=== PATIENT | female | born 1990 | race Caucasian/White ===

== ENCOUNTER 2020-03-16 10:07 | Outpatient (REF) | payer MEDICAID, SELFPAY ==
--- NOTE | 2020-03-16 | US_ITS ---
EXAMINATION: US ABDOMEN COMPLETE CLINICAL INFORMATION: Nausea with vomiting. COMPARISON: None TECHNIQUE: Real-time imaging of the abdominal viscera. FINDINGS: PANCREAS: Normal. ABDOMINAL AORTA: The proximal, mid, and distal segments are normal in caliber. INFERIOR VENA CAVA: Visualized portions are normal. LIVER: The liver is mildly heterogeneous but normal size and contour. There is scattered echogenic microcalcifications. No focal hepatic lesion. There is no intrahepatic biliary duct dilatation seen. GALLBLADDER: Normal. The gallbladder is physiologically distended without evidence of stones, sludge, polyps, wall thickening or pericholecystic fluid. COMMON BILE DUCT: Normal in caliber measuring 0.2 cm in diameter. RIGHT KIDNEY: Normal. No hydronephrosis. No renal calculi or focal parenchymal lesions. The kidney measures 10.5 cm in maximum dimension. LEFT KIDNEY: Normal. No hydronephrosis. No renal calculi or focal parenchymal lesions. The kidney measures 10.8 cm in maximum dimension. SPLEEN: Normal. The spleen measures 9.1 cm in maximum dimension. FREE FLUID: None. US/US abdomen complete IMPRESSION: Mild heterogeneous liver with scattered microlithiasis. Rest of the liver appears unremarkable.
== END 2020-03-16 10:08 | disposition home or self-care (01) ==
LOC: HO.US 10:07
PROVIDERS: PCP Registered Nurse; Visit Provider Registered Nurse
DX: R10.13 Epigastric pain (principal); R11.2 Nausea with vomiting, unspecified; K21.9 Gastro-esophageal reflux disease without esophagitis; Z87.19 Personal history of other diseases of the digestive system
CPT/HCPCS: 76700

== ENCOUNTER → 2020-03-29 14:18 | Outpatient (BNVA) | payer MEDICAID, SELFPAY | PROVIDERS: PCP Family Medicine; Visit Provider Physician Assistant ==

== ENCOUNTER 2020-03-30 13:28 | Outpatient (REF) | payer MEDICAID, SELFPAY ==
[2020-03-30 13:55] LABS: MANUAL DIFF FLAG NO
[2020-03-30 14:11] LABS: Basophils Percent Auto 0.4 % (0-2); Eosinophils Absolute Auto 0.1 X10*3/uL (0.0-0.4); Eosinophils Percent Auto 1.1 % (0-4); Hematocrit 40.5 % (37-47); Hemoglobin 12.9 g/dl (12.0-16.0); Imm Gran Abs Auto 0.02 X10*3/uL (0.00-0.03); Imm Gran Pct Auto 0.3 % (0.0-0.4); Lymphocytes Absolute Auto 1.5 X10*3/uL (1.2-4.9); Lymphocytes Percent Auto 20.2 % (20-40); Mean Corpuscular HGB Conc 31.9 g/dl (31.0-35.0); Mean Corpuscular Hemoglobin 27.4 pg (27.0-33.0); Mean Platelet Volume 13.8 fL (9.4-12.3); Monocytes Absolute Auto 0.5 X10*3/uL (0.1-1.2); Monocytes Percent Auto 6.1 % (2-11); Neutrophils Absolute Auto 5.3 X10*3/uL (2.0-8.3); Neutrophils Percent Auto 71.9 % (45-73); Platelet Count 163 X10*3/uL (160-400); Red Blood Count 4.71 X10*6/uL (4.20-5.50); White Blood Count 7.4 X10*3/uL (4.8-10.8)
[2020-03-30 15:09] LABS: Alanine Aminotransferase 22 U/L (0-31); Albumin Level 4.3 g/dL (3.5-5.0); Alkaline Phosphatase 82 U/L (39-117); Anion Gap 11 (12-20); Aspartate Amino Transferase 22 U/L (5-31); Bilirubin Total 0.3 mg/dL (0.0-1.0); Blood Urea Nitrogen 15 mg/dL (9-16); Calcium 9.1 mg/dL (8.4-10.2); Carbon Dioxide 28 mmol/L (22-29); Chloride 107 mmol/L (96-108); Estimated Glomerular Filt Rate > 60; Glucose Random 93 mg/dL (60-115); Potassium 4.3 mmol/l (3.3-5.1); Sodium 142 mmol/L (135-145)
[2020-04-03 21:32] LABS: TS Negative Control Passed; TS Panel A 0; TS Panel B 0; TS Positive Control Passed; TSpotTB Negative (SeeBelow)
[2020-04-09 06:18] LABS: Angiotensin Converting Enzyme 25 U/L (9-67)
== END 2020-03-30 13:29 | disposition home or self-care (01) ==
LOC: HO.LAB 13:28
PROVIDERS: PCP Registered Nurse; Visit Provider Physician Assistant
DX: G89.29 Other chronic pain (principal); R10.11 Right upper quadrant pain; R74.01 Elevation of levels of liver transaminase levels
CPT/HCPCS: 36415; 80053; 82164; 85025; 86481; 86682

== ENCOUNTER 2020-04-06 16:59 | Outpatient (REF) | payer MEDICAID, SELFPAY | END 2020-04-06 17:00 | disposition home or self-care (01) | LOC: HO.LAB 16:59 | PROVIDERS: Visit Provider Internal Medicine | DX: Z20.822 Contact with and (suspected) exposure to COVID-19 (principal) | CPT/HCPCS: 36415; C9803; U0003 ==

== ENCOUNTER 2020-04-20 09:29 | Outpatient (REF) | payer MEDICAID, SELFPAY ==
--- NOTE | ~2020-04-20 | MR_ITS ---
EXAMINATION: MR ABDOMEN WITHOUT AND WITH CONTRAST CLINICAL INFORMATION: R93.89 - Abnormal findings on diagnostic imaging of other specified body structures. COMPARISON: Previous abdominal ultrasound 03/16/2020 TECHNIQUE: MR abdomen was performed without and with use of 5 mL intravenous Gadavist contrast. Postcontrast images are performed in multiphase dynamic sequences. Imaging was performed in 3 planes. FINDINGS: LUNG BASES: The visualized lung bases are unremarkable. LIVER, GALLBLADDER, AND BILIARY TREE: The liver is normal in size, smooth in contour, and normal in signal. There are linear branching areas of low signal on T1-weighted sequences and high signal on T2-weighted sequences and do not demonstrate enhancement, for example image 32 and the lateral segment of the left lobe and image 47 in the posterior segment of the right lobe series 101 postcontrast. This is suggestive of mild intrahepatic biliary duct dilatation. No obstructing mass is seen. The extrahepatic bile ducts are normal in caliber. The gallbladder is unremarkable with no evidence of gallbladder wall thickening, or obvious pericholecystic inflammatory changes. PANCREAS: Unremarkable. SPLEEN: Normal. ADRENAL GLANDS: Normal. KIDNEYS AND URETERS: The kidneys are normal in size, shape, and enhance symmetrically. No hydronephrosis. No perinephric stranding. There is a small probable cyst in the upper pole of the right kidney. GASTROINTESTINAL TRACT: No bowel obstruction. No ascites or fluid collection. ABDOMINAL WALL: No significant hernia is appreciated. LYMPH NODES: No lymphadenopathy. VASCULAR: Unremarkable. OSSEOUS STRUCTURES: Marrow signal normal. MR/MR abdomen wo/w con IMPRESSION: Two areas of mild intrahepatic biliary duct dilatation in the lateral segment of the left lobe and posterior segment of the right lobe of the liver. The extrahepatic bile ducts do not appear dilated. No liver lesion is seen. The echogenic foci with reverberation artifact in the liver seen on ultrasound questionable for air versus calcification is difficult to evaluate by MRI. This could be better evaluated by CT scan if clinically indicated. Normal-appearing gallbladder. No gallstone seen. Probable small right renal cyst.
== END 2020-04-20 09:30 | disposition home or self-care (01) ==
LOC: HO.MRI 09:29
PROVIDERS: Visit Provider Physician Assistant
DX: R93.89 Abnormal findings on diagnostic imaging of other specified body structures (principal)
CPT/HCPCS: 74183; A9585

== ENCOUNTER 2020-05-31 09:40 | Outpatient (REF) | payer MEDICAID, SELFPAY ==
--- NOTE | ~2020-05-31 | CT_ITS ---
EXAMINATION: CT ABDOMEN WITHOUT AND WITH CONTRAST CLINICAL INFORMATION: Nausea and vomiting. Question abnormal liver and gallbladder COMPARISON: Previous abdominal ultrasound March 2020 and abdominal MRI April 2020 TECHNIQUE: Contiguous axial thin section helical images of the abdomen were performed before and after the administration of oral contrast and 85 mL of Omnipaque 350 intravenous contrast. The data set was reformatted in the coronal and sagittal planes and reviewed on an independent workstation. This CT examination was performed using dose optimization techniques as appropriate, variously including the following: *Automated exposure control *Adjustment of mA and/or kV according to patient size (this includes techniques or standardized protocols for targeted exams where dose is matched to indication/reason for exam; i.e. extremities or head) *Use of iterative reconstruction technique DLP: 341 mGy-cm FINDINGS: LUNG BASES: Clear LIVER, GALLBLADDER, AND BILIARY TREE: The liver is normal in size, shape and attenuation. There are scattered areas of mild intrahepatic biliary duct dilatation seen in the posterior segment of the right lobe of the liver, for example axial image 11 and 12, lateral segment of the left lobe of the liver, for example image 21-23 and in the more inferior posterior segment of the right lobe of the liver for example images 29-32 series 5. No focal liver lesion is seen. The common bile duct does not appear dilated. The gallbladder is normal-appearing. I PANCREAS: The body and tail the pancreas appear prominent. The body measures 2.3 cm in AP dimension in the tail measures 2.2 cm in dimension. The pancreas enhances normally. No focal pancreatic lesion is seen. The main pancreatic duct does not appear dilated. The peripancreatic fat is normal. SPLEEN: Normal ADRENAL GLANDS AND KIDNEYS: Normal normal BOWEL LOOPS: LYMPH NODES: Normal. VASCULAR: Unremarkable. BONES: Normal CT/CT abdomen wo/w con IMPRESSION: Scattered areas of mild intrahepatic biliary duct dilatation. No extrahepatic biliary duct dilatation. Normal-appearing gallbladder. Prominent body and tail of the pancreas. Possible pancreatitis should be considered.
== END 2020-05-31 09:41 | disposition home or self-care (01) ==
LOC: HO.CT 09:40
PROVIDERS: Visit Provider Physician Assistant
DX: R93.89 Abnormal findings on diagnostic imaging of other specified body structures (principal)
CPT/HCPCS: 74170

== ENCOUNTER → 2020-06-06 08:23 | Outpatient (BNVA) | payer MEDICAID, SELFPAY | PROVIDERS: PCP Family Medicine; Visit Provider Physician Assistant ==

== ENCOUNTER → 2020-06-07 10:38 | Outpatient (BNVA) | payer MEDICAID, SELFPAY | PROVIDERS: PCP Family Medicine; Visit Provider Urology | DX: N39.0 Urinary tract infection, site not specified (principal) | CPT/HCPCS: 81002; 99212 ==

== ENCOUNTER 2020-06-10 14:01 | Outpatient (REF) | payer MEDICAID, SELFPAY ==
--- NOTE | ~2020-06-10 | MR_ITS ---
EXAMINATION: MR ABDOMEN WITHOUT AND WITH CONTRAST CLINICAL INFORMATION: Follow-up abnormal pancreas. COMPARISON: Previous abdominal ultrasound March 2020, MR of the abdomen April [address] of the abdomen May 2020 TECHNIQUE: MR abdomen was performed without and with use of 4.5 mL intravenous Gadavist gadolinium contrast. Postcontrast images are performed in multiphase dynamic sequences. Imaging was performed in 3 planes. MRCP sequences were also performed. FINDINGS: LUNG BASES: The visualized lung bases are unremarkable. LIVER, GALLBLADDER, AND BILIARY TREE: The liver is normal in size, smooth in contour, and normal in signal. There is mild intrahepatic biliary duct dilatation seen in the lateral segment of the left lobe and posterior segment of the right lobe. This is similar to previous exams. No focal liver lesion is seen. The gallbladder is unremarkable with no evidence of gallbladder wall thickening, or obvious pericholecystic inflammatory changes. The extrahepatic bile ducts are normal in caliber. No filling defect is seen. PANCREAS: The body and tail the pancreas appears slightly prominent measuring 2.2 and 2.0 cm in AP dimension. This is similar to recent exams. The pancreas is normal in signal. The pancreas demonstrates normal enhancement post contrast. The peripancreatic fat is normal. The main pancreatic duct does not appear dilated. SPLEEN: Normal. ADRENAL GLANDS: Normal. KIDNEYS AND URETERS: The kidneys are normal in size, shape, and enhance symmetrically. No hydronephrosis. No perinephric stranding. GASTROINTESTINAL TRACT: No bowel obstruction. No ascites or fluid collection. ABDOMINAL WALL: No significant hernia is appreciated. LYMPH NODES: No lymphadenopathy. VASCULAR: Unremarkable. OSSEOUS STRUCTURES: Marrow signal normal. MR/MR abdomen wo/w con IMPRESSION: Stable areas of mild intrahepatic biliary duct dilatation in the liver. Fullness of the body and tail of the pancreas. This is similar to previous exams and demonstrates normal signal and enhancement.
== END 2020-06-10 14:02 | disposition home or self-care (01) ==
LOC: HO.MRI 14:01
PROVIDERS: Visit Provider Physician Assistant
DX: R93.89 Abnormal findings on diagnostic imaging of other specified body structures (principal)
CPT/HCPCS: 74183; A9585

== ENCOUNTER 2020-07-05 09:30 | Outpatient (REF) | payer MEDICAID, SELFPAY ==
[2020-07-07 16:42] LABS: HPV mRNA E6/E7 rflx Not Detected (Not Detected)
== END 2020-07-05 09:31 | disposition home or self-care (01) ==
LOC: HO.LAB 09:30
PROVIDERS: PCP Registered Nurse; Visit Provider Obstetrics & Gynecology
DX: Z01.419 Encounter for gynecological examination (general) (routine) without abnormal findings (principal); Z97.5 Presence of (intrauterine) contraceptive device
CPT/HCPCS: 87624; 88142

== ENCOUNTER 2020-07-13 07:29 | Day surgery (SDC) | payer MEDICAID, SELFPAY ==
--- NOTE | 2020-07-12 10:49 | HO.ANESPROP2 ---
Documented by User: Casandra Green 07/12/20 10:49 HPI - Anesthesia Eval Consult details Narrative: 30yo F for Upper Endoscopy PMF Active Problems Active Problems: All Active Problems (Updated 07/05/20 @ 10:06 by Graham Munguia MD) IUD check up (Acute) Well woman exam (Acute) Abnormal MRI of abdomen (Acute) Recurrent UTI (urinary tract infection) (Acute) Abnormal CT scan (Acute) Abnormal ultrasound (Acute) Chronic abdominal pain (Acute) Past Medical History Medical History Chronic abdominal pain Family History Family History Father Diabetes HTN (hypertension) Heart problem Mother Cancer Diabetes HTN (hypertension) Maternal Grandmother Cancer Surgical History Surgical History History of esophagogastroduodenoscopy (EGD) Social History Social History Household Members: Spouse and Children Alcohol intake: current Alcohol intake frequency: holidays/special occasions only Smoking Status: Never smoker Use of substances other than those prescribed or required for medical reasons: No Are you DNR?: No Advance Directives: No Advance Directives Information Provided: Yes Current occupational status: employed 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 Meds Allergies Allergy/AdvReac Type Severity Reaction Status Date / Time Sulfa (Sulfonamide Allergy Mild EYE Verified 07/13/20 08:01 Antibiotics) SWELLING [SULFA (SULFONAMIDE ANTIBIOTICS)] Home Medications Medication Instructions Recorded Confirmed Last Taken Type copper 380 square mm intrauterine INTRAUTERINE 07/05/20 Unknown History device Exam Exam Date and Time: July 12, 2020 104 Assessment and Plan Assessment Anesthesia Assessment: Chart Reviewed Documented by User: Kelsea Wahl 07/13/20 08:10 PMFSH Past Medical History Medical History Chronic abdominal pain Family History Family History Father Diabetes HTN (hypertension) Heart problem Mother Cancer Diabetes HTN (hypertension) Maternal Grandmother Cancer Surgical History Surgical History History of esophagogastroduodenoscopy (EGD) Social History Social History Household Members: Spouse and Children Alcohol intake: current Alcohol intake frequency: holidays/special occasions only Smoking Status: Never smoker Use of substances other than those prescribed or required for medical reasons: No Are you DNR?: No Advance Directives: No Advance Directives Information Provided: Yes Current occupational status: employed 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 Meds Allergies Allergy/AdvReac Type Severity Reaction Status Date / Time Sulfa (Sulfonamide Allergy Mild EYE Verified 07/13/20 08:01 Antibiotics) SWELLING [SULFA (SULFONAMIDE ANTIBIOTICS)] Home Medications Medication Instructions Recorded Confirmed Last Taken Type copper 380 square mm intrauterine INTRAUTERINE 07/05/20 Unknown History device Exam Airway Mallampati Class: I TM Dist: >3cm Neck ROM: Full Assessment and Plan Assessment Anesthesia Assessment: Anesthesia Plan Discussed and Chart Reviewed Final Anesthetic Review NPO: Yes ASA Class: II Final Preanesthetic Review: No Changes in Pt Med Stat, Meds/Allgs Chart Reviewed, Consent Obtained/Reviewed and Anes Risks/Benef Reviewed Patient Risk: Low Procedure Risk: Low Assessment/Block/Sedation in SS: Assess/Block/Sedation-SS Anesthetic Plan Anesthetic Plan: MAC: Disposition: Standard PACU
[2020-07-13 08:01] VITALS: BP 120/70; PULSE 70; RESP 18; TEMP 36.2; O2SAT 98; BMI 21.7
[2020-07-13 08:02] LABS: UPreg QC Valid YES; Urine Pregnancy NEGATIVE (NEGATIVE)
[2020-07-13] MEDS: Lactated Ringers 1,000 ML 100 ML IVCONT (08:13)
--- NOTE | 2020-07-13 08:44 | MHC.SHP ---
Pre-Procedural Eval Section B Chief Complaint: Chronic Abdominal Pain Relevant Family History (Specify if Yes): No Relevant Social History: None Present Medications: None Medical History: Significant History (abdominal pain ) History of Previous Operations: Relevant previous surgery/procedure and date(s) (History of esophagogastroduodenoscopy (EGD)) Allergies: Allergies Allergy/AdvReac Type Severity Reaction Status Date / Time Sulfa (Sulfonamide Allergy Mild EYE Verified 07/13/20 08:01 Antibiotics) SWELLING [SULFA (SULFONAMIDE ANTIBIOTICS)] Review of Systems Sugical H&P ROS: Negative: Constitution, Cardiovascular, Respiratory, Neurological, Psychiatric, Hem-Onc, Allergic/Immunologic, Gastrointestinal, Genitourinary, Musculoskeletal, Integumentary, Endocrine and Eyes/Ears/Nose/Throat Exam Surgical H&P Exam: Normal: HEENT, Normal: Heart, Normal: Lungs, Normal: Extremities, Normal: Abdomen, Normal: Skin and Normal: Neurological Plan Diagnosis/Plan: Unchanged I have reviewed the history and physical and performed a pertinent physical examination on my patient. No changes have occurred unless specified.
--- NOTE | 2020-07-13 08:52 | P.BOP_ITS ---
Brief Operative Note Date of Service: 07/13/20 Pre-op diagnosis: abdo pain Post-op diagnosis: same Procedure: see op note Surgeon: Genoveva Chamorro MD Anesthesia: MAC Was an Operations Supervisor [employer] Cleaning used for this Procedure?: No Estimated blood loss (mL): 0 Condition: stable Disposition: PACU
--- NOTE | 2020-07-13 08:52 | W.PM.OPN ---
Operative Note Operative Note Date of Service: 07/13/20 Narrative: Procedure Description: EGD FLEXIBLE TRANSORAL UPPER GASTROINTESTINAL ENDOSCOPY UPPER ENDOSCOPY Consent: Indications for the procedure and potential complications of bleeding, perforation, reaction to medications and missed diagnosis were discussed with the patient and informed consent was obtained. Instrument: Olympus GIF H 190 J mid size upper endoscope Monitoring: Vital signs and clinical assessment, continuous EKG monitoring, Pulse oximetry, Carbon Dioxide monitoring and blood pressure monitoring were done throughout the procedure. Procedure: The patient was placed in the left lateral decubitis position and pre-procedure medications were administered and a bite block was placed. The endoscope was inserted into the mouth and advanced under direct vision to the third part of duodenum. A careful inspection was made as the upper endoscope was withdrawn including a retroflexed examination of the proximal stomach; Findings and interventions are described below. Findings: Larynx:normal Esophagus: GE junction at 38 cm, diaphragm hiatus at 38 cm, mild esophagitis at GEJ. bx taken Stomach: Patchy gastric erythema in antrum. Biopsies were obtained. Grade 2 flap valve on retroflexed examination of the cardia. Duodenum: Normal bulb and descending duodenum, bx taken Intervention: Biopsies as noted above Impression/Findings: mild gastritis mild esophagitis PLAN: await bx, f/u in office to review results
[2020-07-13 08:56] VITALS: BP 103/47; PULSE 82; RESP 16; TEMP 36.8; O2SAT 97
[2020-07-13 09:11] VITALS: BP 107/63; PULSE 81; RESP 18; O2SAT 99
[2020-07-13 09:26] VITALS: BP 119/79; PULSE 81; RESP 18; O2SAT 100
== END 2020-07-13 09:56 | disposition home or self-care (01) ==
PROVIDERS: Nurse Practitioner; PCP Registered Nurse; Visit Provider Internal Medicine Gastroenterology
PROC: 0DJ08ZZ Inspection of Upper Intestinal Tract, Via Natural or Artificial Opening Endoscopic (ICD-10-PCS; CPT 43235; principal; 2020-07-13 08:30)
DX: K29.60 Other gastritis without bleeding (principal); G89.29 Other chronic pain; K21.9 Gastro-esophageal reflux disease without esophagitis; K20.80 Other esophagitis without bleeding; K44.9 Diaphragmatic hernia without obstruction or gangrene; Z79.899 Other long term (current) drug therapy; Z88.2 Allergy status to sulfonamides
CPT/HCPCS: 43239; 81025; 88305; 88342

== ENCOUNTER → 2020-10-14 09:17 | Outpatient (BNVA) | payer MEDICAID, SELFPAY | PROVIDERS: PCP Registered Nurse; Referring Provider Registered Nurse; Visit Provider Internal Medicine Gastroenterology | DX: K29.70 Gastritis, unspecified, without bleeding (principal) | CPT/HCPCS: 99212 ==

== ENCOUNTER → 2021-04-10 09:32 | Outpatient (BNVA) | payer MEDICAID, SELFPAY | PROVIDERS: PCP Nurse Practitioner Primary Care; Visit Provider Internal Medicine Gastroenterology | DX: K29.70 Gastritis, unspecified, without bleeding (principal); F41.9 Anxiety disorder, unspecified | CPT/HCPCS: 99212 ==

== ENCOUNTER → 2021-07-06 09:08 | Outpatient (BNVA) | payer MEDICAID, SELFPAY | PROVIDERS: PCP Registered Nurse; Visit Provider Obstetrics & Gynecology | DX: Z13.89 Encounter for screening for other disorder (principal) ==

== ENCOUNTER 2021-07-11 09:37 | Day surgery (SDC) | payer MEDICAID, SELFPAY ==
[2021-07-06 14:31] VITALS: BMI 23.8
--- NOTE | 2021-07-10 12:04 | P.CONAN_ITS ---
Documented by User: Casandra Green NP 07/10/21 12:06 HPI - Anesthesia Eval Consult details Narrative: 31yo F for Colonoscopy s/p EGD 07/2020 with MAC PMF Active Problems Active Problems: All Active Problems (Updated 07/05/20 @ 10:06 by Graham Munguia MD) IUD check up (Acute) Well woman exam (Acute) Abnormal MRI of abdomen (Acute) Recurrent UTI (urinary tract infection) (Acute) Abnormal CT scan (Acute) Abnormal ultrasound (Acute) Chronic abdominal pain (Acute) Past Medical History Medical History Chronic abdominal pain Family History Family History Father Diabetes HTN (hypertension) Heart problem Mother Cancer Diabetes HTN (hypertension) Maternal Grandmother Cancer Surgical History Surgical History History of esophagogastroduodenoscopy (EGD) Social History Social History Household Members: Spouse and Children Alcohol intake: current Alcohol intake frequency: holidays/special occasions only Patient Tobacco Use Status: Never used Tobacco Current occupational status: employed 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 Meds Allergies Allergy/AdvReac Type Severity Reaction Status Date / Time Sulfa (Sulfonamide Allergy Mild EYE Verified 04/10/21 09:44 Antibiotics) SWELLING [SULFA (SULFONAMIDE ANTIBIOTICS)] Home Medications Medication Instructions Recorded Confirmed Last Taken Type copper 380 square mm intrauterine INTRAUTERINE 07/05/20 Unknown History device (ParaGard T 380A) cetirizine 10 mg tablet 10 mg PO DAILY PRN 04/10/21 Unknown History Exam Exam Date and Time: July 10, 2021 1204 Height,Weight and Vital Signs: Height 5 ft 1 in Weight 57.153 kg Assessment and Plan Assessment Anesthesia Assessment: Chart Reviewed Documented by User: Bib Rg MD 07/11/21 16:37 [facility] Past Medical History Medical History Chronic abdominal pain Family History Family History Father Diabetes HTN (hypertension) Heart problem Mother Cancer Diabetes HTN (hypertension) Maternal Grandmother Cancer Family history of problems with anesthesia: No Surgical History Surgical History History of esophagogastroduodenoscopy (EGD) History of Problems with Anesthesia: No Social History Social History Household Members: Spouse and Children Alcohol intake: current Alcohol intake frequency: holidays/special occasions only Patient Tobacco Use Status: Never used Tobacco Current occupational status: employed 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 Meds Allergies Allergy/AdvReac Type Severity Reaction Status Date / Time Sulfa (Sulfonamide Allergy Mild EYE Verified 04/10/21 09:44 Antibiotics) SWELLING [SULFA (SULFONAMIDE ANTIBIOTICS)] Home Medications Medication Instructions Recorded Confirmed Last Taken Type copper 380 square mm intrauterine INTRAUTERINE 07/05/20 Unknown History device (ParaGard T 380A) cetirizine 10 mg tablet 10 mg PO DAILY PRN 04/10/21 Unknown History Exam Airway Mallampati Class: II TM Dist: >3cm Neck ROM: Full Loose/Missing/Broken Teeth: Yes Heart: S1, S2 Lungs: b/l breath sounds Assessment and Plan Assessment Anesthesia Assessment: Anesthesia Plan Discussed Final Anesthetic Review Family History of Problems with Anesthesia: No History of Problems with Anesthesia: No NPO: Yes ASA Class: II Final Preanesthetic Review: Meds/Allgs Chart Reviewed, Consent Obtained/Reviewed and Anes Risks/Benef Reviewed Patient Risk: Intermediate Procedure Risk: Intermediate Anesthetic Plan Anesthetic Plan: MAC: Disposition: Standard PACU
--- NOTE | 2021-07-11 09:49 | P.HPSUR_ITS ---
Pre-Procedural Eval Section A Date of Service: 07/11/21 Section B Chief Complaint: change in bowel habit Details of Present Illness: grandmother had colon cancer Relevant Family History (Specify if Yes): Yes Relevant Social History: None Present Medications: see Short Stay Collaborative assessment Medical History: Significant History (Chronic abdominal pain) History of Previous Operations: Relevant previous surgery/procedure and date(s) (EGD) Allergies: Allergies Allergy/AdvReac Type Severity Reaction Status Date / Time Sulfa (Sulfonamide Allergy Mild EYE Verified 04/10/21 09:44 Antibiotics) SWELLING [SULFA (SULFONAMIDE ANTIBIOTICS)] Review of Systems Sugical H&P ROS: Negative: Constitution, Cardiovascular, Respiratory, Neurological, Psychiatric, Hem-Onc, Allergic/Immunologic, Gastrointestinal, Genitourinary, Musculoskeletal, Integumentary, Endocrine and Eyes/Ears/Nose/Throat Exam Surgical H&P Exam: Normal: HEENT, Normal: Heart, Normal: Lungs, Normal: Extre mities, Normal: Abdomen, Normal: Skin and Normal: Neurological Plan Diagnosis/Plan: Unchanged I have reviewed the history and physical and performed a pertinent physical examination on my patient. No changes have occurred unless specified.
[2021-07-11 10:06] LABS: UPreg QC Valid YES; Urine Pregnancy NEGATIVE (NEGATIVE)
[2021-07-11 10:10] VITALS: BP 127/78; PULSE 101; RESP 18; TEMP 37.1; O2SAT 100
[2021-07-11] MEDS: Lactated Ringers 1,000 ML 100 ML IVCONT (10:24)
--- NOTE | 2021-07-11 10:54 | PM.OP ---
Brief Operative Note Date of Service: 07/11/21 Pre-op diagnosis: abnormal bowel habit Post-op diagnosis: same Procedure: see op note Surgeon: Genoveva Chamorro MD Anesthesia: MAC Was an Vp Director Of Finance used for this Procedure?: No Estimated blood loss (mL): 0 Condition: stable Disposition: PACU
--- NOTE | 2021-07-11 10:55 | P.OP_ITS ---
Operative Note Operative Note Date of Service: 07/11/21 Narrative: Operative Information Procedure Description: Colonoscopy Indication: abnormal bowel habits Anesthesia: MAC COLONOSCOPY Instrument: Olympus variable stiffness pediatric scope 190L Colonoscopy Monitoring: Vital signs and clinical assessment, continuous EKG monitoring, Pulse oximetry, Carbon Dioxide monitoring and blood pressure monitoring were done throughout the procedure. Colon withdrawal time was 9 minutes. Procedure: The patient was placed in the left lateral decubitis position and pre-procedure medications were administered. After a digital rectal examination of the ano-rectum, the video colonoscope was inserted into the rectum and advanced through the colon to the cecum/TI. The colonoscope was slowly withdrawn in a retrograde panoramic fashion and the colon mucosa was carefully examined including a retroflexed view of the rectum. Findings and interventions are described below. Procedure Difficulty: moderate due to tortuous colon Findings: Terminal Ileum-normal, bx taken Random colon bx taken Cecum:normal Ascending Colon: normal Transverse Colon -normal Descending Colon:normal Sigmoid Colon: normal Rectum: Retroflexion with small internal hemorrhoids, grade I with skin tag Anorectum - small external hemorrhoid noted Colon preparation: [place] Bowel Preparation Scale Right colon; 2 Transverse colon: 2 Left colon; 2 (0 = Unprepared colon segment with mucosa not seen due to solid stool that cannot be cleared. 1 = Portion of mucosa of the colon segment seen, but other areas of the colon segment not well seen due to staining, residual stool and/or opaque liquid. 2 = Minor amount of residual staining, small fragments of stool and/or opaque liquid, but mucosa of colon segment seen well. 3 = Entire mucosa of colon segment seen well with no residual staining, small fragments of stool or opaque liquid) Impression and Post Procedure Diagnosis: internal and external hemorrhoids tortuous colon Plan: High fiber diet leaflet Avoid straining at stool, epsom salts and sitz bath, anusol supps or cream Repeat Colonoscopy aged 45 for routine screening or earlier if clinically indicated Above findings were reviewed with the patient and relevant handouts were provided if indicated.
[2021-07-11 10:59] VITALS: BP 88/45; PULSE 101; RESP 16; TEMP 36.1; O2SAT 97
[2021-07-11 11:14] VITALS: BP 95/49; PULSE 96; RESP 16; O2SAT 97
[2021-07-11 11:29] VITALS: BP 105/64; PULSE 93; RESP 18; O2SAT 98
[2021-07-11 11:44] VITALS: BP 115/72; PULSE 85; RESP 18; TEMP 36.8; O2SAT 100
== END 2021-07-11 12:20 | disposition home or self-care (01) ==
PROVIDERS: Nurse Practitioner; PCP Nurse Practitioner Primary Care; Visit Provider Internal Medicine Gastroenterology
PROC: 0DJD8ZZ Inspection of Lower Intestinal Tract, Via Natural or Artificial Opening Endoscopic (ICD-10-PCS; CPT 45378; principal; 2021-07-11 11:00)
DX: R19.4 Change in bowel habit (principal); K64.0 First degree hemorrhoids; K64.4 Residual hemorrhoidal skin tags; K56.2 Volvulus; K21.9 Gastro-esophageal reflux disease without esophagitis; R10.9 Unspecified abdominal pain; G89.29 Other chronic pain; Z88.2 Allergy status to sulfonamides
CPT/HCPCS: 45380; 81025; 88305

== ENCOUNTER 2021-11-24 10:27 | Outpatient (REF) | payer MEDICAID, SELFPAY ==
--- NOTE | ~2021-11-24 | XR_ITS ---
EXAMINATION: XR KNEE, RIGHT XR KNEE, LEFT CLINICAL INFORMATION: Bilateral knee pain. COMPARISON: None TECHNIQUE: Each knee is imaged in 4 views. This series includes AP projections with weightbearing. FINDINGS: Right: Normal bony mineralization. No fracture, dislocation, destructive process, or suprapatellar effusion. No joint narrowing or erosive change. No chondrocalcinosis. Hoffa's fat pad appears normal. Left: Normal bony mineralization. No fracture, dislocation, destructive process, or suprapatellar effusion. No joint narrowing or erosive change. No chondrocalcinosis. Hoffa's fat pad appears normal. XR/XR knee LT 4V IMPRESSION: Unremarkable bilateral knees.
--- NOTE | ~2021-11-24 | XR_ITS ---
EXAMINATION: XR ELBOW, RIGHT CLINICAL INFORMATION: Right elbow pain COMPARISON: None TECHNIQUE: AP, lateral, and oblique views of the right elbow. FINDINGS: Normal bony mineralization. No acute or healing fracture, dislocation, destructive process, or elbow capsular effusion. No joint narrowing or erosive changes. No spurring epicondyles or olecranon. XR/XR elbow RT min 3V IMPRESSION: Normal right elbow.
--- NOTE | ~2021-11-24 | XR_ITS ---
EXAMINATION: XR KNEE, RIGHT XR KNEE, LEFT CLINICAL INFORMATION: Bilateral knee pain. COMPARISON: None TECHNIQUE: Each knee is imaged in 4 views. This series includes AP projections with weightbearing. FINDINGS: Right: Normal bony mineralization. No fracture, dislocation, destructive process, or suprapatellar effusion. No joint narrowing or erosive change. No chondrocalcinosis. Hoffa's fat pad appears normal. Left: Normal bony mineralization. No fracture, dislocation, destructive process, or suprapatellar effusion. No joint narrowing or erosive change. No chondrocalcinosis. Hoffa's fat pad appears normal. XR/XR knee RT 4V IMPRESSION: Unremarkable bilateral knees.
== END 2021-11-24 10:28 | disposition home or self-care (01) ==
LOC: HO.XRAY 10:27
PROVIDERS: Visit Provider Emergency Medicine
DX: M25.521 Pain in right elbow (principal); M25.561 Pain in right knee; M25.562 Pain in left knee
CPT/HCPCS: 73080; 73564

== ENCOUNTER → 2021-12-28 09:43 | Outpatient (BNVA) | payer MEDICAID, SELFPAY | PROVIDERS: PCP Nurse Practitioner Primary Care; Visit Provider Physician Assistant | DX: M77.11 Lateral epicondylitis, right elbow (principal) | CPT/HCPCS: 99202 ==

== ENCOUNTER 2022-01-15 05:53 | Outpatient (REF) | payer MEDICAID, SELFPAY ==
--- NOTE | ~2022-01-15 | XR_ITS ---
EXAMINATION: XR KNEE AP STANDING CLINICAL INFORMATION: Right knee pain. COMPARISON: Radiographs dated 11/24/2021. TECHNIQUE: AP bilateral standing view of the knees was obtained. FINDINGS: Bones and soft tissues are normal. No fracture or joint effusion. Alignment is anatomic. Joint spaces are well maintained. No abnormal soft tissue calcification. XR/XR knee standing BI IMPRESSION: Normal knees.
== END 2022-01-15 05:54 | disposition home or self-care (01) ==
LOC: HO.HOSX 05:53
PROVIDERS: Visit Provider Physician Assistant
DX: M22.2X1 Patellofemoral disorders, right knee (principal); M22.2X2 Patellofemoral disorders, left knee
CPT/HCPCS: 73565; 99212

== ENCOUNTER 2022-02-23 10:30 | Outpatient (REF) | payer MEDICAID, SELFPAY ==
[2022-02-23 14:11] LABS: HCG Quantitative 2762 mIU/mL
== END 2022-02-23 10:31 | disposition home or self-care (01) ==
LOC: HO.LAB 10:30
PROVIDERS: PCP Nurse Practitioner Primary Care; Visit Provider Advanced Practice Midwife
DX: O20.0 Threatened abortion (principal)
CPT/HCPCS: 36415; 81025; 84702; 99212

== ENCOUNTER 2022-02-26 08:02 | Outpatient (REF) | payer MEDICAID, SELFPAY ==
[2022-02-26 08:50] LABS: HCG Quantitative 5249 mIU/mL
== END 2022-02-26 08:03 | disposition home or self-care (01) ==
LOC: HO.LAB 08:02
PROVIDERS: Visit Provider Advanced Practice Midwife
DX: O20.0 Threatened abortion (principal)
CPT/HCPCS: 36415; 84702

== ENCOUNTER 2022-02-27 15:18 | Outpatient (REF) | payer MEDICAID, SELFPAY ==
--- NOTE | ~2022-02-27 | US_ITS ---
EXAMINATION: US OBSTETRICAL ULTRASOUND CLINICAL INFORMATION: Threatened . COMPARISON: None. LMP: 01/17/2022. Gestational age by maternal dates is 5 weeks 6 days. Estimated date of delivery by maternal dates is 10/24/2022. TECHNIQUE: Routine transabdominal imaging of pelvis is performed. FINDINGS: There is a single intrauterine gestational sac with visible yolk sac. There is no pole seen. There is no subchorionic hemorrhage either. Visualized uterus is unremarkable. There is a hypoechoic lesion in the uterus measuring 1.0 x 0.6 x 1.1 cm suggestive of fibroid. MATERNAL ADNEXA: The right maternal ovary measures 3.2 x 2.2 x 2.3 cm. It appears unremarkable. The left maternal ovary measures 2.6 x 2.2 x 2.3 cm. There is a small corpus luteal cyst measuring 1.7 x 1.7 x 1.8 cm. There is no significant maternal adnexal mass. No maternal pelvic ascites. US/US OB pelvic and transvaginal IMPRESSION: 1. Single intrauterine gestational sac and yolk sac visualized. pole is not seen. 2. There is a corpus luteal cyst left ovary. Otherwise, both ovaries are unremarkable.
== END 2022-02-27 15:19 | disposition home or self-care (01) ==
LOC: HO.US 15:18
PROVIDERS: Visit Provider Advanced Practice Midwife
DX: O20.0 Threatened abortion (principal)
CPT/HCPCS: 76801; 76817

== ENCOUNTER 2022-03-06 17:00 | Outpatient (RCR) | payer MEDICAID, SELFPAY ==
--- NOTE | 2022-02-06 18:10 | MHC.PT.EP ---
[facility] [place] Office [place] Office [place] Office [address] Richard Conner [address] [phone] F: [phone] F: [phone] F: [phone] F: [phone] Physical Therapy Plan of Care Date of Evaluation: Date of Surgery: N/A Diagnosis: B patellofemoral pain syndrome (RC) Assessment: pt is a 31 y/o female presenting to physical therapy w/ referring diagnosis of patellofemoral disorders, both knees. Impairments include pain, decreased range of motion, decreased strength, impaired functional mobility, impaired postural awareness, and altered ambulation mechanics. pt is a good candidate for skilled PT due to age, potential remediation of impairments, typical disease/condition progression and prognosis, comorbidities, and motivation. pt would benefit from skilled PT intervention to provide a tailored strengthening and stretching exercise program, functional training, gait training, postural re-training, neuromuscular re-education, modalities as needed for pain, equipment safety demonstration. Frequency and Duration: The patient will be seen 2x/wk for 4 wks Short Term Goals: pt will be I w/ HEP to promote self-management of condition. 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 Correction Goals: pt will report a statistically significant improvement in self-reported outcome measure, LEFI, to promote return to PLOF. pt will improve L hip strength to 5/5 in all planes to promote ease w/ stepping at work to reach for medications on higher shelves. Treatment Plan: Modalities to reduce pain, spasms and effusion. Manual therapy to restore motion and function. Therapeutic exercise to improve strength and flexibility. Neuromuscular re-education for posture and balance. Therapeutic activities to return to functional activities of daily living. Electronically signed by: Rose Miller PT, DPT Please sign and return to therapist. Thank you for your referral.
--- NOTE | 2022-04-11 15:24 | MHC.PT.DC ---
[facility] [place] Office [place] Office [place] Office [address] Richard Conner 140 [facility] [phone] F: [phone] F: [phone] F: [phone] F: [phone] Physical Therapy Discharge Report Diagnosis: B patellofemoral pain syndrome (RC) Date of Surgery: N/A Date of Evaluation: 02/06/22 Date of Discharge: 04/11/22 Treatments to Date: 4 Cancellations to Date: 4 No Shows to Date: 3 Discharge Status: Improved Function Visit Non-compliance Discharge Summary: The patient overall was reporting an improvement in her bilateral knee pain. She was given a home exercise program including a bilateral lower extremity flexibility and strengthening program. The patient has not been seen in approximately 35 days and she has not followed up with any additional appointments in that time. She is discharged from this physical therapy plan of care. Electronically signed by: Rose Miller PT, DPT Please sign and return to therapist. Thank you for your referral.
== END 2022-04-11 15:24 | disposition home or self-care (01) ==
LOC: HO.PT 17:00
PROVIDERS: PCP Nurse Practitioner Primary Care; Visit Provider Physician Assistant
DX: M22.2X1 Patellofemoral disorders, right knee (principal); M22.2X2 Patellofemoral disorders, left knee
CPT/HCPCS: 97110; 97162

== ENCOUNTER 2022-03-08 14:26 | Outpatient (REF) | payer MEDICAID, SELFPAY ==
[2022-03-08 18:24] LABS: HCG Quantitative 7857 mIU/mL
[2022-03-09 16:53] LABS: CT PCR NOT DETECTED (Not Detect.); NG PCR NOT DETECTED (Not Detect.)
[2022-03-10 14:33] LABS: BV Int Neg Control Negative (Negative); BV Int Pos Control Positive (Positive)
== END 2022-03-08 14:27 | disposition home or self-care (01) ==
LOC: HO.LAB 14:26
PROVIDERS: PCP Nurse Practitioner Primary Care; Visit Provider Advanced Practice Midwife
DX: O20.0 Threatened abortion (principal); Z71.2 Person consulting for explanation of examination or test findings
CPT/HCPCS: 36415; 84702; 86850; 86900; 87480; 87491; 87510; 87591; 87660; 99212

== ENCOUNTER 2022-03-08 15:52 | Outpatient (REF) | payer MEDICAID, SELFPAY | END 2022-03-08 15:53 | disposition home or self-care (01) | LOC: HO.LNP 15:52 | PROVIDERS: Visit Provider Advanced Practice Midwife | DX: Z13.89 Encounter for screening for other disorder (principal) ==

== ENCOUNTER 2022-03-14 10:36 | Outpatient (REF) | payer MEDICAID, SELFPAY ==
--- NOTE | ~2022-03-14 | US_ITS ---
EXAMINATION: US OBSTETRICAL ULTRASOUND CLINICAL INFORMATION: . COMPARISON: Pelvic ultrasound dated 02/27/2022. TECHNIQUE: Multiple 2-D grayscale transverse abdominal and transvaginal pelvic ultrasound images were obtained with Doppler. FINDINGS: The uterus is anteverted/anteflexed. An intramural fibroid in the anterior body measures 0.9 x 0.9 x 0.9 cm. A small intramural/submucosal cyst in the anterior body measures 0.6 x 0.4 x 0.4 cm. Color Doppler showed no abnormal vascular flow. A single intrauterine gestation is seen. Average crown-rump length measures 1.02 cm consistent with a 7 week 1 day gestation. A yolk sac is seen within normal limits measuring 0.4 cm. A heart rate is seen measuring 147 beats per minute. The cervix is closed unremarkable. There is trace free fluid in the cul-de-sac. No adnexal abnormality is identified. The right ovary measures 2.5 x 2.4 x 2.3 cm. The left ovary measures 3.9 x 2.2 x 2.8 . US/US OB <= 14 weeks fetus IMPRESSION: 1. Single intrauterine gestation with ultrasound gestational age of 7 weeks, 1 day +/- 4 days. 2. Estimated date of delivery is 10/30/2022 +/- 4 days.
== END 2022-03-14 10:37 | disposition home or self-care (01) ==
LOC: HO.US 10:36
PROVIDERS: PCP Nurse Practitioner Primary Care; Visit Provider Advanced Practice Midwife
DX: O20.0 Threatened abortion (principal)
CPT/HCPCS: 76801

== ENCOUNTER → 2022-03-19 10:02 | Outpatient (BNVA) | payer MEDICAID, SELFPAY | PROVIDERS: PCP Nurse Practitioner Primary Care; Visit Provider Advanced Practice Midwife | DX: O20.9 Hemorrhage in early pregnancy, unspecified (principal); Z71.2 Person consulting for explanation of examination or test findings; Z87.59 Personal history of other complications of pregnancy, childbirth and the puerperium; Z87.19 Personal history of other diseases of the digestive system; Z3A.01 Less than 8 weeks gestation of pregnancy | CPT/HCPCS: 99212 ==

== ENCOUNTER 2022-03-21 07:30 | Outpatient (RCR) | payer MEDICAID, SELFPAY ==
--- NOTE | 2022-02-05 15:39 | MHC.OT.EP ---
[address] [phone] Occupational Therapy Plan of Care Date of Evaluation: 02/05/22 Diagnosis: LATERAL EPICONDYLITIS OF R ELBOW Assessment: MS MALACHI MALDONADO REPORTS ABOUT A TWO TO THREE MONTH HISTORY OF R ELBOW PAIN. SHE WAS ISSUED A CFB AND REPORTS SOME RELIEF. HER PAIN RADIATES THROUGHOUT HER MID-ARM AND HAS MODERATE TO SEVERE DIFFICULTIES SLEEPING. 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 HER PAIN FLUCTUATES FROM 3-8/10. ONGOING SKILLED OT IS WARRANTED TO ADDRESS THE AREAS MENTIONED ABOVE. Frequency and Duration: The patient will be seen 3X/WEEK FOR 4 WEEKS Short Term Goals: IND HEP IND USE OF HEAT/ICE IND ACTIVITY MODIFICATION/ JOINT PROTECTION INCLUDING WORK SPACE MODIFICATIONS IND USE OF CFB AND WEAR DURING IADLs Long Chain Beamer Goals: REPORT MOSTLY PAINFREE AT REST REPORT <3/10 PAIN WITH LIGHT IADLs TOLERATE LIFTING 10 POUNDS WITH <3/10 PAIN Treatment Plan: Therapeutic Exercise Therapeutic Activity Home Exercise Program Splinting Neuro Re-ed Patient Education Desensitization/Sensory Re-ed Edema Control ADL Training Ultrasound NMES Iontophoresis Paraffin Fluidotherapy MHP Cold Packs Joint Mobilization Soft Tissue Mobilization Kinesiotaping Other (see comments) Electronically Signed By: QAMAR WHITLOCK OTR/Lui Please Sign and return to therapist. Thank you once again for your referral.
--- NOTE | 2022-04-20 09:57 | MHC.OT.DC ---
[address] [phone] F: [phone] Occupational Therapy Discharge Note Provider: Bob Gabriel PA-C Diagnosis: Right Lateral Epicondylitis Date of Evaluation: 02/05/22 Date of Discharge: 04/20/22 Treatments to Date: 9 No Shows to Date: 2 Discharge Summary: Farhan was referred to OT for right lateral elbow pain. She was doing fairly well and had good follow through w/ home exercise program and joint protection, but cont'd to have elbow pain present, although more focal and less frequent. She missed two appointments and did not follow up after check-in phone call. Electronically Signed By: Robyn Andrade OTR/Lui CHT Please Sign and return to therapist, thank you for your referral.
== END 2022-04-20 09:58 | disposition home or self-care (01) ==
LOC: HO.OT 07:30
PROVIDERS: PCP Nurse Practitioner Primary Care; Visit Provider Physician Assistant
DX: M77.11 Lateral epicondylitis, right elbow (principal)
CPT/HCPCS: 29125; 97033; 97035; 97110; 97140; 97165; 97760

== ENCOUNTER 2022-05-25 08:47 | Outpatient (REF) | payer MEDICAID, SELFPAY ==
[2022-05-25 09:45] LABS: MANUAL DIFF FLAG NO
[2022-05-25 10:08] LABS: Basophils Percent Auto 0.3 % (0-2); Eosinophils Percent Auto 0.3 % (0-4); Hematocrit 37.3 % (37.0-47.0); Hemoglobin 12.4 g/dl (12.0-16.0); Imm Gran Abs Auto 0.03 X10*3/uL (0.00-0.03); Imm Gran Pct Auto 0.5 % (0.0-0.4); Lymphocytes Absolute Auto 1.2 X10*3/uL (1.2-4.9); Lymphocytes Percent Auto 18.8 % (20-40); Mean Corpuscular HGB Conc 33.2 g/dl (31.0-35.0); Mean Corpuscular Hemoglobin 28.3 pg (27.0-33.0); Mean Corpuscular Volume 85.2 fL (80.0-98.0); Mean Platelet Volume 12.9 fL (9.4-12.3); Monocytes Absolute Auto 0.5 X10*3/uL (0.1-1.2); Monocytes Percent Auto 7.9 % (2-11); Neutrophils Absolute Auto 4.5 x10*3/uL (2.0-8.3); Neutrophils Percent Auto 72.2 % (45-73); Platelet Count 137 X10*3/uL (160-400); Red Blood Count 4.38 X10*6/uL (4.20-5.50); Red Cell Distribution Width 13.9 % (11.0-16.0); White Blood Count 6.2 X10*3/uL (4.8-10.8)
[2022-05-25 10:20] LABS: Appearance Urine Clear; Color Urine Dark Yellow; Glucose Urine UA Negative (Negative); Leukocyte Esterase Urine Trace (Negative); Nitrite Urine Negative (Negative); Specific Gravity - Urine >= 1.030 (1.005-1.025); UMIC TRIGGER UACC YES; Urine Blood Negative (Negative); Urine Ketones 80 mg/dL (Negative); Urine Protein Trace mg/dL (Neg-Trace)
[2022-05-25 10:23] LABS: Bacteria Urine None Seen (None Seen); Hyaline Casts Urine 0-2 /LPF (0-2); RBC Urine 0-2 /HPF (0-2); WBC Urine 0-5 /HPF (0-5)
[2022-05-25 11:12] LABS: Alanine Aminotransferase 81 U/L (0-31); Albumin Level 3.3 g/dL (3.5-5.0); Alkaline Phosphatase 98 U/L (39-117); Anion Gap 11 (12-20); Aspartate Amino Transferase 69 U/L (5-31); Bilirubin Total 0.9 mg/dL (0.0-1.0); Blood Urea Nitrogen 9 mg/dL (9-16); Calcium 8.5 mg/dL (8.4-10.2); Carbon Dioxide 25 mmol/L (22-29); Chloride 105 mmol/L (96-108); Estimated Glomerular Filt Rate > 60; Glucose Random 87 mg/dL (60-115); Potassium 3.3 mmol/L (3.3-5.1); Sodium 138 mmol/L (135-145); Total Protein 5.5 g/dL (6.5-8.0)
[2022-05-25 11:32] LABS: TSH reflex Free T4 1.76 uIU/mL (0.32-4.0)
== END 2022-05-25 08:48 | disposition home or self-care (01) ==
LOC: HO.LAB 08:47
PROVIDERS: PCP Nurse Practitioner Primary Care; Visit Provider Internal Medicine Gastroenterology
DX: R11.2 Nausea with vomiting, unspecified (principal); K75.81 Nonalcoholic steatohepatitis (NASH); R30.0 Dysuria
CPT/HCPCS: 36415; 80053; 81001; 84443; 85025; 99212

== ENCOUNTER 2022-06-21 08:29 | Outpatient (REF) | payer MEDICAID, SELFPAY ==
--- NOTE | ~2022-06-21 | US_ITS ---
EXAMINATION: US ABDOMEN COMPLETE CLINICAL INFORMATION: Nausea with vomiting. Rule out gallstones. COMPARISON: MRI abdomen 06/10/2020. CT abdomen 05/31/2020. Ultrasound abdomen complete 03/16/2020. TECHNIQUE: Real-time imaging of the abdominal viscera. FINDINGS: PANCREAS: Normal. ABDOMINAL AORTA: The proximal, mid, and distal segments are normal in caliber. INFERIOR VENA CAVA: Visualized portions are normal. LIVER: Branching hyperechoic structure in the posterior right hepatic lobe corresponds to an area of dilated subsegmental duct on prior CT scan and may reflect intrahepatic biliary stones or sludge. Otherwise the liver appears normal. No focal hepatic lesion. There is no intrahepatic biliary duct dilatation seen. GALLBLADDER: Layering gravel-like stones versus sludge in the gallbladder. The gallbladder is not dilated. There is no pericholecystic fluid, wall thickening, or mural edema. The patient did not report tenderness over the gallbladder. COMMON BILE DUCT: Normal in caliber measuring 0.6 cm in diameter. RIGHT KIDNEY: Normal. No hydronephrosis. No renal calculi or focal parenchymal lesions. The kidney measures 11.8 cm in maximum dimension. LEFT KIDNEY: Normal. No hydronephrosis. No renal calculi or focal parenchymal lesions. The kidney measures 11.2 cm in maximum dimension. SPLEEN: Normal. The spleen measures 9.7 cm in maximum dimension. FREE FLUID: None. US/US abdomen complete IMPRESSION: Layering gravel-like stones versus sludge in the gallbladder. No secondary evidence of acute cholecystitis. Branching hyperechoic structure in the posterior right hepatic lobe corresponds to an area of dilated subsegmental ducts on the prior CT scan and may reflect intrahepatic biliary stones or sludge.
== END 2022-06-21 08:30 | disposition home or self-care (01) ==
LOC: HO.US 08:29
PROVIDERS: PCP Nurse Practitioner Primary Care; Visit Provider Internal Medicine Gastroenterology
DX: R11.2 Nausea with vomiting, unspecified (principal)
CPT/HCPCS: 76700

== ENCOUNTER → 2022-06-22 12:17 | Outpatient (BNVA) | payer MEDICAID, SELFPAY | PROVIDERS: PCP Nurse Practitioner Primary Care; Visit Provider Internal Medicine Gastroenterology | DX: O26.892 Other specified pregnancy related conditions, second trimester (principal); R11.2 Nausea with vomiting, unspecified; K21.9 Gastro-esophageal reflux disease without esophagitis; Z3A.00 Weeks of gestation of pregnancy not specified | CPT/HCPCS: 99212 ==

== ENCOUNTER 2022-11-16 17:35 | Outpatient (REF) | payer MEDICAID, SELFPAY | END 2022-11-16 17:36 | disposition home or self-care (01) | LOC: HO.LNP 17:35 | PROVIDERS: Visit Provider Family Medicine | DX: N30.01 Acute cystitis with hematuria (principal) | CPT/HCPCS: 87086; 87088; 87186 ==

== ENCOUNTER 2022-11-16 18:13 | Outpatient (REF) | payer MEDICAID, SELFPAY ==
[2022-11-17 09:32] LABS: CT PCR NOT DETECTED (Not Detect.); NG PCR NOT DETECTED (Not Detect.)
[2022-11-17 12:33] LABS: BV Int Neg Control Negative (Negative); BV Int Pos Control Positive (Positive)
== END 2022-11-16 18:14 | disposition home or self-care (01) ==
LOC: HO.HHCLNP 18:13
PROVIDERS: Visit Provider Family Medicine
DX: N30.01 Acute cystitis with hematuria (principal)
CPT/HCPCS: 0353U; 87480; 87510; 87660

== ENCOUNTER 2022-12-05 20:11 | Emergency (ER) | payer MEDICAID, SELFPAY ==
--- NOTE | ~2022-12-05 | US_ITS ---
EXAMINATION: US RETROPERITONEAL LIMITED (RENAL ONLY) CLINICAL INFORMATION: Left flank pain, nausea/vomiting, recent UTI. COMPARISON: Abdominal ultrasound 06/21/2022. TECHNIQUE: Real-time imaging of the kidneys. FINDINGS: RIGHT KIDNEY: 10.5 x 3.7 x 5 cm (SAG x AP x TRV). The kidney is normal in size, contour, and echogenicity. Renal cortical thickness is normal. No calculi or focal parenchymal lesions. No hydronephrosis. LEFT KIDNEY: 10 x 5.2 x 5 cm (SAG x AP x TRV). The kidney is normal in size, contour, and echogenicity. Renal cortical thickness is normal. No calculi or focal parenchymal lesions. No hydronephrosis. US/US renal BI IMPRESSION: No acute sonographic abnormalities.
--- NOTE | 2022-12-05 20:17 | ED_ITS ---
HPI - Abdominal Pain General Chief Complaint: Abdominal Pain Stated Complaint: vomiting, l left back pain, chills Time Seen by Provider: 12/05/22 22:07 Source: patient Mode of arrival: ambulatory Limitations: language barrier (1st language is Gibraltarian, patient speaks Surinamese, circuit design engineer used) History of Present Illness HPI narrative: 32-year-old female who presents emergency department for evaluation of left- sided abdominal pain and left flank pain. Patient starts that the pain came on gradually at 17:00 hours after she ate food. She states the pain gradually built up in was 9/10. She describes the pain is a squeezing, constant pain. The pain is improved since she has been in the emergency department and the pain is now 4/10. Patient states that she was very nauseous and forced herself to vomit to relieve her pain. She states she vomited 4-5 times. She states she has had similar pain in the past and she does have a history of gastritis. Review of systems was negative for fever, chills, chest pain, shortness of breath, diarrhea, frequency, urgency, dysuria, black stools or bloody stools. She states that today she developed rhinorrhea and a slight, nonproductive cough. Related Data Home Medications Medication Instructions Recorded Confirmed vit no.95-ferrous 1 tab PO DAILY 02/23/22 02/23/22 fumarate 28 mg-folic acid 800 mcg tablet () metoclopramide HCl 10 mg tablet 10 mg PO QID 05/25/22 Previous Rx's Medication Instructions Recorded ondansetron 4 mg disintegrating 4 mg PO Q6H PRN nausea and 04/10/21 tablet vomiting #7 tabs doxylamine succinate 25 mg tablet 25 mg PO BEDTIME 30 days #30 tabs 03/13/22 (Unisom (doxylamine)) pyridoxine (vitamin B6) 25 mg 25 mg PO TID 30 days #90 tabs 03/13/22 tablet ondansetron 4 mg disintegrating 4 mg PO Q6-8H #60 tabs 05/25/22 tablet famotidine 40 mg tablet 40 mg PO BID #60 tabs 11/08/22 acetaminophen 500 mg tablet 1,000 mg (2 x 500 mg) PO Q6H PRN 12/05/22 (Tylenol Extra Strength) fever or pain #20 tabs aluminum hydrox-magnesium carb 254 10 ml PO QID PRN dyspepsia #355 mL 12/05/22 mg-237.5 mg/5 mL oral suspension (Gaviscon Extra Strength) ondansetron 4 mg disintegrating 4 mg PO Q6-8H PRN nausea and 12/05/22 tablet vomiting #14 tabs Allergies Allergy/AdvReac Type Severity Reaction Status Date / Time Sulfa (Sulfonamide Allergy Mild EYE Verified 05/25/22 08:54 Antibiotics) SWELLING [SULFA (SULFONAMIDE ANTIBIOTICS)] Review of Systems Review of Systems Yes all other systems are reviewed and are negative [facility] Past Medical History [facility] Narrative: Past medical history: Reviewed below. Surgical history: 4 months prior. Social history: She denies tobacco, alcohol and drug use. Medical History Chronic abdominal pain Surgical History History of esophagogastroduodenoscopy (EGD) Family History Family History Father Diabetes HTN (hypertension) Heart problem Mother Cancer Diabetes HTN (hypertension) Maternal Grandmother Cancer Social History Social History Household Members: Spouse and Children Alcohol intake: current Alcohol intake frequency: holidays/special occasions only Patient Tobacco Use Status: Never used Tobacco Smoked in Last 30 Days: No Use of substances other than those prescribed or required for medical reasons: No Advance Directives: No Advance Directives Information Provided: Yes Current occupational status: employed 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 Exam: General: Awake, alert in no distress Head: Normocephalic, atraumatic EENT: PERRL, Lids normal, sclera normal, conjunctiva normal, nose normal , ears normal, throat without erythema or exudates Neck: Supple, no adenopathy, trachea midline and nontender Lung: breath sounds symmetric, no wheezing, rales or rhonchi Chest: symmetric movement, nontender Heart: regular rate and rhythm, normal S1, S2 no murmurs or rubs Abdomen: soft, moderate epigastric pain, mild left upper quadrant pain, nondistended, normal bowel sounds Back: no vertebral tenderness, no CVAT Extremities: no deformities, moves all extremities symmetrically Skin: no rashes, no lesion, normal color and warmth Neuro: Awake, alert, oriented, normal speech, cranial nerves intact, moves all extremities symmetrically Psych: Pleasant, cooperative Course Course Course Narrative: RME: 32yo F w/PMHx renal stones c/o L flank pain w/assoc nausea, vomiting and inability to tolerate PO x3 hrs. Admits sx feel similar to prior stones. Reports recent UTI, tx w/Abx x3 days, completed tx 1-2 weeks ago, then was also tx w/Diflucan. Denies urinary s Abdomen soft w/+epigastic ttp, no CVAT Labs, UA, US ordered Full HPI, ROS and PE to be performed by primary ED provider. Medical Decision Making Medical Decision Making [facility] Narrative: 32-year-old female with a history of chronic abdominal pain secondary to gastritis, nausea, vomiting, who presents emergency department for evaluation of left-sided abdominal pain which started at 17:00 hours after eating, pain radiates to her left flank, she had nausea and induced vomiting. Physical examination did revealed epigastric tenderness otherwise was unremarkable. Following evaluation was ordered: CBC, CMP, quantitative beta-hCG, lipase, urinalysis, magnesium, renal ultrasound. 2234: Laboratory [place] [address]. Elevated AST, ALT and alkaline phosphatase at 58, 83 and 163. Glucose elevated 34. Lipase was normal. Urinalysis revealed 2+ blood, 1+ leukocyte esterase. Microscopic revealed 0-2 RBCs, 0-5 WBCs, 0-2 squamous cells, trace bacteria-not consistent with urinary tract infection or significant hematuria. Quantitative beta-hCG was negative Renal ultrasound did not reveal any acute findings. Patient's symptoms are most likely secondary to her gastritis verses a viral syndrome. Patient was ordered to get normal saline x1 L, Zofran 4 mg IV for her nausea and vomiting and Toradol 15 mg IV for her abdominal pain. 2346: Patient is feeling significantly better, her pain and nausea is resolved. Patient was prescribed Zofran ODT 4 mg every 6-8 hours as needed for nausea and vomiting, Tylenol 1000 mg every 6 hours as needed for pain and extra-strength Gaviscon 10 mL 4 times a day as needed for abdominal She was given printed and verbal instructions discharged home. Differential Diagnosis Differential Diagnoses: The differential diagnosis associated with the presentation includes Differential diagnosis includes was not limited to urinary tract infection, pyelonephritis, renal colic, ureteral stone, gastritis viral syndrome Admission/Observation Consideration of admission/observation: Escalation of care including admission/observation considered Lab Data [facility] Lab Attestation statement: I reviewed the patient's lab results. Please see [facility] 12/05/22 21:13 12/05/22 21:13 Labs: Lab Results 12/05/22 12/05/22 Range/Units 21:13 22:11 WBC 12.2 H (4.8-10.8) X10*3/uL RBC 5.17 (4.20-5.50) X10*6/uL Hgb 13.7 (12.0-16.0) g/dl Hct 42.6 (37.0-47.0) % MCV 82.4 (80.0-98.0) fL MCH 26.5 L (27.0-33.0) pg MCHC 32.2 (31.0-35.0) g/dl RDW 15.4 (11.0-16.0) % Plt Count 199 D (160-400) X10*3/uL MPV 12.6 H (9.4-12.3) fL Immature Gran % (Auto) 0.4 (0.0-0.4) % Neut % (Auto) 90.2 H (45-73) % Lymph % (Auto) 5.5 L (20-40) % [place] % (Auto) 3.6 (2-11) % Eos % (Auto) 0.1 (0-4) % Baso % (Auto) 0.2 (0-2) % Lymph # (Auto) 0.7 L (1.2-4.9) X10*3/uL [place] # (Auto) 0.4 (0.1-1.2) X10*3/uL Eos # (Auto) 0.0 (0.0-0.4) X10*3/uL Baso # (Auto) 0.0 (0.0-0.2) X10*3/uL Abs Immat Gran (auto) 0.05 H (0.00-0.03) X10*3/uL Absolute Neuts (auto) 11.0 H (2.0-8.3) x10*3/uL Absolute Nucleated RBC 0.000 (0.0-0.012) X10*3/uL Nucleated RBC % (auto) 0.0 (0.0-0.2) /100WBC Smear Tech's Comments VERIFIED Sodium 140 (135-145) mmol/L Potassium 4.2 D (3.3-5.1) mmol/L Chloride 104 (96-108) mmol/L Carbon Dioxide 28 (22-29) mmol/L Anion Gap 12 (12-20) BUN 11 (9-16) mg/dL Creatinine 0.74 (0.5-1.4) mg/dL Estim Creat Clear Calc 89.2 Estimated GFR > 60 Random Glucose 134 H (60-115) mg/dL Calcium 10.2 D (8.4-10.2) mg/dL Magnesium 2.1 (1.6-2.6) mg/dL Total Bilirubin 0.3 (0.0-1.0) mg/dL Direct Bilirubin 0.1 (0.0-0.5) mg/dL AST 58 H (5-31) U/L ALT 83 H (0-31) U/L Alkaline Phosphatase 163 H (39-117) U/L Total Protein 7.8 (6.5-8.0) g/dL Albumin 4.6 (3.5-5.0) g/dL Lipase 32 (8-78) U/L Beta HCG, Quant < 2 mIU/mL Urine Color Yellow Urine Appearance Clear Urine pH 7.5 (5.0-9.0) Ur Specific [place] 1.025 (1.005-1.025) Urine Protein Trace (Neg-Trace) mg/dL Urine Glucose (UA) Negative (Negative) mg/dL Urine Ketones 15 (Negative) mg/dL Urine Blood Moderate (2+) H (Negative) Urine Nitrite Negative (Negative) Ur Leukocyte Esterase Small (1+) H (Negative) Urine RBC 0-2 (0-2) /HPF Urine WBC 0-5 (0-5) /HPF Ur Squamous Epith Cells 0-2 (0-2) /HPF Urine Bacteria Trace (None Seen) Hyaline Casts 0-2 (0-2) /LPF Urine Test NEGATIVE (NEGATIVE) Radiology Impression Discussion of test interpretation with radiology: I have reviewed the radiologist's reading. Radiologist Impression: US renal BI IMPRESSION: No acute sonographic abnormalities. Dictated By: Emma Vo Medications Administered Discontinued Medications Generic Name Dose Route Start Last Admin Trade Name Freq PRN Reason Stop Dose Admin Sodium Chloride 1,000 mls @ 999 mls/hr 12/05/22 22:29 12/05/22 22:34 Ns IV 12/05/22 23:29 999 mls/hr .Q1H1M STA Administration Ketorolac Tromethamine 15 mg 12/05/22 22:29 12/05/22 22:36 Ketorolac Tromethamine 15 Mg/Ml Vial IVPUSH 12/05/22 22:30 15 mg ONCE STA Administration Ondansetron HCl 4 mg 12/05/22 22:29 12/05/22 22:36 Ondansetron Hcl 4 Mg/2 Ml Vial IVPUSH 12/05/22 22:30 4 mg ONCE ONE Administration Discharge Plan Discharge Clinical Impression: Vomiting Gastritis Qualifiers: Chronicity: acute Gastritis bleeding: without bleeding Patient Disposition: Home, Self-Care Instructions: Gastritis (ED) Additional Instructions: Your blood work was unremarkable except for mild elevation in your liver tests (AST, ALT and alkaline phosphatase) Do not drink alcohol. You should follow-up with your doctor in 2 weeks to get repeat comprehensive metabolic panel to check your liver tests. Your ultrasound revealed no problems with your kidneys. Your pain is most likely caused by inflammation of your stomach. Continue taking your famotidine. Take Zofran ODT 4 mg pills, 1 pill dissolved in your mouth every 8 hours as needed for nausea and vomiting. Take Tylenol (acetaminophen) 500 mg pills, 2 pills every 6 hours as needed for pain or fever. Take extra-strength Gaviscon 10 mL (2 tsp) 4 times a day as needed for abdominal pain. Prescriptions: New acetaminophen [Tylenol Extra Strength] 500 mg tablet 1,000 mg PO Q6H PRN (Reason: fever or pain) Qty: 20 0RF Gaviscon Extra Strength 254-237.5 mg/5 mL suspension 10 ml PO QID PRN (Reason: dyspepsia) Qty: 355 0RF ondansetron 4 mg tablet,disintegrating 4 mg PO Q6-8H PRN (Reason: nausea and vomiting) Qty: 14 0RF No Action pyridoxine (vitamin B6) 25 mg tablet 25 mg PO TID 30 Days Qty: 90 1RF Unisom (doxylamine) 25 mg tablet 25 mg PO BEDTIME 30 Days Qty: 30 0RF famotidine 40 mg tablet 40 mg PO BID Qty: 60 2RF ondansetron 4 mg tablet,disintegrating 4 mg PO Q6H PRN (Reason: nausea and vomiting) Qty: 7 0RF metoclopramide HCl 10 mg tablet 10 mg PO QID ondansetron 4 mg tablet,disintegrating 4 mg PO Q6-8H Qty: 60 1RF PNV cmb#95-ferrous fumarate-FA [] 28 mg iron- 800 mcg tablet 1 tab PO DAILY
[2022-12-05 20:18] VITALS: BP 133/85; PULSE 95; RESP 18; TEMP 36.7; O2SAT 97; BMI 24.6
[2022-12-05 21:21] LABS: Basophils Percent Auto 0.2 % (0-2); Eosinophils Percent Auto 0.1 % (0-4); Hematocrit 42.6 % (37.0-47.0); Hemoglobin 13.7 g/dl (12.0-16.0); Imm Gran Abs Auto 0.05 X10*3/uL (0.00-0.03); Imm Gran Pct Auto 0.4 % (0.0-0.4); Lymphocytes Absolute Auto 0.7 X10*3/uL (1.2-4.9); Lymphocytes Percent Auto 5.5 % (20-40); MANUAL DIFF FLAG SCAN; Mean Corpuscular HGB Conc 32.2 g/dl (31.0-35.0); Mean Corpuscular Hemoglobin 26.5 pg (27.0-33.0); Mean Corpuscular Volume 82.4 fL (80.0-98.0); Mean Platelet Volume 12.6 fL (9.4-12.3); Monocytes Absolute Auto 0.4 X10*3/uL (0.1-1.2); Monocytes Percent Auto 3.6 % (2-11); Neutrophils Percent Auto 90.2 % (45-73); Platelet Count 199 X10*3/uL (160-400); Red Blood Count 5.17 X10*6/uL (4.20-5.50); Red Cell Distribution Width 15.4 % (11.0-16.0); SCAN SMEAR FLAG 1; White Blood Count 12.2 X10*3/uL (4.8-10.8)
[2022-12-05 21:47] LABS: Alanine Aminotransferase 83 U/L (0-31); Albumin Level 4.6 g/dL (3.5-5.0); Alkaline Phosphatase 163 U/L (39-117); Anion Gap 12 (12-20); Aspartate Amino Transferase 58 U/L (5-31); Bilirubin Direct 0.1 mg/dL (0.0-0.5); Bilirubin Total 0.3 mg/dL (0.0-1.0); Blood Urea Nitrogen 11 mg/dL (9-16); Calcium 10.2 mg/dL (8.4-10.2); Carbon Dioxide 28 mmol/L (22-29); Chloride 104 mmol/L (96-108); Creatinine Clr Calc Pharmacy 89.2; Estimated Glomerular Filt Rate > 60; Glucose Random 134 mg/dL (60-115); Lipase 32 U/L (8-78); Magnesium 2.1 mg/dL (1.6-2.6); Potassium 4.2 mmol/L (3.3-5.1); Sodium 140 mmol/L (135-145); Total Protein 7.8 g/dL (6.5-8.0)
[2022-12-05 22:01] LABS: SLIDE REVIEW VERIFIED
[2022-12-05 22:07] VITALS: BP 115/68; PULSE 85; RESP 16; TEMP 37.2; O2SAT 98
[2022-12-05 22:20] LABS: Appearance Urine Clear; Color Urine Yellow; Glucose Urine UA Negative (Negative); Leukocyte Esterase Urine Small (1+) (Negative); Nitrite Urine Negative (Negative); PH 7.5 (5.0-9.0); Specific Gravity - Urine 1.025 (1.005-1.025); UMIC TRIGGER UACC YES; Urine Blood Moderate (2+) (Negative); Urine Ketones 15 mg/dL (Negative); Urine Protein Trace mg/dL (Neg-Trace)
[2022-12-05 22:22] LABS: UPreg QC Valid YES; Urine Pregnancy NEGATIVE (NEGATIVE)
[2022-12-05 22:32] LABS: Bacteria Urine Trace (None Seen); Hyaline Casts Urine 0-2 /LPF (0-2); RBC Urine 0-2 /HPF (0-2); Squamous Epithelial Cell Urine 0-2 /HPF (0-2); UACC Culture Trigger YES; WBC Urine 0-5 /HPF (0-5)
[2022-12-05] MEDS: 0.9 % Sodium Chloride 1,000 ML 999 ML IV (22:34)
[2022-12-05] MEDS: ondansetron HCL 4 MG/2 ML VIAL IVPUSH (22:36)
[2022-12-05] MEDS: Ketorolac Tromethamine 15 MG/ML VIAL IVPUSH (22:36)
[2022-12-05 22:41] LABS: HCG Quantitative < 2 mIU/mL
[2022-12-06 00:15] VITALS: BP 118/69; PULSE 87; RESP 18; TEMP 36.9; O2SAT 98
== END 2022-12-06 00:22 | disposition home or self-care (01) ==
PROVIDERS: Physician Assistant; Emergency Provider Emergency Medicine Emergency Medical Services; PCP Nurse Practitioner Primary Care
DX: K29.70 Gastritis, unspecified, without bleeding (principal); R11.2 Nausea with vomiting, unspecified; R10.2 Pelvic and perineal pain; Z79.899 Other long term (current) drug therapy
CPT/HCPCS: 36415; 76775; 80048; 80076; 81001; 81025; 83690; 83735; 84702; 85025; 87086; 96361; 96374; 96375; 99284; 99285; J1885; J2405

== ENCOUNTER 2022-12-14 08:29 | Outpatient (REF) | payer MEDICAID, SELFPAY | END 2022-12-14 08:30 | disposition home or self-care (01) | LOC: HO.HHCL 08:29 | PROVIDERS: Visit Provider Nurse Practitioner Primary Care | DX: R74.8 Abnormal levels of other serum enzymes (principal) | CPT/HCPCS: 36415; 80048; 80076 ==

== ENCOUNTER 2022-12-21 08:49 | Outpatient (REF) | payer MEDICAID, SELFPAY ==
[2022-12-21 09:53] LABS: MANUAL DIFF FLAG NO
[2022-12-21 10:19] LABS: Basophils Percent Auto 0.2 % (0-2); Eosinophils Absolute Auto 0.1 X10*3/uL (0.0-0.4); Eosinophils Percent Auto 1.1 % (0-4); Hematocrit 40.7 % (37.0-47.0); Hemoglobin 13.1 g/dl (12.0-16.0); Imm Gran Abs Auto 0.03 X10*3/uL (0.00-0.03); Imm Gran Pct Auto 0.5 % (0.0-0.4); Lymphocytes Absolute Auto 1.3 X10*3/uL (1.2-4.9); Lymphocytes Percent Auto 20.5 % (20-40); Mean Corpuscular HGB Conc 32.2 g/dl (31.0-35.0); Mean Corpuscular Hemoglobin 26.8 pg (27.0-33.0); Mean Corpuscular Volume 83.2 fL (80.0-98.0); Mean Platelet Volume 13.1 fL (9.4-12.3); Monocytes Absolute Auto 0.4 X10*3/uL (0.1-1.2); Monocytes Percent Auto 7.1 % (2-11); Neutrophils Absolute Auto 4.4 x10*3/uL (2.0-8.3); Neutrophils Percent Auto 70.6 % (45-73); Platelet Count 177 X10*3/uL (160-400); Red Blood Count 4.89 X10*6/uL (4.20-5.50); Red Cell Distribution Width 15.2 % (11.0-16.0); White Blood Count 6.2 X10*3/uL (4.8-10.8)
[2022-12-21 10:26] LABS: Prothrombin Time 12.1 SEC (11.1-13.3)
[2022-12-21 10:46] LABS: Alanine Aminotransferase 77 U/L (0-31); Albumin Level 4.3 g/dL (3.5-5.0); Alkaline Phosphatase 137 U/L (39-117); Anion Gap 15 (12-20); Aspartate Amino Transferase 46 U/L (5-31); Bilirubin Total 0.8 mg/dL (0.0-1.0); Blood Urea Nitrogen 12 mg/dL (9-16); Calcium 9.5 mg/dL (8.4-10.2); Carbon Dioxide 21 mmol/L (22-29); Chloride 107 mmol/L (96-108); Estimated Glomerular Filt Rate > 60; Glucose Random 85 mg/dL (60-115); Potassium 3.7 mmol/L (3.3-5.1); Sodium 139 mmol/L (135-145); Total Protein 7.4 g/dL (6.5-8.0)
[2022-12-21 10:53] LABS: Ferritin 35 ng/mL (10-122); TSH reflex Free T4 1.79 uIU/mL (0.32-4.0); Vitamin D 25-OH Total 21.6 ng/mL (>30)
[2022-12-21 11:06] LABS: Folate 14.3 ng/mL (> or = 4.0); Vitamin B12 695 pg/mL (200-900)
[2022-12-21 11:48] LABS: Appearance Urine Clear; Color Urine Dark Yellow; Glucose Urine UA Negative (Negative); Leukocyte Esterase Urine Small (1+) (Negative); Nitrite Urine Negative (Negative); Specific Gravity - Urine >= 1.030 (1.005-1.025); UMIC TRIGGER UACC YES; Urine Blood Negative (Negative); Urine Ketones 15 mg/dL (Negative); Urine Protein Negative (Neg-Trace)
[2022-12-21 12:10] LABS: Bacteria Urine 1+ (None Seen); Hyaline Casts Urine 0-2 /LPF (0-2); RBC Urine 0-2 /HPF (0-2); UACC Culture Trigger YES
[2022-12-24 13:52] LABS: Alpha 1 Anti-trypsin 156 mg/dL (83-199); Ceruloplasmin 38 mg/dL (18-53)
[2022-12-24 14:33] LABS: Immunoglobulin G 894 mg/dL (600-1640); Mitochondrial Antibodies NEGATIVE (NEGATIVE)
[2022-12-24 15:23] LABS: Anti Nuclear Antibody Screen NEGATIVE (NEGATIVE)
[2022-12-24 20:09] LABS: Transglutaminase Ab IgG <1.0 U/mL; Transglutaminase IgA <1.0 U/mL
[2022-12-24 23:13] LABS: Liver Kidney Microsomal Ab <=20.0 U (<=20.0)
[2022-12-25 01:12] LABS: Zinc 76 mcg/dL (60-130)
[2022-12-25 15:18] LABS: Vitamin B6 5.4 ng/mL (2.1-21.7)
[2022-12-26 04:49] LABS: Alpha-Tocopherol 10.8 mg/L (5.7-19.9); Beta-Gamma Tocopherol <1.0 mg/L (<=4.3); Vitamin A 31 mcg/dL (38-98)
[2022-12-26 13:13] LABS: Aldolase 5.7 U/L (<=8.1)
[2022-12-26 15:19] LABS: Vitamin B1 8 nmol/L (8-30)
[2022-12-27 12:12] LABS: Smooth Muscle Antibody 25 U (<20)
[2022-12-27 16:43] LABS: Nicotinamide 27 ng/mL; Vit B3 - Nicotinic Acid <20 ng/mL; Vitamin B5 (Pantothenic Acid) 41 ng/mL (<275)
[2022-12-27 17:33] LABS: Vitamin C 0.2 mg/dL (0.3-2.7)
[2022-12-29 13:23] LABS: Soluble Liver Ag Autoantibody <20.1 U (0.0-20.0)
== END 2022-12-21 08:50 | disposition home or self-care (01) ==
LOC: HO.LAB 08:49
PROVIDERS: Visit Provider Internal Medicine Gastroenterology
DX: K75.81 Nonalcoholic steatohepatitis (NASH) (principal); R79.82 Elevated C-reactive protein (CRP); K52.839 Microscopic colitis, unspecified; R10.33 Periumbilical pain; G89.29 Other chronic pain; R79.89 Other specified abnormal findings of blood chemistry; R30.0 Dysuria; R11.2 Nausea with vomiting, unspecified; Z87.59 Personal history of other complications of pregnancy, childbirth and the puerperium; Z87.19 Personal history of other diseases of the digestive system
CPT/HCPCS: 36415; 80053; 81001; 82085; 82103; 82180; 82306; 82390; 82550; 82607; 82728; 82746; 82784; 83520; 84207; 84425; 84443; 84446; 84590; 84591; 84630; 85025; 85610; 86015; 86038; 86364; 86376; 86381; 87086; 99212

== ENCOUNTER 2022-12-21 08:49 | Outpatient (AMB) | payer MEDICAID, SELFPAY ==
--- NOTE | 2022-12-21 08:53 | A.OFFVIS_ITS ---
Intake Vital Signs 12/21/22 08:54 Height 5 ft 1 in Weight 130 lb 1.164 oz BMI 24.6 BP 123/65 Blood Pressure Location Lt brachial Position Sitting Pulse 72 Intake Visit Reasons: 6 mnth follow up Intake Note: Farhan presents in the office as a 6 month follow up. CC: She states that she is Licensed Psychiatric Technician Required: Yes Licensed Psychiatric Technician Name: Kip [id number] Allergies Sulfa (Sulfonamide Antibiotics) [SULFA (SULFONAMIDE ANTIBIOTICS)] Allergy (Mild, Verified 12/21/22 08:55) EYE SWELLING HPI 6 mnth follow up HPI Details 32 yr old f here for f/ RECAP: Initially saw [facility] [place] for abdo pain, nml LFT I had tried her on PPI --esomeprazole 40 mg daily she has anxiety, she sleeps for 6-8 hrs she has c/o ongoing nausea and vomiting, poor appetite she had reflux all day Imaging: U/S 03/2020-- liver microcalcifications, no focal liver lesion MRI 05/01-- x2 areas of intra helpatic bile duct dilation, no gallstones CT 05/2020-- scattered areas of mild intrahepatic bile duct dilation, prominent pancreas body and tail MRI- 06/2020-- stable appearance of pancreas and liver as above US 06/2022-- GB sludge , ?intrahepatic stones or sludge in right lobe EGD 07/2020-- mild esophagitis and gastritis colonoscopy 07/2021- tortuous colon, internal hemorrhoids INTERIM: second pregnanacy did not go well, she developed pre eclampsia and the baby she had some pain under her rib left side, few weeks ago, gone now LFT still elevated appetite and weight are good she does admit to pain in ruq with greasy or fried foods EXAM: GENERAL: The patient is well developed and nontoxic. VITAL SIGNS:see workflow HEENT: Nonicteric sclerae, PERRLA, EOMI. Oropharynx clear. Moist mucous membranes. Conjunctivae appear well perfused. No thyroid mass. CHEST: Chest wall is nontender. HEART: Regular rate and rhythm without murmurs. LUNGS: Clear to auscultation bilaterally. ABDOMEN: Soft, positive bowel sounds, tender ruq, no organomegaly.no flank tenderness- SKIN: No rash, no excessive bruising, petechiae, or purpura. NEUROLOGIC: Cranial nerves II-XII intact without motor/sensory deficit. Psych --appropriate affect a/P: 1/ pre eclampsia and loss 2/ abn LFT, has had cholestasis before b ut now maybe related to gallstones PLAN: 1/ ruq tenderness and abn lft will repea t US and if still showing sludge or stones then refer surgery 2/ if neg then expand work up, might nee d liver bxs--check liver serology PFSH Medical History Chronic abdominal pain Surgical History History of esophagogastroduodenoscopy (EGD) Family History Father Diabetes HTN (hypertension) Heart problem Mother Cancer Diabetes HTN (hypertension) Maternal Grandmother Cancer Social History Household Members: Spouse and Children Alcohol intake: current Alcohol intake frequency: holidays/special occasions only Patient Tobacco Use Status: Never used Tobacco Current occupational status: employed 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
[2022-12-21 08:54] VITALS: BP 123/65; PULSE 72; BMI 24.6
== END 2022-12-21 09:20 | disposition home or self-care (01) ==
PROVIDERS: Visit Provider Internal Medicine Gastroenterology
DX: R74.01 Elevation of levels of liver transaminase levels (principal); R10.811 Right upper quadrant abdominal tenderness
CPT/HCPCS: 99213

== ENCOUNTER 2023-01-22 09:39 | Outpatient (REF) | payer MEDICAID, SELFPAY ==
--- NOTE | ~2023-01-22 | US_ITS ---
EXAMINATION: US ABDOMEN LIMITED WITH LIVER ELASTOGRAPHY CLINICAL INFORMATION: Nonalcoholic steatohepatitis. COMPARISON: None available. TECHNIQUE: Real-time imaging of the abdominal viscera. Noninvasive ultrasound liver fibrosis assessment is performed using Adonis ElastPQ point quantification shear wave elastography (2D-SWE) with a C5-2 MHz transducer. Multiple elastography samples are obtained. FINDINGS: PANCREAS: Normal. The visualized pancreatic head and body are normal in appearance. The remainder of the pancreas is obscured from visualization by the overlying bowel gas. LIVER: The liver demonstrates normal size, contour and is slightly increased echogenicity. No focal solid lesion or intrahepatic biliary duct dilatation. There are benign, calcified hepatic granulomas. The right lobe measures 13.7 cm in length. The left lobe measures 7.5 cm in length. Portal flow is towards the liver (hepatopetal). Shear wave liver elastography median stiffness is 1.75 m/s (reference: normal median stiffness is 1.3 m/s or less). IQR/median stiffness to assess sampling precision is 0.11 (reference: good quality data set is IQR/median stiffness of 0.15 or less). GALLBLADDER: Normal. The gallbladder is physiologically distended without evidence of stones, sludge, polyps, wall thickening or pericholecystic fluid. COMMON BILE DUCT: Normal in caliber measuring 0.5 cm in diameter. RIGHT KIDNEY: Normal. No hydronephrosis. No renal calculi or focal parenchymal lesions. The kidney measures 10.0 cm in maximum dimension. FREE FLUID: None. US/US abdomen albrecht w elastography IMPRESSION: 1. There is slightly increased hepatic echotexture, consistent with fatty infiltration or hepatocellular disease. Please correlate clinically. No focal hepatic mass or intrahepatic biliary dilatation is seen. 2. Liver elastography: Measurements are suggestive of compensated advanced chronic liver disease but need further test for confirmation. REFERENCE: Society of Radiologists in Ultrasound Liver Stiffness Thresholds (2020): LIVER STIFFNESS THRESHOLDS: *Liver Stiffness equal or less than 1.3 m/s: High probability of being normal. *Liver Stiffness less than 1.7 m/s: In the absence of other known clinical signs, rules out compensated advanced chronic liver disease. *Liver Stiffness 1.7-2.1 m/s: Suggestive of compensated advanced chronic liver disease but need further test for confirmation. *Liver Stiffness over 2.1 m/s: Rules in compensated advanced chronic liver disease. *Liver Stiffness over 2.4 m/s: Suggestive of clinically significant portal hypertension. QUALITY OF DATA SET: *IQR/Median value equal or less than 0.15 implies a quality data set. *IQR/Median value over 0.15 implies a poor quality data set. SIGNIFICANT CHANGE FROM PRIOR EXAM: Significant change if liver stiffness measurement is 10% or greater from prior exam. OTHER CONSIDERATIONS: The stage of liver fibrosis may be overestimated in the setting of acute hepatitis, liver inflammation, elevated liver function tests, hepatic vascular congestion, obstructive cholestasis, non-fasting state, and infiltrative diseases such as amyloidosis and lymphoma. In some patients with NAFLD, the liver stiffness thresholds for compensated advanced chronic liver disease may be lower. In causes other than viral hepatitis and NAFLD, liver stiffness thresholds are not well established.
== END 2023-01-22 09:40 | disposition home or self-care (01) ==
LOC: HO.US 09:39
PROVIDERS: Visit Provider Internal Medicine Gastroenterology
DX: K75.81 Nonalcoholic steatohepatitis (NASH) (principal); K74.60 Unspecified cirrhosis of liver; R79.89 Other specified abnormal findings of blood chemistry; Z87.19 Personal history of other diseases of the digestive system; Z87.59 Personal history of other complications of pregnancy, childbirth and the puerperium
CPT/HCPCS: 76705; 76981

== ENCOUNTER 2023-02-20 09:31 | Outpatient (REF) | payer MEDICAID, SELFPAY ==
[2023-02-23 11:29] LABS: TS Negative Control Passed; TS Panel A 0; TS Panel B 0; TS Positive Control Passed; TSpotTB Negative (Negative)
== END 2023-02-20 09:32 | disposition home or self-care (01) ==
LOC: HO.HHCL 09:31
PROVIDERS: Visit Provider Nurse Practitioner Primary Care
DX: Z11.1 Encounter for screening for respiratory tuberculosis (principal)
CPT/HCPCS: 36415; 86481

== ENCOUNTER 2023-04-19 08:53 | Outpatient (AMB) | payer MEDICAID, SELFPAY ==
--- NOTE | 2023-04-19 08:57 | MHC.OFFVIS ---
Intake Vital Signs 04/19/23 09:04 Height 5 ft 1 in Weight 133 lb BMI 25.1 BP 118/63 Blood Pressure Location Lt brachial Position Sitting Pulse 84 Intake Visit Reasons: 4 month follow up Intake Note: Patient follow up for Gastritis Patient denies any GI issues. 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 Accompanied by: Self / Same As Patient Allergies Sulfa (Sulfonamide Antibiotics) [SULFA (SULFONAMIDE ANTIBIOTICS)] Allergy (Mild, Verified 04/19/23 08:56) EYE SWELLING HPI 4 month follow up HPI Details 32 yr old f here for f/u RECAP: Initially saw [facility] [place] for abdo pain, nml LFT I had tried her on PPI --esomeprazole 40 mg daily she has anxiety, she sleeps for 6-8 hrs she has c/o ongoing nausea and vomiting, poor appetite she had reflux all day she lost a baby due to pre eclampsia Imaging: U/S 03/2020-- liver microcalcifications, no focal liver lesion MRI 05/01-- x2 areas of intra helpatic bile duct dilation, no gallstones CT 05/2020-- scattered areas of mild intrahepatic bile duct dilation, prominent pancreas body and tail MRI- 06/2020-- stable appearance of pancreas and liver as above US 06/2022-- GB sludge , ?intrahepatic stones or sludge in right lobe EGD 07/2020-- mild esophagitis and gastritis colonoscopy 07/2021- tortuous colon, internal hemorrhoids US- neg for gallstones and sludge, fatty liver, slightly increased stiffness INTERIM: she no longer has abdominal pain with greasy foods no nausea or vomiting appetite is good no jaundice EXAM: GENERAL: The patient is well developed and nontoxic. VITAL SIGNS:see workflow HEENT: Nonicteric sclerae, PERRLA, EOMI. Oropharynx clear. Moist mucous membranes. Conjunctivae appear well perfused. No thyroid mass. CHEST: Chest wall is nontender. HEART: Regular rate and rhythm without murmurs. LUNGS: Clear to auscultation bilaterally. ABDOMEN: Soft, positive bowel sounds, non tender , no organomegaly.no flank tenderness- SKIN: No rash, no excessive bruising, petechiae, or purpura. NEUROLOGIC: Cranial nerves II-XII intact without motor/sensory deficit. Psych --appropriate affect a/P: 1/ pre eclampsia and loss -- 2/ abn LFT, has had cholestasis before but now maybe related to GB dyskinesia or WILD PLAN: 1/ recheck LFT today 2/ if remain elevated consider liver bx, if recurrence of abdo pain [facility] Medical History Chronic abdominal pain Surgical History History of esophagogastroduodenoscopy (EGD) Family History Father Diabetes HTN (hypertension) Heart problem Mother Cancer Diabetes HTN (hypertension) Maternal Grandmother Cancer Social History Household Members: Spouse and Children Alcohol intake: current Alcohol intake frequency: holidays/special occasions only Patient Tobacco Use Status: Never used Tobacco Current occupational status: employed 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 Female Reproductive History Menstrual Age of Menarche: 11 Physical Exam Vital Signs: Last Vital Signs Pulse 84 04/19/23 09:04 BP 118/63 04/19/23 09:04 BMI result Body Mass Index 25.1 Assessment & Plan Assessment & Plan (1) Abnormal LFTs: Code(s): R79.89 - Other specified abnormal findings of blood chemistry Plan: a/P: 1/ pre eclampsia and loss -- 2/ abn LFT, has had cholestasis before but now maybe related to GB dyskinesia or WILD PLAN: 1/ recheck LFT today 2/ if remain elevated consider liver bx, if recurrence of abdo pain HIDA (2) Nausea & vomiting: Code(s): R11.2 - Nausea with vomiting, unspecified Plan: a/P: 1/ pre eclampsia and loss -- 2/ abn LFT, has had cholestasis before but now maybe related to GB dyskinesia or WILD PLAN: 1/ recheck LFT today 2/ if remain elevated consider liver bx, if recurrence of abdo pain HIDA Orders: Orders Complete Blood Count Auto Diff Today R11.2 - Nausea with vomiting, unspecified, R79.89 - Other specified abnormal findings of blood chemistry Comprehensive Met. Panel Today K75.81 - Nonalcoholic steatohepatitis (WILD), R11.2 - Nausea with vomiting, unspecified, R79.89 - Other specified abnormal findings of blood chemistry Coding Level of Care Code Est Pt Level 3 (84120) Diagnoses Abnormal LFTs R79.89 Nausea & vomiting R11.2
[2023-04-19 09:04] VITALS: BP 118/63; PULSE 84; BMI 25.1
== END 2023-04-19 09:13 | disposition home or self-care (01) ==
PROVIDERS: PCP Nurse Practitioner Primary Care; Referring Provider Nurse Practitioner Primary Care; Visit Provider Internal Medicine Gastroenterology
DX: R79.89 Other specified abnormal findings of blood chemistry (principal); R11.2 Nausea with vomiting, unspecified
CPT/HCPCS: 99213

== ENCOUNTER 2023-04-19 08:53 | Outpatient (REF) | payer MEDICAID, SELFPAY ==
[2023-04-19 09:29] LABS: MANUAL DIFF FLAG NO
[2023-04-19 10:11] LABS: Basophils Percent Auto 0.4 % (0-2); Eosinophils Absolute Auto 0.1 X10*3/uL (0.0-0.4); Hematocrit 43.2 % (37.0-47.0); Hemoglobin 13.9 g/dl (12.0-16.0); Imm Gran Abs Auto 0.03 X10*3/uL (0.00-0.03); Imm Gran Pct Auto 0.4 % (0.0-0.4); Lymphocytes Absolute Auto 1.4 X10*3/uL (1.2-4.9); Lymphocytes Percent Auto 19.8 % (20-40); Mean Corpuscular HGB Conc 32.2 g/dl (31.0-35.0); Mean Corpuscular Hemoglobin 27.7 pg (27.0-33.0); Mean Corpuscular Volume 86.2 fL (80.0-98.0); Mean Platelet Volume 13.3 fL (9.4-12.3); Monocytes Absolute Auto 0.5 X10*3/uL (0.1-1.2); Monocytes Percent Auto 6.6 % (2-11); Neutrophils Absolute Auto 5.1 x10*3/uL (2.0-8.3); Neutrophils Percent Auto 71.8 % (45-73); Platelet Count 175 X10*3/uL (160-400); Red Blood Count 5.01 X10*6/uL (4.20-5.50); Red Cell Distribution Width 14.2 % (11.0-16.0); White Blood Count 7.1 X10*3/uL (4.8-10.8)
[2023-04-19 10:38] LABS: Alanine Aminotransferase 76 U/L (0-31); Alkaline Phosphatase 137 U/L (39-117); Anion Gap 11 (12-20); Aspartate Amino Transferase 46 U/L (5-31); Bilirubin Total 0.4 mg/dL (0.0-1.0); Blood Urea Nitrogen 11 mg/dL (9-16); Calcium 9.1 mg/dL (8.4-10.2); Carbon Dioxide 27 mmol/L (22-29); Chloride 105 mmol/L (96-108); Estimated Glomerular Filt Rate > 60; Glucose Random 83 mg/dL (60-115); Potassium 3.6 mmol/L (3.3-5.1); Sodium 139 mmol/L (135-145)
== END 2023-04-19 08:54 | disposition home or self-care (01) ==
LOC: HO.LAB 08:53
PROVIDERS: PCP Nurse Practitioner Primary Care; Visit Provider Internal Medicine Gastroenterology
DX: R79.89 Other specified abnormal findings of blood chemistry (principal); R11.2 Nausea with vomiting, unspecified; K75.81 Nonalcoholic steatohepatitis (NASH)
CPT/HCPCS: 36415; 80053; 85025; 99212

== ENCOUNTER 2023-07-15 08:25 | Outpatient (REF) | payer MEDICAID, SELFPAY ==
[2023-07-15 11:42] LABS: Estimated Average Glucose 108 mg/dL; Hematocrit 44.2 % (37.0-47.0); Hemoglobin 14.1 g/dl (12.0-16.0); Hemoglobin A1c % 5.4 % (<6.0); Mean Corpuscular HGB Conc 31.9 g/dl (31.0-35.0); Mean Corpuscular Hemoglobin 28.2 pg (27.0-33.0); Mean Corpuscular Volume 88.4 fL (80.0-98.0); Mean Platelet Volume 13.5 fL (9.4-12.3); Platelet Count 159 X10*3/uL (160-400); Red Cell Distribution Width 13.8 % (11.0-16.0); White Blood Count 6.6 X10*3/uL (4.8-10.8)
[2023-07-15 11:59] LABS: Syphilis Screen Nonreactive (Nonreactive)
[2023-07-15 12:00] LABS: Alanine Aminotransferase 85 U/L (0-31); Alkaline Phosphatase 123 U/L (39-117); Anion Gap 11 (12-20); Aspartate Amino Transferase 66 U/L (5-31); Bilirubin Total 0.3 mg/dL (0.0-1.0); Blood Urea Nitrogen 14 mg/dL (9-16); Calcium 9.4 mg/dL (8.4-10.2); Carbon Dioxide 27 mmol/L (22-29); Chloride 109 mmol/L (96-108); Cholesterol 170 mg/dL (<200); Estimated Glomerular Filt Rate > 60; Glucose Random 94 mg/dL (60-115); HDL Cholesterol 59 mg/dL (>40); LDL Cholesterol Calculated 98 mg/dL (<100); Sodium 143 mmol/L (135-145); Total Protein 6.9 g/dL (6.5-8.0); Triglycerides 68 mg/dL (<150)
[2023-07-15 12:04] LABS: HBS Num1 77.33 mIU/mL (0-7.99); HBc Num1 0.16 S/CO (0.00-0.79); HBsAGNum1 0.26 S/CO (0.00-0.99); HIV AB/AG Nonreactive (Nonreactive); HIV Num 1 0.03 S/CO (0.00-0.99); Hepatitis B Core Antibody Nonreactive (Nonreactive); Hepatitis B Surface Antigen Negative (Negative); TSH reflex Free T4 1.51 uIU/mL (0.32-4.0); ~HepC Num1 0.12 S/CO (0.00-0.79); ~Hepatitis B Surface Antibody REACTIVE (Nonreactive); ~Hepatitis C Antibody Nonreactive (Nonreactive)
[2023-07-15 13:34] LABS: CT PCR NOT DETECTED (Not Detect.); NG PCR NOT DETECTED (Not Detect.)
== END 2023-07-15 08:26 | disposition home or self-care (01) ==
LOC: HO.HHCL 08:25
PROVIDERS: Visit Provider Student in an Organized Health Care Education/Training Program
DX: Z00.00 Encounter for general adult medical examination without abnormal findings (principal); Z11.4 Encounter for screening for human immunodeficiency virus [HIV]; Z11.3 Encounter for screening for infections with a predominantly sexual mode of transmission
CPT/HCPCS: 0353U; 36415; 80053; 80061; 83036; 84443; 85027; 86704; 86706; 86780; 86803; 87340; 87389

== ENCOUNTER 2023-11-18 11:57 | Outpatient (AMB) | payer MEDICAID, SELFPAY ==
--- NOTE | 2023-11-18 12:02 | A.OFFVIS_ITS ---
Vital Signs 11/18/23 12:04 Height 5 ft 1 in Weight 134 lb 14.766 oz BMI 25.5 BP 119/77 Blood Pressure Location Rt brachial Position Sitting Pulse 70 Pulse Source Pulse Oximeter Pulse Oximetry (%) 100 Oxygen Delivery Method Room Air Intake Visit Reasons: 6 Month Follow Up Intake Note: Pt presents to the office today for a 6 month follow up. Pt states she is feeling well. Allergies Sulfa (Sulfonamide Antibiotics) [SULFA (SULFONAMIDE ANTIBIOTICS)] Allergy (Mild, Verified 11/18/23 12:03) EYE SWELLING HPI HPI 6 Month Follow Up: Details: 32 yr old f here for f/u RECAP: Initially saw [facility] [place] [facility] [place] pain, nml LFT I had tried her on PPI --esomeprazole 40 mg daily she has anxiety, she sleeps for 6-8 hrs she has c/o ongoing nausea and vomiting, poor appetite she had reflux all day she lost a baby due to pre eclampsia Imaging: U/S 03/2020-- liver microcalcifications, no focal liver lesion MRI 05/01-- x2 areas of intra helpatic bile duct dilation, no gallstones CT 05/2020-- scattered areas of mild intrahepatic bile duct dilation, prominent pancreas body and tail MRI- 06/2020-- stable appearance of pancreas and liver as above US 06/2022-- GB sludge , ?intrahepatic stones or sludge in right lobe EGD 07/2020-- mild esophagitis and gastritis colonoscopy 07/2021- tortuous colon, internal hemorrhoids US- neg for gallstones and sludge, fatty liver, slightly increased stiffness INTERIM: she denies abdominal pain eating foods incl greasy foods and feels well no nausea or vomiting appetite is good no jaundice admits to joint stiffness and pain in mornings EXAM: GENERAL: The patient is well developed and nontoxic. VITAL SIGNS:see workflow HEENT: Nonicteric sclerae, PERRLA, EOMI. Oropharynx clear. Moist mucous membranes. Conjunctivae appear well perfused. No thyroid mass. CHEST: Chest wall is nontender. HEART: Regular rate and rhythm without murmurs. LUNGS: Clear to auscultation bilaterally. ABDOMEN: Soft, positive bowel sounds, non tender , no organomegaly.no flank tenderness- SKIN: No rash, no excessive bruising, petechiae, or purpura. NEUROLOGIC: Cranial nerves II-XII intact without motor/sensory deficit. Psych --appropriate affect a/P: 1/ pre eclampsia and loss -- 2/ abn LFT, has had cholestasis before--persisting with alk phos elevation now as well PLAN: 1/ recheck LFT today and repeat immune labs 2/ discussed liver bx she wants to think about it [facility] Medical History Chronic abdominal pain Surgical History History of esophagogastroduodenoscopy (EGD) Family History Father Diabetes HTN (hypertension) Heart problem Mother Cancer Diabetes HTN (hypertension) Maternal Grandmother Cancer Social History Household Members: Spouse and Children Alcohol intake: current Alcohol intake frequency: holidays/special occasions only Patient Tobacco Use Status: Never used Tobacco Current occupational status: employed 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 Female Reproductive History Menstrual Age of Menarche: 11 Physical Exam Vital Signs: Last Vital Signs Pulse 70 11/18/23 12:04 BP 119/77 11/18/23 12:04 Pulse Ox 100 11/18/23 12:04 Oxygen Delivery Method Room Air 11/18/23 12:04 BMI result Body Mass Index 25.5 Assessment & Plan Assessment & Plan (1) Abnormal LFTs: Code(s): R79.89 - Other specified abnormal findings of blood chemistry Category: Medical Plan: see above Orders: Orders Hepatitis A,B,C Profile Today R7.89 - Other specified abnormal findings of blood chemistry ERIN Reflex Titer and Pattern Today R79.82 - Elevated C-reactive protein (CRP), R7.89 - Other specified abnormal findings of blood chemistry Alkaline Phosphatase Isoenzyme Today E83.52 - Hypercalcemia, R79.89 - Other specified abnormal findings of blood chemistry Immunoglobulins,IgG IgA IgM Today R79.89 - Other specified abnormal findings of blood chemistry Liver Kidney Microsomal Ab Today R79.89 - Other specified abnormal findings of blood chemistry Mitochondrial Antibody Today R79.89 - Other specified abnormal findings of blood chemistry C Reactive Protein Today R79.89 - Other specified abnormal findings of blood chemistry Ceruloplasmin Today R79.89 - Other specified abnormal findings of blood chemistry Soluble Liver Ag Autoantibody Today R7 - Other specified abnormal findings of blood chemistry Complete Blood Count Auto Diff Today R7. - Other specified abnormal findings of blood chemistry Comprehensive Met. Panel Today K75.81 - Nonalcoholic steatohepatitis (WILD), R7.89 - Other specified abnormal findings of blood chemistry ANCA Vasculitides Today R7.89 - Other specified abnormal findings of blood chemistry Alpha 1 Anti-trypsin Today R7. - Other specified abnormal findings of blood chemistry Aldolase Today R7. - Other specified abnormal findings of blood chemistry Transglutaminase IgA Today R79. - Other specified abnormal findings of blood chemistry Lyme IgG/IgM w/reflex to WB Today R79. - Other specified abnormal findings of blood chemistry Creatine Kinase Total Today R79. - Other specified abnormal findings of blood chemistry Ferritin Today R7. - Other specified abnormal findings of blood chemistry Smooth Muscle Antibody Today R7. - Other specified abnormal findings of blood chemistry UA CC w/rflx Micro + Cult Today R30.0 - Dysuria Coding Level of Care Code Est Pt Level 3 (44295) Diagnoses Abnormal LFTs
[2023-11-18 12:04] VITALS: BP 119/77; PULSE 70; O2SAT 100; BMI 25.5
== END 2023-11-18 13:13 | disposition home or self-care (01) ==
PROVIDERS: PCP Nurse Practitioner Primary Care; Referring Provider Nurse Practitioner Primary Care; Visit Provider Internal Medicine Gastroenterology
DX: R79.89 Other specified abnormal findings of blood chemistry (principal)
CPT/HCPCS: 99213

== ENCOUNTER → 2023-11-18 11:57 | Outpatient (BNVA) | payer MEDICAID, SELFPAY | PROVIDERS: PCP Nurse Practitioner Primary Care; Visit Provider Internal Medicine Gastroenterology | DX: R79.89 Other specified abnormal findings of blood chemistry (principal) | CPT/HCPCS: 99212 ==

== ENCOUNTER 2023-11-20 07:53 | Outpatient (REF) | payer MEDICAID, SELFPAY ==
[2023-11-20 08:12] LABS: MANUAL DIFF FLAG NO
[2023-11-20 09:04] LABS: Basophils Absolute Auto 0.1 X10*3/uL (0.0-0.2); Basophils Percent Auto 0.6 % (0-2); Eosinophils Absolute Auto 0.1 X10*3/uL (0.0-0.4); Eosinophils Percent Auto 1.4 % (0-4); Hematocrit 41.4 % (37.0-47.0); Hemoglobin 13.6 g/dl (12.0-16.0); Imm Gran Abs Auto 0.02 X10*3/uL (0.00-0.03); Imm Gran Pct Auto 0.2 % (0.0-0.4); Lymphocytes Absolute Auto 1.9 X10*3/uL (1.2-4.9); Lymphocytes Percent Auto 21.5 % (20-40); Mean Corpuscular HGB Conc 32.9 g/dl (31.0-35.0); Mean Corpuscular Hemoglobin 28.8 pg (27.0-33.0); Mean Corpuscular Volume 87.7 fL (80.0-98.0); Mean Platelet Volume 13.2 fL (9.4-12.3); Monocytes Absolute Auto 0.6 X10*3/uL (0.1-1.2); Monocytes Percent Auto 7.1 % (2-11); Neutrophils Percent Auto 69.2 % (45-73); Platelet Count 169 X10*3/uL (160-400); Red Blood Count 4.72 X10*6/uL (4.20-5.50); Red Cell Distribution Width 13.3 % (11.0-16.0); White Blood Count 8.7 X10*3/uL (4.8-10.8)
[2023-11-20 09:49] LABS: Alanine Aminotransferase 92 U/L (0-31); Albumin Level 4.1 g/dL (3.5-5.0); Alkaline Phosphatase 116 U/L (39-117); Anion Gap 12 (12-20); Aspartate Amino Transferase 55 U/L (5-31); Bilirubin Total 0.5 mg/dL (0.0-1.0); Blood Urea Nitrogen 10 mg/dL (9-16); C Reactive Protein 0.58 mg/dL (< or = 0.50); Calcium 9.6 mg/dL (8.4-10.2); Carbon Dioxide 26 mmol/L (22-29); Chloride 108 mmol/L (96-108); Estimated Glomerular Filt Rate > 60; Glucose Random 92 mg/dL (60-115); Sodium 142 mmol/L (135-145); Total Protein 7.1 g/dL (6.5-8.0)
[2023-11-20 10:03] LABS: HBS Num1 135.85 mIU/mL (0-7.99); HBc Num1 0.09 S/CO (0.00-0.79); HBsAGNum1 0.27 S/CO (0.00-0.99); Hepatitis A Antibody IgM 0.12 Index (0-0.79); Hepatitis B Core Antibody Nonreactive (Nonreactive); Hepatitis B Surface Antigen Negative (Negative); ~HepC Num1 0.12 S/CO (0.00-0.79); ~Hepatitis A Antibody IgM Nonreactive (Nonreactive); ~Hepatitis B Surface Antibody REACTIVE (Nonreactive); ~Hepatitis C Antibody Nonreactive (Nonreactive)
[2023-11-20 10:08] LABS: Ferritin 51 ng/mL (10-122)
[2023-11-20 11:35] LABS: Appearance Urine Clear; Color Urine Yellow; Glucose Urine UA Negative (Negative); Leukocyte Esterase Urine Moderate (2+) (Negative); Nitrite Urine Negative (Negative); PH 5.5 (5.0-9.0); Specific Gravity - Urine 1.025 (1.005-1.025); UMIC TRIGGER UACC YES; Urine Blood Negative (Negative); Urine Ketones Negative (Negative); Urine Protein Negative (Neg-Trace)
[2023-11-20 12:45] LABS: Bacteria Urine 1+ (None Seen); Hyaline Casts Urine 0-2 /LPF (0-2); RBC Urine 0-2 /HPF (0-2); UACC Culture Trigger YES; WBC Urine 21-50 /HPF (0-5)
[2023-11-21 14:43] LABS: IgA 162 mg/dL (47-310); IgG 884 mg/dL (600-1640); IgM 76 mg/dL (50-300)
[2023-11-21 18:18] LABS: Lyme Abs Screen <0.90 index
[2023-11-21 21:18] LABS: Myeloperoxidase Antibody <1.0 AI; Proteinase 3 PR3 Antibodies <1.0 AI
[2023-11-21 21:33] LABS: Transglutaminase IgA <1.0 U/mL
[2023-11-22 11:49] LABS: Anti Nuclear Antibody Screen NEGATIVE (NEGATIVE)
[2023-11-23 19:58] LABS: Alk.Phos Iso. Macrohepatic 0 % (<=0); Alk.Phos Isoenzymes Bone 36 % (28-66); Alk.Phos Isoenzymes Intest 0 % (1-24); Alk.Phos Isoenzymes Liver 64 % (25-69); Alk.Phos Isoenzymes Placental 0 % (<=0); Alk.Phos Isoenzymes Total 107 U/L (31-125)
[2023-11-25 06:28] LABS: Liver Kidney Microsomal Ab <=20.0 U (<=20.0)
[2023-11-25 12:39] LABS: Alpha 1 Anti-trypsin 155 mg/dL (83-199); Ceruloplasmin 36 mg/dL (14-48)
[2023-11-25 13:53] LABS: Smooth Muscle Antibody <20 U (<20)
[2023-11-25 15:04] LABS: Mitochondrial Antibodies NEGATIVE (NEGATIVE)
[2023-11-26 06:29] LABS: Aldolase 5.9 U/L (<=8.1)
[2023-11-27 15:32] LABS: Soluble Liver Ag Autoantibody <20.1 U (0.0-20.0)
== END 2023-11-20 07:54 | disposition home or self-care (01) ==
LOC: HO.LAB 07:53
PROVIDERS: PCP Nurse Practitioner Primary Care; Visit Provider Internal Medicine Gastroenterology
DX: R79.82 Elevated C-reactive protein (CRP) (principal); R79.89 Other specified abnormal findings of blood chemistry; K75.81 Nonalcoholic steatohepatitis (NASH); E83.52 Hypercalcemia
CPT/HCPCS: 36415; 80053; 81001; 81003; 82085; 82103; 82390; 82550; 82728; 82784; 83520; 84080; 85025; 86015; 86021; 86038; 86140; 86364; 86376; 86381; 86617; 86618; 86704; 86706; 86709; 86803; 87086; 87340

== ENCOUNTER 2023-12-02 09:26 | Outpatient (REF) | payer MEDICAID, SELFPAY ==
[2023-12-02 11:54] LABS: HCG Quantitative 1550 mIU/mL
== END 2023-12-02 09:27 | disposition home or self-care (01) ==
LOC: HO.HHCL 09:26
PROVIDERS: Visit Provider Emergency Medicine
DX: R68.89 Other general symptoms and signs (principal); N92.6 Irregular menstruation, unspecified
CPT/HCPCS: 36415; 84702; 87070

== ENCOUNTER 2024-03-27 10:24 | Outpatient (AMB) | payer MEDICAID, SELFPAY ==
--- NOTE | 2024-03-27 10:42 | MHC.OFFVIS ---
Vital Signs 03/27/24 10:44 Height 5 ft Weight 130 lb BMI 25.4 BP 115/66 Blood Pressure Location Lt brachial Position Sitting Pulse 76 Intake Visit Reasons: 4 month follow up Intake Note: Patient follow up for acid reflex Patient cc: acid reflex, constipation and some dizziness. Denes any other GI issues for today visit. 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 Accompanied by: Self / Same As Patient Allergies Sulfa (Sulfonamide Antibiotics) [SULFA (SULFONAMIDE ANTIBIOTICS)] Allergy (Mild, Verified 03/27/24 10:41) EYE SWELLING HPI HPI 4 month follow up: Details: 33 yr old f here for f/u RECAP: Initially saw [facility] [place] for abdo pain, nml LFT I had tried her on PPI --esomeprazole 40 mg daily she has anxiety, she sleeps for 6-8 hrs she has c/o ongoing nausea and vomiting, poor appetite she had reflux all day she lost a baby due to pre eclampsia Imaging: U/S 03/2020-- liver microcalcifications, no focal liver lesion MRI 05/01-- x2 areas of intra helpatic bile duct dilation, no gallstones CT 05/2020-- scattered areas of mild intrahepatic bile duct dilation, prominent pancreas body and tail MRI- 06/2020-- stable appearance of pancreas and liver as above US 06/2022-- GB sludge , ?intrahepatic stones or sludge in right lobe EGD 07/2020-- mild esophagitis and gastritis colonoscopy 07/2021- tortuous colon, internal hemorrhoids US- neg for gallstones and sludge, fatty liver, slightly increased stiffness INTERIM: she denies abdominal pain eating foods incl greasy foods, little exercise, drinks a lot of coke no nausea or vomiting appetite is good no jaundice EXAM: GENERAL: The patient is well developed and nontoxic. VITAL SIGNS:see workflow HEENT: Nonicteric sclerae, PERRLA, EOMI. Oropharynx clear. Moist mucous membranes. Conjunctivae appear well perfused. No thyroid mass. CHEST: Chest wall is nontender. HEART: Regular rate and rhythm without murmurs. LUNGS: Clear to auscultation bilaterally. ABDOMEN: Soft, positive bowel sounds, non tender , no organomegaly.no flank tenderness- SKIN: No rash, no excessive bruising, petechiae, or purpura. NEUROLOGIC: Cranial nerves II-XII intact without motor/sensory deficit. 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 PLAN: 1/ recheck LFT today, fibrosure labs 2/ long chat about etiology of MASH, and risk for cirrhosis, diet changes she can make incl stopping soft drinks, limit nino and red meats 3/ trial of trental and see if helps may need resmetriom if F2 PFSH Medical History Chronic abdominal pain Surgical History History of esophagogastroduodenoscopy (EGD) Family History Father Diabetes HTN (hypertension) Heart problem Mother Cancer Diabetes HTN (hypertension) Maternal Grandmother Cancer Social History Household Members: Spouse and Children Alcohol intake: current Alcohol intake frequency: holidays/special occasions only Patient Tobacco Use Status: Never used Tobacco Current occupational status: employed 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 Panel Today K75.81 - Nonalcoholic steatohepatitis (WILD), R79.89 - Other specified abnormal findings of blood chemistry Liver Fibrosis Pnl Today R79.89 - Other specified abnormal findings of blood chemistry Prothrombin Time INR Today R79.89 - Other specified abnormal findings of blood chemistry Medications: New pentoxifylline ER must administer with a meal/food 400 mg PO TID 90 tabs 1RF Coding Level of Care Code Est Pt Level 3 (54526) Diagnoses Abnormal LFTs R79.
[2024-03-27 10:44] VITALS: BP 115/66; PULSE 76; BMI 25.4
== END 2024-03-27 11:14 | disposition home or self-care (01) ==
PROVIDERS: PCP Nurse Practitioner Primary Care; Visit Provider Internal Medicine Gastroenterology
DX: R79.89 Other specified abnormal findings of blood chemistry (principal)
CPT/HCPCS: 99213

== ENCOUNTER → 2024-03-27 10:24 | Outpatient (BNVA) | payer MEDICAID, SELFPAY | PROVIDERS: PCP Nurse Practitioner Primary Care; Visit Provider Internal Medicine Gastroenterology | DX: R79.89 Other specified abnormal findings of blood chemistry (principal) | CPT/HCPCS: 99212 ==

== ENCOUNTER 2024-04-01 11:17 | Outpatient (REF) | payer MEDICAID, SELFPAY ==
--- OUTSIDE RECORDS SUMMARY | 2024-04-01 13:00 | XMS_ITS | Encounter Summary ---
Author Organization [employer] Address [address] [facility] [address] [place] [address] Care Team Providers Care Carpenter Packing Name Role Phone Whitney Sotomayor Primary Care Provider [phone] Genoveva Chamorro MD Unavailable [phone] Reason for Visit * Reason Comments Cough Generalized Body Aches Encounter Details Date Type Department Care Team ([facility] st Contact Info) Description 04/01/2024 10:20 AM EST Office Visit [facility] [address] [place] [phone] Kapil De La Rosa MD [address] [place] [address] Influenza-like symptoms (Primary Dx); Viral URI; Influenza B Social History Tobacco Use Types Packs/Day Years Used Date Smoking Tobacco: Never Passive Smoke Exposure: Never Smokeless Tobacco: Never Alcohol Use Standard Drinks/Week Comments Yes 0 (1 standard drink = 0.6 oz pur e alcohol) social Depression Answer Date Recorded Patient Health Questionnaire-9 Score 9 07/16/2023 Patient Health Questionnaire-9 Score 9 07/16/2023 Last PHQ-9: Questionnaire Data Not on file 0 07/16/2023 Housing Stability Answer Date Recorded What is your housing situation today? I have chao vo 12/26/[address] you li ve. Do you have problems with any of the following? None of the above 12/26/2022 Food Insecurity Answer Date Recorded Within the past 12 months, y ou worried that your food would run out before you got money to buy more: Never True 07/04/2023 Within the past 12 months,th e food you bought just didn't last and you didn't have enough money to get more: Never True Transportation Answer Date Recorded In the past 12 months, has l ack of transportation kept you from medical appts, meetings, work or from getting things needed for daily living? No 12/26/2022 Utilities Answer Date Recorded In the past 12 months, has t he electric, gas, oil or water company threatened to shut off services in your home? No 12/26/2022 Depression Answer Date Recorded Patient Health Questionnaire-2 Score 4 07/16/2023 Comments Unknown Sex and Gender Information Value Date Recorded Sex Assigned at Female 01/08/2022 10:36 AM EDT Legal Sex Female 10:36 AM EDT Gender Identity Female 01/08/2022 10:36 AM EDT Sexual Orientation Straight 06/05/2023 11 :16 AM EDT documented as of this encounter Last Filed Vital Signs Vital Sign Reading Time Taken Comments Blood Pressure 129/81 04/01/2024 10:01 AM EST Pulse 91 04/01/2024 10:01 AM EST Temperature 37.1 ??C (98.7 ??F) 04/01/2024 10:[address] Respiratory Rate 17 04/01/2024 10:01 AM EST Oxygen Saturation 99% 04/01/2024 10:01 AM EST Inhaled Oxygen Concentration - - Weight - - Height - - Body Mass Index - - documented in this encounter Progress Notes * Kapil De La Rosa MD - 04/01/2024 10:20 AM EST Subjective Patient ID: Farhan Reina is a 33 y.o. female. HPI Yesterday had onset of fatigue, cough, nausea without vomiting, headaches, body aches. No fever, wheezing, SOB, or diarrhea. Had + rapid Flu B test 03/18/2024. Lives with and 12 yo daughter. LMP=03/22. Works as [employer]. Never smoked. Patient Active Problem List Diagnosis Gastroesophageal reflux disease Transaminitis Grief Health care maintenance The following portions of the chart were reviewed this encounter and updated as appropriate: Tobacco Allergies Meds Problems Med Hx Surg Hx Fam Hx Review of Systems Constitutional: Positive for fatigue. Negative for fever. Respiratory: Positive for cough. Negative for shortness of breath and wheezing. Cardiovascular: Negative for chest pain. Gastrointestinal: Positive for nausea. Negative for abdominal pain and vomiting. Musculoskeletal: Positive for myalgias. Skin: Negative for rash. Neurological: Negative for headaches. Objective Physical Exam Constitutional: Appearance: Normal appearance. HENT: Right Ear: Tympanic membrane, ear canal and external ear normal. Left Ear: Tympanic membrane, ear canal and external ear normal. Nose: Nose normal. Mouth/Throat: Mouth: Mucous membranes are moist. Pharynx: Oropharynx is clear. Eyes: Conjunctiva/sclera: Conjunctivae normal. Pupils: Pupils are equal, round, and reactive to light. Cardiovascular: Rate and Rhythm: Normal rate and regular rhythm. Heart sounds: No murmur heard. Pulmonary: Effort: Pulmonary effort is normal. Breath sounds: Normal breath sounds. Musculoskeletal: General: Normal range of motion. Cervical back: No tenderness. Skin: Findings: No rash. Neurological: Mental Status: She is alert. Gait: Gait is intact. Psychiatric: Mood and Affect: Mood normal. Behavior: Behavior normal. Procedures Assessment/Plan Diagnoses and all orders for this visit: Influenza-like symptoms Negative rapid Covid and Influenza tests. Covid PCR and Flu tests pending. Prescribed acetaminophen, ibuprofen. Refilled albuterol HFA; she declined chamber. Given rapid covid test kits. Rtc if not improving. - POCT Rapid COVID Ag - Influenza A (ID NOW Rapid Molecular) - Influenza B (ID NOW Rapid Molecular) Comments: URI Orders: - acetaminophen (Tylenol) 500 MG tablet; Take 2 tablets (1,000 mg) by mouth every 6 (six) hours if needed for moderate pain or fever for up to 25 doses. Other orders - ibuprofen 400 MG tablet; Take 1 tablet (400 mg) by mouth every 6 (six) hours if needed for moderate pain or fever for up to 30 doses. - albuterol 108 (90 Base) MCG/ACT inhaler; Inhale 2 puffs every 4 (four) hours if needed for wheezing or shortness of breath. documented in this encounter Plan of Treatment Upcoming Encounters Date Type Department Care Team (Late st Contact Info) Description 05/06/2024 4:00 PM EST Telemedicine [facility] [address] [place] [phone] Whitney Sotomayor, ANP [address] [facility] [place] [address] documented as of this encounter Procedures Procedure Name Priority Date/Time Associated Diagnosis Comments POCT INFLUENZA B (ID NOW RAPID MOLECULAR) Routine 04/01/2024 10:14 AM EST Viral URI POCT INFLUENZA A (ID NOW RAPID MOLECULAR) Routine 04/01/2024 10:14 AM EST Viral URI POCT RAPID COVID ANTIGEN Routine 04/01/2024 10:14 AM EST Viral URI documented in this encounter Results * Influenza B (ID NOW Rapid Molecular) (04/01/2024 10:14 AM EST) [facility] Influenza B Negative Negative, Indeterminate [facility] Swab 04/01/2024 10:1 4 AM EST us Kapil De La Rosa MD POINT OF CARE TEST ENTER/EDIT OR DERABLES Final Result Performing Organization Address City/[facility]/ZIP Co de Phone Number [facility] [address] [place] [phone] * Influenza A (ID NOW Rapid Molecular) (04/01/2024 10:14 AM EST) [facility] Influenza A Negative Negative, Indeterminate [facility] Swab 04/01/2024 10:1 4 AM EST us Kapil De La Rosa MD POINT OF CARE TEST ENTER/EDIT OR DERABLES Final Result Performing Organization Address [facility]/ZIP Co de Phone Number [facility] [address] [place] [phone] * POCT Rapid COVID Ag (04/01/2024 10:14 AM EST) Rapid COVID Ag Negative [facility] Swab 04/01/2024 10:1 4 AM EST us Kapil De La Rosa MD POINT OF CARE TEST ENTER/EDIT OR DERABLES Final Result [facility] [address] [place] [address] [phone] documented in this encounter Visit Diagnoses Diagnosis Influenza-like symptoms- Primary Other general symptoms Viral URI Acute upper respiratory infections of unspecified site Influenza B Influenza with other respiratory manifestations documented in this encounter Additional Health Concerns Assessment Noted Time PHQ-9 Depression Total Score: 9 07/16/19 24 1:46 PM EDT documented as of this encounter Care Teams Carpenter Packing Relationship Specialty Start Date End Date Whitney Sotomayor ANP [address] [place] [phone] PCP - General Family Medicine 10/31/20 Genoveva Chamorro MD [address] [place] [address] Dr [address] [place] [address] Gastroenterology 02/19/24 documented as of this encounter
--- OUTSIDE RECORDS SUMMARY | 2024-04-01 13:00 | XMS_ITS | Encounter Summary ---
Author Organization [employer] Address [address] [facility] 7t [place] [address] Care Team Providers Care Pull Tab Dealer Name Role Phone Светлана Whitney BUSCH Primary Care Provider [phone] Genoveva Chamorro MD Unavailable [phone] Reason for Visit * Reason Comments Cough Encounter Details Date Type Department Care Team ([facility] st Contact Info) Description 03/18/2024 6:00 PM EST Office Visit [facility] [address] [place] [address] Lore Andrade NP [address] [place] [address] Influenza B (Primary Dx); Cough in adult patient Social History Tobacco Use Types Packs/Day Years [...] Sign Reading Time Taken Comments Blood Pressure 122/73 03/18/2024 5:07 PM EST Pulse 76 03/18/2024 5:07 PM EST Temperature 36.9 ??C (98.4 ??F) 03/18/2024 5:07 PM ES T Respiratory Rate 18 03/18/2024 5:07 PM EST Oxygen Saturation 98% 03/18/2024 5:07 PM EST Inhaled Oxygen Concentration - - Weight 64 kg (141 lb) 03/18/2024 5:07 PM EST Height - - Body Mass Index 26.64 08/15/2023 11:44 AM EDT documented in this encounter Progress Notes * Lore Andrade NP - 03/18/2024 6:00 PM EST SUBJECTIVE: Farhan Reina is a 33 y.o. female who presents to the [facility] for a sick visit. Denies recent illness, injury, or hospitalization. HPI Complains of feeling fatigued, headache, runny nose, sneezing, slight cough that started 1 day ago.Denies shortness of breath, fever, chills, chest tightness. Has not taken anything for her symptoms. Review of Systems Constitutional: Negative. Negative for activity change, appetite change, chills and fever. HENT: Positive for rhinorrhea and sneezing. Negative for congestion and ear pain. Respiratory: Positive for cough. Negative for chest tightness, shortness of breath and wheezing. Cardiovascular: Negative for chest pain. Gastrointestinal: Negative for abdominal pain, constipation, diarrhea and nausea. Genitourinary: Negative for dysuria. Musculoskeletal: Negative for arthralgias, back pain, myalgias and neck pain. Skin: Negative. Negative for rash and wound. Neurological: Positive for headaches. Negative for weakness and light-headedness. Psychiatric/Behavioral: Negative for behavioral problems, confusion, decreased concentration and suicidal ideas. OBJECTIVE: Visit Vitals BP 122/73 (BP Location: Left arm, Patient Position: Sitting, BP Cuff Size: Adult) Pulse 76 Temp 98.4 ??F (36.9 ??C) (Temporal) Resp 18 Wt 141 lb (64 kg) SpO2 98% BMI 26.64 kg/m?? OB Status Unknown Smoking Status Never BSA 1.66 m?? Patient Active Problem List Diagnosis Gastroesophageal reflux disease Transaminitis Grief Health care maintenance Physical Exam Vitals reviewed. Constitutional: General: She is not in acute distress. Appearance: Normal appearance. She is not ill-appearing. HENT: Head: Normocephalic and atraumatic. Right Ear: Tympanic membrane and external ear normal. Left Ear: Tympanic membrane and external ear normal. Nose: Nose normal. No congestion or rhinorrhea. Mouth/Throat: Pharynx: Uvula midline. No oropharyngeal exudate, posterior oropharyngeal erythema or uvula swelling. Tonsils: No tonsillar exudate or tonsillar abscesses. Eyes: General: No scleral icterus. Extraocular Movements: Extraocular movements intact. Cardiovascular: Rate and Rhythm: Normal rate and regular rhythm. Pulses: Normal pulses. Heart sounds: Normal heart sounds. Pulmonary: Effort: Pulmonary effort is normal. No respiratory distress. Breath sounds: Normal breath sounds. Musculoskeletal: General: Normal range of motion. Cervical back: Normal range of motion and neck supple. Tenderness present. Lymphadenopathy: Cervical: No cervical adenopathy. Skin: General: Skin is warm and dry. Neurological: General: No focal deficit present. Mental Status: She is alert and oriented to person, place, and time. Gait: Gait normal. Psychiatric: Mood and Affect: Mood normal. Behavior: Behavior normal. Assessment/Plan Diagnoses and all orders for this visit: Influenza B Comments: -rapid POCT positive for Flu B -Rapid COVID-19 and Flu A negative today -advised tylenol/ibuprofen for fever and body aches, increase fluid intake and rest -Sore throat: salt water gargles, drink tea with honey & lemon, suck lozenge -come to walk-in center if develop fever or symptoms worsen -work note provided to return Saturday Orders: - acetaminophen (Tylenol) 500 MG tablet; Take 2 tablets (1,000 mg) by mouth every 6 (six) hours if needed for moderate pain or fever for up to 25 doses. Cough in adult patient - POCT Rapid COVID Ag - Influenza A (ID NOW Rapid Molecular) - Influenza B (ID NOW Rapid Molecular) Maltese Translation: Provided by [facility] staff member BRENDA Bob documented in this encounter Plan of Treatment Upcoming Encounters Date Type Department Care Team (Late st Contact Info) Description 05/06/2024 4:00 PM EST Telemedicine [facility] [address] [place], [place] [phone] Whitney Sotomayor ANP [address] [place] [address] documented as of this encounter Procedures Procedure Name Priority Date/Time Associated Diagnosis Comments POCT INFLUENZA B (ID NOW RAPID MOLECULAR) Routine 03/18/2024 5:12 PM EST Cough in adult patient POCT INFLUENZA A (ID NOW RAPID MOLECULAR) Routine 03/18/2024 5:12 PM EST Cough in adult patient POCT RAPID COVID ANTIGEN Routine 03/18/2024 5:12 PM EST Cough in adult patient documented in this encounter Results * (ABNORMAL) Influenza B (ID NOW Rapid Molecular) (03/18/2024 5:12 PM EST) Influenza B Positive( A) Negative, Indeterminate [facility] Swab 03/18/2024 5:12 PM EST Lore Andrade NP POINT OF CARE TEST ENTER/EDIT O RDERABLES Final Result [facility] [address] [place] [phone] * Influenza A (ID NOW Rapid Molecular) (03/18/2024 5:12 PM EST) Influenza A Negative Negative, Indeterminate [facility] Swab 03/18/2024 5:12 PM EST Lore Appra ALARM ADJUSTER POINT OF CARE TEST ENTER/EDIT O RDERABLES Final Result Performing Organization Address City/[facility]/ZIP Co de Phone Number [facility] [address] [place] [phone] * POCT Rapid COVID Ag (03/18/2024 5:12 PM EST) Rapid COVID Ag Negative Swab 03/18/2024 5:12 PM EST Lore Andrade ALARM ADJUSTER POINT OF CARE TEST ENTER/EDIT O RDERABLES Final Result documented in this encounter Visit Diagnoses Diagnosis Influenza B- Primary Influenza with other respiratory manifestations Cough in adult patient documented in this encounter Additional Health Concerns Assessment Noted Time PHQ-9 Depression Total Score: 9 07/16/19 24 1:46 PM EDT documented as of this encounter Care Teams Pull Tab Dealer Relationship Specialty Start Date End Date Whitney Sotomayor ANP [address] [place] [phone] PCP - General Family Medicine 10/31/20 Genoveva Chamorro MD [address] [place] [address] [address] [facility] [place] [address] Gastroenterology 02/19/24 documented as of this encounter
--- OUTSIDE RECORDS SUMMARY | 2024-04-01 13:00 | XMS_ITS | Encounter Summary ---
Author Organization [employer] Address [address] [facility] 7t [place] [address] Care Team Providers Care Spindle Tester Name Role Phone Whitney Sotomayor Primary Care Provider [phone] Genoveva Chamorro MD Unavailable [phone] Reason for Visit * Reason Onset Date Comments May recall 03/24/2024 Encounter Details Date Type Department Care Team ([facility] st Contact Info) Description 03/24/2024 Telephone [facility] [address] [place] [address] [place] May recall Social History Tobacco Use Types Packs/Day Years [...] AM EDT documented as of this encounter Miscellaneous Notes * Telephone Encounter - Liliam Richards [place] - 03/24/2024 7:11 PM EST T/C to pt to schedule a recall pe due after 06/04/24. No answer LVM to call clinic to schedule appt.Mailed recall letter. documented in this encounter Plan of Treatment Upcoming Encounters Date Type Department Care Team (Late st Contact Info) Description 05/06/2024 4:00 PM EST Telemedicine [facility] [address] [place] [phone] Whitney Sotomayor ANP [address] [place] [address] documented as of this encounter Visit Diagnoses Not on filedocumented in this encounter Additional Health Concerns Assessment Noted Time PHQ-9 Depression Total Score: 9 07/16/19 24 1:46 PM EDT documented as of this encounter Care Teams Spindle Tester Relationship Specialty Start Date End Date Whitney Sotomayor ANP [address] [place] [phone] PCP - General Family Medicine 10/31/20 Genoveva Chamorro MD [address] [place] [address] Dr 3rd [place] [address] Gastroenterology 12/11/24 documented as of this encounter
--- OUTSIDE RECORDS SUMMARY | 2024-04-01 13:00 | XMS_ITS | Clinical Summary ---
Author Organization [employer] Address [address] [facility] [address] [place] [address] Care Team Providers Care Target Setter Name Role Phone Светлана Whitney BUSCH Primary Care Provider [phone] Genoveva Chamorro MD Unavailable [phone] Allergies Active Allergy Reactions Criticality Noted Date Comments Latex 11/16/2022 Sulfa Antibiotics High 02/27/2019 Eye burning/swelling Other reaction(s): Burning Eyes, Eyes Swell swellling of the eyes Medications * This document contains information received from the source organization and may not represent a complete record from that organization. ketoconazole (NIZOral) 2 % shampoo APPLY TO SCALP TWO TIMES A WEEK, LEAVE ON FOR 5 MINUTES THEN WASH OFF 05/18/19 23 Active famotidine (Pepcid) 40 MG tablet Take by mouth. Active ibuprofen 600 MG tablet Take 1 tablet (600 mg) by mouth every 8 (eight) hours if needed for moderate pain. Take with food 90 tablet 3 06/12/19 24 025 Active Spacer/Aero-Ho lding Chambers (OptiChamber Leora) misc 1 each every 4 (four) hours if needed (asthma). 1 each 06/12/19 24 Active cyclobenzaprin e (Flexeril) 5 MG tabletIndicati ons:Pain in joint of left shoulder Take 1 tab as needed up to 3 times in 24 hrs 30 tablet 07/15/19 24 Active ibuprofen 400 MG tablet Take 1 tablet (400 mg) by mouth every 6 (six) hours if needed for moderate pain or fever for up to 30 doses. 30 tablet 04/01/19 25 Active acetaminophen (Tylenol) 500 MG tabletIndicati ons:Influenza B Take 2 tablets (1,000 mg) by mouth every 6 (six) hours if needed for moderate pain or fever for up to 25 doses. 50 tablet 04/01/19 25 Active albuterol 108 (90 Base) MCG/ACT inhaler Inhale 2 puffs every 4 (four) hours if needed for wheezing or shortness of breath. 18 g 3 04/01/19 25 026 Active albuterol 108 (90 Base) MCG/ACT inhaler Inhale 2 puffs every 4 (four) hours if needed for wheezing or shortness of breath. 18 g 1 06/12/19 24 025 Discontinued(Re order (will not trigger notification to Pharmacy)) acetaminophen (Tylenol) 500 MG tablet Take 2 tablets (1,000 mg) by mouth every 6 (six) hours if needed for moderate pain or fever for up to 25 doses. 50 tablet 08/07/19 24 025 Discontinued(Re order (will not trigger notification to Pharmacy)) acetaminophen (Tylenol) 500 MG tabletIndicati ons:Influenza B Take 2 tablets (1,000 mg) by mouth every 6 (six) hours if needed for moderate pain or fever for up to 25 doses. 50 tablet 03/18/19 25 025 Discontinued(Re order (will not trigger notification to Pharmacy)) Active Problems Patient Care Coordination No te Formatting of this note migh t be different from the original. C3/CM Darcy Johnston RN Problem Noted Date Diagnosed Date Transaminitis 06/05/2023 Assessment & Plan (06/05/2023 6:38 PM EDT): -f w GI for GERD and transaminitis -from last GI note there may be a plan for possible liver bx -From GI's note : -U/S 03/2020-- liver microcalcifications, no focal liver lesion -MRI 05/01-- x2 areas of intra helpatic bile duct dilation, no gallstones -CT 05/2020-- scattered areas of mild intrahepatic bile duct dilation, prominent pancreas body and tail -US 06/2022-- GB sludge , ?intrahepatic stones or sludge in right lobe -EGD 07/2020-- mild esophagitis and gastritis -colonoscopy 07/2021- tortuous colon, internal hemorrhoids -advised pt to avoid ETOH,excess tylenol and NSAIDS, pt states takes only sporadically -repeat chem and advised pt to make sure to continue care w her GI Grief 06/05/2023 Assessment & Plan (08/20/2023 9:54 AM EDT): During IBH Consult Farhan presenting with depressed mood, loss of interests/pleasure , changes in sleep difficulty staying asleep , trouble concentrating, thoughts of worthlessness or guilt, fatigue/loss of energy, inappropriate guilt , difficulty concentrating; for a period of 0-6 mo, for all symptoms in the context of and financial concern. Farhan reported having a difficult time with the recent of her baby. Pt lost baby at six months . Aware of coping mechanisms and importance of having/receiving social and family support. Financial insecurity also identified as a trigger for intensity of stress. PLAN: (check all that apply) Behavioral Health Integration Plan Patient Self Plan Patient to utilize skills provided in intervention , Patient to reach out to [facility] team as needed, Comply with medication , and Patient to reach out to [facility] as needed. Pt prefers to utilize coping mechanism, continue taking her medication and follow-up with clinician during next medical appointments. OP referral declined. Assessment & Plan (07/16/2023 2:06 PM EDT): During IBH Consult Farhan presenting with depressed mood, loss of interests/pleasure , changes in sleep difficulty falling asleep, psychomotor retardation, trouble concentrating, fatigue/loss of energy, inappropriate guilt , worthlessness , difficulty concentrating; for a period of 0-6 mo, for all symptoms in the context of . Farhan reported having a difficult time with the recent of her baby. Pt lost baby at six months . Aware of coping mechanisms and importance of having social/family support. Upcoming mother's day triggers sxs. PLAN: (check all that apply) Behavioral Health Integration Plan Internal Follow up with [facility] Patient Self Plan Patient to utilize skills provided in intervention , [facility] as needed, and Patient to reach out to [facility] as needed. Pt declined referral. Interested in following-up with clinician throughout her healing process. Next appt with clinician on 08/13. Assessment & Plan (06/05/2023 6:39 PM EDT): PHQ9: 8 Pt reports feeling sad lately because soon is the anniversary of the of her baby-pt lost baby at 6 months of ,states she is coping well but currently feeling sad because of the date. Denies any SI. Seems normal grieving - -refuse for now Health care maintenance 06/05/2023 Assessment & Plan (06/05/2023 6:39 PM EDT): -02/2023 T spot neg -contraception : condoms ,thinking eventually to get -states not sure yet ,rec to take prenatals if actively trying -to see 07/07 -pap smear: unsure-pt will check w HEALTHCARE SCIENCE SPECIALIST at upcoming apt 06/2023 -vaccine COVID 19 x2 -refuse booster, refuse flu vaccine , tdap today , HPV never -refuse vaccine -labs x annual exam -Will RTC in fasting -pt agreed to have STI testing including HIV to have for baseline -pt will f lab results w PCP -has scheduled already apt for f up Gastroesophageal reflux disease 05/28/2022 Encounters Date Type Department Care Team Description 04/01/2024 10:20 AM EST Office Visit [facility] [address] [place] [phone] Kapil De La Rosa MD Influenza-like symptoms (Primary Dx); Viral URI; Influenza B 03/24/2024 Telephone [facility] [address] [place] [phone] Liliam Richards MA May recall 03/18/2024 6:00 PM EST Office Visit [facility] [address] [place] [phone] Lore Andrade NP Influenza B (Primary Dx); Cough in adult patient 03/09/2024 Telephone [facility] [address] [place] [phone] Liliam Richards MA April recall 02/19/2024 3:45 PM EST Office Visit [facility] [address] [place] [phone] Whitney Sotomayor ANP Transaminitis (Primary Dx) 02/19/2024 Travel 02/10/2024 Patient Outreach [facility] [address] [place] [address] Whitney Sotomayor ANP Pre-visit Planning (Pre-visit planning - LVM ) from Last 3 Months Immunizations Name Administration Dates Next Due Influenza injectable quadrivalent preservative f ree 01/20/2021 Tdap 06/05/2023 Family History Medical History Relation Name Comments heart dx, HTN Father Colon cancer Maternal Grandmother DM2 Mother breast ca-at her 45y of age Mother Relation Name Status Comments Father Maternal Grandmother Mother Social History Tobacco Use Types Packs/Day Years Used Date Smoking Tobacco: Never Passive Smoke Exposure: Never Smokeless Tobacco: Never Tobacco Cessation:Counseling Given: Not Answered Alcohol Use Standard Drinks/Week Comments Yes 0 [...] Orientation Straight 06/05/2023 11 :16 AM EDT Last Filed Vital Signs Vital Sign Reading Time Taken Comments Blood Pressure 129/81 04/01/2024 10:01 AM EST Pulse 91 04/01/2024 10:01 AM EST Temperature 37.1 ??C (98.7 ??F) 04/01/2024 10:[address] Respiratory Rate 17 04/01/2024 10:01 AM EST Oxygen Saturation 99% 04/01/2024 10:01 AM EST Inhaled Oxygen Concentration - - Weight 64 kg (141 lb) 03/18/2024 5:07 PM EST Height 154.9 cm (5' 1 ) 08/15/2023 11:44 AM EDT Body Mass Index 26.64 08/15/2023 11:44 AM EDT Plan of Treatment Upcoming Encounters Date Type Department Care Team (Late st Contact Info) Description 05/06/2024 4:00 PM EST Telemedicine [facility] [address], [place] [phone] Whitney Sotomayor, ANP [address] [place], [place] [phone] Health Maintenance Due Date Last Done Comments Alcohol/Substance Use Screening 2001 Family Planning (PISQ) 2004 Depression Monitoring (PHQ-9) 01/16/2024, 07/16/2023 SDOH Screening 07/03/2024 07/04/2023 Depression Screening 07/15/2024 07/16/2023, 07/16/2023 Influenza Vaccine (#1) 2024 01/20/2021 Postp oned from 11/10/2023 (Patient Refused) COVID-19 Vaccine (3 2023-2 5 season) 2025 07/22/2020, 07/01/2020 Postponed from 11/10/2023 (Patient Refused) Tobacco Screening 04/01/2025 04/01/2024 Cervical Cancer Screening 04/13/2027 HPV/Cotest 04/13/2027 04/13/2022, 07/05/2020, 07/05/2020 Pap Smear 04/13/2027 04/13/2022, 07/05/2020 Lipid Panel 07/14/2028 07/15/2023 DTaP/Tdap/Td Vaccines (2 - T d or Tdap) 06/04/2033 06/05/2023 Zoster Vaccines (1 of 2) 06/19/2039 RSV Patients and Patients Aged 60 years or older (1 - 1-dose 75+ series) 2064 HIV Screening Completed 07/15/2023, 01/01/2020, 03/02/2019 Hepatitis C Screening Completed 11/20/2023 , 07/15/2023, 03/02/2019 HIB Vaccines Aged Out No longer eligi ble based on patient's age to complete this topic HPV Vaccines Aged Out No longer eligi ble based on patient's age to complete this topic Hepatitis A Vaccines Aged Out No long er eligible based on patient's age to complete this topic Hepatitis B Vaccines Discontinued IPV Vaccines Aged Out No longer eligi ble based on patient's age to complete this topic Meningococcal Vaccine Aged Out No dillon dean eligible based on patient's age to complete this topic Pneumococcal Vaccine: Pediatrics (0 to 5 Years) and At-Risk Patients (6 to 64 Years) Aged Out No longer eligible b ased on patient's age to complete this topic RSV under 20 months Aged Out No longe r eligible based on patient's age to complete this topic Rotavirus Vaccines Aged Out No longer eligible based on patient's age to complete this topic Procedures Procedure Name Priority Date/Time Associated Diagnosis Comments POCT INFLUENZA B (ID NOW RAPID MOLECULAR) Routine 04/01/2024 10:14 AM EST Viral URI POCT INFLUENZA A (ID NOW RAPID MOLECULAR) Routine 04/01/2024 10:14 AM EST Viral URI POCT RAPID COVID ANTIGEN Routine 04/01/2024 10:14 AM EST Viral URI POCT INFLUENZA B (ID NOW RAPID MOLECULAR) Routine 03/18/2024 5:12 PM EST Cough in adult patient POCT INFLUENZA A (ID NOW RAPID MOLECULAR) Routine 03/18/2024 5:12 PM EST Cough in adult patient POCT RAPID COVID ANTIGEN Routine 03/18/2024 5:12 PM EST Cough in adult patient HEPATITIS PANEL, GENERAL Routine 11/20/2023 8:11 AM EDT HIV 1/2 ANTIGEN/ANTIBODY, FOURTH GENERATION W/RFL Routine 07/15/2023 8:29 AM EDT Annual physical exam LIPID PANEL, STANDARD Routine 07/15/2023 8:29 AM EDT Annual physical exam HPV MRNA E6/E7 REFLEX TO HPV 16, 18/45 Routine 04/13/2022 HM PAP/HPV Routine 04/13/2022 from Last 3 Months or Most Recently Relevant to Health Maintenance Results * Influenza B (ID NOW Rapid Molecular) (04/01/2024 10:14 AM EST) Only the most recent of2 resultswithin the time period is included. Influenza B Negative Negative, Indeterminate [facility] Swab 04/01/2024 10:1 4 AM EST us Kapil De La Rosa MD POINT OF CARE TEST ENTER/EDIT OR DERABLES Final Result Performing Organization Address [facility]/ZIP Co de Phone Number [facility] [address] [place] [phone] * Influenza A (ID NOW Rapid Molecular) (04/01/2024 10:14 AM EST) Only the most recent of2 resultswithin the time period is included. Influenza A Negative Negative, Indeterminate [facility] Swab 04/01/2024 10:1 4 AM EST us Kapil De La Rosa MD POINT OF CARE TEST ENTER/EDIT OR DERABLES Final Result [facility] [address] [place] [phone] * POCT Rapid COVID Ag (04/01/2024 10:14 AM EST) Only the most recent of2 resultswithin the time period is included. Rapid COVID Ag Negative [facility] Swab 04/01/2024 10:1 4 AM EST Kapil De La Rosa MD POINT OF CARE TEST ENTER/EDIT OR DERABLES Final Result Performing Organization Address [facility] Co de Phone Number [facility] [address] [place] [address] [phone] * Hepatitis Panel, General (11/20/2023 8:11 AM EDT) Pathologist [facility] Hepatitis A IgM Nonreactive Nonreactive [facility] Comment:IgM antibodies to FLEMING V not detected; does not exclude earlyacute or recovered HAV infection. ~Hepatitis B Surface Antibody REACTIVE Nonreactive [facility] Comment:REACTIVE: > 11.99 mI U/mL Hepatitis B Core Antibody Nonreactive Nonreactive [facility] Hepatitis C Antibody Nonreactive Nonreactive [facility] Comment:Antibodies to HCV no t detected; does not exclude early acuteHCV infection. Hepatitis B Surface Ag Negative Negative [facility] 11/20/2023 8:11 AM EDT 11/20/2023 8:11 AM EDT Generic External Data Provider LAB BLOOD ORDERAB LES Final Result Performing Organization Address [facility]/ZIP Co de Phone Number [facility] [address] [place] [address] [phone] * HIV-1/2 Antigen and Antibodies, Fourth Generation, with Reflexes (07/15/2023 8:29 AM EDT) HIV AB/AG Nonreactive Nonreactive [facility] Comment:HIV-1 p24 Ag and/or HIV-1/HIV-2 Ab not detected.A test result that is nonreactive does not exclude thepossibility of exposure to or infection with HIV-1 and/orHIV-2. Nonreactive results in this assay for individualswith prior exposure to HIV-1 and/or HIV-2 may be due toantigen and antibody levels that are below the limit ofdetection of this assay.The [employer] HIV Ag/Ab Combo assay result andsupplemental assay results should be interpreted inconjunction with the patient's clinical presentation,history and other laboratory results. If the results areinconsistent with clinical evidence, additional testing issuggested to confirm the result. Blood Venous blood specimen / Unknown 07/15/2023 8:29 AM EDT 07/15/2023 11:20 AM EDT us Lynda Garibay MD LAB BLOOD ORDERAB LES Final Result [facility] [address] [place] [phone] * Lipid Panel, Standard (07/15/2023 8:29 AM EDT) Triglycerides 68 <150 mg/dL [facility] Comment:Desirable Triglyceri de: less than 150 mg/dLBorderline High Triglyceride 150-199 mg/dLHigh Triglyceride: 200-499 mg/dLVery High Triglyceride: greater than or equal to 5OO mg/dL Cholesterol 170 <200 mg/dL [facility] Comment:Desirable Cholestero l: less than 200 mg/dLBorderline High Cholesterol: 200-239 mg/dLHigh Cholesterol: greater than 239 mg/dL LDL Cholesterol Calculated 98 <100 mg/dL [facility] Comment:Desirable LDL: less than 100 mg/dLNear Optimal/Above Optimal LDL: 110- 129 mg/dLBorderline High LDL: 130-159 mg/dLHigh LDL: 160-189 mg/dLVery High LDL: greater than or equal to 190 mg/dL HDL Cholesterol 59 >40 mg/dL [facility] Comment:Desirable HDL: great er than 40 mg/dL Note: This HDL assay may give artificially low results in patients with liver disease. Blood Venous blood specimen / Unknown 07/15/2023 8:29 AM EDT 07/15/2023 11:20 AM EDT Lynda Garibay MD LAB BLOOD ORDERAB LES Final Result [facility] [address] [place] [address] [phone] * HPV mRNA E6/E7 w/Reflex to HPV Genotypes 16, 18/45 (04/13/2022) 04/13/2022 Historical Provider LAB CYTOLOGY ORDERABLES F inal Result * Hm Pap Smear (04/13/2022) Pap Negative for intraephithelial lesion or malignancy Negative for intraephithelial lesion or malignancy, Other Historical Provider HEALTH MAINTENANCE Edited Result - Final from Last 3 Months or Most Recently Relevant to Health Maintenance Insurance [place] [address] C3 Care Teams Target Setter Relationship Specialty Start Date End Date Whitney Sotomayor ANP [address] [place] [phone] PCP - General Family Medicine 10/31/20 Genoveva Chamorro MD [address] [place] [address] Dr [address] [place] [address] Gastroenterology 02/19/24
--- OUTSIDE RECORDS SUMMARY | 2024-04-01 13:01 | XMS_ITS | Encounter Summary ---
Author Organization [employer] Address [address] [facility] [address] [place] [address] Care Team Providers Care Site Technician Name Role Phone Whitney Sotomayor Primary Care Provider [phone] Genoveva Chamorro MD Unavailable [phone] Reason for Visit * Reason Onset Date Comments April recall 03/09/2024 Encounter Details Date Type Department Care Team ([facility] st Contact Info) Description 03/09/2024 Telephone [facility] [address] [place] [address] [place] April recall Social History Tobacco Use Types Packs/Day [...] Telephone Encounter - Liliam Richards MA - 03/09/2024 1:37 PM EST T/C to pt to schedule a recall f/u tele liver testing. PT agreed to a tele on 05/06/24 at 4pm. documented in this encounter Plan of Treatment Upcoming Encounters Date Type Department Care Team (Late st Contact Info) Description 05/06/2024 4:00 PM EST Telemedicine [facility] [address] [place] [address] Whitney Sotomayor ANP [address] [place] [address] documented as of this encounter Visit Diagnoses Not on filedocumented in this encounter Additional Health Concerns Assessment Noted Time PHQ-9 Depression Total Score: 9 07/16/19 24 1:46 PM EDT documented as of this encounter Care Teams Site Technician Relationship Specialty Start Date End Date Whitney Sotomayor ANP [address] [place] [phone] PCP - General Family Medicine 10/31/20 Genoveva Chamorro MD [address] [place] [address] Dr [address] [place] [address] Gastroenterology 02/19/24 documented as of this encounter
--- OUTSIDE RECORDS SUMMARY | 2024-04-01 13:01 | XMS_ITS | Encounter Summary ---
Author Organization [employer] [facility] Address [address] [place] [address] [address] [place] [address] Care Team Providers Care Heel Emery Buffer Name Role Phone Whitney Sotomayor Primary Care Provider [phone] Genoveva Chamorro MD Unavailable [phone] Encounter Details Date Type Department Care Team (Late st Contact Info) Description 11/30/2022 Orders Only [facility] [address] [place] [address] [phone] ProviderCarlos MD Social History Tobacco Use Types Packs/Day Years Used Date Smoking Tobacco: Never Passive Smoke Exposure: Never Smokeless Tobacco: Never Alcohol Use Standard Drinks/Week Comments Never 0 (1 standard drink = 0.6 oz pur e alcohol) Depression Answer Date Recorded Patient Health Questionnaire-9 Score 19 08/10/2022 Depression Answer Date Recorded Patient Health Questionnaire-2 Score 5 08/10/2022 Comments Unknown Sex and Gender Information Value Date Recorded Sex Assigned at Female 01/08/2022 10:36 AM EDT Legal Sex Female 10:36 AM EDT Gender Identity Female 01/08/2022 10:36 AM EDT Sexual Orientation Straight 06/05/2023 11 :16 AM EDT documented as of this encounter Plan of Treatment Upcoming Encounters Date Type Department Care Team (Late st Contact Info) Description 05/06/2024 4:00 PM EST Telemedicine [facility] [address] [place] [address] [phone] Whitney Sotomayor ANP [address] [place] [phone] documented as of this encounter Procedures Procedure Name Priority Date/Time Associated Diagnosis Comments HM PAP/HPV Routine 07/05/2020 documented in this encounter Results * Hm Pap Smear (07/05/2020) us Historical Provider HEALTH MAINTENANCE Final Result documented in this encounter Visit Diagnoses Not on filedocumented in this encounter Additional Health Concerns Assessment Noted Time PHQ-9 Depression Total Score: 19 023 10:44 AM EDT documented as of this encounter Care Teams Heel Emery Buffer Relationship Specialty Start Date End Date Whitney Sotomayor ANP [address] [place] [phone] PCP - General Family Medicine 10/31/20 Genoveva Chamorro MD [address] [place] [address] Dr [address] [place] [address] Gastroenterology 02/19/24 documented as of this encounter
--- OUTSIDE RECORDS SUMMARY | 2024-04-01 13:02 | XMS_ITS | Data Portability ---
Author Organization [facility], [address] Address [address] [place] [address] Assessment No assessment recorded. Plan of Treatment Reminders Order Date Submit Date Provider Last Modified By Organization Details Last Modified Time Details Appointments None recorded. Lab rapid flu (A+B) [email or web address] [facility], [address] [place] [address], [phone], 12:35:37 rapid strep group A, throat [address] [facility], [address] [place] [address], [phone], 12:35:37 Referral None recorded. Procedures None recorded. Surgeries None recorded. Imaging None recorded. Medication Orders cetirizine 10 mg tablet 2021 [id number], [address] [place], [address], 12:35:46 Lidocaine Viscous 2 % mucosal solution 2021 [email or web address] Not available 13:24:25 Patient TargetsNo targets recorded. Patient Instructions Encounter Date Encounter Id Patient Instructions Last Modified By Organization Details Last Modified Time 02/17/2022 [id number] laryngitis: care instructions [email or web address] Not available 02/17/2022 12:35:37 You have been diagnosed with an Upper Respiratory Infection. Rapid Strep and Flu test were negative. It is important to drink plenty of fluids and rest while you are ill. Hot Tea with Honey is good to help with a sore throat. Some OTC medications that are helpful with your current symptoms would include. 1. Tylenol 2. Saline Nasal [place] Try an avoid other people and wash your hands regularly. Most symptoms will improve on its own in 7-10 days. If symptoms last longer than 10 days then I would suggest getting a re-evaluate by us or your Primary Care Doctor. I would be seen more urgently if you develop any of the following symptoms: 1. Fever > 101.0 2. Increased facial pain or pressure 3. Purulent Discharge from the nose that occurs all day -(not just first thing in the AM) 4. Worsening Sore throat 5. Cough or Shortness of Breath I would go to the ER if you develop: 1. Severe Headache 2. Fever > 102.5 3. Still Neck 4. Shortness of Breath or Chest Pain. [email or web address] Not available 02/17/2022 12:28:31 Reason for Referral None Reported. Results Created Date Observation Date Name Description Value Unit Range Abnormal Flag Note LastModifiedBy Organization Detail LastModifiedTime 02/18/20 22 02/17/2022 rapid strep group A, throa t Unknown Analyte negati ve Not Available _myranda barker [address], [address], 02/17/2022 12:21:20 02/18/20 22 02/17/2022 rapid strep group A, throa t Unknown Analyte Normal = Negati ve Not Available _myranda barker [address], [address], 02/17/2022 12:21:20 02/18/20 22 02/17/2022 rapid flu (A+B) Unknown Analyte negati ve Not Available myranda barker [address], [address], 02/17/2022 11:48:36 02/18/20 22 02/17/2022 rapid flu (A+B) Unknown Analyte negati ve Not Available myranda barker [address] [place], [address], 02/17/2022 11:48:36 02/18/2002/17/2022 rapid flu (A+B) Unknown Analyte Normal = Negati ve Not Available [id number] [address] [place] [address], [phone], 02/17/2022 11:48:36 Result Notes None recorded. Problems No Known Problems Medical Equipment None Reported. Allergies Allergen ID Allergen Name Allergen Category Reaction Reaction Severity Criticality Documentation Date Start Date Code Code System Note Provider Name and Address Organization Details Recorded Time 52686 Substance with sulfonami de structure and antibacte rial mechanism of action (substanc e) medicatio n eye swelling mild low 02/17/2022 81316 8003 SNOMED TAWANNA LAI null, [place] - [facility] 11:46:50 Medications Name Sig Start Date Stop Date Status Note LastModified by Organization Details LastModified Time cetirizine 10 mg tablet Take 1 tablet every day by oral route. 2021 active Not Available Not Available Not Avai lable Lidocaine Viscous 2 % mucosal solution 5 ml gargle for as long as tolerated and then spit out. active prn sore throa t. Not Available Not Available Not Available Vitals Date Recorded Body height Provider Name an d Address Organization Details Last Updated DateTime 02/17/2022 154.94 cm TAWANNA LAI PA - [facility] 02/17/2022 11:46:16 Date Recorded Body mass index (BMI) Body weight Provider Name and Address Organization Details Last Updated DateTime 02/17/2022 25.5 kg/m2 08605.97 g TAWANNA LAI PA - [facility] 02/17/2022 11:46:25 Date Recorded Body temperature Provider Name a nd Address Organization Details Last Updated DateTime 02/17/2022 98 [degF] TAWANNA LAI PA - [facility] 02/17/2022 11:48:00 Date Recorded Respiratory rate Provider Name a nd Address Organization Details Last Updated DateTime 02/17/2022 18 /min TAWANNA LAI PA - [facility] 02/17/2022 11:48:02 Date Recorded Heart rate Provider Name an d Address Organization Details Last Updated DateTime 02/17/2022 74 /min TAWANNA HOYT PA - [facility] 02/17/2022 11:48:04 Date Recorded Oxygen saturation Oxygen saturation in Arterial blood by Pulse oximetry Provider Name and Address Organization Details Last Updated DateTime 02/17/2022 100 % 100 % TAWANNA HOYT PA - [facility] 02/17/2022 11:48:07 Date Recorded Systolic blood pressure Diastolic blood pressure Provider Name and Address Organization Details Last Updated DateTime 02/17/2022 128 mm[Hg] 86 mm[Hg] TAWANNA HOYT PA - [facility] 02/17/2022 11:48:28 Social History Question Answer Notes LastModified by Organizat ion Details LastModified Time Tobacco Smoking Status Never Smoker TAWANNA HOYT mary, [place] - [facility] 02/17/2022 11:47:12 What Is Your Level Of Alcohol Consumption? Occasional Information not available 02/17/2022 What Is Your Water Source? City Information not available 02/17/2022 What Is Your Heat Source? Gas Information not available 02/17/2022 Have You Had Direct Contact, Or Contact During Intimacy, With Monkeypox Rash, Scabs, Or Body Fluids From A Person With Monkeypox? No Information not available 02/17/2022 Do You Use Any Illicit Or Recreational Drugs? No Information not available 02/17/2022 Have You Recently Traveled Abroad? No Information not available 02/17/2022 Do You Or Have You Ever Used Any Other Forms Of Tobacco Or Nicotine? No Information not available 02/17/2022 Sex: Unknown Functional Status None recorded. Mental Status None recorded. Family History Relationship Description Onset Age of this Age Resolved Age Notes LastModified by Organization Details LastModified Time Father No current problems or disability Not available 02/17 11:47:02 Mother No current problems or disability Not available 02/17 11:47:02 Medical History No medical history recorded. Gynecological HistoryNo gynecological history recorded. Obstetrics History GPAL:G 0 P 0 0 0 0 Past Encounters Encounter ID Performer Location Encounter Start Date Encounter Closed Date Diagnosis/Indication Diagnosis SNOMED-CT Code Diagnosis ICD10 Code Diagnosis Note [id number] [address] [facility] [place]IM hernandez [address] 09/14/2020 10:07:16 09/14/2020 10:54:35 [id number] [facility] [address] [facility] [address] 02/17/2022 09:46:25 02/17/2022 12:36:27 Acute pharyngitis 246507458 J02.9 Upper resp iratory infection 95309227 J06.9 Health Concerns Section Related Observation LastModified by Organization Detai ls LastModified Time None Recorded Concern Status LastModified by Organization Details LastModified Time None Recorded Advance Directives Directive None Recorded Payers Encounter Date Sequence Insurance Name Policy Number Policy Cabrera Covered Member ID Cabrera Member ID Guarantor Name 02/17/2022 1 [place] [facility] Farhan Chase [id number] Farhan Chase Notes Date Note Type Note Provider Name and Address Organization Details Recorded Time 2 text/html Sore throatReported bypatient.Source of patient informationInformation obtained from patient; Patient arrived at Urgent Care ambulatory Location:throat Severity:mild Quality:hurts to swallow Onset/Timin days Associated Symptoms:sore throat;hoarseness;nasal congestion;coughing Context:sick contactNotes:Sudden onset loss of voice. Lots of mucous draining into her throat. hurts to breath even. Mild cough. No fever. Ears are feeling clogged. 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 TREVON CARR [address] [place], [address], [place] - [facility] 02/17/2022 12:39:05 OBGyn Episode No OBEpisode recorded.
[2024-04-01 13:17] LABS: Appearance Urine Turbid; Color Urine Yellow; Glucose Urine UA Negative (Negative); Leukocyte Esterase Urine Moderate (2+) (Negative); Nitrite Urine Negative (Negative); PH 5.5 (5.0-9.0); Specific Gravity - Urine 1.025 (1.005-1.025); UMIC TRIGGER UACC YES; Urine Blood Negative (Negative); Urine Ketones Negative (Negative); Urine Protein Negative (Neg-Trace)
[2024-04-01 13:31] LABS: Bacteria Urine 2+ (None Seen); Hyaline Casts Urine 0-2 /LPF (0-2); MANUAL DIFF FLAG NO; RBC Urine 0-2 /HPF (0-2); UACC Culture Trigger YES
[2024-04-01 13:53] LABS: Prothrombin Time 11.3 SEC (10.9-12.4)
[2024-04-01 14:04] LABS: Basophils Percent Auto 0.6 % (0-2); Eosinophils Absolute Auto 0.1 X10*3/uL (0.0-0.4); Eosinophils Percent Auto 1.1 % (0-4); Hematocrit 43.3 % (37.0-47.0); Hemoglobin 13.6 g/dl (12.0-16.0); Imm Gran Abs Auto 0.03 X10*3/uL (0.00-0.03); Imm Gran Pct Auto 0.4 % (0.0-0.4); Lymphocytes Absolute Auto 1.4 X10*3/uL (1.2-4.9); Lymphocytes Percent Auto 19.7 % (20-40); Mean Corpuscular HGB Conc 31.4 g/dl (31.0-35.0); Mean Corpuscular Hemoglobin 27.5 pg (27.0-33.0); Mean Corpuscular Volume 87.7 fL (80.0-98.0); Mean Platelet Volume 13.5 fL (9.4-12.3); Monocytes Absolute Auto 0.6 X10*3/uL (0.1-1.2); Monocytes Percent Auto 8.3 % (2-11); Neutrophils Percent Auto 69.9 % (45-73); Platelet Count 185 X10*3/uL (160-400); Red Blood Count 4.94 X10*6/uL (4.20-5.50); Red Cell Distribution Width 13.2 % (11.0-16.0); White Blood Count 7.2 X10*3/uL (4.8-10.8)
[2024-04-01 14:07] LABS: Alanine Aminotransferase 101 U/L (0-31); Albumin Level 4.1 g/dL (3.5-5.0); Alkaline Phosphatase 139 U/L (39-117); Anion Gap 9 (12-20); Aspartate Amino Transferase 63 U/L (5-31); Bilirubin Total 0.5 mg/dL (0.0-1.0); Blood Urea Nitrogen 8 mg/dL (9-16); Calcium 9.4 mg/dL (8.4-10.2); Carbon Dioxide 27 mmol/L (22-29); Chloride 108 mmol/L (96-108); Estimated Glomerular Filt Rate > 60; Glucose Random 80 mg/dL (60-115); Potassium 3.8 mmol/L (3.3-5.1); Sodium 140 mmol/L (135-145); Total Protein 7.4 g/dL (6.5-8.0)
[2024-04-08 08:43] LABS: FIB-ALT 77 U/L (6-29); FIB-Alpha-2-Macroglobulin 249 mg/dL (106-279); FIB-Apolipoprotein A1 185 mg/dL (101-198); FIB-GGT 262 U/L (3-50); FIB-Haptoglobin 229 mg/dL (43-212); FIB-Total Bilirubin 0.4 mg/dL (0.2-1.2); Liver Fibrosis Score 0.17; Liver Fibrosis Stage F0; Nec Inflam Act Grade A1-A2; Nec Inflam Act Score 0.41; Reference ID 5307962
== END 2024-04-01 11:18 | disposition home or self-care (01) ==
LOC: HO.HHCL 11:17
PROVIDERS: Visit Provider Internal Medicine Gastroenterology
DX: R79.89 Other specified abnormal findings of blood chemistry (principal); K75.81 Nonalcoholic steatohepatitis (NASH); R30.0 Dysuria
CPT/HCPCS: 36415; 80053; 81001; 81596; 85025; 85610; 87086

== ENCOUNTER 2024-05-17 17:19 | Emergency (ER) | payer MEDICAID, SELFPAY ==
[2024-05-17 17:26] VITALS: BP 174/78; PULSE 92; RESP 20; TEMP 36.6; O2SAT 99; BMI 26.1
[2024-05-17] MEDS: Ondansetron ODT 4 MG TAB.RAPDIS TRANSLINGU (17:32)
--- NOTE | 2024-05-17 17:32 | ED.GENADULT ---
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 comes here for similar pain but this time associated with nausea and vomiting and diarrhea pain is more on the left upper abdominal cramping no fever no chills patient has vomited about 5 times last vomiting was was 17:00 diarrhea about same times but last bowel movement was at 08:00 Related Data Home Medications ?Medication ?Instructions ?Recorded ?Confirmed metoclopramide HCl 10 mg tablet 10 mg PO QID 05/25/22 Previous Rx's ?Medication ?Instructions ?Recorded pyridoxine (vitamin B6) 25 mg 25 mg PO TID 30 days #90 tabs 03/13/22 tablet acetaminophen 500 mg tablet 1,000 mg (2 x 500 mg) PO Q6H PRN 12/05/22 (Tylenol Extra Strength) fever or pain #20 tabs ondansetron 4 mg disintegrating 4 mg PO Q6-8H PRN nausea and 12/05/22 tablet vomiting #14 tabs famotidine 40 mg tablet 40 mg PO BID #60 tabs 08/06/23 pentoxifylline 400 mg 400 mg PO TID #90 tabs 03/27/24 tablet,extended release dicyclomine 20 mg tablet 20 mg PO TID PRN Abdominal 05/17/24 Discomfort #20 tabs ondansetron 4 mg disintegrating 4 mg PO Q6-8H PRN nausea and 05/17/24 tablet vomiting #7 tabs Allergies Allergy/AdvReac Type Severity Reaction Status Date / Time Sulfa (Sulfonamide Allergy Mild EYE Verified 05/17/24 17:28 Antibiotics) SWELLING [SULFA (SULFONAMIDE ANTIBIOTICS)] Review of Systems Review of Systems: Yes all other systems are reviewed and are negative PMF Past Medical History Medical History (Updated 05/18/24 @ 00:01 by Renata Murphy) Chronic abdominal pain Surgical History History of esophagogastroduodenoscopy (EGD) Family History Family History Father Diabetes HTN (hypertension) Heart problem Mother Cancer Diabetes HTN (hypertension) Maternal Grandmother Cancer Social History Social History Household Members: Spouse and Children Alcohol intake: current Alcohol intake frequency: holidays/special occasions only Patient Tobacco Use Status: Never used Tobacco Smoked in Last 30 Days: No Use of substances other than those prescribed or required for medical reasons: No Advance Directives: No Advance Directives Information Provided: No Do you have a plan to hurt others: No Plan Current occupational status: employed 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 Oriented X3. No acute distress. Eyes: No pallor or icterus ENT: Pharynx normal. Oral Mucosa moist Neck: Normal inspection. Neck supple. CVS: Normal heart rate and rhythm. Pulses normal. Respiratory: No respiratory distress. Equal air entry bilateral, no wheezing/rales/rhonchi Abdomen: Soft and mild tenderness left upper quadrant Bowel sounds are present, no mass palpable, no CVA tenderness Skin: Skin warm and dry. Normal skin color. Normal skin turgor. Extremities: No lower extremity edema. No calf tenderness Neuro: Oriented X 3. No motor deficit. Course Course Course Narrative: RME: 33-year-old female presents to ED for upper abdominal pain with diarrhea and vomiting past couple of days. Patient denies any fever or chills. Labs SARs strep ordered. Medications Administered Discontinued Medications Generic Name Dose Route Start Last Admin Trade Name Freq PRN Reason Stop Dose Admin Dicyclomine HCl 20 mg 05/17/24 21:42 05/17/24 21:58 Dicyclomine Hcl 10 Mg Capsule PO 05/17/24 21:43 20 mg ONCE ONE Administration Ondansetron HCl 4 mg 05/17/24 17:29 05/17/24 17:32 Ondansetron Odt 4 Mg Tab.Rapdis TRANSLINGU 05/17/24 17:30 4 mg ONCE ONE Administration Medical Decision Making Medical Decision Making [facility] Narrative: Patient has chronic abdominal pain comes here for nausea vomiting diarrhea likely viral etiology advised to continue her medication follow up with pottery kiln builder labs are stable will discharge patient home on dicyclomine and ondansetron Lab Data [facility] Lab Attestation statement: I reviewed the patient's lab results. 05/17/24 18:05 05/17/24 18:05 Labs: Lab Results 05/17/24 Range/Units 18:05 WBC 13.0 H (4.8-10.8) X10*3/uL RBC 4.88 (4.20-5.50) X10*6/uL Hgb 13.3 (12.0-16.0) g/dl Hct 41.0 (37.0-47.0) % MCV 84.0 (80.0-98.0) fL MCH 27.3 (27.0-33.0) pg MCHC 32.4 (31.0-35.0) g/dl RDW 13.6 (11.0-16.0) % Plt Count 223 (160-400) X10*3/uL MPV 12.9 H (9.4-12.3) fL Immature Gran % (Auto) 0.4 (0.0-0.4) % Neut % (Auto) 88.8 H (45-73) % Lymph % (Auto) 7.7 L (20-40) % [place] % (Auto) 2.6 (2-11) % Eos % (Auto) 0.1 (0-4) % Baso % (Auto) 0.4 (0-2) % Lymph # (Auto) 1.0 L (1.2-4.9) X10*3/uL [place] # (Auto) 0.3 (0.1-1.2) X10*3/uL Eos # (Auto) 0.0 (0.0-0.4) X10*3/uL Baso # (Auto) 0.1 (0.0-0.2) X10*3/uL Abs Immat Gran (auto) 0.05 H (0.00-0.03) X10*3/uL Absolute Neuts (auto) 11.5 H (2.0-8.3) x10*3/uL Absolute Nucleated RBC 0.000 (0.0-0.012) X10*3/uL Nucleated RBC % (auto) 0.0 (0.0-0.2) /100WBC Sodium 145 (135-145) mmol/L Potassium 3.9 (3.3-5.1) mmol/L Chloride 107 (96-108) mmol/L Carbon Dioxide 27 (22-29) mmol/L Anion Gap 15 (12-20) BUN 10 (9-16) mg/dL Creatinine 0.67 (0.5-1.4) mg/dL Estim Creat Clear Calc 100.3 Estimated GFR > 60 Random Glucose 128 H (60-115) mg/dL Calcium 9.3 (8.4-10.2) mg/dL Total Bilirubin 0.4 (0.0-1.0) mg/dL AST 59 H (5-31) U/L ALT 96 H (0-31) U/L Alkaline Phosphatase 131 H (39-117) U/L Total Protein 7.7 (6.5-8.0) g/dL Albumin 4.2 (3.5-5.0) g/dL Lipase 33 (8-78) U/L Beta HCG, Quant < 2 mIU/mL Urine Color Yellow Urine Appearance Turbid Urine pH >= 9.0 (5.0-9.0) Ur Specific [place] 1.025 (1.005-1.025) Urine Protein 30 (1+) H (Neg-Trace) mg/dL Urine Glucose (UA) Negative (Negative) mg/dL Urine Ketones Negative (Negative) mg/dL Urine Blood Moderate (2+) H (Negative) Urine Nitrite Negative (Negative) Ur Leukocyte Esterase Trace H (Negative) Urine RBC >20 H (0-2) /HPF Urine WBC 0-5 (0-5) /HPF Ur Squamous Epith Cells 6-10 (0-2) /HPF Urine Bacteria None Seen (None Seen) Hyaline Casts 0-2 (0-2) /LPF Influenza Type A (PCR) NEGATIVE (Negative) Influenza Type B (PCR) NEGATIVE (Negative) RSV RNA Qual (PCR) NEGATIVE (Negative) SARS-CoV-2 RNA (RT-PCR) NEGATIVE (Negative) Discharge Plan Discharge Clinical Impression: Chronic abdominal pain, Acute gastroenteritis Patient Disposition: Home, Self-Care Instructions: Gastroenteritis (ED), Abdominal Pain (ED) Additional Instructions: Drink plenty of fluids Continue medication as prescribed by your pottery kiln builder Medicine for nausea and abdominal cramps as prescribed Follow up with your GI Prescriptions: New dicyclomine 20 mg tablet 20 mg PO TID PRN (Reason: Abdominal Discomfort) Qty: 20 0RF ondansetron 4 mg tablet,disintegrating 4 mg PO Q6-8H PRN (Reason: nausea and vomiting) Qty: 7 0RF No Action pyridoxine (vitamin B6) 25 mg tablet 25 mg PO TID 30 Days Qty: 90 1RF famotidine 40 mg tablet 40 mg PO BID Qty: 60 2RF acetaminophen [Tylenol Extra Strength] 500 mg tablet 1,000 mg PO Q6H PRN (Reason: fever or pain) Qty: 20 0RF ondansetron 4 mg tablet,disintegrating 4 mg PO Q6-8H PRN (Reason: nausea and vomiting) Qty: 14 0RF metoclopramide HCl 10 mg tablet 10 mg PO QID pentoxifylline 400 mg tablet extended release 400 mg PO TID Qty: 90 1RF Rx Instructions: must administer with a meal/food Interventions: ED Discharge Assessment Last Done: 05/17/24 22:29 Discharge Date/Time: 05/17/24 22:29 Print Language: Serbian
[2024-05-17 18:12] LABS: MANUAL DIFF FLAG NO
[2024-05-17 18:15] LABS: Appearance Urine Turbid; Color Urine Yellow; Glucose Urine UA Negative (Negative); Leukocyte Esterase Urine Trace (Negative); Nitrite Urine Negative (Negative); PH >= 9.0 (5.0-9.0); Specific Gravity - Urine 1.025 (1.005-1.025); UMIC TRIGGER UACC YES; Urine Blood Moderate (2+) (Negative); Urine Ketones Negative (Negative); Urine Protein 30 (1+) mg/dL (Neg-Trace)
[2024-05-17 18:20] LABS: Bacteria Urine None Seen (None Seen); Basophils Absolute Auto 0.1 X10*3/uL (0.0-0.2); Basophils Percent Auto 0.4 % (0-2); Eosinophils Percent Auto 0.1 % (0-4); Hemoglobin 13.3 g/dl (12.0-16.0); Hyaline Casts Urine 0-2 /LPF (0-2); Imm Gran Abs Auto 0.05 X10*3/uL (0.00-0.03); Imm Gran Pct Auto 0.4 % (0.0-0.4); Lymphocytes Percent Auto 7.7 % (20-40); Mean Corpuscular HGB Conc 32.4 g/dl (31.0-35.0); Mean Corpuscular Hemoglobin 27.3 pg (27.0-33.0); Mean Platelet Volume 12.9 fL (9.4-12.3); Monocytes Absolute Auto 0.3 X10*3/uL (0.1-1.2); Monocytes Percent Auto 2.6 % (2-11); Neutrophils Absolute Auto 11.5 x10*3/uL (2.0-8.3); Neutrophils Percent Auto 88.8 % (45-73); Platelet Count 223 X10*3/uL (160-400); RBC Urine >20 /HPF (0-2); Red Blood Count 4.88 X10*6/uL (4.20-5.50); Red Cell Distribution Width 13.6 % (11.0-16.0); WBC Urine 0-5 /HPF (0-5)
[2024-05-17 18:38] LABS: Alanine Aminotransferase 96 U/L (0-31); Albumin Level 4.2 g/dL (3.5-5.0); Alkaline Phosphatase 131 U/L (39-117); Anion Gap 15 (12-20); Aspartate Amino Transferase 59 U/L (5-31); Bilirubin Total 0.4 mg/dL (0.0-1.0); Blood Urea Nitrogen 10 mg/dL (9-16); Calcium 9.3 mg/dL (8.4-10.2); Carbon Dioxide 27 mmol/L (22-29); Chloride 107 mmol/L (96-108); Creatinine Clr Calc Pharmacy 100.3; Estimated Glomerular Filt Rate > 60; Glucose Random 128 mg/dL (60-115); Lipase 33 U/L (8-78); Potassium 3.9 mmol/L (3.3-5.1); Sodium 145 mmol/L (135-145); Total Protein 7.7 g/dL (6.5-8.0)
[2024-05-17 18:39] LABS: HCG Quantitative < 2 mIU/mL
[2024-05-17 18:51] LABS: Influenza A PCR NEGATIVE (Negative); Influenza B PCR NEGATIVE (Negative); Resp Syncy Virus RNA Qual PCR NEGATIVE (Negative); SARS COV2 PCR INHOUSE NEGATIVE (Negative)
[2024-05-17 21:12] VITALS: BP 140/73; PULSE 91; RESP 18; TEMP 37.3; O2SAT 96
--- OUTSIDE RECORDS SUMMARY | 2024-05-17 21:14 | XMS_ITS | Encounter Summary ---
Author Organization [employer] Address [address] [place] [address] 7 [place] [address] Care Team Providers Care Correspondence Coordinator Name Role Phone Whitney Sotomayor Primary Care Provider [phone] Genoveva Chamorro MD Unavailable [phone] Reason for Visit * Reason Onset Date Comments Results 05/07/2024 Encounter Details Date Type Department Care Team ([facility] st Contact Info) Description 05/07/2024 Telephone [facility] MEDICINE [address] [place] [address] Whitney Sotomayor ANP [address] [place] [address] Results Social History Tobacco Use Types Packs/Day Years [...] encounter Miscellaneous Notes * Telephone Encounter - Jana Hills RN - 05/08/2024 11:08 AM EST TC placed to pt to status check the pt left eye lesion that was noted by PCP during telehealth apptwith PCP on 05/06/2024. Pt confirms that the left upper eyelid does still have notable redness. Pt endorses discharge (mostly at night) and that it is hard to open the eyelid in the morning. Pain is very minimal and pt vision is not effected. 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 Pt has only used one drop. RN advised the pt to use the medication as written which is 4 times daily for the next 7 days. Pt stated understanding of this plan and will call back the office once the antibiotic is done is symptoms persist or worsen. * Telephone Encounter - Belen Stafford RN - 05/07/2024 10:46 AM EST Called [facility], left message on nurse line asking for [facility] to call pt directly to discuss recent labs with Dr Chamorro. Gave call back number if needed. Will task to status check pt per PCP request. * Telephone Encounter - Belen Stafford RN - 05/07/2024 10:44 AM EST ----- Message from Whitney Sotomayor sent at 05/06/2024 5:54 PM EST ----- Please out reach [facility] to request that someone from their office call patient to go over her lab results in more detail than I was able given level of specialization. Also please call patient on Saturday for status check regarding her eye stye. If no improvement please direct to walk-in. documented in this encounter Plan of Treatment Not on file documented as of this encounter Visit Diagnoses Not on filedocumented in this encounter Additional Health Concerns Assessment Noted Time PHQ-9 Depression Total Score: 9 07/16/19 24 1:46 PM EDT documented as of this encounter Care Teams Correspondence Coordinator Relationship Specialty Start Date End Date Whitney Sotomayor ANP [address] [place] [address] PCP - General Family Medicine 10/31/20 Genoveva Chamorro MD [address] [place] [address] [address] [facility] [place] [address] Gastroenterology 02/19/24 documented as of this encounter
--- OUTSIDE RECORDS SUMMARY | 2024-05-17 21:14 | XMS_ITS | Encounter Summary ---
Author Organization [facility] Address [address] [place] [address] [address] [place] [address] Care Team Providers Care Assessment Specialist Name Role Phone Whitney Sotomayor Primary Care Provider [phone] Genoveva Chamorro MD Unavailable [phone] Encounter Details Date Type Department Care Team (Late st Contact Info) Description 11/30/2022 Orders Only [facility] MEDICINE [address] [place] [address] Provider, Historical, Social History Tobacco Use Types Packs/Day Years [...] as of this encounter Plan of Treatment Not on file documented as of this encounter Procedures Procedure [...] documented as of this encounter Care Teams Assessment Specialist Relationship Specialty Start Date End Date Whitney Sotomayor ANP [address] [place] [address] PCP - General Family Medicine 10/31/20 Genoveva Chamorro MD [address] [place] [address] Dr [address] [place] [address] Gastroenterology 02/19/24 documented as of this encounter
--- OUTSIDE RECORDS SUMMARY | 2024-05-17 21:14 | XMS_ITS | Encounter Summary ---
Author Organization [employer] Address [address] [facility] [address]t [place] [address] Care Team Providers Care Manager Human Capital Name Role Phone Светлана Whitney BUSCH Primary Care Provider [phone] Genoveva Chamorro MD Unavailable [phone] Encounter Details Date Type Department Care Team (Latest Contact Info) Description 05/06/2024 Travel Social History Tobacco Use Types Packs/Day Years [...] t he electric, gas, oil or water [email or web address]) threatened to shut off services in your [...] documented as of this encounter Care Teams Manager Human Capital Relationship Specialty Start Date End Date Whitney Sotomayor ANP [address] [place] [address] PCP - General Family Medicine 10/31/20 Genoveva Chamorro MD [address] [place] [address] Dr [address] [place] [address] Gastroenterology 02/19/24 documented as of this encounter
--- OUTSIDE RECORDS SUMMARY | 2024-05-17 21:14 | XMS_ITS | Encounter Summary ---
Author Organization [email or web address] Address [address] [facility] [address]t [place] [address] Care Team Providers Care Social Service Technician Name Role Phone Whitney Sotomayor Primary Care Provider [phone] Genoveva Chamorro MD Unavailable [phone] Reason for Visit * Reason Onset Date Comments chart prep 05/01/2024 Encounter Details Date Type Department Care Team ([facility] st Contact Info) Description 05/01/2024 Telephone [facility] MEDICINE [address] [place] [address] Huma Cullen MA chart prep Social History Tobacco Use Types Packs/Day Years [...] encounter Miscellaneous Notes * Telephone Encounter - Huma Cullen MA - 05/01/2024 12:33 PM EST Chart Prep Labs: done Images: done Vaccines due: no updates Referrals: closed Screenings: none Overdue care gaps: Sbirt, SDOH, PHQ-9 documented in this encounter Plan of Treatment Not on file documented as of this encounter Visit Diagnoses Not on filedocumented in this encounter Additional Health Concerns Assessment Noted Time PHQ-9 Depression Total Score: 9 07/16/19 24 1:46 PM EDT documented as of this encounter Care Teams Social Service Technician Relationship Specialty Start Date End Date Whitney Sotomayor ANP [address] [place] [address] PCP - General Family Medicine 10/31/20 Genoveva Chamorro MD [address] [place] [address] Dr 3[address] [place] [address] Gastroenterology 02/19/24 documented as of this encounter
--- OUTSIDE RECORDS SUMMARY | 2024-05-17 21:14 | XMS_ITS | Encounter Summary ---
Author Organization [employer] Address [address] [facility] [address] [place] [address] Care Team Providers Care Maintenance Construction Helper Name Role Phone Светлана Whitney BUSCH Primary Care Provider [phone] Genoveva Chamorro MD Unavailable [phone] Encounter Details Date Type Department Care Team (Late st Contact Info) Description 05/17/2024 Orders Only GENERIC EXTERNAL DATA DEPARTMENT Provider, Generic External Data Social History Tobacco Use Types Packs/Day Years [...] past 12 months, has t he electric, [employer], oil or water [employer] threatened to shut off services in your [...] Procedure Name Priority Date/Time Associated Diagnosis Comments URINALYSIS, COMPLETE, WITH REFLEX TO CULTURE Routine 05/17/2024 6:05 PM EDT SARS COV2/INFLUENZA A/B AND RSV RNA QL NAAT Routine 05/17/2024 6:05 PM EDT CBC WITH AUTO DIFFERENTIAL Routine 05/17/2024 6:05 PM EDT HCG, TOTAL, QN Routine 05/17/2024 6:05 PM EDT LIPASE Routine 05/17/2024 6:05 PM EDT COMPREHENSIVE METABOLIC PANEL Routine 05/17/2024 6:05 PM EDT documented in this encounter Results * SARS-CoV-2 RNA, Influenza A/B, and RSV RNA, Ql NAAT (05/17/2024 6:05 PM EDT) Influenza A PCR NEGATIVE Negative [facility] Influenza B PCR NEGATIVE Negative [facility] Resp Syncy Virus RNA Qual PCR NEGATIVE Negative [facility] SARS COV2 PCR NEGATIVE Negative [facility] Comment:All test results mus t be correlated with clinical findings.Negative results do not preclude SARS-CoV2, influenza Avirus, influenza B virus and/or RSV infectionand should not be used as the sole basis for treatment orother patient management decisions. Negative results must becombined with clinical observations, patient history, andepidemiological information.This test has not been evaluated for monitoring treatment ofinfection.This test has been authorized by the FDA under an EmergencyUse Authorization (EUA) for use by authorized laboratories.Testing performed on the MyCare GeneXpert utilizingreal-time RT-PCR.All SARS CoV2 and positive influenza A/B results arereported to [facility]. 05/17/2024 6:05 PM EDT 05/17/2024 6:09 PM EDT Generic External Data Provider LAB MICROBIOLOGY - GENERAL ORDERABLES Final Result Performing Organization Address [facility] Co de Phone Number [facility] [address] [place] [phone] * hCG, Total, Quantitative (05/17/2024 6:05 PM EDT) HCG Quantitative <2 mIU/mL [facility] Comment:Weeks post LMP Appr oximate hCG(Last Menstrual Period) Range (mIU/ml)3 - 4 weeks 9 - 1304 - 5 weeks 75 - 2,6005 - 6 weeks 850 - 20,8006 - 7 weeks 4000 - 100,2007 - 12 weeks 11,500 - 289,08123 - 16 weeks 18,300 - 137,60832 - 29 weeks (2nd trimester) 1,400 - 53,14265 - 41 weeks (3rd trimester) 940 - 60,000The [place] B- hCG assay is used for the early detection ofpregnancy; it cannot be used to diagnose any conditionunrelated to . If a B-hCG level is not supportedby the clinical evidence, results should be confirmed by analternative method (qualitative urine hCG, for example). 05/17/2024 6:05 PM EDT 05/17/2024 6:09 PM EDT Generic External Data Provider LAB BLOOD ORDERAB LES Final Result Performing Organization Address [facility]/ZIP Co de Phone Number [facility] [address] [place] [phone] * Lipase (05/17/2024 6:05 PM EDT) Lipase 33 8 - 78 U/L [facility] 05/17/2024 6:05 PM EDT 05/17/2024 6:09 PM EDT us Generic External Data Provider LAB BLOOD ORDERAB LES Final Result [facility] [address] [place] [address] [phone] * (ABNORMAL) Comprehensive Metabolic Panel (05/17/2024 6:05 PM EDT) Sodium 145 135 - 145 mmol/L [facility] Potassium 3.9 3.3 - 5.1 mmol/L [facility] Chloride 107 96 - 108 mmol/L [facility] Carbon Dioxide 27 22 - 29 mmol/L [facility] Anion Gap 15 12 - 20 [facility] Urea Nitrogen (BUN) 10 9 - 16 mg/dL [facility] Creatinine, Serum 0.67 0.5 - 1.4 mg/dL [facility] Creatinine Clr Calc Pharmacy 100.3 [facility] Comment:Provided height and weight: 154.94 cm,62.6 kg.eGFR (calculated from the MDRD study equation) and eCrCl(calculated from the Cockcroft-Gault equation) are based ondifferent parameters and may not yield comparable results.If eCrCl result is absurd, please check patient'sheight/weight. Estimated Glomerular Filt Rate >60 [facility] Comment:Chronic Kidney Disea se: Estimated GFR < 60 mL/min/1.69q1Aaskqb Kidney Disease: Estimated GFR < 15 mL/min/1.73m2 Glucose 128(H) 60 - 115 mg/dL [facility] Calcium 9.3 8.4 - 10.2 mg/dL [facility] Bilirubin, Total 0.4 0.0 - 1.0 mg/dL [facility] Aspartate Amino Transferase 59(H) 5 - 31 U/L [facility] Alanine Aminotransferase 96(H) 0 - 31 U/L [facility] Total Protein 7.7 6.5 - 8.0 g/dL [facility] Albumin Level 4.2 3.5 - 5.0 g/dL [facility] Alkaline Phosphatase 131(H) 39 - 117 U/L [facility] 05/17/2024 6:05 PM EDT 05/17/2024 6:09 PM EDT us Generic External Data Provider LAB BLOOD ORDERAB LES Final Result [facility] [address] [place] [address] [phone] * (ABNORMAL) CBC auto differential (05/17/2024 6:05 PM EDT) White Blood Count 13.0(H) 4.8 - 10.8 X10*3/uL [facility] Red Blood Count 4.88 4.20 - 5.50 X10*6/uL [facility] Hemoglobin 13.3 12.0 - 16.0 g/dl [facility] Hematocrit 41.0 37.0 - 47.0 % [facility] Mean Corpuscular Volume 84.0 80.0 - 98.0 fL [facility] Mean Corpuscular Hemoglobin 27.3 27.0 - 33.0 pg [facility] Mean Corpuscular HGB Conc 32.4 31.0 - 35.0 g/dl [facility] Red Cell Distribution Width 13.6 11.0 - 16.0 % [facility] Platelet Count 223 160 - 400 X10*3/uL [facility] Mean Platelet Volume 12.9(H) 9.4 - 12.3 fL [facility] Neutrophils Percent Auto 88.8(H) 45 - 73 % [facility] Imm Gran Pct Auto 0.4 0.0 - 0.4 % [facility] Lymphocytes Percent Auto 7.7(L) 20 - 40 % [facility] Monocytes Percent Auto 2.6 2 - 11 % [facility] Eosinophils Percent Auto 0.1 0 - 4 % [facility] Basophils Percent Auto 0.4 0 - 2 % [facility] NRBC Pct Auto 0.0 0.0 - 0.2 /100WBC [facility] Neutrophils Absolute Auto 11.5(H) 2.0 - 8.3 x10*3/uL [facility] Imm Gran Abs Auto 0.05(H) 0.00 - 0.03 X10*3/uL [facility] Lymphocytes Absolute Auto 1.0(L) 1.2 - 4.9 X10*3/uL [facility] Monocytes Absolute Auto 0.3 0.1 - 1.2 X10*3/uL [facility] Eosinophils Absolute Auto 0.0 0.0 - 0.4 X10*3/uL [facility] Basophils Absolute Auto 0.1 0.0 - 0.2 X10*3/uL [facility] NRBC Abs Auto 0.000 0.0 - 0.012 X10*3/uL [facility] 05/17/2024 6:05 PM EDT 05/17/2024 6:09 PM EDT us Generic External Data Provider LAB BLOOD ORDERAB LES Final Result [facility] [address] [place] [address] [phone] * (ABNORMAL) Urinalysis, Complete, with Reflex to Culture (05/17/2024 6:05 PM EDT) Color Urine Yellow [facility] Appearance Urine Turbid [facility] PH >=9.0 5.0 - 9.0 [facility] Glucose Urine UA Negative Negative mg/dL [facility] Urine Blood Moderate (2+)(A) Negative [facility] Specific [place] - Urine 1.025 1.005 - 1.025 [facility] Urine Protein 30 (1+)(A) Neg-Trace mg/dL [facility] Urine Ketones Negative Negative mg/dL [facility] Nitrite Urine Negative Negative [facility] Leukocyte Esterase Urine Trace(A) Negative [facility] RBC Urine >20(A) 0 - 2 /HPF [facility] Urine WBC 0-5 0 - 5 /HPF [facility] Urine Squamous Epithelial Cell 6-10 0 - 2 /HPF [facility] Urine Bacteria None Seen None Seen [facility] Hyaline Casts, Urine 0-2 0 - 2 /LPF [facility] 05/17/2024 6:05 PM EDT 05/17/2024 6:09 PM EDT Narrative [facility] - 05/17/2024 6:20 PM EDT [id number], [employer] Catch us Generic External Data Provider LAB URINE ORDERAB LES Final Result Performing Organization Address City/State/[facility] Co de Phone Number [facility] [address] [place] [address] [phone] documented in this encounter Visit Diagnoses Not on filedocumented in this encounter Additional Health Concerns Assessment Noted Time PHQ-9 Depression Total Score: 9 07/16/19 24 1:46 PM EDT documented as of this encounter Care Teams Maintenance Construction Helper Relationship Specialty Start Date End Date Whitney Sotomaoyr ANP [address] [place] [address] PCP - General Family Medicine 10/31/20 Genoveva Chamorro MD [address] [place] [address] Dr [address] [place] [address] Gastroenterology 02/19/24 documented as of this encounter
--- OUTSIDE RECORDS SUMMARY | 2024-05-17 21:14 | XMS_ITS | Data Portability ---
Author Organization [facility], [address] Address [address] [place] [address] Assessment No assessment recorded. Plan of Treatment Reminders Order Date Submit Date Provider Last Modified By Organization Details Last Modified Time Details Appointments None recorded. Lab rapid flu (A+B) 2021 [email or web address] _[facility], [address] [place] [address], [phone], 12:35:37 rapid strep group A, throat 2021 [email or web address] _[facility], [address] [place] [address], [phone], 12:35:37 Referral None recorded. Procedures None recorded. Surgeries None recorded. Imaging None recorded. Medication Orders cetirizine 10 mg tablet 2021 [id number], [address] [place], [address], 12:35:46 Lidocaine Viscous 2 % mucosal solution 2021 [email or web address] Not available 13:24:25 Patient TargetsNo targets recorded. Patient Instructions Encounter Date Encounter Id Patient Instructions Last Modified By Organization Details Last Modified Time 02/17/2022 [id number] laryngitis: care instructions Not available 02/17/2022 12:35:37 You have been diagnosed with an Upper Respiratory Infection. Rapid Strep and Flu test were negative. It is important to drink plenty of fluids and rest while you are ill. Hot Tea with Honey is good to help with a sore throat. Some OTC medications that are helpful with your current symptoms would include. 1. Tylenol 2. Saline Nasal [place] Try an avoid other people and wash [...] 4. Shortness of Breath or Chest Pain. [email or web address] Not available 02/17/2022 12:28:31 Reason for Referral None Reported. Results Created Date Observation Date Name Description Value Unit Range Abnormal Flag Note LastModifiedBy Organization Detail LastModifiedTime 02/18/20 22 02/17/2022 rapid strep group A, throa t Unknown Analyte negati ve Not Available _[facility]er [address], [address], 02/17/2022 12:21:20 02/18/20 22 02/17/2022 rapid strep group A, throa t Unknown Analyte Normal = Negati ve Not Available _myranda barker [address], [address], 02/17/2022 12:21:20 02/18/20 22 02/17/2022 rapid flu (A+B) Unknown Analyte negati ve Not Available myranda barker [address], [phone], 02/17/2022 11:48:36 02/18/20 22 02/17/2022 rapid flu (A+B) Unknown Analyte negati ve Not Available myranda barker [address] [place], [address], 02/17/2022 11:48:36 02/18/2002/17/2022 rapid flu (A+B) Unknown Analyte Normal = Negati ve Not Available [id number] [address] [place] [address], [phone], 02/17/2022 11:48:36 Result Notes None recorded. Problems No Known Problems Medical Equipment None Reported. Allergies Allergen ID Allergen Name Allergen Category Reaction Reaction Severity Criticality Documentation Date Start Date Code Code System Note Provider Name and Address Organization Details Recorded Time 83410 Substance with sulfonami de structure and antibacte rial mechanism of action (substanc e) medicatio n eye swelling mild low 02/17/2022 [address]9640 8003 SNOMED TAWANNA hernandez PA - [facility] 11:46:50 Medications Name [...] Not Available Vitals Date Recorded Body height Body mass index (BMI) Body weight Body temperature Respiratory rate Heart rate Oxygen saturation Oxygen saturation in Arterial blood by Pulse oximetry Systolic blood pressure Diastolic blood pressure Provider Name and Address Organization Details Last Updated DateTime 2 154.94 cm 25.5 kg/m2 17819.9 7 g 98 [degF] 18 /min 74 /min 100 % 100 % 128 mm[Hg] 86 mm[Hg] TAWANNA HOYT PA - [facility] 11:48:28 Social History Question Answer Notes LastModified by Organizat ion Details LastModified Time Tobacco Smoking Status Never Smoker TAWANNA hernandez PA - [facility] 02/17/2022 11:47:12 What [...] SNOMED-CT Code Diagnosis ICD10 Code Diagnosis Note [id number] [place] [address] 09/14/2020 10:07:16 09/14/2020 10:54:35 [id number] TRE[facility] CARR 21005_[facility] [address] [place] [address] 02/17/2022 09:46:25 02/17/2022 12:36:27 Acute pharyngitis 192617791 J02.9 Upper resp iratory infection 94646646 J06.9 Health Concerns Section Related Observation LastModified by Organization Detai ls LastModified Time None Recorded Concern Status LastModified by Organization Details LastModified Time None Recorded Advance Directives Directive None Recorded Payers Encounter Date Sequence Insurance Name Policy Number Policy Cabrera Covered Member ID Cabrera Member ID Guarantor Name 02/17/2022 1 [place] [facility] Farhan Chase [id number] Farhan Chase Notes Date Note Type Note [...] Pharmacy. TREVON CARR [address] [place], [phone], [place] - [facility] 02/17/2022 12:39:05 OBGyn Episode No OBEpisode recorded.
--- OUTSIDE RECORDS SUMMARY | 2024-05-17 21:14 | XMS_ITS | Encounter Summary ---
Author Organization [employer] Address [address] [facility] 7t [place] [address] Care Team Providers Care Wood Piler Name Role Phone Whitney Sotomayor Primary Care Provider [phone] Genoveva Chamorro MD Unavailable [phone] Encounter Details Date Type Department Care Team (Latest Contact Info) Description 05/06/2024 4:00 PM EST Telemedicine [facility] [address] [place] [address] Whitney Sotomayor ANP [address] [place] [address] Nasal congestion (Primary Dx); Conjunctivitis of left eye, unspecified conjunctivitis type; Lesion of left upper eyelid Social History Tobacco Use Types Packs/Day Years [...] AM EDT documented as of this encounter Progress Notes * Whitney Sotomayor, ANP - 05/06/2024 4:00 PM EST SUBJECTIVE: Farhan Reina is a 33 y.o. year old female who presents for follow up. Denies recent illness, injury, or hospitalization. PMH Acute Concerns: L eyelid lesion x 3 weeks: Swollen ball . She been putting warm water on it without improvement. Was tender at first but is not any longer. Is on upper eyelid. Having also crusting with green discharge on left eye as well as left eye redness. No photophobia or pain. Elevated liver enzymes: Following with gastroenterology. GGT was elevated. LFTs otherwise were stable. F0 fibrosis score. Metavir score A1-A2. She has a follow- up scheduled in September. I will ask them to call her sooner to go over the labs in more detail.. Also reports she has nasal congestion and headache. Daughter is not sick nor is . She requests refill of allergy medications. Non-smoker. Lives with daughter and . Social History Social History Narrative Not on file Patient Active Problem List Diagnosis Gastroesophageal reflux disease Transaminitis Grief Health care maintenance Past Surgical History: Procedure Laterality Date LITHOTRIPSY Family History Problem Relation Name Age of Onset Other (breast ca-at her 45y of age) Mother Other (DM2) Mother Other (heart dx, HTN) Father Colon cancer Maternal Grandmother Review of Systems See HPI OBJECTIVE: There were no vitals filed for this visit. Physical Exam Exam limited by telehealth format. Pt speaking clearly in complete sentences. ASSESSMENT/PLAN Diagnoses and all orders for this visit: Nasal congestion (Primary) - fluticasone (Flonase) 50 MCG/ACT nasal spray; Use 1-2 sprays as needed per nostril. Shake gently.Before first use, prime pump. After use, clean tip and replace cap. - cetirizine (ZyrTEC) 10 MG tablet; 1 tablet as needed for allergies/nasal congestion Conjunctivitis of left eye, unspecified conjunctivitis type - erythromycin (Romycin) 5 MG/GM ophthalmic ointment; Apply to affected eye(s) 4 times daily for 7 days. Apply Amount per Dose: 0.5 inch (~1 cm) per dose. Lesion of left upper eyelid - erythromycin (Romycin) 5 MG/GM ophthalmic ointment; Apply to affected eye(s) 4 times daily for 7days. Apply Amount per Dose: 0.5 inch (~1 cm) per dose. Regarding the lesion of the left upper eyelid: Suspect stye versus chalazion versus blepharitis plus or minus conjunctivitis. Will treat for conjunctivitis given she has had improvement in discharge and redness symptoms with intermittent use of antibiotic drops she was using prescribed to her . Recommend to please continue warm soaks, chamomile tea bags, and come to clinic if symptoms not improving by end of week. Please stop using antibiotic drops. May scrub eyelids gently with baby shampoo. Will send allergy medications for nasal congestion. If lesion persists or if redness or swelling worsens, call clinic. Follow Up: As needed no improvement Current Outpatient Medications on File Prior to Visit Medication Sig Dispense Refill acetaminophen (Tylenol) 500 MG tablet Take 2 tablets (1,000 mg) by mouth every 6 (six) hours if needed for moderate pain or fever for up to 25 doses. 50 tablet 0 albuterol 108 (90 Base) MCG/ACT inhaler Inhale 2 puffs every 4 (four) hours if needed for wheezing or shortness of breath. 18 g 3 cyclobenzaprine (Flexeril) 5 MG tablet Take 1 tab as needed up to 3 times in 24 hrs 30 tablet 0 famotidine (Pepcid) 40 MG tablet Take by mouth. ibuprofen 400 MG tablet Take 1 tablet (400 mg) by mouth every 6 (six) hours if needed for moderate pain or fever for up to 30 doses. 30 tablet 0 ibuprofen 600 MG tablet Take 1 tablet (600 mg) by mouth every 8 (eight) hours if needed for moderate pain. Take with food 90 tablet 3 ketoconazole (NIZOral) 2 % shampoo APPLY TO SCALP TWO TIMES A WEEK, LEAVE ON FOR 5 MINUTES THEN WASH OFF Spacer/Aero-Holding Chambers (OptiChamber Leora) misc 1 each every 4 (four) hours if needed (asthma). 1 each 0 No current facility-administered medications on file prior to visit. Pashto Translation: Patient is bilingual and declines translation services documented in this encounter Plan of Treatment Not on file documented as of this encounter Visit Diagnoses Diagnosis Nasal congestion- Primary Other diseases of nasal cavity and sinuses Conjunctivitis of left eye, unspecified conjunctivitis type Lesion of left upper eyelid documented in this encounter Additional Health Concerns Assessment Noted Time PHQ-9 Depression Total Score: 9 07/16/19 24 1:46 PM EDT documented as of this encounter Care Teams Wood Piler Relationship Specialty Start Date End Date Whitney Sotomayor ANP [address] [place] [address] PCP - General Family Medicine 10/31/20 Genoveva Chamorro MD [address] [place] [address] [address] [place] [address] Gastroenterology 02/19/24 documented as of this encounter
[2024-05-17] MEDS: Dicyclomine HCl 10 MG CAPSULE 20 MG PO (21:58)
[2024-05-17 22:21] VITALS: BP 120/74; PULSE 71; RESP 18; TEMP 36.8; O2SAT 96
[2024-05-17 22:29] VITALS: BP 120/74; PULSE 71; RESP 18; TEMP 36.8; O2SAT 96
== END 2024-05-17 22:29 | disposition home or self-care (01) ==
PROVIDERS: Physician Assistant; Emergency Provider Internal Medicine; PCP Nurse Practitioner Primary Care
DX: R10.9 Unspecified abdominal pain (principal); R11.2 Nausea with vomiting, unspecified; R10.12 Left upper quadrant pain; Z79.899 Other long term (current) drug therapy; Z03.818 Encounter for observation for suspected exposure to other biological agents ruled out
CPT/HCPCS: 0241U; 80053; 81001; 83690; 84702; 85025; 99283; 99284

== ENCOUNTER 2024-05-28 08:51 | Day surgery (SDC) | payer MEDICAID, SELFPAY ==
--- OUTSIDE RECORDS SUMMARY | 2024-05-21 08:48 | XMS_ITS | Encounter Summary ---
Author Organization [employer] Address 75 [facility] 7 [place] [address] Care Team Providers Care Atmospheric Scientist Name Role Phone Whitney Sotomayor Primary Care Provider Genoveva Chamorro MD Unavailable [phone] Reason for Visit * Reason Comments Care Coordination C3/FABIAN Camejo Outreach- Declined to participate Encounter Details Date Type Department Care Team (Latest Contact Info) Description 05/19/2024 Patient Outreach [facility] [address] [place] [address] Whitney Sotomayor ANP [address] [place] [address] Care Coordination (ELLI/FABIAN Rodriguez Outreach- Declined to participate) Social History Tobacco Use Types Packs/Day Years [...] as of this encounter Progress Notes * Vineet Chin - 05/19/2024 12:15 PM EDT CHW Vineet Chin, placed outbound call to patient in regards to offering CM/CHW program servicesas patient stratified on ADT for [place] [facility] [place]. Patient's and address was confirmed. Program information provided to patient. Patient declined to participate in program. Provided pt with CHW direct information for future reference. Patient verbalized understanding and agrees with plan. documented in this encounter Plan of Treatment Not on file documented as of this encounter Visit Diagnoses Not on filedocumented in this encounter Additional Health Concerns Assessment Noted Time PHQ-9 Depression Total Score: 9 07/16/19 24 1:46 PM EDT documented as of this encounter Care Teams Atmospheric Scientist Relationship Specialty Start Date End Date Whitney Sotomayor ANP [address] [place] [address] PCP - General Family Medicine 10/31/20 Genoveva Chamorro MD [address] [place] [address] Dr [address] Floor [place] [address] Gastroenterology 02/19/24 documented as of this encounter
--- OUTSIDE RECORDS SUMMARY | 2024-05-21 08:48 | XMS_ITS | Encounter Summary ---
Author Organization [employer] Address 75 [facility] 7t [place] [address] Care Team Providers Care Vice President Diversity Name Role Phone Whitney Sotomayor Primary Care Provider Genoveva Chamorro MD Unavailable [phone] Encounter Details Date Type Department Care Team (Latest Contact Info) Description 05/06/2024 4:00 PM EST Telemedicine [facility] [address] [place] [address] Whitney Sotomayor ANP [address] [place] [address] Nasal congestion (Primary Dx); Conjunctivitis of left [...] facility-administered medications on file prior to visit. Italian Translation: Patient is bilingual and declines translation [...] documented as of this encounter Care Teams Vice President Diversity Relationship Specialty Start Date End Date Whitney Sotomayor ANP [address] [place] [address] PCP - General Family Medicine 10/31/20 Genoveva Chamorro MD [address] [place] [address] [address] [place] [address] Gastroenterology 02/19/24 documented as of this encounter
--- OUTSIDE RECORDS SUMMARY | 2024-05-21 08:48 | XMS_ITS | Clinical Summary ---
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 Activ e ibuprofen 600 MG tablet Take 1 tablet (600 mg) by mouth every 8 (eight) hours if needed for moderate pain. Take with food 90 tablet 3 06/12/19 24 025 Active Spacer/Aero-Holdin g Chambers (OptiChamber Leora) misc 1 each every 4 (four) hours if needed (asthma). 1 each 06/12/19 24 Active cyclobenzaprine (Flexeril) 5 MG tabletIndications: Pain in joint of left shoulder Take 1 tab as needed up to 3 times in 24 hrs 30 tablet 07/15/19 24 Active ibuprofen 400 MG tablet Take 1 tablet (400 mg) by mouth every 6 (six) hours if needed for moderate pain or fever for up to 30 doses. 30 tablet 01/22/20 25 Active acetaminophen (Tylenol) 500 MG tabletIndications: Influenza B Take 2 tablets (1,000 mg) by mouth every 6 (six) hours if needed for moderate pain or fever for up to 25 doses. 50 tablet 04/01/19 25 Active albuterol 108 (90 Base) MCG/ACT inhaler Inhale 2 puffs every 4 (four) hours if needed for wheezing or shortness of breath. 18 g 3 04/01/19 25 026 Active fluticasone (Flonase) 50 MCG/ACT nasal sprayIndications:N karma congestion Use 1-2 sprays as needed per nostril. Shake gently. Before first use, prime pump. After use, clean tip and replace cap. 16 g 05/06/19 25 Active cetirizine (ZyrTEC) 10 MG tabletIndications: Nasal congestion 1 tablet as needed for allergies/nasa l congestion 90 tablet 05/06/19 25 Active erythromycin (Romycin) 5 MG/GM ophthalmic ointmentIndication s:Conjunctivitis of left eye, unspecified conjunctivitis type,Lesion of left upper eyelid Apply to affected eye(s) 4 times daily for 7 days. Apply Amount per Dose: 0.5 inch (~1 cm) per dose. 3.5 g 05/06/19 25 025 Active Problems Patient Care Coordination No te [...] intervention , [facility], Comply with medication , [...] Health Integration Plan Internal Follow up with [facility] Patient Self Plan Patient to utilize skills provided in intervention , Patient to [facility] needed, and Patient to reach [...] 07/07 -pap smear: unsure-pt will check w [facility] at upcoming apt 06/2023 -vaccine COVID 19 [...] Encounters Date Type Department Care Team Description 05/19/2024 Patient Outreach [address] [address] Whitney Sotomayor ANP Care Coordination ([facility] [place]- ADT Outreach- Declined to participate) 05/18/[address] [address] Whitney Sotomayor ANP Care Management ([facility] chart review) 05/17/2024 Orders Only GENERIC EXTERNAL DATA DEPARTMENT Provider, Generic External Data 05/07/[address] [address] Whitney Sotomayor ANP Results 05/06/2024 4:00 PM EST Telemedicine [address] [address] Whitney Sotomayor ANP Nasal congestion (Primary Dx); Conjunctivitis of left eye, unspecified conjunctivitis type; Lesion of left upper eyelid 05/06/2024 Travel 05/01/2024 Telephone [facility] [address] [place] [address] Huma Cullen MA chart prep 04/01/2024 10:20 AM EST Office Visit [facility] [address] [place] [phone] Kapil De La Rosa MD Influenza-like symptoms (Primary Dx); Viral URI; Influenza B 03/24/2024 Telephone [facility] [address] [place] [address] Liliam Richards MA May recall 03/18/2024 6:00 PM EST Office Visit [facility] [address] [place] [address] Lore Andrade NP Influenza B (Primary Dx); Cough in adult patient 03/09/2024 Telephone [facility] [address] [place] [phone] Liliam Richards MA April recall from Last 3 Months Immunizations Name Administration [...] 08/15/2023 11:44 AM EDT Plan of Treatment Health Maintenance Due Date Last Done Comments Alcohol/Substance Use Screening 2001 Family Planning (PISQ) 2004 Depression Monitoring (PHQ-9) 01/16/2024, 07/16/2023 SDOH Screening 07/03/2024 07/04/2023 Depression Screening 07/15/2024 07/16/2023, 07/16/2023 Influenza Vaccine (#1) 2024 01/20/2021 Postp oned from 11/10/2023 (Patient Refused) COVID-19 Vaccine (2023- 5 season) 2025 07/22/2020, 07/01/2020 Postponed from 11/10/2023 (Patient Refused) Tobacco Screening 05/06/2025 05/06/2024 Cervical Cancer Screening 04/13/2027 HPV/Cotest 04/13/2027 04/13/2022, [...] 5 Years) and At-Risk Patients (6 to 49) Years) Aged Out No longer eligible b ased on patient's age to complete this topic RSV under 20 months Aged Out No longe r eligible based on patient's age to complete this topic Rotavirus Vaccines Aged Out No longer eligible based on patient's age to complete this topic Procedures Procedure Name Priority Date/Time Associated Diagnosis Comments HCG, TOTAL, QN Routine 05/17/2024 6:05 PM EDT LIPASE Routine 05/17/2024 6:05 PM EDT COMPREHENSIVE METABOLIC PANEL Routine 05/17/2024 6:05 PM EDT CBC WITH AUTO DIFFERENTIAL Routine 05/17/2024 6:05 PM EDT URINALYSIS, COMPLETE, WITH REFLEX TO CULTURE Routine 05/17/2024 6:05 PM EDT SARS COV2/INFLUENZA A/B AND RSV RNA QL NAAT Routine 05/17/2024 6:05 PM EDT POCT INFLUENZA B (ID NOW RAPID MOLECULAR) [...] Recently Relevant to Health Maintenance Results * (ABNORMAL) Urinalysis, Complete, with Reflex to Culture (05/17/2024 6:05 PM EDT) Color Urine Yellow [facility] Appearance Urine Turbid [facility] PH >=9.0 5.0 - 9.0 [facility] Glucose Urine UA Negative Negative mg/dL [facility] Urine Blood Moderate (2+)(A) Negative [facility] Specific [place] - Urine 1.025 1.005 - 1.025 [facility] Urine Protein 30 (1+)(A) Neg-Trace mg/dL [facility] Urine Ketones Negative Negative mg/dL [facility] Nitrite Urine Negative Negative [facility] Leukocyte Esterase Urine Trace(A) Negative [facility] RBC Urine >20(A) 0 - 2 /HPF [facility] Urine WBC 0-5 0 - 5 /HPF [facility] Urine Squamous Epithelial Cell 6-10 0 - 2 /HPF [facility] Urine Bacteria None Seen None Seen [facility] Hyaline Casts, Urine 0-2 0 - 2 /LPF [facility] 05/17/2024 6:05 PM EDT 05/17/2024 6:09 PM EDT Narrative [facility] - 05/17/2024 6:20 PM EDT [id number], Clean Catch us Generic External Data Provider LAB URINE ORDERAB LES Final Result [facility] [address] [place] [phone] * SARS-CoV-2 RNA, Influenza A/B, and RSV RNA, Ql NAAT (05/17/2024 6:05 PM EDT) Influenza A PCR NEGATIVE Negative [facility] Influenza B PCR NEGATIVE Negative [facility] Resp Syncy Virus RNA Qual PCR NEGATIVE Negative [facility] SARS COV2 PCR NEGATIVE Negative [facility] Comment:All test results mus t be [...] use by authorized laboratories.Testing performed on the [facility] GeneXpert utilizingreal-time RT-PCR.All SARS CoV2 and positive influenza A/B results arereported to [facility]. 05/17/2024 6:05 PM EDT 05/17/2024 6:09 PM EDT us Generic External Data Provider LAB MICROBIOLOGY - GENERAL ORDERABLES Final Result [facility] [address] [place] [phone] [phone] * (ABNORMAL) CBC auto differential (05/17/2024 6:05 PM EDT) White Blood Count 13.0(H) 4.8 - 10.8 X10*3/uL [facility] Red Blood Count 4.88 4.20 - 5.50 X10*6/uL [facility] Hemoglobin 13.3 12.0 - 16.0 g/dl [facility] Hematocrit 41.0 37.0 - 47.0 % [facility] Mean Corpuscular Volume 84.0 80.0 - 98.0 fL [facility] Mean Corpuscular Hemoglobin 27.3 27.0 - 33.0 pg [facility] Mean Corpuscular HGB Conc 32.4 31.0 - 35.0 g/dl [facility] Red Cell Distribution Width 13.6 11.0 - 16.0 % [facility] Platelet Count 223 160 - 400 X10*3/uL [facility] Mean Platelet Volume 12.9(H) 9.4 - 12.3 fL [facility] Neutrophils Percent Auto 88.8(H) 45 - 73 % [facility] Imm Gran Pct Auto 0.4 0.0 - 0.4 % [facility] Lymphocytes Percent Auto 7.7(L) 20 - 40 % [facility] Monocytes Percent Auto 2.6 2 - 11 % [facility] Eosinophils Percent Auto 0.1 0 - 4 % [facility] Basophils Percent Auto 0.4 0 - 2 % [facility] NRBC Pct Auto 0.0 0.0 - 0.2 /100WBC [facility] Neutrophils Absolute Auto 11.5(H) 2.0 - 8.3 x10*3/uL [facility] Imm Gran Abs Auto 0.05(H) 0.00 - 0.03 X10*3/uL [facility] Lymphocytes Absolute Auto 1.0(L) 1.2 - 4.9 X10*3/uL [facility] Monocytes Absolute Auto 0.3 0.1 - 1.2 X10*3/uL [facility] Eosinophils Absolute Auto 0.0 0.0 - 0.4 X10*3/uL [facility] Basophils Absolute Auto 0.1 0.0 - 0.2 X10*3/uL [facility] NRBC Abs Auto 0.000 0.0 - 0.012 X10*3/uL [facility] 05/17/2024 6:05 PM EDT 05/17/2024 6:09 PM EDT us Generic External Data Provider LAB BLOOD ORDERAB LES Final Result [facility] [address] [place] [phone] * hCG, Total, Quantitative (05/17/2024 6:05 PM EDT) HCG Quantitative <2 mIU/mL [facility] Comment:Weeks post LMP Appr oximate hCG(Last Menstrual Period) Range (mIU/ml)3 - 4 weeks 9 - 1304 - 5 weeks 75 - 2,6005 - 6 weeks 850 - 20,8006 - 7 weeks 4000 - 100,2006 - 12 weeks 11,500 - 289,93649 - 16 weeks 18,300 - 137,41366 - 29 weeks (2nd trimester) 1,400 - 53,46011 - 41 weeks (3rd trimester) 940 - [...] ORDERAB LES Final Result Performing Organization Address [facility]/ZIP Co de Phone Number [facility] [address] [place] [phone] * Lipase (05/17/2024 6:05 PM EDT) Pathologist [facility] Lipase 33 8 - 78 U/L [facility] 05/17/2024 6:05 PM EDT 05/17/2024 6:09 PM EDT [employer] External Data Provider LAB BLOOD ORDERAB LES Final Result Performing Organization Address [facility] Co de Phone Number [facility] [address] [place] [phone] * (ABNORMAL) Comprehensive Metabolic Panel (05/17/2024 6:05 PM EDT) Sodium 145 135 - 145 mmol/L [facility] Potassium 3.9 3.3 - 5.1 mmol/L [facility] Chloride 107 96 - 108 mmol/L [facility] Carbon Dioxide 27 22 - 29 mmol/L [facility] Anion Gap 15 12 - 20 [facility] Urea Nitrogen (BUN) 10 9 - 16 mg/dL [facility] Creatinine, Serum 0.67 0.5 - 1.4 mg/dL [facility] Creatinine Clr Calc Pharmacy 100.3 [facility] Comment:Provided height and weight: 154.94 cm,62.6 kg.eGFR (calculated from the MDRD study equation) and eCrCl(calculated from the Cockcroft-Gault equation) are based ondifferent parameters and may not yield comparable results.If eCrCl result is absurd, please check patient'sheight/weight. Estimated Glomerular Filt Rate >60 [facility] Comment:Chronic Kidney Disea se: Estimated GFR < 60 mL/min/1.89z4Wkepmd Kidney Disease: Estimated GFR < 15 mL/min/1.73m2 Glucose 128(H) 60 - 115 mg/dL [facility] Calcium 9.3 8.4 - 10.2 mg/dL [facility] Bilirubin, Total 0.4 0.0 - 1.0 mg/dL [facility] Aspartate Amino Transferase 59(H) 5 - 31 U/L [facility] Alanine Aminotransferase 96(H) 0 - 31 U/L [facility] Total Protein 7.7 6.5 - 8.0 g/dL [facility] Albumin Level 4.2 3.5 - 5.0 g/dL [facility] Alkaline Phosphatase 131(H) 39 - 117 U/L [facility] 05/17/2024 6:05 PM EDT 05/17/2024 6:09 PM EDT us Generic External Data Provider LAB BLOOD ORDERAB LES Final Result Performing Organization Address City/[facility]/ZIP Co de Phone Number [facility] [address] [place] [phone] * Influenza B (ID NOW Rapid Molecular) (04/01/2024 10:14 AM EST) Only the most recent of2 resultswithin the time period is included. Influenza B Negative Negative, Indeterminate [facility] Swab 04/01/2024 10:1 4 AM EST Kapil De La Rosa MD POINT OF CARE TEST ENTER/EDIT OR DERABLES Final Result [facility] [address] [place] [address] [phone] * Influenza A (ID NOW Rapid Molecular) (04/01/2024 10:14 AM EST) Only the most recent of2 resultswithin the time period is included. Influenza A Negative Negative, Indeterminate [facility] Swab 04/01/2024 10:1 4 AM EST us Kapil De La Rosa MD POINT OF CARE TEST ENTER/EDIT OR DERABLES Final Result Performing Organization Address [facility] Co de Phone Number [facility] [address] [place] [phone] * POCT Rapid COVID Ag (04/01/2024 10:14 AM EST) Only the most recent of2 resultswithin the time period is included. Rapid COVID Ag Negative [facility] Swab 04/01/2024 10:1 4 AM EST us Kapil De La Rosa MD POINT OF CARE TEST ENTER/EDIT OR DERABLES Final Result Performing Organization Address [facility] de Phone Number [facility] [address] [place] [phone] * Hepatitis Panel, General (11/20/2023 8:11 AM EDT) Hepatitis A IgM Nonreactive Nonreactive [facility] Comment:IgM antibodies to FLEMING V not detected; does not exclude earlyacute or recovered HAV infection. ~Hepatitis B Surface Antibody REACTIVE Nonreactive [facility] Comment:REACTIVE: > 11.99 mI U/mL Hepatitis B Core Antibody Nonreactive Nonreactive [facility] Hepatitis C Antibody Nonreactive Nonreactive [facility] Comment:Antibodies to HCV no t detected; does not exclude early acuteHCV infection. Hepatitis B Surface Ag Negative Negative [facility] 11/20/2023 8:11 AM EDT 11/20/2023 8:11 AM EDT us Generic External Data Provider LAB BLOOD ORDERAB LES Final Result Performing Organization Address [facility]/ZIP Co de Phone Number [facility] [address] [place] [phone] [phone] * HIV-1/2 Antigen and Antibodies, Fourth Generation, with Reflexes (07/15/2023 8:29 AM EDT) HIV AB/AG Nonreactive Nonreactive [facility] Comment:HIV-1 p24 Ag and/or HIV-1/HIV-2 Ab not detected.A test result that is nonreactive does not exclude thepossibility of exposure to or infection with HIV-1 and/orHIV-2. Nonreactive results in this assay for individualswith prior exposure to HIV-1 and/or HIV-2 may be due toantigen and antibody levels that are below the limit ofdetection of this assay.The [employer] HIV Ag/Ab Combo assay result andsupplemental assay results should be interpreted inconjunction with the patient's clinical presentation,history and other laboratory results. If the results areinconsistent with clinical evidence, additional testing issuggested to confirm the result. Blood Venous blood specimen / Unknown 07/15/2023 8:29 AM EDT 07/15/2023 11:20 AM EDT us Lynda Garibay MD LAB BLOOD ORDERAB LES Final Result Performing Organization Address City/[facility]/ZIP Co de Phone Number [facility] [address] [place] [phone] * Lipid Panel, Standard (07/15/2023 8:29 AM EDT) Triglycerides 68 <150 mg/dL [facility] Comment:Desirable Triglyceri de: less than 150 mg/dLBorderline High Triglyceride 150-199 mg/dLHigh Triglyceride: 200-499 mg/dLVery High Triglyceride: greater than or equal to 5OO mg/dL Cholesterol 170 <200 mg/dL [facility] Comment:Desirable Cholestero l: less than 200 mg/dLBorderline High Cholesterol: 200-239 mg/dLHigh Cholesterol: greater than 239 mg/dL LDL Cholesterol Calculated 98 <100 mg/dL [facility] Comment:Desirable LDL: less than 100 mg/dLNear Optimal/Above Optimal LDL: 110- 129 mg/dLBorderline High LDL: 130-159 mg/dLHigh LDL: 160-189 mg/dLVery High LDL: greater than or equal to 190 mg/dL HDL Cholesterol 59 >40 mg/dL [facility] Comment:Desirable HDL: great er than 40 mg/dL Note: This HDL assay may give artificially low results in patients with liver disease. Blood Venous blood specimen / Unknown 07/15/2023 8:29 AM EDT 07/15/2023 11:20 AM EDT Lynda Garibay MD LAB BLOOD ORDERAB LES Final Result [facility] [address] [place] [address] [phone] * HPV mRNA E6/E7 w/Reflex to HPV Genotypes 16, 18/45 (04/13/2022) 04/13/2022 Historical Provider LAB CYTOLOGY ORDERABLES F inal Result * Pap Smear (04/13/2022) Pap Negative for intraephithelial lesion or malignancy Negative for intraephithelial lesion or malignancy, Other Historical Provider HEALTH MAINTENANCE Edited Result - Final from Last 3 Months or Most Recently Relevant to Health Maintenance Insurance [employer] C3 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
--- OUTSIDE RECORDS SUMMARY | 2024-05-21 08:48 | XMS_ITS | Data Portability ---
Author Organization [facility], [address] Address [address] [place] [address] Assessment No assessment recorded. Plan of Treatment Reminders Order Date Submit Date Provider Last Modified By Organization Details Last Modified Time Details Appointments None recorded. Lab rapid flu (A+B) 2021 [email or web address] _[facility], [address] [place] [address], [phone], 12:35:37 rapid strep group A, throat 2021 [email or web address] _[facility], [address] [place] [address], [phone], 12:35:37 Referral None recorded. Procedures None recorded. Surgeries None recorded. Imaging None recorded. Medication Orders cetirizine 10 mg tablet 2021 [id number] [place], [address], 12:35:46 Lidocaine Viscous 2 % mucosal solution 2021 [email or web address] Not available 13:24:25 Patient TargetsNo targets recorded. Patient Instructions Encounter Date Encounter Id Patient Instructions Last Modified By Organization Details Last Modified Time 02/17/2022 [id number] laryngitis: care instructions [email or web address] Not available 02/17/2022 12:35:37 You have been diagnosed with an Upper Respiratory Infection. Rapid Strep and Flu test were negative. It is important to drink plenty of fluids and rest while you are ill. Hot Tea with Honey is good to help with a sore throat. Some OTC medications that are helpful with your current symptoms would include. 1. Tylenol 2. Saline Nasal [place] Try an avoid other people and wash [...] 4. Shortness of Breath or Chest Pain. [email or web address] Not available 02/17/2022 12:28:31 Reason for Referral None Reported. Results Created Date Observation Date Name Description Value Unit Range Abnormal Flag Note LastModifiedBy Organization Detail LastModifiedTime 02/18/20 22 02/17/2022 rapid strep group A, throa t Unknown Analyte negati ve Not Available _myranda barker [address], [phone], 02/17/2022 12:21:20 02/18/20 22 02/17/2022 rapid strep group A, throa t Unknown Analyte Normal = Negati ve Not Available _myranda barker [address], [phone], 02/17/2022 12:21:20 02/18/20 22 02/17/2022 rapid flu (A+B) Unknown Analyte negati ve Not Available myranda barker [address], [phone], 02/17/2022 11:48:36 02/18/20 22 02/17/2022 rapid flu (A+B) Unknown Analyte negati ve Not Available myranda barker [address] [place], [address], 02/17/2022 11:48:36 02/18/2002/17/2022 rapid flu (A+B) Unknown Analyte Normal = Negati ve Not Available [id number] [address] [place] [address], [phone], 02/17/2022 11:48:36 Result Notes None recorded. Problems No Known Problems Medical Equipment None Reported. Allergies Allergen ID Allergen Name Allergen Category Reaction Reaction Severity Criticality Documentation Date Start Date Code Code System Note Provider Name and Address Organization Details Recorded Time 22598 Substance with sulfonami de structure and antibacte rial mechanism of action (substanc e) medicatio n eye swelling mild low 02/17/2022 76832 8003 SNOMED TAWANNA hernandez [facility] - [facility] [...] Updated DateTime 2 154.94 cm 25.5 kg/m2 60099.9 7 g 98 [degF] 18 /min 74 [...] SNOMED-CT Code Diagnosis ICD10 Code Diagnosis Note [id number] [place] [address] 09/14/2020 10:07:16 09/14/2020 10:54:35 [id number] TREVON CARR 21005_[facility] [address] [place] [address] 02/17/2022 09:46:25 02/17/2022 12:36:27 Acute pharyngitis [id number] J02.9 Upper resp iratory infection 05398703 J06.9 Health Concerns Section Related Observation LastModified by Organization Detai ls LastModified Time None Recorded Concern Status LastModified by Organization Details LastModified Time None Recorded Advance Directives Directive None Recorded Payers Encounter Date Sequence Insurance Name Policy Number Policy Cabrera Covered Member ID Cabrera Member ID Guarantor Name 02/17/2022 1 [place] [facility] Farhan Chase [id number] Farhan Chase Notes Date Note Type Note [...] Pharmacy. TREVON CARR [address] [place], [address], [place] - [facility] 02/17/2022 12:39:05 OBGyn Episode No OBEpisode recorded.
--- OUTSIDE RECORDS SUMMARY | 2024-05-21 08:48 | XMS_ITS | Encounter Summary ---
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 Role Phone Whitney Sotomayor Primary Care Provider [phone] Genoveva Chamorro MD Unavailable [phone] Reason for Visit * Reason Onset Date Comments chart prep 05/01/2024 Encounter Details Date Type Department Care Team ([facility] st Contact Info) Description 05/01/2024 Telephone [facility] [address] [place] [address] Huma Cullen MA chart prep Social History [...] documented as of this encounter Care Teams 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
--- OUTSIDE RECORDS SUMMARY | 2024-05-21 08:48 | XMS_ITS | Encounter Summary ---
Author Organization [employer] Address [address] [facility] 7t [place] [address] Care Team Providers Care Disability Hearing Officer Name Role Phone Светлана Whitney BUSCH Primary Care Provider [phone] Genoveva Chamorro MD Unavailable [phone] Encounter Details Date Type Department Care [...] past 12 months, has t he electric, [employer], oil or water [employer] threatened to shut off services in your [...] PM EDT) Influenza A PCR NEGATIVE Negative [facility] Influenza B PCR NEGATIVE Negative [facility] Resp Syncy Virus RNA Qual PCR NEGATIVE Negative [facility] SARS COV2 PCR NEGATIVE Negative [facility] Comment:All test results mus t be [...] use by authorized laboratories.Testing performed on the [employer] GeneXpert utilizingreal-time RT-PCR.All SARS CoV2 and positive influenza A/B results arereported to [facility]. 05/17/2024 6:05 PM EDT 05/17/2024 6:09 PM EDT Generic External Data Provider LAB MICROBIOLOGY - GENERAL ORDERABLES Final Result Performing Organization Address [facility] Co de Phone Number [facility] [address] [place] [phone] * hCG, Total, Quantitative (05/17/2024 6:05 PM EDT) HCG Quantitative <2 mIU/mL [facility] Comment:Weeks post LMP Appr oximate hCG(Last Menstrual Period) Range (mIU/ml)3 - 4 weeks 9 - 1304 - 5 weeks 75 - 2,6005 - 6 weeks 850 - 20,8006 - 7 weeks 4000 - 100,2007 - 12 weeks 11,500 - 289,21303 - 16 weeks 18,300 - 137,68280 - 29 weeks (2nd trimester) 1,400 - 53,01034 - 41 weeks (3rd trimester) 940 - 60,000The Donws B- hCG assay is used for the early detection ofpregnancy; it cannot be used to diagnose any conditionunrelated to . If a B-hCG level is not supportedby the clinical evidence, results should be confirmed by analternative method (qualitative urine hCG, for example). 05/17/2024 6:05 PM EDT 05/17/2024 6:09 PM EDT Generic External Data Provider LAB BLOOD ORDERAB LES Final Result Performing Organization Address [facility]/ZIP Co de Phone Number [facility] [address] [place] [phone] * Lipase (05/17/2024 6:05 PM EDT) Lipase 33 8 - 78 U/L [facility] 05/17/2024 6:05 PM EDT 05/17/2024 6:09 PM EDT us Generic External Data Provider LAB BLOOD ORDERAB LES Final Result [facility] [address] [place] [address] [phone] * (ABNORMAL) Comprehensive Metabolic Panel (05/17/2024 6:05 PM EDT) Sodium 145 135 - 145 mmol/L [facility] Potassium 3.9 3.3 - 5.1 mmol/L [facility] Chloride 107 96 - 108 mmol/L [facility] Carbon Dioxide 27 22 - 29 mmol/L [facility] Anion Gap 15 12 - 20 [facility] Urea Nitrogen (BUN) 10 9 - 16 mg/dL [facility] Creatinine, Serum 0.67 0.5 - 1.4 mg/dL [facility] Creatinine Clr Calc Pharmacy 100.3 [facility] Comment:Provided height and weight: 154.94 cm,62.6 kg.eGFR (calculated from the MDRD study equation) and eCrCl(calculated from the Cockcroft-Gault equation) are based ondifferent parameters and may not yield comparable results.If eCrCl result is absurd, please check patient'sheight/weight. Estimated Glomerular Filt Rate >60 [facility] Comment:Chronic Kidney Disea se: Estimated GFR < 60 mL/min/[id number] Kidney Disease: Estimated GFR < 15 mL/min/1.73m2 Glucose 128(H) 60 - 115 mg/dL [facility] Calcium 9.3 8.4 - 10.2 mg/dL [facility] Bilirubin, Total 0.4 0.0 - 1.0 mg/dL [facility] Aspartate Amino Transferase 59(H) 5 - 31 U/L [facility] Alanine Aminotransferase 96(H) 0 - 31 U/L [facility] Total Protein 7.7 6.5 - 8.0 g/dL [facility] Albumin Level 4.2 3.5 - 5.0 g/dL [facility] Alkaline Phosphatase 131(H) 39 - 117 U/L [facility] 05/17/2024 6:05 PM EDT 05/17/2024 6:09 PM EDT us Generic External Data Provider LAB BLOOD ORDERAB LES Final Result [facility] [address] [place] [phone] [phone] * (ABNORMAL) CBC auto differential (05/17/2024 6:05 PM EDT) White Blood Count 13.0(H) 4.8 - 10.8 X10*3/uL [facility] Red Blood Count 4.88 4.20 - 5.50 X10*6/uL [facility] Hemoglobin 13.3 12.0 - 16.0 g/dl [facility] Hematocrit 41.0 37.0 - 47.0 % [facility] Mean Corpuscular Volume 84.0 80.0 - 98.0 fL [facility] Mean Corpuscular Hemoglobin 27.3 27.0 - 33.0 pg [facility] Mean Corpuscular HGB Conc 32.4 31.0 - 35.0 g/dl [facility] Red Cell Distribution Width 13.6 11.0 - 16.0 % [facility] Platelet Count 223 160 - 400 X10*3/uL [facility] Mean Platelet Volume 12.9(H) 9.4 - 12.3 fL [facility] Neutrophils Percent Auto 88.8(H) 45 - 73 % [facility] Imm Gran Pct Auto 0.4 0.0 - 0.4 % [facility] Lymphocytes Percent Auto 7.7(L) 20 - 40 % [facility] Monocytes Percent Auto 2.6 2 - 11 % [facility] Eosinophils Percent Auto 0.1 0 - 4 % [facility] Basophils Percent Auto 0.4 0 - 2 % [facility] NRBC Pct Auto 0.0 0.0 - 0.2 /100WBC [facility] Neutrophils Absolute Auto 11.5(H) 2.0 - 8.3 x10*3/uL [facility] Imm Gran Abs Auto 0.05(H) 0.00 - 0.03 X10*3/uL [facility] Lymphocytes Absolute Auto 1.0(L) 1.2 - 4.9 X10*3/uL [facility] Monocytes Absolute Auto 0.3 0.1 - 1.2 X10*3/uL [facility] Eosinophils Absolute Auto 0.0 0.0 - 0.4 X10*3/uL [facility] Basophils Absolute Auto 0.1 0.0 - 0.2 X10*3/uL [facility] NRBC Abs Auto 0.000 0.0 - 0.012 X10*3/uL [facility] 05/17/2024 6:05 PM EDT 05/17/2024 6:09 PM EDT us Generic External Data Provider LAB BLOOD ORDERAB LES Final Result [facility] [address] [place] [phone] * (ABNORMAL) Urinalysis, Complete, with Reflex to Culture (05/17/2024 6:05 PM EDT) Color Urine Yellow [facility] Appearance Urine Turbid [facility] PH >=9.0 5.0 - 9.0 [facility] Glucose Urine UA Negative Negative mg/dL [facility] Urine Blood Moderate (2+)(A) Negative [facility] Specific [place] - Urine 1.025 1.005 - 1.025 [facility] Urine Protein 30 (1+)(A) Neg-Trace mg/dL [facility] Urine Ketones Negative Negative mg/dL [facility] Nitrite Urine Negative Negative [facility] Leukocyte Esterase Urine Trace(A) Negative [facility] RBC Urine >20(A) 0 - 2 /HPF [facility] Urine WBC 0-5 0 - 5 /HPF [facility] Urine Squamous Epithelial Cell 6-10 0 - 2 /HPF [facility] Urine Bacteria None Seen None Seen [facility] Hyaline Casts, Urine 0-2 0 - 2 /LPF [facility] 05/17/2024 6:05 PM EDT 05/17/2024 6:09 PM EDT Narrative [facility] - 05/17/2024 6:20 PM EDT [id number], Clean C[employer] us Generic External Data Provider LAB URINE ORDERAB LES Final Result Performing Organization Address City/State/[facility] Co de Phone Number [facility] [address] [place] [phone] documented in this encounter Visit Diagnoses Not on filedocumented in this encounter Additional Health Concerns Assessment Noted Time PHQ-9 Depression Total Score: 9 07/16/19 24 1:46 PM EDT documented as of this encounter Care Teams Disability Hearing Officer Relationship Specialty Start Date End Date Whitney Sotomayor ANP [address] [place] [address] PCP - General Family Medicine 10/31/20 Genoveva Chamorro MD [address] [place] [address] Dr 3rd [place] [address] Gastroenterology 02/19/24 documented as of this encounter
--- OUTSIDE RECORDS SUMMARY | 2024-05-21 08:48 | XMS_ITS | Encounter Summary ---
Author Organization [employer] Address [address] [facility] 7t [place] [address] Care Team Providers Care Laundry Machine Tender Name Role Phone Светлана Whitney BUSCH Primary Care Provider [phone] Genoveva Chamorro MD Unavailable [phone] Encounter Details Date Type Department Care [...] t he electric, gas, oil or water [employer] threatened to shut off services in your [...] documented as of this encounter Care Teams Laundry Machine Tender Relationship Specialty Start Date End Date Whitney Sotomayor ANP [address] [place] [address] PCP - General Family Medicine 10/31/20 Genoveva Chamorro MD [address] [place] [address] Dr 3rd [place] [address] Gastroenterology 02/19/24 documented as of this encounter
--- OUTSIDE RECORDS SUMMARY | 2024-05-21 08:48 | XMS_ITS | Encounter Summary ---
Author Organization [facility] Address [address] [place] [address] [address] [place] [address] Care Team Providers Care Fruit And Vegetable Parer Name Role Phone Whitney Sotomayor Primary Care Provider [phone] Genoveva Chamorro MD Unavailable [phone] Encounter Details Date Type Department Care Team (Late st Contact Info) Description 11/30/2022 Orders Only [facility] [address] [place] [address] Provider, Historical, Social History Tobacco Use Types [...] documented as of this encounter Care Teams Fruit And Vegetable Parer Relationship Specialty Start Date End Date Whitney Sotomayor ANP [address] [place] [address] PCP - General Family Medicine 10/31/20 Genoveva Chamorro MD [address] [place] [address] Dr 3rd [place] [address] Gastroenterology 02/19/24 documented as of this encounter
--- OUTSIDE RECORDS SUMMARY | 2024-05-21 08:48 | XMS_ITS | Encounter Summary ---
Author Organization [employer] Address [address] [facility] 7 [place] [address] Care Team Providers Care Pre K Teacher Name Role Phone Whitney Sotomayor Primary Care Provider [phone] Genoveva Chamorro MD Unavailable [phone] Reason for Visit * Reason Comments Care Management C3 chart review Encounter Details Date Type Department Care Team ([facility] Contact Info) Description 05/18/2024 Telephone [facility] [address] [place] [address] Whitney Sotomayor ANP [address] [place] [address] Care Management ([facility] chart review) Social History Tobacco Use Types Packs/Day Years [...] as of this encounter Progress Notes * Mary Cabrera - 05/18/2024 8:21 AM EDT LIZZIE Cabrera RN, performed chart review, in anticipation of initial assessment with patient, as patient has stratified for C3 Complex Care High Risk Maternity through the ADT feed. History significant for Gerd. Specialists include [facility]. ED visits within the last 12 months include [facility] 05/17/24. Last appointment in PCP office on 05/06/24. No future appointment scheduled. documented in this encounter Plan of Treatment Not on file documented as of this encounter Visit Diagnoses Not on filedocumented in this encounter Additional Health Concerns Assessment Noted Time PHQ-9 Depression Total Score: 9 07/16/19 24 1:46 PM EDT documented as of this encounter Care Teams Pre K Teacher Relationship Specialty Start Date End Date Whitney Sotomayor ANP [address] [place] [address] PCP - General Family Medicine 10/31/20 Genoveva Chamorro MD [address] [place] [address] Dr 3rd Floor [place] [address] Gastroenterology 02/19/24 documented as of this encounter
--- OUTSIDE RECORDS SUMMARY | 2024-05-21 08:48 | XMS_ITS | Encounter Summary ---
Author Organization [employer] Address [address] [place] [address] 7 [place] [address] Care Team Providers Care Visual Basic .Net Developer Name Role Phone Whitney Sotomayor Primary Care Provider [phone] Genoveva Chamorro MD Unavailable [phone] Reason for Visit * Reason Onset Date Comments Results 05/07/2024 Encounter Details Date Type Department Care Team ([facility] st Contact Info) Description 05/07/2024 Telephone [facility] MEDICINE [address] [place] [address] Whitney Sotomayor ANP [address] [place] [address] Results Social History Tobacco Use Types Packs/Day [...] not effected. 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 Gave call back number if needed. Will task to status check pt per PCP request. * Telephone Encounter - Belen Stafford RN - 05/07/2024 10:44 AM EST ----- Message from Whitney Sotomayor sent at 05/06/2024 5:54 PM EST ----- Please out reach [facility] to request that someone from their [...] documented as of this encounter Care Teams Visual Basic .Net Developer Relationship Specialty Start Date End Date Whitney Sotomayor ANP [address] [place] [address] PCP - General Family Medicine 10/31/20 Genoveva Chamorro MD [address] [place] [address] [address] [place] [address] Gastroenterology 02/19/24 documented as of this encounter
[2024-05-28] VITALS (13 sets, daily range): BP systolic 115–134; BP diastolic 54–91; PULSE 64–93; RESP 12–18; TEMP 36.6; O2SAT 96–100; BMI 26.3
--- NOTE | ~2024-05-28 | US_ITS ---
EXAMINATION: Ultrasound biopsy liver. CLINICAL INDICATION: Elevated LFTs. COMPARISON: Ultrasound abdomen limited 01/22/2023. TECHNIQUE: Following explaining ultrasound-guided liver biopsy procedure, benefits in risk, a written consent was obtained. Patient was placed supine on ultrasound fracture and preliminary ultrasound imaging was obtained to the right hepatic lobe. An optimal site was selected along the right anterolateral lower chest and a marker was placed. 1% lidocaine was infiltrated at the skin site. 3. A small skin incision a 20-gauge density and long guiding needle was advanced from the skin incision into the right hepatic lobe under ultrasound guidance. Coaxially a biopsy gun was administered and 3 passes core biopsies were obtained through the right hepatic lobe. There was minimal bleeding seen during the exam. The guide needle was removed and complete hemostasis achieved at puncture site. Patient tolerated procedure extremely well. Conscious sedation was provided during the exam and patient monitored for 15 minutes of sedation time FINDINGS: There is diffuse increased liver echogenicity. No focal lesion seen. No intrahepatic ductal dilatation. Ultrasound-guided 3 pass right hepatic lobe core biopsy performed. There are no immediate competitions. US/US biopsy liver IMPRESSION: Successful ultrasound-guided right hepatic lobe core biopsies were obtained with 3 passes. Electronically signed by: Sina Lilly MD 05/28/2024 03:09 PM EDT
[2024-05-28 09:29] LABS: Prothrombin Time 11.2 SEC (10.9-12.4)
[2024-05-28 09:32] LABS: UPreg QC Valid YES; Urine Pregnancy NEGATIVE (NEGATIVE)
[2024-05-28] MEDS: fentaNYL citrate/PF 100 MCG/2 ML VIAL 25 MCG IVPUSH (10:45)
[2024-05-28] MEDS: Midazolam HCl 2 MG/2 ML VIAL 1 MG IVPUSH (10:45)
[2024-05-28] MEDS: Lidocaine HCl 1 % MPF 5 ML VIAL SUBCUT (11:16)
== END 2024-05-28 13:03 | disposition home or self-care (01) ==
PROVIDERS: Radiology Diagnostic Radiology; PCP Nurse Practitioner Primary Care; Visit Provider Internal Medicine Gastroenterology
DX: R74.01 Elevation of levels of liver transaminase levels (principal); K76.0 Fatty (change of) liver, not elsewhere classified
CPT/HCPCS: 36415; 47000; 76942; 81025; 85610; 88307; 88313; J2003; J2250; J2310; J3010

== ENCOUNTER → 2024-05-28 10:26 | Outpatient (BNV) | payer MEDICAID, SELFPAY | PROVIDERS: PCP Nurse Practitioner Primary Care; Visit Provider Radiology Diagnostic Radiology | DX: R94.5 Abnormal results of liver function studies (principal) | CPT/HCPCS: 47000; 76942; 99152 ==

== ENCOUNTER 2024-06-05 10:43 | Outpatient (REF) | payer MEDICAID, SELFPAY ==
[2024-06-05 12:47] LABS: HCG Quantitative < 2 mIU/mL
== END 2024-06-05 10:44 | disposition home or self-care (01) ==
LOC: HO.HHCL 10:43
PROVIDERS: Visit Provider Family Medicine
DX: N92.6 Irregular menstruation, unspecified (principal)
CPT/HCPCS: 36415; 84702

== ENCOUNTER 2024-07-08 18:59 | Outpatient (REF) | payer MEDICAID, SELFPAY ==
[2024-07-09 12:50] LABS: Bacterial Vaginosis PCR NEGATIVE (Negative); Candida Group PCR DETECTED (Not Detect); Candida glab krusei PCR DETECTED (Not Detect); Trichomonas vaginalis PCR NOT DETECTED (Not Detect)
--- OUTSIDE RECORDS SUMMARY | 2024-07-09 13:20 | XMS_ITS | Encounter Summary ---
Author Organization [employer] Address [address] [facility] 7t [place] [address] Care Team Providers Care Fingerprint Expert Name Role Phone Светлана Whitney BUSCH Primary Care Provider [phone] Genoveva Chamorro MD Unavailable [phone] Reason for Visit * Reason Comments Walk-In UTI symptoms 3x days ; also wanted to go over left arm discomfort around the elbow area, has been going on for about 3 months Encounter Details Date Type Department Care Team (Late st Contact Info) Description 07/08/2024 6:20 PM EDT Office Visit [facility] [address] [place], [place] [phone] Nelsy Sun MD [address] [place], [place] [phone] Dysuria (Primary Dx); UTI symptoms Social History Tobacco Use Types Packs/Day Years [...] the past 12 months, has t he [employer], gas, oil or water [employer] threatened to shut off services in your [...] Sign Reading Time Taken Comments Blood Pressure 141/96 07/08/2024 5:54 PM EDT no chest pain, palpitations, or SOB Pulse 95 07/08/2024 5:54 PM EDT Temperature - - Respiratory Rate 20 07/08/2024 5:54 PM EDT Oxygen Saturation 99% 07/08/2024 5:5 4 PM EDT Inhaled Oxygen Concentration - - Weight 62.6 kg (138 lb) 07/08/2024 5:54 PM EDT Height 152.4 cm (5') 07/08/2024 5:54 PM EDT Body Mass Index 26.95 07/08/2024 5:54 PM EDT documented in this encounter Progress Notes * Nelsy Sun MD - 07/08/2024 6:20 PM EDT SUBJECTIVE: Farhan Reina is a 34 y.o. year old female who presents for Walk In Center/uti sxs . Denies recent illness, injury, or hospitalization. Acute Concerns: Patient complaining of dysuria and suprapubic pain for 3 days, has minimal improvement with Pyridium. She does not have any fever, chills, nausea or vomiting. She denies having back pain. She has mild to moderate yellowish clear vaginal discharge with stronger other for 1 week. Her LMP was on 06/14/24 x 4 days but she had missed her. Back in May and the previous one was on 04/18/2024, she is not on control. She tells me she has recurrent UTIs Social History Social History Narrative Not on file Patient Active Problem List Diagnosis Gastroesophageal reflux disease Transaminitis Grief Health care maintenance Family History Problem Relation Name Age of Onset Other (breast ca-at her 45y of age) Mother Other (DM2) Mother Other (heart dx, HTN) Father Colon cancer Maternal Grandmother Review of Systems Constitutional: Negative for chills, fatigue and fever. HENT: Negative for congestion, ear pain, nosebleeds, rhinorrhea, sinus pressure, sore throat and trouble swallowing. Eyes: Negative for pain and discharge. Respiratory: Negative for cough, chest tightness and shortness of breath. Cardiovascular: Negative for chest pain, palpitations and leg swelling. Gastrointestinal: Negative for abdominal pain, blood in stool, constipation, diarrhea and nausea. Endocrine: Negative for polydipsia and polyuria. Genitourinary: Positive for dysuria, pelvic pain and vaginal discharge. Negative for frequency and genital sores. Musculoskeletal: Negative for back pain and neck pain. Skin: Negative for rash. Allergic/Immunologic: Negative for environmental allergies. Neurological: Negative for dizziness, seizures, weakness, light-headedness and headaches. Hematological: Negative for adenopathy. Psychiatric/Behavioral: Negative for agitation, behavioral problems, self-injury and suicidal ideas. OBJECTIVE: Vitals: 07/08/24 1754 BP: (!) 141/96 Pulse: 95 Resp: 20 SpO2: 99% Physical Exam Constitutional: Appearance: Normal appearance. HENT: Right Ear: Tympanic membrane and ear canal normal. Left Ear: Tympanic membrane and ear canal normal. Mouth/Throat: Mouth: Mucous membranes are moist. Pharynx: No oropharyngeal exudate or posterior oropharyngeal erythema. Eyes: Pupils: Pupils are equal, round, and reactive to light. Cardiovascular: Rate and Rhythm: Normal rate and regular rhythm. Heart sounds: No murmur heard. Pulmonary: Breath sounds: Normal breath sounds. No wheezing. Abdominal: General: Bowel sounds are normal. Palpations: Abdomen is soft. Tenderness: There is abdominal tenderness in the suprapubic area. There is no right CVA tenderness or left CVA tenderness. Musculoskeletal: General: No tenderness. Normal range of motion. Cervical back: Normal range of motion. No tenderness. Skin: General: Skin is warm. Neurological: General: No focal deficit present. Mental Status: She is alert and oriented to person, place, and time. Psychiatric: Mood and Affect: Mood normal. Diagnoses and all orders for this visit: Dysuria Comments: Most likely cystitis, follow-up urine culture and vaginal swab results Rx Cipro x 5 days, increase water intake and continue Pyridium as needed Orders: - Bacterial Vaginosis; Future - Chlamydia/N. Gonorrhoeae RNA, TMA, Urogenitial UTI symptoms - POCT Urinalysis - POCT Urine Other orders - ciprofloxacin (Cipro) 250 MG tablet; Take 1 tablet (250 mg) by mouth 2 times daily for 5 days. Problem List Items Addressed This Visit None Visit Diagnoses Dysuria - Primary Relevant Orders Bacterial Vaginosis Chlamydia/N. Gonorrhoeae RNA, TMA, Urogenitial UTI symptoms Relevant Orders POCT Urinalysis (Completed) POCT Urine (Completed) Follow Up: Current Outpatient Medications on File Prior to [...] or shortness of breath. 18 g 3 cetirizine (ZyrTEC) 10 MG tablet 1 tablet as needed for allergies/nasal congestion 90 tablet 0 cyclobenzaprine (Flexeril) 5 MG tablet Take 1 tab as needed up to 3 times in 24 hrs 30 tablet 0 famotidine (Pepcid) 40 MG tablet Take by mouth. fluticasone (Flonase) 50 MCG/ACT nasal spray Use 1-2 sprays as needed per nostril. Shake gently. Before first use, prime pump. After use, clean tip and replace cap. 16 g 0 ibuprofen 400 MG tablet Take 1 tablet (400 mg) by mouth every 6 (six) hours if needed for moderate pain or fever for up to 30 doses. 30 tablet 0 ketoconazole (NIZOral) 2 % shampoo APPLY TO SCALP TWO TIMES A WEEK, LEAVE ON FOR 5 MINUTES THEN WASH OFF Spacer/Aero-Holding Chambers (OptiChamber Leora) misc 1 each every 4 (four) hours if needed (asthma). 1 each 0 No current facility-administered medications on file prior to visit. documented in this encounter Plan of Treatment Upcoming Encounters Date Type Department Care Team (Late st Contact Info) Description 07/31/2024 11:00 AM EDT Office Visit [facility] [address] [place], [place] [phone] Whitney Sotomayor, ANP [address] [place], [place] [phone] Scheduled Orders Name Type Priority Associated Diagnoses Orde r Schedule Bacterial Vaginosis Microbiology Routine Dysuria Expected: 07/08/2024 (Approximate), Expires: 07/08/2025 Chlamydia/N. Gonorrhoeae RNA, TMA, Urogenitial Microbiology Routine Dysuria Ordered: 07/08/2024 documented as of this encounter Procedures Procedure Name Priority Date/Time Associated Diagnosis Comments POCT , URINE Routine 07/08/2024 6:52 PM EDT UTI symptoms POCT URINALYSIS DIPSTICK Routine 07/08/2024 6:02 PM EDT UTI symptoms documented in this encounter Results * POCT Urine (07/08/2024 6:52 PM EDT) Preg Test, Ur Negative Negative, Indeterminate, None Detected, Invalid, Specimen unsatisfactory for evaluation, Weakly Positive QC Media Lot # [id number] Lot# Expiration Date [id number] Urine 07/08/2024 6:52 PM EDT Nelsy Sun MD POINT OF CARE TEST ENTER /EDIT ORDERABLES Final Result * (ABNORMAL) POCT Urinalysis (07/08/2024 6:02 PM EDT) Color, UA Yellow Clarity, UA Clear Glucose, UA Negative Bilirubin, UA Negative Ketones, UA Negative Spec Grav, UA 1.030 Blood, UA Negative Negative, None Detected pH, UA 6.5 Protein, UA Negative Urobilinogen, UA 0.2 Leukocytes, UA Trace Negative, Rare, Trace Nitrite, UA Negative Negative, None Detected Urine 07/08/2024 6:02 PM EDT Nelsy Sun MD POINT OF CARE TEST ENTER /EDIT ORDERABLES Final Result documented in this encounter Visit Diagnoses Diagnosis Dysuria- Primary UTI symptoms documented in this encounter Additional Health Concerns Assessment Noted Time PHQ-9 Depression Total Score: 9 07/16/19 24 1:46 PM EDT documented as of this encounter Care Teams Fingerprint Expert Relationship Specialty Start Date End Date Whitney Sotomayor ANP [address] [place] [address] PCP - General Family Medicine 10/31/20 Genoveva Chamorro MD [address] [place] [address] Dr [address] [place] [address] Gastroenterology 02/19/24 documented as of this encounter
--- OUTSIDE RECORDS SUMMARY | 2024-07-09 13:20 | XMS_ITS | Encounter Summary ---
Author Organization [employer] Address [address] [facility] 7t [place] [address] Care Team Providers Care Internet Assessor Name Role Phone Светлана Whitney BUSCH Primary Care Provider [phone] Genoveva Chamorro MD Unavailable [phone] Encounter Details Date Type Department Care Team (Latest Contact Info) Description 07/08/2024 Travel Social History Tobacco Use Types Packs/Day [...] t he electric, gas, oil or water [employer] threatened to shut off services in your [...] Description 07/31/2024 11:00 AM EDT Office Visit [facility] [address] [place] [address] Whitney Sotomayor ANP [address] [place] [address] documented as of this encounter Visit Diagnoses Not on filedocumented in this encounter Additional Health Concerns Assessment Noted Time PHQ-9 Depression Total Score: 9 07/16/19 24 1:46 PM EDT documented as of this encounter Care Teams Internet Assessor Relationship Specialty Start Date End Date Whitney Sotomayor ANP [address] [place] [id number] PCP - General Family Medicine 10/31/20 Genoveva Chamorro MD [address] [place] [address] Dr [address] [place] [address] Gastroenterology 02/19/24 documented as of this encounter
[2024-07-09 13:21] LABS: CT PCR NOT DETECTED (Not Detect.); NG PCR NOT DETECTED (Not Detect.)
--- OUTSIDE RECORDS SUMMARY | 2024-07-09 13:21 | XMS_ITS | Encounter Summary ---
Author Organization [facility] Address [address] [place] [address] 7[address] [place] [address] Care Team Providers Care Softball Player Name Role Phone Whitney Sotomayor Primary Care Provider [phone] Genoveva Chamorro MD Unavailable [phone] Encounter Details Date Type Department Care Team (Late st Contact Info) Description 11/30/2022 Orders Only [address] [phone] ProviderCarlos MD Social History Tobacco Use Types [...] Description 07/31/2024 11:00 AM EDT Office Visit [address] [phone] Whitney Sotomayor ANP [address] [place] [address] [phone] documented as of this encounter Procedures Procedure Name Priority Date/Time Associated Diagnosis Comments PAP/HPV Routine 07/05/2020 documented in this encounter Results * Pap Smear (07/05/2020) us Historical Provider HEALTH MAINTENANCE Final Result documented in this encounter Visit Diagnoses Not on filedocumented in this encounter Additional Health Concerns Assessment Noted Time PHQ-9 Depression Total Score: 19 023 10:44 AM EDT documented as of this encounter Care Teams Softball Player Relationship Specialty Start Date End Date Whitney Sotomayor ANP [address] [place] [phone] PCP - General Family Medicine 10/31/20 Genoveva Chamorro MD [address] [place] [address] Dr [address] [place] [address] Gastroenterology 02/19/24 documented as of this encounter
--- OUTSIDE RECORDS SUMMARY | 2024-07-09 13:21 | XMS_ITS | Encounter Summary ---
Author Organization [email or web address] Address [address] [facility] 7[address] [place] [address] Care Team Providers Care Counseling Case Manager Name Role Phone Светлана Whitney BUSCH Primary Care Provider [phone] Genoveva Chamorro MD Unavailable [phone] Encounter Details Date Type Department Care Team ([facility] st Contact Info) Description 07/08/2024 Orders Only [facility] [address] [place] [address] Nelsy Sun MD [address] [place] [address] Social History Tobacco Use Types Packs/Day Years [...] Description 07/31/2024 11:00 AM EDT Office Visit [facility] [address] [place], [place] [phone] Whitney Sotomayor ANP [address] [place] [address] documented as of this encounter Procedures Procedure Name Priority Date/Time Associated Diagnosis Comments BACTERIAL VAGINOSIS PANEL Routine 07/08/2024 6:59 PM EDT documented in this encounter Results * (ABNORMAL) Bacterial Vaginosis (07/08/2024 6:59 PM EDT) TRICHOMONAS VAGINALIS DETECTION BY PCR NOT DETECTED Not Detect [facility] BACTERIAL VAGINOSIS DETECTION BY PCR NEGATIVE Negative [facility] Comment:The BV organism targ ets of the Xpert Xpress MVP test can becommensal in women; Xpert Xpress MVP positive results forbacterial vaginosis should be considered in conjunction withother clinical and patient information to determine thedisease status. Organisms that are not detected by the XpertXpress MVP test have also been reported to be associatedwith BV and aerobic vaginitis.The Xpert Xpress MVP test performance has not been evaluatedin patients under the age of 14. MARY GROUP DETECTION BY PCR DETECTED(A) Not Detect [facility] Mary glab krusei PCR DETECTED(A) Not Detect [facility] 07/08/2024 6:59 PM EDT 07/09/2024 11:24 AM EDT us Nelsy Sun MD LAB MICROBIOLOGY - GENER AL ORDERABLES Final Result [facility] [address] [place] [address] [phone] documented in this encounter Visit Diagnoses Not on filedocumented in this encounter Additional Health Concerns Assessment Noted Time PHQ-9 Depression Total Score: 9 07/16/19 24 1:46 PM EDT documented as of this encounter Care Teams Counseling Case Manager Relationship Specialty Start Date End Date Whitney Sotomayor ANP [address] [place] [phone] PCP - General Family Medicine 10/31/20 Genoveva Chamorro MD [address] [place] [address] Dr [address] [place] [address] Gastroenterology 02/19/24 documented as of this encounter
== END 2024-07-08 19:00 | disposition home or self-care (01) ==
LOC: HO.HHCLNP 18:59
PROVIDERS: Visit Provider Internal Medicine
DX: R30.0 Dysuria (principal)
CPT/HCPCS: 81515; 87491; 87591

== ENCOUNTER 2024-07-31 16:49 | Outpatient (REF) | payer MEDICAID, SELFPAY ==
--- OUTSIDE RECORDS SUMMARY | 2024-07-31 16:51 | XMS_ITS | Clinical Summary ---
Author Organization [employer] Address [address] [facility] [address] [place] [address] Care Team Providers Care Log Cutter Name Role Phone Светлана Ar BUSCH Primary Care Provider [phone] Genoveva Chamorro MD Unavailable [phone] Allergies Active Allergy Reactions Criticality Noted Date Comments Latex 11/16/2022 Sulfa Antibiotics High 02/27/2019 Eye burning/swelling Other reaction(s): Burning Eyes, Eyes Swell swellling of the eyes Medications * This document contains information received from the source organization and may not represent a complete record from that organization. ketoconazole (NIZOral) 2 % shampoo 05/18/19 23 Active famotidine (Pepcid) 40 MG tablet Take by mouth. Active Spacer/Aero-Ho lding Chambers (OptiChamber Leora) misc [...] 026 Active fluticasone (Flonase) 50 MCG/ACT nasal sprayIndicatio ns:Nasal congestion Use 1-2 sprays as needed per nostril. Shake gently. Before first use, prime pump. After use, clean tip and replace cap. 16 g 05/06/19 25 Active cetirizine (ZyrTEC) 10 MG tabletIndicati ons:Nasal congestion 1 tablet as needed for allergies/soo al congestion 90 tablet 05/06/19 25 Active hydrocortisone 1 % creamIndicatio ns:Lesion of left upper eyelid Apply topically 2 times daily for 14 days. 28 g 08/01/19 25 025 Active fluocinolone ([place]-Smoothe /FS Body) 0.01 % external oilIndications :Seborrheic dermatitis Apply to scalp at bedtime, wear shower cap, wash out in AM. Use 2-3 times per week. 118 mL 1 08/01/19 25 Active sertraline (Zoloft) 50 MG tabletIndicati ons:Depression , unspecified depression type Take 1 tablet daily at bedtime 30 tablet 08/01/19 25 Active ciprofloxacin (Cipro) 250 MG tablet Take 1 tablet (250 mg) by mouth 2 times daily for 5 days. 10 tablet 07/09/19 25 025 Discontinued(Re order (will not trigger notification to Pharmacy)) ciprofloxacin (Cipro) 250 MG tablet Take 1 tablet (250 mg) by mouth 2 times daily for 5 days. 10 tablet 07/09/19 25 025 fluconazole (Diflucan) 150 MG tablet Take 1 tablet (150 mg) by mouth 1 (one) time for 1 dose. 1 tablet 07/10/19 25 025 Active Problems Patient Care Coordination [...] intervention , [facility], Comply with medication [...] Health Integration Plan Internal Follow up with [facility] Patient Self Plan Patient to utilize skills provided in intervention , Patient to reach out to [facility] team as needed, and Patient to reach [...] 07/07 -pap smear: unsure-pt will check w SERVICE DESK DIRECTOR at upcoming apt 06/2023 -vaccine COVID 19 [...] Encounters Date Type Department Care Team Description 07/31/2024 11:00 AM EDT Office Visit [facility] [address] [place] [address] Ar Oliver, NARAYAN Recurrent loss (Primary Dx); Lesion of left upper eyelid; Dysuria; Yeast infection; Irregular menses; Fatigue, unspecified type; Seborrheic dermatitis; Depression, unspecified depression type; Left elbow pain 07/31/2024 Travel 07/30/[address] [address] Ar Oliver ANP chart prep 07/10/2024 Telephone [facility] [address] [address] Nelsy Sun MD 07/10/[address] [phone] Nelsy Sun MD Results 07/09/2024 Orders Only [facility] [address] [address] Nelsy Sun MD 07/08/2024 6:20 PM EDT [facility] [address] [address] Nelsy Sun MD Dysuria (Primary Dx); UTI symptoms 07/08/2024 Orders Only [address] [address] Nelsy Sun MD 07/08/2024 Travel 06/05/2024 10:40 AM EDT [facility] [address] [address] Mahamed Tejada MD Infertility, female (Primary Dx); Missed period 05/28/2024 Orders Only GENERIC EXTERNAL DATA DEPARTMENT Provider, Generic External Data 05/27/2024 6:00 PM EDT [facility] [address] [address] Gualberto Conner MD Menstrual period late 05/22/2024 Population Health Risk Score Community Care [facility] (C3) Department [address] [phone] Provider, Population Health Generic 05/19/2024 Patient Outreach [address] [address] Ar Oliver ANP Care Coordination ([facility] [place]- ADT Outreach- Declined to participate) 05/18/[address] [address] Ar Oliver ANP Care Management ([facility]3CM chart review) 05/17/2024 Orders Only GENERIC EXTERNAL DATA DEPARTMENT Provider, Generic External Data 05/07/2024 Telephone [facility] [address] [place] [address] Ar Oliver ANP Results 05/06/2024 4:00 PM EST Telemedicine [facility] [address] [place] [address] Ar Oliver ANP Nasal congestion (Primary Dx); Conjunctivitis of left eye, unspecified conjunctivitis type; Lesion of left upper eyelid 05/06/2024 Travel from Last 3 Months Immunizations Immunization Administration Dates Next Due Influenza injectable quadrivalent [...] housing situation today? I have chao vo 07/31/[address] you li ve. Do you have problems with any of the following? None of the above 07/31/2024 Food Insecurity Answer Date Recorded Within the past 12 months, y ou worried that your food would run out before you got money to buy more: Never True 07/31/2024 Within the past 12 months,th e food you bought just didn't last and you didn't have enough money to get more: Never True Transportation Answer Date Recorded In the past 12 months, has l ack of transportation kept you from medical appts, meetings, work or from getting things needed for daily living? No 07/31/2024 Utilities Answer Date Recorded In the past 12 months, has t he electric, gas, oil or water [employer] threatened to shut off services in your home? No 07/31/2024 Depression Answer Date Recorded Patient Health Questionnaire-2 Score 0 07/31/2024 Internet Access Answer Date Recorded Internet Access Q1 Yes 07/31/2024 Internet Access Q2 Not on file 07/31/2024 Comments Unknown Sex and Gender Information Value Date Recorded Sex Assigned at Female 01/08/2022 10:36 AM EDT Legal Sex Female 10:36 AM EDT Gender Identity Female 01/08/2022 10:36 AM EDT Sexual Orientation Straight 06/05/2023 11 :16 AM EDT Last Filed Vital Signs Vital Sign Reading Time Taken Comments Blood Pressure 120/70 07/31/2024 11:08 AM EDT Pulse 72 07/31/2024 11:08 AM EDT Temperature 36.7 ??C (98.1 ??F) 06/05/2024 9:49 AM ED T Respiratory Rate 16 07/31/2024 11:08 AM EDT Oxygen Saturation 99% 07/08/2024 5:54 PM EDT Inhaled Oxygen Concentration - - Weight 66.2 kg (146 lb) 07/31/2024 11:08 AM EDT Height 152.4 cm (5') 07/31/2024 11:08 AM EDT Body Mass Index 28.51 07/31/2024 11:08 AM EDT Plan of Treatment Upcoming Encounters Date Type Department Care Team (Late st Contact Info) Description 10/27/2024 11:00 AM EDT Office Visit [facility] [address] [place] [address] Ar Oliver ANP [address] [place] [address] Health Maintenance Due Date Last Done Comments Family Planning (PISQ) 2004 Influenza Vaccine (#1) 2024 01/20/2021 Postp oned from 11/10/2023 (Patient Refused) COVID-19 Vaccine (2 5 season) 2025 07/22/2020, 07/01/2020 Postponed from 11/10/2023 (Patient Refused) Alcohol/Substance Use Screening 07/31/2025 07/31/2024 Depression Screening 07/31/2025 07/31/2024, 07/16/2023 Disability Screening 07/31/2025 07/31/2024 SDOH Screening 07/31/2025 07/31/2024 Tobacco Screening 07/31/2025 07/31/2024 Cervical Cancer Screening 04/13/2027 HPV/Cotest 04/13/2027 04/13/2022, [...] patient's age to complete this topic Meningococcal B Vaccine Aged Out No l onger eligible based on patient's age to complete [...] VAGINOSIS PANEL Routine 07/08/2024 6:59 PM EDT CHLAMYDIA/N. GONORRHOEAE RNA, TMA, UROGENITAL Routine 07/08/2024 6:59 PM EDT Dysuria POCT , URINE Routine 07/08/2024 6:52 PM EDT UTI symptoms POCT URINALYSIS DIPSTICK Routine 07/08/2024 6:02 PM EDT UTI symptoms HCG, TOTAL, QN Routine 06/05/2024 10:46 AM EDT Missed period POCT , URINE Routine 06/05/2024 9:54 AM EDT Missed period IRON STAIN (NON ORDERABLE) Routine 05/28/2024 11:00 AM EDT US GUIDED NEEDLE LIVER BIOPSY Routine 05/28/2024 10:34 AM EDT HCG, QL, URINE Routine 05/28/2024 9:15 AM EDT PROTHROMBIN TIME-INR Routine 05/28/2024 9:10 AM EDT POCT , URINE Routine 05/27/2024 5:54 PM EDT Menstrual period late HCG, TOTAL, QN Routine 05/17/2024 6:05 PM EDT LIPASE Routine 05/17/2024 6:05 PM EDT COMPREHENSIVE METABOLIC PANEL Routine 05/17/2024 6:05 PM EDT CBC WITH AUTO DIFFERENTIAL Routine 05/17/2024 6:05 PM EDT URINALYSIS, COMPLETE, WITH REFLEX TO CULTURE Routine 05/17/2024 6:05 PM EDT SARS COV2/INFLUENZA A/B AND RSV RNA QL NAAT Routine 05/17/2024 6:05 PM EDT HEPATITIS PANEL, GENERAL Routine 11/20/2023 8:11 AM EDT HIV 1/2 ANTIGEN/ANTIBODY, FOURTH GENERATION W/RFL Routine 07/15/2023 8:29 AM EDT Annual physical exam LIPID PANEL, STANDARD Routine 07/15/2023 8:29 AM EDT Annual physical exam HPV MRNA E6/E7 REFLEX TO HPV 16, 18/45 Routine 04/13/2022 HM PAP/HPV Routine 04/13/2022 from Last 3 Months or Most Recently Relevant to Health Maintenance Results * (ABNORMAL) Bacterial Vaginosis (07/08/2024 6:59 PM EDT) TRICHOMONAS VAGINALIS DETECTION BY PCR NOT DETECTED Not Detect [facility] BACTERIAL VAGINOSIS DETECTION BY PCR NEGATIVE Negative [facility] Comment:The BV organism targ ets of [...] GROUP DETECTION BY PCR DETECTED(A) Not Detect [facility] Mary glab krusei PCR DETECTED(A) Not Detect [facility] 07/08/2024 6:59 PM EDT 07/09/2024 11:24 AM EDT us Nelsy Sun MD LAB MICROBIOLOGY - GENER AL ORDERABLES Final Result [facility] [address] [place] [phone] * Chlamydia/N. Gonorrhoeae RNA, TMA, Urogenitial (07/08/2024 6:59 PM EDT) CT PCR NOT DETECTED Not Detect. [facility] Comment:A not detected test result does not exclude the possibilityof infection because test results can be affected byimproper specimen collection, concurrent antibiotic therapy,or the number of organisms in the specimen which may bebelow the sensitivity of the test. As with many diagnostictests, results from the Xpert CT/NG assay should beinterpreted in conjunction with other laboratory andclinical data available to the clinician.Xpert CT/NG performance has not been evaluated in patientsless than 14 years of age. The assay should not be used forthe evaluationof suspected sexual abuse or for other medico-legalindications. Additional testing is recommended in anycircumstance when false positive or false negative resultscould lead to adverse medical, social or psychologicalconsequences. NG PCR NOT DETECTED Not Detect. [facility] Comment:A not detected test result does not exclude the possibilityof infection because test results can be affected byimproper specimen collection, concurrent antibiotic therapy,or the number of organisms in the specimen which may bebelow the sensitivity of the test. As with many diagnostictests, results from the Xpert CT/NG assay should beinterpreted in conjunction with other laboratory andclinical data available to the clinician.Xpert CT/NG performance has not been evaluated in patientsless than 14 years of age. The assay should not be used forthe evaluationof suspected sexual abuse or for other medico-legalindications. Additional testing is recommended in anycircumstance when false positive or false negative resultscould lead to adverse medical, social or psychologicalconsequences. Urine (Urine, Random) 07/08/2024 6:59 PM EDT 07/09/2024 11:25 AM EDT Narrative [facility] - 07/09/2024 1:21 PM EDT Vaginal us Nelsy Sun MD LAB MICROBIOLOGY - GENER AL ORDERABLES Final Result [facility] [address] [place] [phone] * POCT Urine (07/08/2024 6:52 PM EDT) Only the most recent of3 resultswithin the time period is included. Preg Test, Ur Negative Negative, Indeterminate, None Detected, Invalid, Specimen unsatisfactory for evaluation, Weakly Positive QC Media Lot # [id number] Lot# Expiration Date ,026 Urine 07/08/2024 6:52 PM EDT Nelsy Sun [...] TEST ENTER /EDIT ORDERABLES Final Result * hCG, Total, Quantitative (06/05/2024 10:46 AM EDT) Only the most recent of2 resultswithin the time period is included. HCG Quantitative <2 mIU/mL [facility] Comment:Weeks post LMP Appro ximate hCG(Last Menstrual Period) Range (mIU/ml)3 - 4 weeks 9 - 1304 - 5 weeks 75 - 2,6005 - 6 weeks 850 - 20,8006 - 7 weeks 4000 - 100,2007 - 12 weeks 11,500 - 289,32386 - 16 weeks 18,300 - 137,72179 - 29 weeks (2nd trimester) 1,400 - 53,51176 - 41 weeks (3rd trimester) 940 - 60,000[place] B- hCG assay is used for the early detection ofpregnancy; it cannot be used to diagnose any conditionunrelated to . If a B-hCG level is not supportedby the clinical evidence, results should be confirmed by analternative method (qualitative urine hCG, for example). Blood Venous blood specimen / Unknown 06/05/2024 10:46 AM EDT 06/05/2024 11:44 AM EDT us Mahamed Tejada MD LAB BLOOD ORDERABLES Final Resul t [facility] [address] [place] [phone] * Iron Stain (05/28/2024 11:00 AM EDT) 05/28/2024 11:0 0 AM EDT 05/28/2024 11:35 AM EDT Narrative [facility] - 06/01/2024 3:41 PM EDT ----- ------- Name: Farhan Felton ?Age/Sex: 33/F ? : 1990 Unit#: [id number] ?? Attend Dr: Genoveva Chamorro MD ?Re05/28/24 ?Status: DEP SDC ? Location: HO.SSS ?Disch: ? ----- ------- SPEC : [id number] ? RECD: 05/28/24 ? STATUS: ??SOUT ? REQ NUM: [id number] ? COMFORT: 05/28/24 ? SUBM DR: Sina Lilly MD ? ENTERED: ??05/28/24 ?SP TYPE: Surgical ? OTHR DR: Genoveva Chamorro MD ?AR OLIVER NP ORDERED: ??Iron Stain, HE Stain/2, PAS, Reticulin Stain, Trichrome Stain, Gross Micro L5, ?Special st. 2/4 ? Diagnosis ?? Liver, right lobe, core needle biopsy: ?- Cores of essentially normal-appearing liver parenchyma with only a small rare portal ?? area identified. ?- No significant steatosis or fibrosis. ??See description and comment. ? Comment: ??The patient's transaminitis is noted. ??Only a small portal area is present for ?? evaluation. ??Otherwise, no significant abnormalities are present. ?Clinical History Abnormal liver enzymes, liver steatosis ?Microscopic Description Sections have cores of liver tissue with only a rare portal area identified. ??No significant inflammation is present, although a rare eosinophil is identified. ??No significant fatty change is present. ??No PAS positive intracytoplasmic material is identified. ??No significant iron deposition is seen with iron stain. ??The hepatic plates appear normal with reticulin stain and no significant fibrosis is identified with trichrome stain. ? Material Received ?? Core liver biopsy, right lobe ? Gross Description Received in formalin labeled ?right lobe liver? are 5 thin and delicate villa cylindrical threads of tissue ranging from 0.2-2.0 cm in greatest dimension, submitted in toto in a cassette labeled A. ??CEDS This case was reviewed intradepartmentally. Special studies ordered and performed: iron, PAS, reticulin and trichrome stains Copies To: ?? Genoveva Chamorro MD ?? [facility] ?? [address] ?? [place] [address] ?? [phone] ? CONTINUED ON NEXT PAGE ----- ------- Name: Farhan Felton ?Age/Sex: 33/F ? : 1990 Unit#: [id number] ?? Attend Dr: Genoveva Chamorro MD ?Re05/28/24 ?Status: DEP [facility] ? Location: HO.SSS ?Disch: ? ----- ------- SPEC : [id number] ? RECD: 05/28/24 ? STATUS: ??SOUT ? REQ NUM: [id number] ? COMFORT: 05/28/24-1099 ? SUBM DR: Sina Lilly MD ? ENTERED: ??05/28/24 ?SP TYPE: Surgical ? OTHR DR: Genoveva Chamorro MD ?AR OLIVER NP ORDERED: ??Iron Stain, HE Stain/2, PAS, Reticulin Stain, Trichrome Stain, Gross Micro L5, ?Special st. 2/4 Copies To: ??(Continued) ?? Sina Lilly MD ?? [address] [facility] ?? [place] [address] ?? [phone] ?? AR OLIVER NP ?? [facility] ?? [address] ?? [place] [address] ?? [phone] ----- ------- Signed (signature on file) Rafael Chery MD 06/01/24 1541 ? ----- ------- ? END OF REPORT ? us Generic External Data Provider HISTORICAL/NON OR DERABLE LABS Final Result [facility] [address] [place] [address] [phone] * US Guided Needle Liver Biopsy (05/28/2024 10:34 AM EDT) Anatomical Region Laterality Modality Liver Ultrasound 05/28/2024 10:3 4 AM EDT Narrative 05/28/2024 3:12 PM EDT ? [facility] ?[address] ?[place] [address] ? Ultrasound Report ? Signed ? Patient: aFrhan Felton ?MR#: ?? [id number] ? : 1990 ?Acct:[id number] ? Age/Sex: 33 / F ?ADM Date: 03/20/25 ? Loc: HO.SSS ? Attending : Genoveva Chamorro MD ? Ordering Physician: Genoveva Chamorro MD ?? Date of Service: 05/28/24 ?? Procedure(s): US biopsy liver ?? Accession Number(s): [id number] ? cc: Genoveva Chamorro MD; AR OLIVER NP ? EXAMINATION: Ultrasound biopsy liver. ? CLINICAL INDICATION: Elevated LFTs. ? COMPARISON: Ultrasound abdomen limited 01/22/2023. ? TECHNIQUE: Following explaining ultrasound-guided liver biopsy ?? procedure, benefits in risk, a written consent was obtained. Patient ?? was placed supine on ultrasound fracture and preliminary ultrasound ?? imaging was obtained to the right hepatic lobe. An optimal site was ?? selected along the right anterolateral lower chest and a marker was ?? placed. 1% lidocaine was infiltrated at the skin site. ?? 3. A small skin incision a 20-gauge density and long guiding needle was ?? advanced from the skin incision into the right hepatic lobe under ?? ultrasound guidance. Coaxially a biopsy gun was administered and 3 ?? passes core biopsies were obtained through the right hepatic lobe. ?? There was minimal bleeding seen during the exam. The guide needle was ?? removed and complete hemostasis achieved at puncture site. Patient ?? tolerated procedure extremely well. Conscious sedation was provided ?? during the exam and patient monitored for 15 minutes of sedation time ? FINDINGS: There is diffuse increased liver echogenicity. No focal ?? lesion seen. No intrahepatic ductal dilatation. ? Ultrasound-guided 3 pass right hepatic lobe core biopsy performed. ?? There are no immediate competitions. ? US/US biopsy liver ?? IMPRESSION: Successful ultrasound-guided right hepatic lobe core ?? biopsies were obtained with 3 passes. ? Electronically signed by: ??Sina Lilly MD ??05/28/2024 03:09 PM EDT RP ? Dictated By: ?Sina Lilly MD ? Signed By: ?<Electronically signed by Sina Lilly MD in OV> ?05/28/24 1509 ? DD/ 1034 ? TD/TT: 05/28/24 1100 ? Obstetrics Gynecology Physician: MSM ? Procedure Note Donvirginiater, Image - 05/28/[address] [address] Ultrasound Report Signed Patient: Arik Felton#: [id number] : 1990Acct:[id number] Age/Sex: 33 / FADM Date: 05/28/24 Loc: HO.SSS Attending Dr: Genoveva Chmaorro MD Ordering Physician: Genoveva Chamorro MD Date of Service: 05/28/24 Procedure(s): US biopsy liver Accession Number(s): [id number] cc: Genoveva Chamorro MD; AR OLIVER NP EXAMINATION: Ultrasound biopsy liver. CLINICAL INDICATION: Elevated LFTs. COMPARISON: Ultrasound abdomen limited 01/22/2023. TECHNIQUE: Following explaining ultrasound-guided liver biopsy procedure, benefits in risk, a written consent was obtained. Patient was placed supine on ultrasound fracture and preliminary ultrasound imaging was obtained to the right hepatic lobe. An optimal site was selected along the right anterolateral lower chest and a marker was placed. 1% lidocaine was infiltrated at the skin site. 3. A small skin incision a 20-gauge density and long guiding needle was advanced from the skin incision into the right hepatic lobe under ultrasound guidance. Coaxially a biopsy gun was administered and 3 passes core biopsies were obtained through the right hepatic lobe. There was minimal bleeding seen during the exam. The guide needle was removed and complete hemostasis achieved at puncture site. Patient tolerated procedure extremely well. Conscious sedation was provided during the exam and patient monitored for 15 minutes of sedation time FINDINGS: There is diffuse increased liver echogenicity. No focal lesion seen. No intrahepatic ductal dilatation. Ultrasound-guided 3 pass right hepatic lobe core biopsy performed. There are no immediate competitions. US/US biopsy liver IMPRESSION: Successful ultrasound-guided right hepatic lobe core biopsies were obtained with 3 passes. Electronically signed by: Sina Lilly MD 05/28/2024 03:09 PM EDT Dictated By: Sina Lilly MD Signed By: <Electronically signed by Sina Lilly MD in OV> 05/28/24 1509 DD/ 1034 TD/TT: 05/28/24 1100 Obstetrics Gynecology Physician: PIPE us [facility] External Provider IMG US PROCEDURES Final Result * HCG, Qualitative, Urine (05/28/2024 9:15 AM EDT) Urine NEGATIVE NEGATIVE [facility] Comment:This test was develo ped to detect early . Falsenegative results may occur after the 5th - 7th week ofpregnancy when using this test method. If clinicallyindicated, consider a serum hCG. 05/28/2024 9:15 AM EDT 05/28/2024 9:27 AM EDT Generic External Data Provider LAB URINE ORDERAB LES Final Result Performing Organization Address [facility] Co de Phone Number [facility] [address] [place] [phone] * Prothrombin Time-INR (05/28/2024 9:10 AM EDT) Prothrombin Time 11.2 10.9 - 12.4 SEC [facility] INTERNATIONAL NORM RATIO 1.0 0.9 - 1.1 [facility] Comment:INTERNATIONAL NORMAL IZED RATIO (INR) REFERENCE RANGES Reference RangeFor patients not on anticoagulant therapy: 0.9 - 1.1INR ranges for oral anticoagulanttherapy:For prevention and treatment of venous thrombosis and pulmonary embolism: 2.0 - 3.0For acute myocardial infarction with aspirin therapy: 2.0 - 3.0For acute myocardial infarction without aspirin therapy: 3.0 - 4.0For patients with mechanical prosthetic heart valves: 2.5 - 3.5 05/28/2024 9:10 AM EDT 05/28/2024 9:34 AM EDT Generic External Data Provider LAB BLOOD ORDERAB LES Final Result Performing Organization Address [facility] Co de Phone Number [facility] [address] [place] [phone] * (ABNORMAL) Urinalysis, Complete, with Reflex to Culture (05/17/2024 6:05 PM EDT) Color Urine Yellow [facility] Appearance Urine Turbid [facility] PH >=9.0 5.0 - 9.0 [facility] Glucose Urine UA Negative Negative mg/dL [facility] Urine Blood Moderate (2+)(A) Negative [facility] Specific [place] - Urine 1.025 1.005 - 1.025 [facility] Urine Protein 30 (1+)(A) Neg-Trace mg/dL [facility] Urine Ketones Negative Negative mg/dL [facility] Nitrite Urine Negative Negative [facility] Leukocyte Esterase Urine Trace(A) Negative [facility] RBC Urine >20(A) 0 - 2 /HPF [facility] Urine WBC 0-5 0 - 5 /HPF [facility] Urine Squamous Epithelial Cell 6-10 0 - 2 /HPF [facility] Urine Bacteria None Seen None Seen [facility] Hyaline Casts, Urine 0-2 0 - 2 /LPF [facility] 05/17/2024 6:05 PM EDT 05/17/2024 6:09 PM EDT Narrative [facility] - 05/17/2024 6:20 PM EDT [id number], Clean Catch us Generic External Data Provider LAB URINE ORDERAB LES Final Result [facility] [address] [place] [phone] [phone] * SARS-CoV-2 RNA, Influenza A/B, and RSV RNA, Ql NAAT (05/17/2024 6:05 PM EDT) Influenza A PCR NEGATIVE Negative [facility] Influenza B PCR NEGATIVE Negative [facility] Resp Syncy Virus RNA Qual PCR NEGATIVE Negative [facility] SARS COV2 PCR NEGATIVE Negative [facility] Comment:All test results mus t be [...] use by authorized laboratories.Testing performed on the [employer] GeneXpert utilizingreal-time RT-PCR.All SARS CoV2 and positive influenza A/B results arereported to [facility]. 05/17/2024 6:05 PM EDT 05/17/2024 6:09 PM EDT us Generic External Data Provider LAB MICROBIOLOGY - GENERAL ORDERABLES Final Result [facility] [address] [place] [phone] * (ABNORMAL) CBC auto differential (05/17/2024 6:05 PM EDT) White Blood Count 13.0(H) 4.8 - 10.8 X10*3/uL [facility] Red Blood Count 4.88 4.20 - 5.50 X10*6/uL [facility] Hemoglobin 13.3 12.0 - 16.0 g/dl [facility] Hematocrit 41.0 37.0 - 47.0 % [facility] Mean Corpuscular Volume 84.0 80.0 - 98.0 fL [facility] Mean Corpuscular Hemoglobin 27.3 27.0 - 33.0 pg [facility] Mean Corpuscular HGB Conc 32.4 31.0 - 35.0 g/dl [facility] Red Cell Distribution Width 13.6 11.0 - 16.0 % [facility] Platelet Count 223 160 - 400 X10*3/uL [facility] Mean Platelet Volume 12.9(H) 9.4 - 12.3 fL [facility] Neutrophils Percent Auto 88.8(H) 45 - 73 % [facility] Imm Gran Pct Auto 0.4 0.0 - 0.4 % [facility] Lymphocytes Percent Auto 7.7(L) 20 - 40 % [facility] Monocytes Percent Auto 2.6 2 - 11 % [facility] Eosinophils Percent Auto 0.1 0 - 4 % [facility] Basophils Percent Auto 0.4 0 - 2 % [facility] NRBC Pct Auto 0.0 0.0 - 0.2 /100WBC [facility] Neutrophils Absolute Auto 11.5(H) 2.0 - 8.3 x10*3/uL [facility] Imm Gran Abs Auto 0.05(H) 0.00 - 0.03 X10*3/uL [facility] Lymphocytes Absolute Auto 1.0(L) 1.2 - 4.9 X10*3/uL [facility] Monocytes Absolute Auto 0.3 0.1 - 1.2 X10*3/uL [facility] Eosinophils Absolute Auto 0.0 0.0 - 0.4 X10*3/uL [facility] Basophils Absolute Auto 0.1 0.0 - 0.2 X10*3/uL [facility] NRBC Abs Auto 0.000 0.0 - 0.012 X10*3/uL [facility] 05/17/2024 6:05 PM EDT 05/17/2024 6:09 PM EDT Generic External Data Provider LAB BLOOD ORDERAB LES Final Result Performing Organization Address [facility]/ZIP Co de Phone Number [facility] [address] [place] [phone] * Lipase (05/17/2024 6:05 PM EDT) Pathologist [facility] Lipase 33 8 - 78 U/L [facility] 05/17/2024 6:05 PM EDT 05/17/2024 6:09 PM EDT Generic External Data Provider LAB BLOOD ORDERAB LES Final Result Performing Organization Address [facility]/ZIP Co de Phone Number [facility] [address] [place] [address] [phone] * (ABNORMAL) Comprehensive Metabolic Panel (05/17/2024 6:05 PM EDT) Pathologist [facility] Sodium 145 135 - 145 mmol/L [facility] Potassium 3.9 3.3 - 5.1 mmol/L [facility] Chloride 107 96 - 108 mmol/L [facility] Carbon Dioxide 27 22 - 29 mmol/L [facility] Anion Gap 15 12 - 20 [facility] Urea Nitrogen (BUN) 10 9 - 16 mg/dL [facility] Creatinine, Serum 0.67 0.5 - 1.4 mg/dL [facility] Creatinine Clr Calc Pharmacy 100.3 [facility] Comment:Provided height and weight: 154.94 cm,62.6 kg.eGFR (calculated from the MDRD study equation) and eCrCl(calculated from the Cockcroft-Gault equation) are based ondifferent parameters and may not yield comparable results.If eCrCl result is absurd, please check patient'sheight/weight. Estimated Glomerular Filt Rate >60 [facility] Comment:Chronic Kidney Disea se: Estimated GFR < 60 mL/min/[id number] Kidney Disease: Estimated GFR < 15 mL/min/1.73m2 Glucose 128(H) 60 - 115 mg/dL [facility] Calcium 9.3 8.4 - 10.2 mg/dL [facility] Bilirubin, Total 0.4 0.0 - 1.0 mg/dL [facility] Aspartate Amino Transferase 59(H) 5 - 31 U/L [facility] Alanine Aminotransferase 96(H) 0 - 31 U/L [facility] Total Protein 7.7 6.5 - 8.0 g/dL [facility] Albumin Level 4.2 3.5 - 5.0 g/dL [facility] Alkaline Phosphatase 131(H) 39 - 117 U/L [facility] 05/17/2024 6:05 PM EDT 05/17/2024 6:09 PM EDT us Generic External Data Provider LAB BLOOD ORDERAB LES Final Result [facility] [address] [place] [phone] * Hepatitis Panel, General (11/20/2023 8:11 AM EDT) Hepatitis A IgM Nonreactive Nonreactive [facility] Comment:IgM antibodies to FLEMING V not detected; does not exclude earlyacute or recovered HAV infection. ~Hepatitis B Surface Antibody REACTIVE Nonreactive [facility] Comment:REACTIVE: > 11.99 mI U/mL Hepatitis B Core Antibody Nonreactive Nonreactive [facility] Hepatitis C Antibody Nonreactive Nonreactive [facility] Comment:Antibodies to HCV no t detected; does not exclude early acuteHCV infection. Hepatitis B Surface Ag Negative Negative [facility] 11/20/2023 8:11 AM EDT 11/20/2023 8:11 AM EDT us Generic External Data Provider LAB BLOOD ORDERAB LES Final Result Performing Organization Address City/[facility]/ZIP Co de Phone Number [facility] [address] [place] [phone] * HIV-1/2 Antigen and Antibodies, Fourth Generation, with Reflexes (07/15/2023 8:29 AM EDT) HIV AB/AG Nonreactive Nonreactive [facility] Comment:HIV-1 p24 Ag and/or HIV-1/HIV-2 Ab not detected.A test result that is nonreactive does not exclude thepossibility of exposure to or infection with HIV-1 and/orHIV-2. Nonreactive results in this assay for individualswith prior exposure to HIV-1 and/or HIV-2 may be due toantigen and antibody levels that are below the limit ofdetection of this assay.The [employer] HIV Ag/Ab Combo assay result andsupplemental assay results should be interpreted inconjunction with the patient's clinical presentation,history and other laboratory results. If the results areinconsistent with clinical evidence, additional testing issuggested to confirm the result. Blood Venous blood specimen / Unknown 07/15/2023 8:29 AM EDT 07/15/2023 11:20 AM EDT us Lynda Garibay MD LAB BLOOD ORDERAB LES Final Result [facility] [address] [place] [phone] * Lipid Panel, Standard (07/15/2023 8:29 AM EDT) Triglycerides 68 <150 mg/dL [facility] Comment:Desirable Triglyceri de: less than 150 mg/dLBorderline High Triglyceride 150-199 mg/dLHigh Triglyceride: 200-499 mg/dLVery High Triglyceride: greater than or equal to 5OO mg/dL Cholesterol 170 <200 mg/dL [facility] Comment:Desirable Cholestero l: less than 200 mg/dLBorderline High Cholesterol: 200-239 mg/dLHigh Cholesterol: greater than 239 mg/dL LDL Cholesterol Calculated 98 <100 mg/dL [facility] Comment:Desirable LDL: less than 100 mg/dLNear Optimal/Above Optimal LDL: 110- 129 mg/dLBorderline High LDL: 130-159 mg/dLHigh LDL: 160-189 mg/dLVery High LDL: greater than or equal to 190 mg/dL HDL Cholesterol 59 >40 mg/dL [facility] Comment:Desirable HDL: great er than 40 mg/dL Note: This HDL assay may give artificially low results in patients with liver disease. Blood Venous blood specimen / Unknown 07/15/2023 8:29 AM EDT 07/15/2023 11:20 AM EDT Lynda Garibay MD LAB BLOOD ORDERAB LES Final Result Performing Organization Address City/[facility]/ZIP Co de Phone Number [facility] [address] [place] [address] [phone] * HPV mRNA E6/E7 w/Reflex to HPV Genotypes 16, 18/45 (04/13/2022) 04/13/2022 [facility] Provider LAB CYTOLOGY ORDERABLES F inal Result * Hm Pap Smear (04/13/2022) Pap Negative for intraephithelial lesion or malignancy Negative for intraephithelial lesion or malignancy, Other us Historical Provider HEALTH MAINTENANCE Edited Result - Final from Last 3 Months or Most Recently Relevant to Health Maintenance Insurance Care Teams Log Cutter Relationship Specialty Start Date End Date Ar Oliver ANP [address] [place] [phone] PCP - General Family Medicine 10/31/20 Genoveva Chamorro MD [address] [place] [address] [address] [place] [address] Gastroenterology 02/19/24
[2024-07-31 18:05] LABS: Bacterial Vaginosis PCR NEGATIVE (Negative); Candida Group PCR NOT DETECTED (Not Detect); Candida glab krusei PCR DETECTED (Not Detect); Trichomonas vaginalis PCR NOT DETECTED (Not Detect)
== END 2024-07-31 16:50 | disposition home or self-care (01) ==
LOC: HO.HHCLNP 16:49
PROVIDERS: Visit Provider Nurse Practitioner Primary Care
DX: R30.0 Dysuria (principal)
CPT/HCPCS: 81515

== ENCOUNTER 2024-08-05 11:48 | Outpatient (REF) | payer MEDICAID, SELFPAY ==
--- OUTSIDE RECORDS SUMMARY | 2024-08-05 12:39 | XMS_ITS | Clinical Summary ---
Author Organization [employer] Address [address] [place] [address] [address] [place] [address] Care Team Providers Care Relay Record Clerk Name Role Phone Светлана Ar BUSCH Primary Care Provider [phone] Genoveva Chamorro MD Unavailable Allergies Active Allergy Reactions Criticality Noted Date [...] 28 g 08/01/19 25 025 Active fluocinolone (Bridgeton-Smoothe /FS Body) 0.01 % external oilIndications :Seborrheic [...] intervention , [facility], Comply with medication [...] Health Integration Plan Internal Follow up with [facility] Patient Self Plan Patient to utilize skills provided in intervention , Patient to reach out to [facility] team as needed, and Patient to reach [...] 07/07 -pap smear: unsure-pt will check w EXECUTIVE TEAM LEADER at upcoming apt 06/2023 -vaccine COVID 19 [...] Description 07/31/2024 11:00 AM EDT Office Visit [facility] MEDICINE [address] [place] [phone] Ar Oliver, NARAYAN Recurrent loss (Primary Dx); Lesion of left upper eyelid; Dysuria; Yeast infection; Irregular menses; Fatigue, unspecified type; Seborrheic dermatitis; Depression, unspecified depression type; Left elbow pain 07/31/2024 Travel 07/30/[address] [address] Ar Oliver ANP chart prep 07/10/2024 Telephone [facility] WALK-IN [address] [address] Nelsy Sun MD 07/10/[address] [address] Nelsy Sun MD Results 07/09/2024 Orders Only [facility] WALK-IN [address] [address] Nelsy Sun MD 07/08/2024 6:20 PM EDT [facility] [address] [address] Nelsy Sun MD Dysuria (Primary Dx); UTI symptoms 07/08/2024 Orders Only [address] [address] Nelsy Sun MD 07/08/2024 Travel 06/05/2024 10:40 AM EDT [facility] [address] [address] Mahamed Tejada MD Infertility, female (Primary Dx); Missed period 05/28/2024 Orders Only GENERIC EXTERNAL DATA DEPARTMENT Provider, Generic External Data 05/27/2024 6:00 PM EDT [facility] [address] [address] Gualberto Conner MD Menstrual period late 05/22/2024 Population Health Risk Score Community Care [facility] (C3) Department [address] [phone] Provider, Population Health Generic 05/19/2024 Patient Outreach [address] [address] Ar Oliver ANP Care Coordination ([facility] [place]- ADT Outreach- Declined to participate) 05/18/[address] [address] Ar Oliver ANP Care Management ([facility] chart review) 05/17/2024 Orders Only GENERIC EXTERNAL DATA DEPARTMENT Provider, Generic External Data from Last 3 Months Immunizations Immunization Administration [...] Description 10/27/2024 11:00 AM EDT Office Visit [facility] MEDICINE [address] [place], [place] [phone] Ar Oliver, ANP [address] [place] [address] Health Maintenance Due Date Last Done Comments [...] Associated Diagnosis Comments BACTERIAL VAGINOSIS PANEL Routine 07/31/2024 12:07 PM EDT Dysuria BACTERIAL VAGINOSIS PANEL Routine 07/08/2024 6:59 PM [...] Health Maintenance Results * (ABNORMAL) Bacterial Vaginosis Panel (07/31/2024 12:07 PM EDT) Only the most recent of2 resultswithin the time period is included. TRICHOMONAS VAGINALIS DETECTION BY PCR NOT DETECTED Not Detect [facility] BACTERIAL VAGINOSIS DETECTION BY PCR NEGATIVE Negative [facility] Comment:The BV organism targ ets of [...] of 14. MARY GROUP DETECTION BY PCR NOT DETECTED Not Detect [facility] Mary glab krusei PCR DETECTED(A) Not Detect [facility] Swab Vaginal structure / Unknown 07/31/2024 12:07 PM EDT 07/31/2024 4:50 PM EDT [facility] LAB MICROBIOLOGY - GENERAL ORDER ROMULO Final Result [facility] [address] [place] [phone] * Chlamydia/N. Gonorrhoeae RNA, TMA, Urogenitial (07/08/2024 6:59 PM EDT) CT PCR NOT DETECTED Not Detect. [facility] Comment:A not detected test result does [...] psychologicalconsequences. NG PCR NOT DETECTED Not Detect. [facility] Comment:A not detected test result does [...] PM EDT 07/09/2024 11:25 AM EDT Narrative [facility] - 07/09/2024 1:21 PM EDT Vaginal us Nelsy Sun MD LAB MICROBIOLOGY - GENER AL ORDERABLES Final Result [facility] [address] [place] [phone] * POCT Urine (07/08/2024 6:52 PM EDT) Only the most recent of3 resultswithin the time period is included. Preg Test, Ur Negative Negative, Indeterminate, None Detected, Invalid, Specimen unsatisfactory for evaluation, Weakly Positive QC Media Lot # [id number] Lot# Expiration Date [id number] Urine 07/08/2024 6:52 PM EDT Nelsy Sun [...] period is included. HCG Quantitative <2 mIU/mL [facility] Comment:Weeks post LMP Appro ximate hCG(Last Menstrual Period) Range (mIU/ml)3 - 4 weeks 9 - 1304 - 5 weeks 75 - 2,6005 - 6 weeks 850 - 20,8006 - 7 weeks 4000 - 100,2007 - 12 weeks 11,500 - 289,41790 - 16 weeks 18,300 - 137,47769 - 29 weeks (2nd trimester) 1,400 - 53,19823 - 41 weeks (3rd trimester) 940 - [...] MD LAB BLOOD ORDERABLES Final Resul t [facility] [address] [place] [phone] * Iron Stain (05/28/2024 11:00 AM EDT) 05/28/2024 11:0 0 AM EDT 05/28/2024 11:35 AM EDT Narrative [facility] - 06/01/2024 3:41 PM EDT ----- ------- Name: Farhan Felton ?Age/Sex: 33/F ? : 1990 Unit#: [id number] ?? Attend Dr: Genoveva Chamorro MD ?Re05/28/24 ?Status: DEP SDC ? Location: HO.SSS ?Disch: ? ----- ------- SPEC : [id number] ? RECD: 05/28/24 ? STATUS: ??SOUT ? REQ NUM: [id number] ? COMFORT: 05/28/24-1100 ? SUBM DR: Sina Lilly MD ? ENTERED: ??05/28/24-1136 ?SP TYPE: Surgical ? OTHR DR: Genoveva Chamorro MD ?AR OLIVER NP: ??Iron Stain, HE Stain/2, PAS, Reticulin Stain, [...] Copies To: ?? Genoveva Chamorro MD ?? [facility] ?? [address] ?? [place] [address] ?? [phone] ? CONTINUED ON NEXT PAGE ----- ------- Name: Farhan Felton ?Age/Sex: 33/F ? : 1990 Unit#: [id number] ?? Attend Dr: Genoveva Chamorro MD ?Re05/28/24 ?Status: DEP NHC ? Location: HO.SSS ?Disch: ? ----- ------- SPEC : [id number] ? RECD: 05/28/24 ? STATUS: ??SOUT ? REQ NUM: [id number] ? COMFORT: 05/28/24-1100 ? SUBM DR: Sina Lilly MD ? ENTERED: ??05/28/24-1136 ?SP TYPE: Surgical ? OTHR DR: Genoveva Chamorro MD ?AR OLIVER NP ORDERED: ??Iron Stain, HE Stain/2, PAS, Reticulin Stain, Trichrome Stain, Gross Micro L5, ?Special st. 2/4 Copies To: ??(Continued) ?? Sina Lilly MD ?? [address] [place] [address] ?? [place] [address] ?? [phone] ?? AR OLIVER NP ?? [facility] ?? [address] ?? [place] [address] ?? [phone] ----- ------- Signed (signature on file) Rafael Chery MD 06/01/24 1541 ? ----- ------- ? END OF REPORT ? us Generic External Data Provider HISTORICAL/NON OR DERABLE LABS Final Result [facility] [address] [place] [address] [phone] * US Guided Needle Liver Biopsy (05/28/2024 10:34 AM EDT) Anatomical Region Laterality Modality Liver Ultrasound 05/28/2024 10:3 4 AM EDT Narrative 05/28/2024 3:12 PM EDT ? [facility] ?[address] [place] [address] ?[place] [address] ? Ultrasound Report ? Signed ? Patient: Farhan Felton ?MR#: ?? [id number] ? : 1990 ?Acct:[id number] ? Age/Sex: 33 / F ?ADM Date: 05/28/ ? Loc: HO.SSS ? Attending Dr: Genoveva Chamorro MD ? Ordering Physician: Genoveva Chamorro MD ?? Date of Service: 05/28/24 ?? Procedure(s): US biopsy liver ?? Accession Number(s): [id number] ? cc: Genoveva Chamorro MD; AR OLIVER [...] ?? There are no immediate competitions. ? US/ biopsy liver ?? IMPRESSION: Successful ultrasound-guided right hepatic lobe core ?? biopsies were obtained with 3 passes. ? Electronically signed by: ??Sina Lilly MD ??05/28/2024 03:09 PM EDT RP ? Dictated By: ?Sina Lilly MD ? Signed By: ?<Electronically signed by Sina Lilly MD in OV> ?05/28/24 1509 ? DD/ 1034 ? TD/TT: 05/28/24 1100 ? Reconstructive Dentist: MSM ? Procedure Note Bienvenido, Image - 05/28/2024 [place] [address] Ultrasound Report Signed Patient: Farhan Felton#: [id number] : 1990Acct:[id number] Age/Sex: 33 / FADM Date: 05/28/24 Loc: HO.SSS Attending Dr: Genoveva Chamorro MD Ordering Physician: Genoveva Chamorro MD Date of Service: 05/28/24 Procedure(s): US biopsy liver Accession Number(s): [id number] cc: Genoveva Chamorro MD; AR OLIVER NP [...] 05/28/24 1509 DD/ 1034 TD/TT: 05/28/24 1100 Reconstructive Dentist: PIPE [facility] External Provider IMG US PROCEDURES Final Result * HCG, Qualitative, Urine (05/28/2024 9:15 AM EDT) Urine NEGATIVE NEGATIVE [facility] Comment:This test was develo ped to detect early . Falsenegative results may occur after the 5th - 7th week ofpregnancy when using this test method. If clinicallyindicated, consider a serum hCG. 05/28/2024 9:15 AM EDT 05/28/2024 9:27 AM EDT Generic External Data Provider LAB URINE ORDERAB LES Final Result Performing Organization Address [facility] Co de Phone Number [facility] [address] [place] [phone] * Prothrombin Time-INR (05/28/2024 9:10 AM EDT) Prothrombin Time 11.2 10.9 - 12.4 SEC [facility] INTERNATIONAL NORM RATIO 1.0 0.9 - 1.1 [facility] Comment:INTERNATIONAL NORMAL IZED RATIO (INR) REFERENCE [...] 9:10 AM EDT 05/28/2024 9:34 AM EDT us Generic External Data Provider LAB BLOOD ORDERAB LES Final Result Performing Organization Address [facility] Co de Phone Number [facility] [address] [place] [phone] * (ABNORMAL) Urinalysis, Complete, with Reflex to Culture (05/17/2024 6:05 PM EDT) Color Urine Yellow [facility] Appearance Urine Turbid [facility] PH >=9.0 5.0 - 9.0 [facility] Glucose Urine UA Negative Negative mg/dL [facility] Urine Blood Moderate (2+)(A) Negative [facility] Specific [place] - Urine 1.025 1.005 - 1.025 [facility] Urine Protein 30 (1+)(A) Neg-Trace mg/dL [facility] Urine Ketones Negative Negative mg/dL [facility] Nitrite Urine Negative Negative [facility] Leukocyte Esterase Urine Trace(A) Negative [facility] RBC Urine >20(A) 0 - 2 /HPF [facility] Urine WBC 0-5 0 - 5 /HPF [facility] Urine Squamous Epithelial Cell 6-10 0 - 2 /HPF [facility] Urine Bacteria None Seen None Seen [facility] Hyaline Casts, Urine 0-2 0 - 2 /LPF [facility] 05/17/2024 6:05 PM EDT 05/17/2024 6:09 PM EDT Narrative [facility] - 05/17/2024 6:20 PM EDT [id number], Clean Catch us Generic External Data Provider LAB URINE ORDERAB LES Final Result [facility] [address] [place] [address] [phone] * SARS-CoV-2 RNA, Influenza A/B, and RSV RNA, Ql NAAT (05/17/2024 6:05 PM EDT) Influenza A PCR NEGATIVE Negative [facility] Influenza B PCR NEGATIVE Negative [facility] Resp Syncy Virus RNA Qual PCR NEGATIVE Negative [facility] SARS COV2 PCR NEGATIVE Negative [facility] Comment:All test results mus t [...] use by authorized laboratories.Testing performed on the [employer] GeneXpert utilizingreal-time RT-PCR.All SARS CoV2 and positive influenza A/B results arereported to [facility]. 05/17/2024 6:05 PM EDT 05/17/2024 6:09 PM EDT us Generic External Data Provider LAB MICROBIOLOGY - GENERAL ORDERABLES Final Result [facility] [address], [place] [phone] * (ABNORMAL) CBC auto differential (05/17/2024 6:05 PM EDT) White Blood Count 13.0(H) 4.8 - 10.8 X10*3/uL [facility] Red Blood Count 4.88 4.20 - 5.50 X10*6/uL [facility] Hemoglobin 13.3 12.0 - 16.0 g/dl [facility] Hematocrit 41.0 37.0 - 47.0 % [facility] Mean Corpuscular Volume 84.0 80.0 - 98.0 fL [facility] Mean Corpuscular Hemoglobin 27.3 27.0 - 33.0 pg [facility] Mean Corpuscular HGB Conc 32.4 31.0 - 35.0 g/dl [facility] Red Cell Distribution Width 13.6 11.0 - 16.0 % [facility] Platelet Count 223 160 - 400 X10*3/uL [facility] Mean Platelet Volume 12.9(H) 9.4 - 12.3 fL [facility] Neutrophils Percent Auto 88.8(H) 45 - 73 % [facility] Imm Gran Pct Auto 0.4 0.0 - 0.4 % [facility] Lymphocytes Percent Auto 7.7(L) 20 - 40 % [facility] Monocytes Percent Auto 2.6 2 - 11 % [facility] Eosinophils Percent Auto 0.1 0 - 4 % [facility] Basophils Percent Auto 0.4 0 - 2 % [facility] NRBC Pct Auto 0.0 0.0 - 0.2 /100WBC [facility] Neutrophils Absolute Auto 11.5(H) 2.0 - 8.3 x10*3/uL [facility] Imm Gran Abs Auto 0.05(H) 0.00 - 0.03 X10*3/uL [facility] Lymphocytes Absolute Auto 1.0(L) 1.2 - 4.9 X10*3/uL [facility] Monocytes Absolute Auto 0.3 0.1 - 1.2 X10*3/uL [facility] Eosinophils Absolute Auto 0.0 0.0 - 0.4 X10*3/uL [facility] Basophils Absolute Auto 0.1 0.0 - 0.2 X10*3/uL [facility] NRBC Abs Auto 0.000 0.0 - 0.012 X10*3/uL [facility] 05/17/2024 6:05 PM EDT 05/17/2024 6:09 PM EDT Generic External Data Provider LAB BLOOD ORDERAB LES Final Result Performing Organization Address [facility]/ZIP Co de Phone Number [facility] [address] [place] [phone] * Lipase (05/17/2024 6:05 PM EDT) Pathologist [facility] Lipase 33 8 - 78 U/L [facility] 05/17/2024 6:05 PM EDT 05/17/2024 6:09 PM EDT Generic External Data Provider LAB BLOOD ORDERAB LES Final Result Performing Organization Address [facility]/ZIP Co de Phone Number [facility] [address] [place] [phone] * (ABNORMAL) Comprehensive Metabolic Panel (05/17/2024 6:05 PM EDT) Sodium 145 135 - 145 mmol/L [facility] Potassium 3.9 3.3 - 5.1 mmol/L [facility] Chloride 107 96 - 108 mmol/L [facility] Carbon Dioxide 27 22 - 29 mmol/L [facility] Anion Gap 15 12 - 20 [facility] Urea Nitrogen (BUN) 10 9 - 16 mg/dL [facility] Creatinine, Serum 0.67 0.5 - 1.4 mg/dL [facility] Creatinine Clr Calc Pharmacy 100.3 [facility] Comment:Provided height and weight: 154.94 cm,62.6 kg.eGFR (calculated from the MDRD study equation) and eCrCl(calculated from the Cockcroft-Gault equation) are based ondifferent parameters and may not yield comparable results.If eCrCl result is absurd, please check patient'sheight/weight. Estimated Glomerular Filt Rate >60 [facility] Comment:Chronic Kidney Disea se: Estimated GFR < 60 mL/min/1.21g4Qhvbpi Kidney Disease: Estimated GFR < 15 mL/min/1.73m2 Glucose 128(H) 60 - 115 mg/dL [facility] Calcium 9.3 8.4 - 10.2 mg/dL [facility] Bilirubin, Total 0.4 0.0 - 1.0 mg/dL [facility] Aspartate Amino Transferase 59(H) 5 - 31 U/L [facility] Alanine Aminotransferase 96(H) 0 - 31 U/L [facility] Total Protein 7.7 6.5 - 8.0 g/dL [facility] Albumin Level 4.2 3.5 - 5.0 g/dL [facility] Alkaline Phosphatase 131(H) 39 - 117 U/L [facility] 05/17/2024 6:05 PM EDT 05/17/2024 6:09 PM EDT us Generic External Data Provider LAB BLOOD ORDERAB LES Final Result [facility] [address] [place] [phone] * Hepatitis Panel, General (11/20/2023 8:11 AM EDT) Hepatitis A IgM Nonreactive Nonreactive [facility] Comment:IgM antibodies to FLEMING V not detected; does not exclude earlyacute or recovered HAV infection. ~Hepatitis B Surface Antibody REACTIVE Nonreactive [facility] Comment:REACTIVE: > 11.99 mI U/mL Hepatitis B Core Antibody Nonreactive Nonreactive [facility] Hepatitis C Antibody Nonreactive Nonreactive [facility] Comment:Antibodies to HCV no t detected; does not exclude early acuteHCV infection. Hepatitis B Surface Ag Negative Negative [facility] 11/20/2023 8:11 AM EDT 11/20/2023 8:11 AM EDT us Generic External Data Provider LAB BLOOD ORDERAB LES Final Result Performing Organization Address City/[facility]/ZIP Co de Phone Number [facility] [address] [place] [phone] * HIV-1/2 Antigen and Antibodies, Fourth Generation, with Reflexes (07/15/2023 8:29 AM EDT) [facility] HIV AB/AG Nonreactive Nonreactive [facility] Comment:HIV-1 p24 Ag and/or HIV-1/HIV-2 Ab not detected.A test result that is nonreactive does not exclude thepossibility of exposure to or infection with HIV-1 and/orHIV-2. Nonreactive results in this assay for individualswith prior exposure to HIV-1 and/or HIV-2 may be due toantigen and antibody levels that are below the limit ofdetection of this assay.The [employer] HIV Ag/Ab Combo assay result andsupplemental assay results should be interpreted inconjunction with the patient's clinical presentation,history and other laboratory results. If the results areinconsistent with clinical evidence, additional testing issuggested to confirm the result. Blood Venous blood specimen / Unknown 07/15/2023 8:29 AM EDT 07/15/2023 11:20 AM EDT us Lynda Garibay MD LAB BLOOD ORDERAB LES Final Result Performing Organization Address City/[facility]/ZIP Co de Phone Number [facility] [address] [place] [phone] * Lipid Panel, Standard (07/15/2023 8:29 AM EDT) Triglycerides 68 <150 mg/dL [facility] Comment:Desirable Triglyceri de: less than 150 mg/dLBorderline High Triglyceride 150-199 mg/dLHigh Triglyceride: 200-499 mg/dLVery High Triglyceride: greater than or equal to 5OO mg/dL Cholesterol 170 <200 mg/dL [facility] Comment:Desirable Cholestero l: less than 200 mg/dLBorderline High Cholesterol: 200-239 mg/dLHigh Cholesterol: greater than 239 mg/dL LDL Cholesterol Calculated 98 <100 mg/dL [facility] Comment:Desirable LDL: less than 100 mg/dLNear Optimal/Above Optimal LDL: 110- 129 mg/dLBorderline High LDL: 130-159 mg/dLHigh LDL: 160-189 mg/dLVery High LDL: greater than or equal to 190 mg/dL HDL Cholesterol 59 >40 mg/dL [facility] Comment:Desirable HDL: great er than 40 mg/dL Note: This HDL assay may give artificially low results in patients with liver disease. Blood Venous blood specimen / Unknown 07/15/2023 8:29 AM EDT 07/15/2023 11:20 AM EDT Lynda Garibay MD LAB BLOOD ORDERAB LES Final Result [facility] [address] [place] [phone] * HPV mRNA E6/E7 w/Reflex to HPV Genotypes 16, 18/45 (04/13/2022) 04/13/2022 Historical Provider LAB CYTOLOGY ORDERABLES F inal Result * Hm Pap Smear (04/13/2022) Pap Negative for intraephithelial lesion or malignancy Negative for intraephithelial lesion or malignancy, Other Historical Provider HEALTH MAINTENANCE Edited Result - Final from Last 3 Months or Most Recently Relevant to Health Maintenance Insurance [facility] Care Teams Relay Record Clerk Relationship Specialty Start Date End Date Ar Oliver ANP [address] [place] [address] PCP - General Family Medicine 10/31/20 Genoveva Chamorro MD [address] [place] [address] Dr [address] Floor [place] Gastroenterology 02/19/24
[2024-08-05 13:20] LABS: MANUAL DIFF FLAG NO
[2024-08-05 13:34] LABS: Estimated Average Glucose 108 mg/dL; Hemoglobin A1C 126.0472 umol/L; Hemoglobin A1c % 5.4 % (<6.0)
[2024-08-05 13:35] LABS: Basophils Percent Auto 0.5 % (0-2); Eosinophils Absolute Auto 0.1 X10*3/uL (0.0-0.4); Hematocrit 41.7 % (37.0-47.0); Hemoglobin 13.6 g/dl (12.0-16.0); Imm Gran Abs Auto 0.03 X10*3/uL (0.00-0.03); Imm Gran Pct Auto 0.3 % (0.0-0.4); Lymphocytes Absolute Auto 1.7 X10*3/uL (1.2-4.9); Lymphocytes Percent Auto 19.8 % (20-40); Mean Corpuscular HGB Conc 32.6 g/dl (31.0-35.0); Mean Corpuscular Hemoglobin 27.9 pg (27.0-33.0); Mean Corpuscular Volume 85.5 fL (80.0-98.0); Mean Platelet Volume 13.1 fL (9.4-12.3); Monocytes Absolute Auto 0.7 X10*3/uL (0.1-1.2); Monocytes Percent Auto 8.3 % (2-11); Neutrophils Absolute Auto 6.1 x10*3/uL (2.0-8.3); Neutrophils Percent Auto 70.1 % (45-73); Platelet Count 173 X10*3/uL (160-400); Red Blood Count 4.88 X10*6/uL (4.20-5.50); Red Cell Distribution Width 14.3 % (11.0-16.0); White Blood Count 8.7 X10*3/uL (4.8-10.8)
[2024-08-05 13:55] LABS: Alanine Aminotransferase 112 U/L (0-31); Albumin Level 4.4 g/dL (3.5-5.0); Alkaline Phosphatase 143 U/L (39-117); Anion Gap 12 (12-20); Aspartate Amino Transferase 72 U/L (5-31); Bilirubin Total 0.4 mg/dL (0.0-1.0); Blood Urea Nitrogen 15 mg/dL (9-16); Calcium 9.6 mg/dL (8.4-10.2); Carbon Dioxide 28 mmol/L (22-29); Chloride 106 mmol/L (96-108); Estimated Glomerular Filt Rate > 60; Glucose Random 82 mg/dL (60-115); Potassium 4.1 mmol/L (3.3-5.1); Sodium 142 mmol/L (135-145); Total Protein 7.3 g/dL (6.5-8.0)
[2024-08-05 14:09] LABS: Vitamin B12 546 pg/mL (200-900)
[2024-08-09 20:04] LABS: Testosterone, Free 7.6 pg/mL (0.1-6.4); Testosterone, Total 76 ng/dL (2-45)
== END 2024-08-05 11:49 | disposition home or self-care (01) ==
LOC: HO.HHCL 11:48
PROVIDERS: Visit Provider Nurse Practitioner Primary Care
DX: R53.83 Other fatigue (principal); N92.6 Irregular menstruation, unspecified; B37.9 Candidiasis, unspecified
CPT/HCPCS: 36415; 80053; 82607; 83036; 84402; 84403; 84443; 85025

== ENCOUNTER 2024-09-07 09:13 | Outpatient (REF) | payer MEDICAID, SELFPAY ==
--- OUTSIDE RECORDS SUMMARY | 2024-09-07 09:33 | XMS_ITS | Clinical Summary ---
Author Organization [employer] Address [address] [place] [address] 7[address] [place] [address] Care Team Providers Care Weather Anchor Name Role Phone Светлана Whitney BUSCH Primary Care Provider [phone] Genoveva Chamorro MD Unavailable [phone] Allergies Active Allergy Reactions Criticality Noted Date Comments Latex 11/16/2022 Sulfa Antibiotics High 02/27/2019 Eye burning/swelling Other reaction(s): Burning Eyes, Eyes Swell swellling of the eyes Medications * This document contains information received from the source organization and may not represent a complete record from that organization. ketoconazole (NIZOral) 2 % shampoo 3 Active famotidine (Pepcid) 40 MG tablet Take by mouth. Activ e Spacer/Aero-Hold ing Chambers (OptiChamber Leora) misc 1 each every 4 (four) hours if needed (asthma). 1 each 4 Active cyclobenzaprine (Flexeril) 5 MG tabletIndication s:Pain in joint of left shoulder Take 1 tab as needed up to 3 times in 24 hrs 30 tablet 4 Active ibuprofen 400 MG tablet Take 1 tablet (400 mg) by mouth every 6 (six) hours if needed for moderate pain or fever for up to 30 doses. 30 tablet 5 Active acetaminophen (Tylenol) 500 MG tabletIndication s:Influenza B Take 2 tablets (1,000 mg) by mouth every 6 (six) hours if needed for moderate pain or fever for up to 25 doses. 50 tablet 5 Active albuterol 108 (90 Base) MCG/ACT inhaler Inhale 2 puffs every 4 (four) hours if needed for wheezing or shortness of breath. 18 g 3 5 04/01/19 26 Active fluticasone (Flonase) 50 MCG/ACT nasal sprayIndications :Nasal congestion Use 1-2 sprays as needed per nostril. Shake gently. Before first use, prime pump. After use, clean tip and replace cap. 16 g 5 Active cetirizine (ZyrTEC) 10 MG tabletIndication s:Nasal congestion 1 tablet as needed for allergies/nasa l congestion 90 tablet 5 Active fluocinolone ([place]-Smoothe/F S Body) 0.01 % external oilIndications:S eborrheic dermatitis Apply to scalp at bedtime, wear shower cap, wash out in AM. Use 2-3 times per week. 118 mL 1 5 Active sertraline (Zoloft) 50 MG tabletIndication s:Depression, unspecified depression type Take 1 tablet daily at bedtime 30 tablet 5 Active fluconazole (Diflucan) 150 MG tabletIndication s:Vaginal yeast infection Take 1 tab by mouth once. Repeat after 72 hours if symptoms persist. 2 tablet 5 Active hydrocortisone 1 % creamIndications :Lesion of left upper eyelid Apply topically 2 times daily for 14 days. 28 g 5 08/15/19 25 Active Problems Patient Care Coordination No te Formatting of this note migh t be different from the original. C3/CM Darcy Johnston RN Problem Noted Date Diagnosed Date MDD (major depressive disorder) 07/31/2024 Assessment & Plan (08/06/2024 10:22 AM EDT): During IBH Consult Farhan presenting with depressed mood, Tearful, crying spells , hopelessness, irritable mood, loss of interests/pleasure , sense of isolation/loneliness , isolating, changes in sleep difficulty falling asleep and difficulty staying asleep , fatigue/loss of energy, difficulty concentrating, indecisiveness, intense emotional pain (anger, sorrow, bitterness), difficulty with reintegration in activities and everyday routine and intense loneliness; for a period of 6-12 mo, for most or all symptoms in the context of . Pt identifies her miscarriage as main trigger for sxs; she lost her at six months. No validation from family which leads to a sense of loneliness and increase of sxs. Cognitive problems arise such as lack of concentration, forgetting appointments. Pt reports feeling loss and having no motivation and no willingness to do activities she used to enjoy in life. Provided grief counseling and offered support/resources/referrals. Pt finds herself in the pre-contemplation stage of change. clinician will provide support and will re-connect with pt in four weeks. PCP will start medication to treat depression. Pt agreed with the plan. 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 Date Type Department Care Team Description 08/05/2024 Results Follow-Up [address] [address] Whitney Sotomayor ANP Bacterial Vaginosis Panel, Hemoglobin A1c, TSH W/Reflex to FT4, Additional followed-up results: 4 07/31/2024 11:00 AM EDT Office Visit [address] [address] Whitney Sotomayor ANP Recurrent loss (Primary Dx); Lesion of left upper eyelid; Dysuria; Yeast infection; Irregular menses; Fatigue, unspecified type; Seborrheic dermatitis; Depression, unspecified depression type; Left elbow pain 07/31/2024 Travel 07/30/[address] [address] Whitney Sotomayor ANP chart prep 07/10/2024 Telephone [facility] [address] [place] [phone] Nelsy Sun MD 07/10/[address] [address] Nelsy Sun MD Results 07/09/2024 Orders Only [facility] [address] [place] [phone] Nelsy Sun MD 07/08/2024 6:20 PM EDT Office Visit [facility] [address] [address] Nelsy Sun MD Dysuria (Primary Dx); UTI symptoms 07/08/2024 Orders Only [address] [address] Nelsy Sun MD 07/08/2024 Travel from Last 3 Months Immunizations Immunization [...] 72 07/31/2024 11:08 AM EDT Temperature 36.7 C (98.1 F) 06/05/2024 9:49 AM EDT Respiratory Rate 16 07/31/2024 11:08 AM EDT [...] Description 10/27/2024 11:00 AM EDT Office Visit [facility] [address], [place] [phone] Whitney Sotomayor, ANP [address] [place], [place] [phone] Health Maintenance Due Date Last Done Comments Family Planning (PISQ) 2004 Influenza Vaccine (Season Ended) 2024 01/20/2021 Depression Monitoring 01/31/2025 07/31/2024 , 07/16/2023 COVID-19 Vaccine (2023-04 5 season) 2025 07/22/2020, 07/01/2020 Postponed from 11/10/2023 (Patient Refused) Alcohol/Substance Use Screening 07/31/2025 07/31/2024 Disability Screening 07/31/2025 07/31/2024 SDOH Screening 07/31/2025 [...] Years) and At-Risk Patients (6 to 49) Years Aged Out No longer eligible b ased on patient's age to complete this topic RSV under 20 months Aged Out No longe r eligible based on patient's age to complete this topic Rotavirus Vaccines Aged Out No longer eligible based on patient's age to complete this topic Procedures Procedure Name Priority Date/Time Associated Diagnosis Comments AMB REFERRAL TO OPHTHALMOLOGY Routine 08/07/2024 Lesion of left upper eyelid VITAMIN B12 Routine 08/05/2024 11:50 AM EDT Fatigue, unspecified type CBC WITH AUTO DIFFERENTIAL Routine 08/05/2024 11:50 AM EDT Fatigue, unspecified type COMPREHENSIVE METABOLIC PANEL Routine 08/05/2024 11:50 AM EDT Fatigue, unspecified type TSH W/REFLEX TO FT4 Routine 08/05/2024 1 1:50 AM EDT Irregular menses TESTOSTERONE, FREE (DIALYSIS) AND TOTAL,MS Routine 08/05/2024 11:50 AM EDT Irregular menses HEMOGLOBIN A1C Routine 08/05/2024 11:50 AM EDT Yeast infection BACTERIAL VAGINOSIS PANEL Routine 07/31/2024 12:07 PM EDT Dysuria BACTERIAL VAGINOSIS PANEL Routine 07/08/2024 6:59 PM EDT CHLAMYDIA/N. GONORRHOEAE RNA, TMA, UROGENITAL Routine 07/08/2024 6:59 PM EDT Dysuria POCT , URINE Routine 07/08/2024 6:52 PM EDT UTI symptoms POCT URINALYSIS DIPSTICK Routine 07/08/2024 6:02 PM EDT UTI symptoms HEPATITIS PANEL, GENERAL Routine 11/20/2023 8:11 AM EDT HIV 1/2 ANTIGEN/ANTIBODY, FOURTH GENERATION W/RFL Routine 07/15/2023 8:29 AM EDT Annual physical exam LIPID PANEL, STANDARD Routine 07/15/2023 8:29 AM EDT Annual physical exam HPV MRNA E6/E7 REFLEX TO HPV 16, 18/45 Routine 04/13/2022 HM PAP/HPV Routine 04/13/2022 from Last 3 Months or Most Recently Relevant to Health Maintenance Results * Referral to Ophthalmology (08/07/2024) [facility] OUTPATIENT REFERRAL ORDERABLES F inal Result * TSH W/Reflex to FT4 (08/05/2024 11:50 AM EDT) TSH reflex Free T4 1.80 0.32 - 4.0 uIU/mL [facility] Blood Venous blood specimen / Unknown 08/05/2024 11:50 AM EDT 08/05/2024 1:14 PM EDT us Whitney Sotomayor [facility] LAB BLOOD ORDERABLES Final Resul t [facility] [address] [place] [phone] * (ABNORMAL) CBC auto differential (08/05/2024 11:50 AM EDT) White Blood Count 8.7 4.8 - 10.8 X10*3/uL [facility] Red Blood Count 4.88 4.20 - 5.50 X10*6/uL [facility] Hemoglobin 13.6 12.0 - 16.0 g/dl [facility] Hematocrit 41.7 37.0 - 47.0 % [facility] Mean Corpuscular Volume 85.5 80.0 - 98.0 fL [facility] Mean Corpuscular Hemoglobin 27.9 27.0 - 33.0 pg [facility] Mean Corpuscular HGB Conc 32.6 31.0 - 35.0 g/dl [facility] Red Cell Distribution Width 14.3 11.0 - 16.0 % [facility] Platelet Count 173 160 - 400 X10*3/uL [facility] Mean Platelet Volume 13.1(H) 9.4 - 12.3 fL [facility] Neutrophils Percent Auto 70.1 45 - 73 % [facility] Imm Gran Pct Auto 0.3 0.0 - 0.4 % [facility] Lymphocytes Percent Auto 19.8(L) 20 - 40 % [facility] Monocytes Percent Auto 8.3 2 - 11 % [facility] Eosinophils Percent Auto 1.0 0 - 4 % [facility] Basophils Percent Auto 0.5 0 - 2 % [facility] NRBC Pct Auto 0.0 0.0 - 0.2 /100WBC [facility] Neutrophils Absolute Auto 6.1 2.0 - 8.3 x10*3/uL [facility] Imm Gran Abs Auto 0.03 0.00 - 0.03 X10*3/uL [facility] Lymphocytes Absolute Auto 1.7 1.2 - 4.9 X10*3/uL [facility] Monocytes Absolute Auto 0.7 0.1 - 1.2 X10*3/uL [facility] Eosinophils Absolute Auto 0.1 0.0 - 0.4 X10*3/uL [facility] Basophils Absolute Auto 0.0 0.0 - 0.2 X10*3/uL [facility] NRBC Abs Auto 0.000 0.0 - 0.012 X10*3/uL [facility] Blood Venous blood specimen / Unknown 08/05/2024 11:50 AM EDT 08/05/2024 1:14 PM EDT Whitney Sotomayor [facility] LAB BLOOD ORDERABLES Final Resul t [facility] [address] [place] [phone] * (ABNORMAL) Testosterone, Free (Dialysis) And Total, MS (08/05/2024 11:50 AM EDT) Testosterone, Total 76(A) 2 - 45 ng/dL [facility] Comment:For additional infor piyush, please refer tohttp://education.Like.com/faq/[email or web address](This link is being provided for informational/educational purposes only.)This test was developed and its analytical performancecharacteristics have been determined by [employer] [place], [place]. It hasnot been cleared or approved by the U.S. Food and DrugAdministration. This assay has been validated pursuantto the CLIA regulations and is used for clinicalpurposes. Testosterone, Free 7.6(A) 0.1 - 6.4 pg/mL [facility] Comment:This test was develo ped and its analytical performancecharacteristics have been determined by [employer] [place], [place]. It hasnot been cleared or approved by the U.S. Food and DrugAdministration. This assay has been validated pursuantto the CLIA regulations and is used for clinicalpurposes.THIS TEST WAS PERFORMED AT:250ok/[facility] [place] [phone] W. MASON,MD,PHD Blood Venous blood specimen / Unknown 08/05/2024 11:50 AM EDT 08/05/2024 1:14 PM EDT Whitney Sotomayor ANP LAB BLOOD ORDERABLES Final Resul t Performing Organization Address [facility] [[email or web address]] Co de Phone Number [facility] [address] [place] [phone] * Hemoglobin A1c (08/05/2024 11:50 AM EDT) Hemoglobin A1c 5.4 <6.0 % [facility] Comment:Hemoglobin A1C Refer ence Range Adults: 4.8 - 6.0 % Non diabetic: < 6.0 % Goal: < 7.0 %Additional Action Suggested: > 8.0 %Note: Hemoglobin A1c results are invalid for patients with abnormal amounts of HbF. Blood transfusions may impact the HbA1c concentration in the patient sample. Estimated Average Glucose 108 mg/dL [facility] Comment:eAG = Estimated ave rage glucose which is %A1C expressed asaverage glucose, using the formula of the [id number]-[id number] Glucose study (ADAG), Diabetes Care, Vol.31,#8,Oct. 2007 Blood Venous blood specimen / Unknown 08/05/2024 11:50 AM EDT 08/05/2024 1:14 PM EDT Whitney Sotomayor ANP LAB BLOOD ORDERABLES Final Resul t Performing Organization Address [facility] [[email or web address]] Co de Phone Number [facility] [address] [place] [phone] * Vitamin B12 (08/05/2024 11:50 AM EDT) Vitamin B12 546 200 - 900 pg/mL [facility] Comment:NORMAL 200-900 PG/ML INDETERMINATE 160-199 PG/ML DEFICIENT < 160 PG/ML Blood Venous blood specimen / Unknown 08/05/2024 11:50 AM EDT 08/05/2024 1:14 PM EDT us Whitney Sotomayor [facility] LAB BLOOD ORDERABLES Final Resul t [facility] [address] [place] [phone] * (ABNORMAL) Comprehensive Metabolic Panel (08/05/2024 11:50 AM EDT) Sodium 142 135 - 145 mmol/L [facility] Potassium 4.1 3.3 - 5.1 mmol/L [facility] Chloride 106 96 - 108 mmol/L [facility] Carbon Dioxide 28 22 - 29 mmol/L [facility] Anion Gap 12 12 - 20 [facility] Urea Nitrogen (BUN) 15 9 - 16 mg/dL [facility] Creatinine, Serum 0.63 0.5 - 1.4 mg/dL [facility] Estimated Glomerular Filt Rate >60 [facility] Comment:Chronic Kidney Disea se: Estimated GFR < 60 mL/min/1.74s6Eprmpc Kidney Disease: Estimated GFR < 15 mL/min/1.73m2 Glucose 82 60 - 115 mg/dL [facility] Calcium 9.6 8.4 - 10.2 mg/dL [facility] Bilirubin, Total 0.4 0.0 - 1.0 mg/dL [facility] Aspartate Amino Transferase 72(H) 5 - 31 U/L [facility] Alanine Aminotransferase 112(H) 0 - 31 U/L [facility] Total Protein 7.3 6.5 - 8.0 g/dL [facility] Albumin Level 4.4 3.5 - 5.0 g/dL [facility] Alkaline Phosphatase 143(H) 39 - 117 U/L [facility] Blood Venous blood specimen / Unknown 08/05/2024 11:50 AM EDT 08/05/2024 1:14 PM EDT Whitney Sotomayor [facility] LAB BLOOD ORDERABLES Final Resul t Performing Organization Address [facility] [[email or web address]] Co de Phone Number [facility] [address] [place] [phone] * (ABNORMAL) Bacterial Vaginosis Panel (07/31/2024 12:07 PM EDT) Only the most recent of2 resultswithin the time period is included. Pathologist [facility] TRICHOMONAS VAGINALIS DETECTION BY PCR NOT DETECTED Not Detect [facility] BACTERIAL VAGINOSIS DETECTION BY PCR NEGATIVE Negative [facility] Comment:The BV organism targ ets [...] DETECTION BY PCR NOT DETECTED Not Detect [facility] Mary glab krusei PCR DETECTED(A) Not Detect [facility] Swab Vaginal structure / Unknown 07/31/2024 12:07 PM EDT 07/31/2024 4:50 PM EDT us Whitney Sotomayor [facility] LAB MICROBIOLOGY - GENERAL ORDER ROMULO Final Result Performing Organization Address City/[facility]/ZIP Co de Phone Number [facility] [address] [place] [phone] * Chlamydia/N. Gonorrhoeae RNA, TMA, Urogenitial (07/08/2024 6:59 PM EDT) Pathologist [facility] CT PCR NOT DETECTED Not Detect. [facility] Comment:A not detected test result does [...] psychologicalconsequences. NG PCR NOT DETECTED Not Detect. [facility] Comment:A not detected test result does [...] PM EDT 07/09/2024 11:25 AM EDT Narrative [facility] - 07/09/2024 1:21 PM EDT Vaginal us Nelsy Sun MD LAB MICROBIOLOGY - GENER AL ORDERABLES Final Result [facility] [address] [place] [phone] * POCT Urine (07/08/2024 6:52 PM [...] TEST ENTER /EDIT ORDERABLES Final Result * Hepatitis Panel, General (11/20/2023 8:11 AM EDT) Hepatitis A IgM Nonreactive Nonreactive [facility] Comment:IgM antibodies to FLEMING V not detected; does not exclude earlyacute or recovered HAV infection. ~Hepatitis B Surface Antibody REACTIVE Nonreactive [facility] Comment:REACTIVE: > 11.99 mI U/mL Hepatitis B Core Antibody Nonreactive Nonreactive [facility] Hepatitis C Antibody Nonreactive Nonreactive [facility] Comment:Antibodies to HCV no t detected; does not exclude early acuteHCV infection. Hepatitis B Surface Ag Negative Negative [facility] 11/20/2023 8:11 AM EDT 11/20/2023 8:11 AM EDT Generic External Data Provider LAB BLOOD ORDERAB LES Final Result [facility] [address] [place] [phone] * HIV-1/2 Antigen and Antibodies, Fourth Generation, with Reflexes (07/15/2023 8:29 AM EDT) HIV AB/AG Nonreactive Nonreactive [facility] Comment:HIV-1 p24 Ag and/or HIV-1/HIV-2 Ab not detected.A test result that is nonreactive does not exclude thepossibility of exposure to or infection with HIV-1 and/orHIV-2. Nonreactive results in this assay for individualswith prior exposure to HIV-1 and/or HIV-2 may be due toantigen and antibody levels that are below the limit ofdetection of this assay.The Secpanel HIV Ag/Ab Combo assay result andsupplemental assay results should be interpreted inconjunction with the patient's clinical presentation,history and other laboratory results. If the results areinconsistent with clinical evidence, additional testing issuggested to confirm the result. Blood Venous blood specimen / Unknown 07/15/2023 8:29 AM EDT 07/15/2023 11:20 AM EDT Lynda Garibay MD LAB BLOOD ORDERAB LES Final Result [facility] [address] [place] [phone] * Lipid Panel, Standard (07/15/2023 8:29 AM EDT) Triglycerides 68 <150 mg/dL [facility] Comment:Desirable Triglyceri de: less than 150 mg/dLBorderline High Triglyceride 150-199 mg/dLHigh Triglyceride: 200-499 mg/dLVery High Triglyceride: greater than or equal to 5OO mg/dL Cholesterol 170 <200 mg/dL [facility] Comment:Desirable Cholestero l: less than 200 mg/dLBorderline High Cholesterol: 200-239 mg/dLHigh Cholesterol: greater than 239 mg/dL LDL Cholesterol Calculated 98 <100 mg/dL [facility] Comment:Desirable LDL: less than 100 mg/dLNear Optimal/Above Optimal LDL: 110- 129 mg/dLBorderline High LDL: 130-159 mg/dLHigh LDL: 160-189 mg/dLVery High LDL: greater than or equal to 190 mg/dL HDL Cholesterol 59 >40 mg/dL [facility] Comment:Desirable HDL: great er than 40 mg/dL Note: This HDL assay may give artificially low results in patients with liver disease. Blood Venous blood specimen / Unknown 07/15/2023 8:29 AM EDT 07/15/2023 11:20 AM EDT Lynda Garibay MD LAB BLOOD ORDERAB LES Final Result [facility] [address] [place] [phone] * HPV mRNA E6/E7 w/Reflex to HPV Genotypes 16, 18/45 (04/13/2022) 04/13/2022 Historical Provider LAB CYTOLOGY ORDERABLES F inal Result * Pap Smear (04/13/2022) Pap Negative for intraephithelial lesion or malignancy Negative for intraephithelial lesion or malignancy, Other Historical Provider HEALTH MAINTENANCE Edited Result - Final from Last 3 Months or Most Recently Relevant to Health Maintenance Insurance [facility] STANDARD * Guarantor: Farhan Felton Account Type Relation to Patient Date of Phone Billing Address Personal/Family Self [address] Care Teams Weather Anchor Relationship Specialty Start Date End Date Whitney Sotomayor ANP [address] [place] [phone] PCP - General Family Medicine 10/31/20 Genoveva Chamorro MD [address] [place] [address] Dr [address] [place] [address] Gastroenterology 02/19/24
[2024-09-07 11:14] LABS: Appearance Urine Clear; Color Urine Yellow; Glucose Urine UA Negative (Negative); Leukocyte Esterase Urine Moderate (2+) (Negative); Nitrite Urine Negative (Negative); PH 5.5 (5.0-9.0); Specific Gravity - Urine 1.015 (1.005-1.025); UMIC TRIGGER UACC YES; Urine Blood Negative (Negative); Urine Ketones Negative (Negative); Urine Protein Negative (Neg-Trace)
[2024-09-07 11:24] LABS: Bacteria Urine 1+ (None Seen); Hyaline Casts Urine 0-2 /LPF (0-2); RBC Urine 0-2 /HPF (0-2); UACC Culture Trigger YES
[2024-09-08 09:18] LABS: Follicle Stimulating Hormone 7.8 mIU/mL; Prolactin 10.9 ng/mL
== END 2024-09-07 09:14 | disposition home or self-care (01) ==
LOC: HO.HHCL 09:13
PROVIDERS: Internal Medicine Gastroenterology; PCP Nurse Practitioner Primary Care; Visit Provider Nurse Practitioner Primary Care
DX: R30.0 Dysuria (principal); R11.2 Nausea with vomiting, unspecified; R79.89 Other specified abnormal findings of blood chemistry
CPT/HCPCS: 36415; 81001; 83001; 83498; 84146; 87086; 99212

== ENCOUNTER 2024-09-07 09:53 | Outpatient (AMB) | payer MEDICAID, SELFPAY ==
--- NOTE | 2024-09-07 09:57 | MHC.OFFVIS ---
Vital Signs 09/07/24 10:00 Height 5 ft 1 in Weight 145 lb 8.081 oz BMI 27.5 BP 130/72 Blood Pressure Location Lt brachial Position Sitting Pulse 71 Intake Visit Reasons: f/u from liver biopsy Intake Note: Farhan presents in the office as a follow up for her liver biopsy. CC: States that she is here today for the results to the [employer] Required: No Allergies Sulfa (Sulfonamide Antibiotics) (SULFA (SULFONAMIDE ANTIBIOTICS)) Allergy (Mild, Verified 09/07/24 10:01) EYE SWELLING latex Allergy (Verified 09/07/24 10:01) Rash HPI HPI f/u from liver biopsy: Details: 34 yr old f here for f/u RECAP: Initially saw [facility] [place] for abdo pain, nml LFT I had tried her on PPI --esomeprazole 40 mg daily she has anxiety, she sleeps for 6-8 hrs she has c/o ongoing nausea and vomiting, poor appetite she had reflux all day she lost a baby due to pre eclampsia Imaging: U/S 03/2020-- liver microcalcifications, no focal liver lesion MRI 05/01-- x2 areas of intra helpatic bile duct dilation, no gallstones CT 05/2020-- scattered areas of mild intrahepatic bile duct dilation, prominent pancreas body and tail MRI- 06/2020-- stable appearance of pancreas and liver as above US 06/2022-- GB sludge , ?intrahepatic stones or sludge in right lobe EGD 07/2020-- mild esophagitis and gastritis colonoscopy 07/2021- tortuous colon, internal hemorrhoids US- neg for gallstones and sludge, fatty liver, slightly increased stiffness Liver bx: 06/02-- no significant abn INTERIM: she denies abdominal pain no nausea or vomiting appetite is good no jaundice she is trying to get EXAM: GENERAL: The patient is well developed and nontoxic. VITAL SIGNS:see workflow HEENT: Nonicteric sclerae, PERRLA, EOMI. Oropharynx clear. Moist mucous membranes. Conjunctivae appear well perfused. No thyroid mass. CHEST: Chest wall is nontender. HEART: Regular rate and rhythm without murmurs. LUNGS: Clear to auscultation bilaterally. ABDOMEN: Soft, positive bowel sounds, non tender , no organomegaly.no flank tenderness- SKIN: No rash, no excessive bruising, petechiae, or purpura. NEUROLOGIC: Cranial nerves II-XII intact without motor/sensory deficit. 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--liver bx was unhelpful --I still think it is MASH but will hold on trental and relibandiffra due to plan for possible PLAN: 1/ recheck LFT, fibrosure labs in 4 months 2/ long chat about etiology of MASH, and risk for cirrhosis again, reviewed diet changes she can make incl stopping soft drinks, limit nino and red meats -- 3/ vit # 400 U BID for 6 months, if she is unsuccessful in getting in 1 yr then she would like to go for [facility] Medical History (Updated 05/18/24 @ 00:01 by Renata Murphy) Chronic abdominal pain Surgical History History of esophagogastroduodenoscopy (EGD) Family History Father Diabetes HTN (hypertension) Heart problem Mother Cancer Diabetes HTN (hypertension) Maternal Grandmother Cancer Social History Household Members: Spouse and Children Are you a primary manager primary care to a significant other at home: No Do you presently have visiting nurse or other home services: No Alcohol intake: current Alcohol intake frequency: holidays/special occasions only Patient Tobacco Use Status: Never used Tobacco Current occupational status: employed 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 Panel 4 Months K75.81 - Nonalcoholic steatohepatitis (WILD), R79.89 - Other specified abnormal findings of blood chemistry US abdomen albrecht w elastography Today K74.60 - Unspecified cirrhosis of liver, K75.81 - Nonalcoholic steatohepatitis (WILD) Liver Fibrosis Pnl 4 Months R7.89 - Other specified abnormal findings of blood chemistry Complete Blood Count Auto Diff 4 Months R7.89 - Other specified abnormal findings of blood chemistry Transglutaminase Ab IgG 4 Months G89.29 - Other chronic pain, R10.33 - Periumbilical pain, R7. - Other specified abnormal findings of blood chemistry Medications: New vitamin E (dl, acetate) 180 mg PO BID 60 caps 5RF Coding Level of Care Code Est Pt Level 3 (98970) Diagnoses Abnormal LFTs
[2024-09-07 10:00] VITALS: BP 130/72; PULSE 71; BMI 27.5
== END 2024-09-07 10:38 | disposition home or self-care (01) ==
LOC: HO.HGI 09:54
PROVIDERS: PCP Nurse Practitioner Primary Care; Visit Provider Internal Medicine Gastroenterology
DX: R79.89 Other specified abnormal findings of blood chemistry (principal)
CPT/HCPCS: 99213

== ENCOUNTER 2024-09-23 04:53 | Emergency (ER) | payer MEDICAID, SELFPAY ==
[2024-09-23 04:56] VITALS: BP 146/77; PULSE 89; RESP 20; TEMP 36.9; O2SAT 98; BMI 27.6
[2024-09-23 05:15] LABS: MANUAL DIFF FLAG NO
[2024-09-23 05:18] LABS: Hematocrit 39.2 % (37.0-47.0); Hemoglobin 13.2 g/dl (12.0-16.0); Imm Gran Abs Auto 0.06 X10*3/uL (0.00-0.03); Imm Gran Pct Auto 0.5 % (0.0-0.4); Lymphocytes Absolute Auto 1.6 X10*3/uL (1.2-4.9); Mean Corpuscular HGB Conc 33.7 g/dl (31.0-35.0); Mean Corpuscular Hemoglobin 28.6 pg (27.0-33.0); Mean Corpuscular Volume 84.8 fL (80.0-98.0); NRBC Abs Auto 0.000 X10*3/uL (0.0-0.012); NRBC Pct Auto 0.0 /100WBC (0.0-0.2); Platelet Count 176 X10*3/uL (160-400); Red Blood Count 4.62 X10*6/uL (4.20-5.50); White Blood Count 12.7 X10*3/uL (4.8-10.8)
[2024-09-23 05:35] LABS: Alanine Aminotransferase 87 U/L (0-31); Albumin Level 4.4 g/dL (3.5-5.0); Alkaline Phosphatase 142 U/L (39-117); Anion Gap 15 (12-20); Aspartate Amino Transferase 54 U/L (5-31); Blood Urea Nitrogen 12 mg/dL (9-16); Calcium 9.4 mg/dL (8.4-10.2); Carbon Dioxide 26 mmol/L (22-29); Chloride 104 mmol/L (96-108); Creatinine Clr Calc Pharmacy 96.2; Estimated Glomerular Filt Rate > 60; Lipase 43 U/L (8-78); Potassium 3.8 mmol/L (3.3-5.1); Sodium 141 mmol/L (135-145); Total Protein 7.0 g/dL (6.5-8.0)
[2024-09-23 05:42] VITALS: BP 137/91; PULSE 63; RESP 16; O2SAT 100
[2024-09-23] MEDS: Lactated Ringers 1,000 ML 999 ML IV (05:50)
--- NOTE | 2024-09-23 07:28 | ED.NAVMDI ---
HPI - Nausea/Vomiting/Diarrhea General Chief complaint: Nausea/Vomiting/Diarrhea Stated complaint: vomiting Time Seen by Provider: 09/23/24 05:32 Source: patient Mode of arrival: ambulatory Limitations: no limitations History of Present Illness ED Provider: Dr. Sean Diaz HPI Narrative: 34 year old female with history of gastritis presenting with epigastric abdominal pain and vomiting that woke her from sleep around 2am today. Denies questionable food intake or recent sick contacts. No reported diarrhea. Denies chest pain or difficulty breathing. No reported fever but has had the chills. No hematemesis. No one else is ill after eating the same foods as her yesterday. No recent travel or antibiotic use. Admits the upper abdominal pain is similar to previous episodes of gastritis. Takes famotidine at home. Last dose yesterday morning. Currently menstruating. Related Data Home Medications ?Medication ?Instructions ?Recorded ?Confirmed ibuprofen 600 mg tablet 600 mg PO Q6H PRN pain 05/19/24 05/28/24 Previous Rx's ?Medication ?Instructions ?Recorded famotidine 40 mg tablet 40 mg PO BID #60 tabs 08/06/23 vitamin E (dl, acetate) 180 mg 180 mg PO BID #60 caps 09/07/24 (400 unit) capsule aluminum-mag hydroxide-simethicone 5 ml PO 5XD PRN dyspepsia #3,000 mL 09/23/24 200 mg-200 mg-20 mg/5 mL oral susp (Maalox Advanced) aluminum-mag hydroxide-simethicone 10 ml PO 5XD #300 mL 09/23/24 200 mg-200 mg-20 mg/5 mL oral susp (Maalox Advanced) ondansetron 4 mg disintegrating 4 mg PO Q8H PRN nausea and 09/23/24 tablet vomiting #10 tabs ondansetron 4 mg disintegrating 4 mg PO Q8H PRN nausea and 09/23/24 tablet vomiting #10 tabs Allergies Allergy/AdvReac Type Severity Reaction Status Date / Time Sulfa (Sulfonamide Allergy Mild EYE Verified 09/23/24 11:40 Antibiotics) (SULFA SWELLING (SULFONAMIDE ANTIBIOTICS)) latex Allergy Rash Verified 09/23/24 11:40 Review of Systems Review of Systems: as per HPI, full review of systems performed and negative but for the above mentioned pertinent positives and negatives. [facility] Past Medical History Attestation statement: The following information was validated with the patient. [facility] Narrative: gastritis Source: old records reviewed and nursing notes reviewed Medical History Chronic abdominal pain Surgical History History of esophagogastroduodenoscopy (EGD) Family History Family History Father Diabetes HTN (hypertension) Heart problem Mother Cancer Diabetes HTN (hypertension) Maternal Grandmother Cancer Social History Social History Household Members: Spouse and Children Are you a primary overnight caregiver to a significant other at home: No Do you presently have visiting nurse or other home services: No Alcohol intake: current Alcohol intake frequency: holidays/special occasions only Patient Tobacco Use Status: Never used Tobacco Current occupational status: employed 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 SKIN: Normal skin color for ethnicity, warm, dry, no rashes noted. HEENT:? Normocephalic, atraumatic, no stridor, dry mucous membranes, dentition intact, EOMI. NECK: Soft, supple, full ROM, midline structures nontender, no step-offs, no deformities, no lymphadenopathy. CHEST: Heart regular rhythm, no murmurs, symmetric chest rise and fall. PULMONARY: Clear to auscultation bilaterally, diminished at the bases, no labored breathing, no wheezes/rhales/rhonchi. ABDOMINAL: Soft, nondistended, epigastric tenderness to palpation without rebound or guarding, positive bowel sounds in all quadrants. : Deferred. MUSCULOSKELETAL: Normal tone, full range of motion, no deformities, no peripheral edema. NEURO: Alert and oriented x3, CN II through XII intact, equal strength and sensation bilateral upper and lower extremities, no focal neurologic deficits.? PSYCHIATRIC: Flat affect, fluid speech, good eye contact and appropriate demeanor. Medications Administered Discontinued Medications Generic Name Dose Route Start Last Admin Trade Name Deshawnq PRN Reason Stop Dose Admin Al Hydroxide/Mg Hydroxide 15 ml 09/23/24 07:27 09/23/24 07:59 Magnesium Hydrox/Alum Hydrox 30 Ml Oral.Susp PO 09/23/24 07:28 15 ml ONCE ONE Administration Famotidine 20 mg 09/23/24 05:42 09/23/24 05:54 Famotidine/Pf 20 Mg/2 Ml Vial IVPUSH 09/23/24 05:43 20 mg ONCE ONE Administration Lactated Ringer's 1,000 mls @ 999 mls/hr 09/23/24 05:42 09/23/24 08:00 Lr IV 09/23/24 06:42 Infused .Q1H1M ONE Infusion Lidocaine HCl 15 ml 09/23/24 07:27 09/23/24 07:59 Lidocaine Hcl Viscous 2 % 15 Ml Solution MUCOUS MEM 09/23/24 07:28 15 ml ONCE ONE Administration Ondansetron HCl 4 mg 09/23/24 05:42 09/23/24 05:52 Ondansetron Hcl 4 Mg/2 Ml Vial IVPUSH 09/23/24 05:43 4 mg ONCE ONE Administration Medical Decision Making Medical Decision Making [facility] Narrative: Patient presents today with a chief complaint of vomiting. Differential diagnosis includes surgical emergency such as obstruction, enteritis, hyperglycemia, acidosis, food or drug ingestion, pancreatitis, CVA, allergic reaction such as anaphylaxis, cannabis hyperemesis syndrome or cyclic vomiting syndrome, among many others.? Patient is not showing signs of acute dehydration or hemodynamic instability.? They are having associated abdominal pain. ? Broad-based work-up was initiated based on above history and physical exam. Exam is non peritoneal. I do not feel she would need further imaging based on her blood work and clinical picture. She is tolerating PO intake after antiemetics and fluids in the ED. Using shared decision making, plan for discharge home to follow-up with primary care and/or specialist.? Patient understands and agrees with plan for discharge.? Discharged home in stable condition. Differential Diagnosis Differential Diagnoses: The differential diagnosis associated with the presentation includes (as above) Admission/Observation Consideration of admission/observation: Escalation of care including admission/observation considered Lab Data MDM Lab Attestation statement: I reviewed the patient's lab results. 09/23/24 05:11 09/23/24 05:11 Labs: Lab Results 09/23/24 Range/Units 05:11 WBC 12.7 H (4.8-10.8) X10*3/uL RBC 4.62 (4.20-5.50) X10*6/uL Hgb 13.2 (12.0-16.0) g/dl Hct 39.2 (37.0-47.0) % MCV 84.8 (80.0-98.0) fL MCH 28.6 (27.0-33.0) pg MCHC 33.7 (31.0-35.0) g/dl RDW 14.0 (11.0-16.0) % Plt Count 176 (160-400) X10*3/uL MPV 12.4 H (9.4-12.3) fL Immature Gran % (Auto) 0.5 H (0.0-0.4) % Neut % (Auto) 82.4 H (45-73) % Lymph % (Auto) 12.2 L (20-40) % [place] % (Auto) 4.3 (2-11) % Eos % (Auto) 0.3 (0-4) % Baso % (Auto) 0.3 (0-2) % Lymph # (Auto) 1.6 (1.2-4.9) X10*3/uL [place] # (Auto) 0.5 (0.1-1.2) X10*3/uL Eos # (Auto) 0.0 (0.0-0.4) X10*3/uL Baso # (Auto) 0.0 (0.0-0.2) X10*3/uL Abs Immat Gran (auto) 0.06 H (0.00-0.03) X10*3/uL Absolute Neuts (auto) 10.4 H (2.0-8.3) x10*3/uL Absolute Nucleated RBC 0.000 (0.0-0.012) X10*3/uL Nucleated RBC % (auto) 0.0 (0.0-0.2) /100WBC Sodium 141 (135-145) mmol/L Potassium 3.8 (3.3-5.1) mmol/L Chloride 104 (96-108) mmol/L Carbon Dioxide 26 (22-29) mmol/L Anion Gap 15 (12-20) BUN 12 (9-16) mg/dL Creatinine 0.71 (0.5-1.4) mg/dL Estim Creat Clear Calc 96.2 Estimated GFR > 60 Random Glucose 166 H (60-115) mg/dL Calcium 9.4 (8.4-10.2) mg/dL Total Bilirubin 0.3 (0.0-1.0) mg/dL AST 54 H (5-31) U/L ALT 87 H (0-31) U/L Alkaline Phosphatase 142 H (39-117) U/L Total Protein 7.0 (6.5-8.0) g/dL Albumin 4.4 (3.5-5.0) g/dL Lipase 43 (8-78) U/L Beta HCG, Quant < 2 mIU/mL Independent Historian Clinical information obtained from an independent historian. History obtained from or confirmed by: EMS External Record Review External record reviewed: Prior outpatient labs Prescription Management I considered prescription management with: Pain Medication and Other (antiemetics) Chronic Conditions Patient?s care impacted by: Other (GERD/gastritis) Discharge Plan Discharge Clinical Impression: Gastritis Nausea & vomiting Qualifiers: Vomiting type: unspecified Qualified Code(s): R11.2 - Nausea with vomiting, unspecified Patient Disposition: Home, Self-Care Instructions: Acute Nausea and Vomiting (ED) Prescriptions: New alum-mag hydroxide-simeth [Maalox Advanced] 200-200-20 mg/5 mL suspension 10 ml PO 5XD Qty: 300 0RF Rx Instructions: administer between meals and at bedtime ondansetron 4 mg tablet,disintegrating 4 mg PO Q8H PRN (Reason: nausea and vomiting) Qty: 10 0RF No Action famotidine 40 mg tablet 40 mg PO BID Qty: 60 2RF ibuprofen 600 mg tablet 600 mg PO Q6H PRN (Reason: pain) alum-mag hydroxide-simeth [Maalox Advanced] 200-200-20 mg/5 mL suspension 5 ml PO 5XD PRN (Reason: dyspepsia) Qty: 3000 0RF Rx Instructions: administer between meals and at bedtime ondansetron 4 mg tablet,disintegrating 4 mg PO Q8H PRN (Reason: nausea and vomiting) Qty: 10 0RF vitamin E (dl, acetate) 180 mg (400 unit) capsule 180 mg PO BID Qty: 60 5RF Interventions: ED Discharge Assessment Last Done: 09/23/24 08:06 Discharge Date/Time: 09/23/24 08:08 Print Language: [place]
[2024-09-23] MEDS: Magnesium Hydrox/Alum Hydrox 30 ML ORAL.SUSP 15 ML PO (07:59)
[2024-09-23] MEDS: Lidocaine HCl Viscous 2 % 15 ML SOLUTION MUCOUS MEM (07:59)
[2024-09-23 08:06] VITALS: BP 131/81; PULSE 78; RESP 18; TEMP 37.1; O2SAT 98
== END 2024-09-23 08:08 | disposition home or self-care (01) ==
PROVIDERS: Emergency Provider Emergency Medicine; PCP Nurse Practitioner Primary Care
DX: K29.70 Gastritis, unspecified, without bleeding (principal); R11.2 Nausea with vomiting, unspecified; Z79.899 Other long term (current) drug therapy
CPT/HCPCS: 36415; 80053; 83690; 84702; 85025; 96361; 96374; 96375; 99283; 99284; J1308; J2405; J7120

== ENCOUNTER 2024-09-23 11:32 | Emergency (ER) | payer MEDICAID, SELFPAY ==
[2024-09-23 11:35] VITALS: BP 146/86; PULSE 78; RESP 16; TEMP 36.9; O2SAT 97; BMI 28.2
--- NOTE | 2024-09-23 11:39 | ED.NAVMDI ---
HPI - Nausea/Vomiting/Diarrhea General Chief complaint: Nausea/Vomiting/Diarrhea Stated complaint: vomiting Time Seen by Provider: 09/23/24 12:43 Source: patient Mode of arrival: ambulatory Limitations: no limitations History of Present Illness ED Provider: HPI Narrative: 34-year-old woman was seen earlier today, she has a history of WILD, she states the pharmacy did not fill her medications for Zofran and Maalox, and so she re-presented back to emergency department because she was still vomiting. Related Data Home Medications ?Medication ?Instructions ?Recorded ?Confirmed ibuprofen 600 mg tablet 600 mg PO Q6H PRN pain 05/19/24 05/28/24 Previous Rx's ?Medication ?Instructions ?Recorded famotidine 40 mg tablet 40 mg PO BID #60 tabs 08/06/23 vitamin E (dl, acetate) 180 mg 180 mg PO BID #60 caps 09/07/24 (400 unit) capsule aluminum-mag hydroxide-simethicone 5 ml PO 5XD PRN dyspepsia #3,000 mL 09/23/24 200 mg-200 mg-20 mg/5 mL oral susp (Maalox Advanced) aluminum-mag hydroxide-simethicone 10 ml PO 5XD #300 mL 09/23/24 200 mg-200 mg-20 mg/5 mL oral susp (Maalox Advanced) ondansetron 4 mg disintegrating 4 mg PO Q8H PRN nausea and 09/23/24 tablet vomiting #10 tabs ondansetron 4 mg disintegrating 4 mg PO Q8H PRN nausea and 09/23/24 tablet vomiting #10 tabs Allergies Allergy/AdvReac Type Severity Reaction Status Date / Time Sulfa (Sulfonamide Allergy Mild EYE Verified 09/23/24 11:40 Antibiotics) (SULFA SWELLING (SULFONAMIDE ANTIBIOTICS)) latex Allergy Rash Verified 09/23/24 11:40 Review of Systems Constitutional: Constitutional: Reports as per [facility] Past Medical History Medical History Chronic abdominal pain Surgical History History of esophagogastroduodenoscopy (EGD) Family History Family History Father Diabetes HTN (hypertension) Heart problem Mother Cancer Diabetes HTN (hypertension) Maternal Grandmother Cancer Social History Social History Household Members: Spouse and Children Are you a primary physician primary care sports medicine to a significant other at home: No Do you presently have visiting nurse or other home services: No Alcohol intake: current Alcohol intake frequency: holidays/special occasions only Patient Tobacco Use Status: Never used Tobacco Advance Directives: No Advance Directives Information Provided: Yes Do you have a plan to hurt others: No Plan Current occupational status: employed 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 Full HPI, ROS, assessment and treatment plan per primary provider in the Main ED. Hx: 34 yo F here w/ N/V since 0200 this morning. seen here at 0400 today, diagnosed w/ gastritis, had maalox + zofran sent to pharmacy. has not been able to pick these up as the pharmacy is not filling it until 2pm today. cannot tolerate anything at home. continues to vomit. Plan: repeat labs Medical Decision Making Medical Decision Making MDM Narrative: Patient was seen earlier today her blood work at that point did not reveal any evidence for dehydration or any changes in her elevated LFTs that are being monitored by outpatient GI, she re-presented to the emergency department and her repeat blood work did not reveal any evidence of dehydration, I will give her a paper script for Zofran and at that point we will discharge Lab Data 09/23/24 11:48 09/23/24 11:48 Labs: Lab Results 09/23/24 Range/Units 11:48 WBC 13.4 H (4.8-10.8) X10*3/uL RBC 4.66 (4.20-5.50) X10*6/uL Hgb 13.2 (12.0-16.0) g/dl Hct 39.2 (37.0-47.0) % MCV 84.1 (80.0-98.0) fL MCH 28.3 (27.0-33.0) pg MCHC 33.7 (31.0-35.0) g/dl RDW 14.0 (11.0-16.0) % Plt Count 201 (160-400) X10*3/uL MPV 12.6 H (9.4-12.3) fL Immature Gran % (Auto) 0.4 (0.0-0.4) % Neut % (Auto) 91.4 H (45-73) % Lymph % (Auto) 5.0 L (20-40) % [place] % (Auto) 3.0 (2-11) % Eos % (Auto) 0.0 (0-4) % Baso % (Auto) 0.2 (0-2) % Lymph # (Auto) 0.7 L (1.2-4.9) X10*3/uL [place] # (Auto) 0.4 (0.1-1.2) X10*3/uL Eos # (Auto) 0.0 (0.0-0.4) X10*3/uL Baso # (Auto) 0.0 (0.0-0.2) X10*3/uL Abs Immat Gran (auto) 0.06 H (0.00-0.03) X10*3/uL Absolute Neuts (auto) 12.3 H (2.0-8.3) x10*3/uL Absolute Nucleated RBC 0.000 (0.0-0.012) X10*3/uL Nucleated RBC % (auto) 0.0 (0.0-0.2) /100WBC Smear Tech's Comments VERIFIED Sodium 139 (135-145) mmol/L Potassium 3.8 (3.3-5.1) mmol/L Chloride 105 (96-108) mmol/L Carbon Dioxide 25 (22-29) mmol/L Anion Gap 13 (12-20) BUN 9 (9-16) mg/dL Creatinine 0.63 (0.5-1.4) mg/dL Estim Creat Clear Calc 109.6 Estimated GFR > 60 Random Glucose 125 H (60-115) mg/dL Calcium 9.0 (8.4-10.2) mg/dL Total Bilirubin 0.5 (0.0-1.0) mg/dL AST 60 H (5-31) U/L ALT 92 H (0-31) U/L Alkaline Phosphatase 156 H (39-117) U/L Total Protein 7.4 (6.5-8.0) g/dL Albumin 4.5 (3.5-5.0) g/dL Discharge Plan Discharge Clinical Impression: Nausea & vomiting Qualifiers: Vomiting type: unspecified Qualified Code(s): R11.2 - Nausea with vomiting, unspecified Patient Disposition: Home, Self-Care Additional Instructions: If your pharmacy is not able to fill this medication I am giving you written prescriptions that you can use it any other pharmacy, your blood work continues to be reassuring without any evidence of dehydration, continue to follow up with the GI provider Prescriptions: New alum-mag hydroxide-simeth [Maalox Advanced] 200-200-20 mg/5 mL suspension 5 ml PO 5XD PRN (Reason: dyspepsia) Qty: 3000 0RF Rx Instructions: administer between meals and at bedtime ondansetron 4 mg tablet,disintegrating 4 mg PO Q8H PRN (Reason: nausea and vomiting) Qty: 10 0RF No Action famotidine 40 mg tablet 40 mg PO BID Qty: 60 2RF ibuprofen 600 mg tablet 600 mg PO Q6H PRN (Reason: pain) alum-mag hydroxide-simeth [Maalox Advanced] 200-200-20 mg/5 mL suspension 10 ml PO 5XD Qty: 300 0RF Rx Instructions: administer between meals and at bedtime ondansetron 4 mg tablet,disintegrating 4 mg PO Q8H PRN (Reason: nausea and vomiting) Qty: 10 0RF vitamin E (dl, acetate) 180 mg (400 unit) capsule 180 mg PO BID Qty: 60 5RF Print Language: Azeri
[2024-09-23 11:57] LABS: Hematocrit 39.2 % (37.0-47.0); Hemoglobin 13.2 g/dl (12.0-16.0); Imm Gran Abs Auto 0.06 X10*3/uL (0.00-0.03); Imm Gran Pct Auto 0.4 % (0.0-0.4); Lymphocytes Absolute Auto 0.7 X10*3/uL (1.2-4.9); MANUAL DIFF FLAG SCAN; Mean Corpuscular HGB Conc 33.7 g/dl (31.0-35.0); Mean Corpuscular Hemoglobin 28.3 pg (27.0-33.0); Mean Corpuscular Volume 84.1 fL (80.0-98.0); NRBC Abs Auto 0.000 X10*3/uL (0.0-0.012); NRBC Pct Auto 0.0 /100WBC (0.0-0.2); Platelet Count 201 X10*3/uL (160-400); Red Blood Count 4.66 X10*6/uL (4.20-5.50); SCAN SMEAR FLAG 1; White Blood Count 13.4 X10*3/uL (4.8-10.8)
[2024-09-23 12:11] LABS: Alanine Aminotransferase 92 U/L (0-31); Albumin Level 4.5 g/dL (3.5-5.0); Alkaline Phosphatase 156 U/L (39-117); Anion Gap 13 (12-20); Aspartate Amino Transferase 60 U/L (5-31); Blood Urea Nitrogen 9 mg/dL (9-16); Calcium 9.0 mg/dL (8.4-10.2); Carbon Dioxide 25 mmol/L (22-29); Chloride 105 mmol/L (96-108); Creatinine Clr Calc Pharmacy 109.6; Estimated Glomerular Filt Rate > 60; Potassium 3.8 mmol/L (3.3-5.1); Sodium 139 mmol/L (135-145); Total Protein 7.4 g/dL (6.5-8.0)
[2024-09-23] MEDS: PHENobarb/Hyoscy/Atropine/Scop 10 ML ELIXIR PO (13:13)
[2024-09-23 13:16] VITALS: BP 113/73; PULSE 96; RESP 16; TEMP 36.8; O2SAT 97
--- OUTSIDE RECORDS SUMMARY | 2024-09-23 13:16 | XMS_ITS | Clinical Summary ---
Author Organization [employer] Address [address] [place] [address] 7t [place] [address] Care Team Providers Care Locker Room Attendant Name Role Phone Светлана Whitney BUSCH Primary Care Provider [phone] Genoveva Chamorro MD Unavailable [phone] Allergies Active Allergy Reactions Criticality Noted [...] s:Nasal congestion 1 tablet as needed for allergies/nasal congestion 90 tablet 5 Active fluocinolone ([place]-Smoothe/F S Body) 0.01 % external oilIndications:S eborrheic [...] if symptoms persist. 2 tablet 5 Active Active Problems Patient Care Coordination No te [...] intervention , Patient to reach [facility] team [facility] needed, Comply with medication , [...] Health Integration Plan Internal Follow up with [facility] Patient Self Plan Patient to utilize skills provided in intervention , Patient to reach out to [facility] team as needed, and Patient to reach [...] 07/07 -pap smear: unsure-pt will check w [facility] [employer] at upcoming apt 06/2023 -vaccine COVID 19 [...] organization. Date Type Department Care Team Description 09/23/2024 Orders Only GENERIC EXTERNAL DATA DEPARTMENT Provider, Generic External Data 09/07/2024 Orders Only GENERIC EXTERNAL DATA DEPARTMENT Provider, Generic External Data 08/05/2024 Results Follow-Up [address] [address] Whitney Sotomayor ANP Bacterial Vaginosis Panel, Hemoglobin A1c, TSH W/Reflex to FT4, Additional followed-up results: 6 07/31/2024 11:00 AM EDT Office Visit [address] [address] Whitney Sotomayor ANP Recurrent loss (Primary Dx); Lesion of left upper eyelid; Dysuria; Yeast infection; Irregular menses; Fatigue, unspecified type; Seborrheic dermatitis; Depression, unspecified depression type; Left elbow pain 07/31/2024 Travel 07/30/[address] [address] Whitney Sotomayor ANP chart prep 07/10/2024 Telephone [facility] [address] [place] [phone] Nelsy Sun MD 07/10/[address] [address] Nelsy Sun MD Results 07/09/2024 Orders Only [facility] [address] [place] [phone] Nelsy Sun MD 07/08/2024 6:20 PM EDT [facility] [address] [address] Nlesy Sun MD Dysuria (Primary Dx); UTI symptoms 07/08/2024 Orders Only [address] [address] Nelsy Sun MD 07/08/2024 Travel from Last [...] Description 10/27/2024 11:00 AM EDT Office Visit [facility] [address] [place], [place] [phone] Whitney Sotomayor, ANP [address] [place] [address] Health Maintenance Due Date Last Done Comments Family Planning (PISQ) 2004 HPV Vaccines (1 - 3-dose series) 2004 Influenza Vaccine (#1) 2024 01/20/2021 Depression Monitoring 01/31/2025 07/31/2024 , 07/16/2023 COVID-19 Vaccine (3 - 2023-2 5 season) 2025 07/22/2020, 07/01/2020 Postponed [...] Procedure Name Priority Date/Time Associated Diagnosis Comments CBC WITH AUTO DIFFERENTIAL Routine 09/23/2024 5:11 AM EDT URINALYSIS, COMPLETE, WITH REFLEX TO CULTURE Routine 09/07/2024 9:26 AM EDT FSH Routine 09/07/2024 9:26 AM EDT Elevated testosterone level in female 17-HYDROXYPROGESTERON E Routine 09/07/2024 9:26 AM EDT Elevated testosterone level in female PROLACTIN Routine 09/07/2024 9:26 AM EDT Elevated testosterone level in female CULTURE, URINE, ROUTINE Routine 09/07/2024 12:00 AM EDT AMB REFERRAL TO OPHTHALMOLOGY Routine 08/07/2024 Lesion [...] Relevant to Health Maintenance Results * (ABNORMAL) CBC auto differential (09/23/2024 5:11 AM EDT) Only the most recent of2 resultswithin the time period is included. White Blood Count 12.7(H) 4.8 - 10.8 X10*3/uL [facility] Red Blood Count 4.62 4.20 - 5.50 X10*6/uL [facility] Hemoglobin 13.2 12.0 - 16.0 g/dl [facility] Hematocrit 39.2 37.0 - 47.0 % [facility] Mean Corpuscular Volume 84.8 80.0 - 98.0 fL [facility] Mean Corpuscular Hemoglobin 28.6 27.0 - 33.0 pg [facility] Mean Corpuscular HGB Conc 33.7 31.0 - 35.0 g/dl [facility] Red Cell Distribution Width 14.0 11.0 - 16.0 % [facility] Platelet Count 176 160 - 400 X10*3/uL [facility] Mean Platelet Volume 12.4(H) 9.4 - 12.3 fL [facility] Neutrophils Percent Auto 82.4(H) 45 - 73 % [facility] Imm Gran Pct Auto 0.5(H) 0.0 - 0.4 % [facility] Lymphocytes Percent Auto 12.2(L) 20 - 40 % [facility] Monocytes Percent Auto 4.3 2 - 11 % [facility] Eosinophils Percent Auto 0.3 0 - 4 % [facility] Basophils Percent Auto 0.3 0 - 2 % [facility] NRBC Pct Auto 0.0 0.0 - 0.2 /100WBC [facility] Neutrophils Absolute Auto 10.4(H) 2.0 - 8.3 x10*3/uL [facility] Imm Gran Abs Auto 0.06(H) 0.00 - 0.03 X10*3/uL [facility] Lymphocytes Absolute Auto 1.6 1.2 - 4.9 X10*3/uL [facility] Monocytes Absolute Auto 0.5 0.1 - 1.2 X10*3/uL [facility] Eosinophils Absolute Auto 0.0 0.0 - 0.4 X10*3/uL [facility] Basophils Absolute Auto 0.0 0.0 - 0.2 X10*3/uL [facility] NRBC Abs Auto 0.000 0.0 - 0.012 X10*3/uL [facility] 09/23/2024 5:11 AM EDT 09/23/2024 5:14 AM EDT us Generic External Data Provider LAB BLOOD ORDERAB LES Final Result [facility] [address] [place] [phone] * (ABNORMAL) Urinalysis, Complete, with Reflex to Culture (09/07/2024 9:26 AM EDT) Color Urine Yellow [facility] Appearance Urine Clear [facility] PH 5.5 5.0 - 9.0 [facility] Glucose Urine UA Negative Negative mg/dL [facility] Urine Blood Negative Negative [facility] Specific [place] - Urine 1.015 1.005 - 1.025 [facility] Urine Protein Negative Neg-Trace mg/dL [facility] Urine Ketones Negative Negative mg/dL [facility] Nitrite Urine Negative Negative [facility] Leukocyte Esterase Urine Moderate (2+)(A) Negative [facility] RBC Urine 0-2 0 - 2 /HPF [facility] Urine WBC 6-10 0 - 5 /HPF [facility] Urine Squamous Epithelial Cell 6-10 0 - 2 /HPF [facility] Urine Bacteria 1+ None Seen [facility] Hyaline Casts, Urine 0-2 0 - 2 /LPF [facility] 09/07/2024 9:26 AM EDT 09/07/2024 11:09 AM EDT Narrative [facility] - 09/07/2024 11:24 AM EDT Urine, Clean Catch us Generic External Data Provider LAB URINE ORDERAB LES Final Result [facility] [address] [place] [phone] * 17-Hydroxyprogesterone (09/07/2024 9:26 AM EDT) 17-OHProgesterone 86 see note ng/dL [facility] Comment: Unable to flag abnormal result(s), please refer to reference range(s) below:Adult Female Reference Ranges for 17-Hydroxyprogesterone: Pre-Menopausal Mid Follicular: 23 - 102 ng/dL Pre-Menopausal Surge: 67 - 349 ng/dL Pre-Menopausal Mid Luteal: 139 - 431 ng/dL Postmenopausal Phase: < or = 45 ng/dL Female Julio Cesar Stages: II - III Females: 18 - 220 ng/dL IV - V Females: 36 - 200 ng/dLIncludes data from J Clin Endocrinol Metab. 1991;73:674-686; J Clin Endocrinol Metab. 1989;69;4734-9535; J Clin Endocrinol Metab. 1994;78:226-270. Pediatr Res 1988;23:525-529. MedLinePlus (accessed 08/24/13).This test was developed and its analytical performancecharacteristics have been determined by [employer] [place], [place]. It hasnot been cleared or approved by the U.S. Food and DrugAdministration. This assay has been validated pursuantto the CLIA regulations and is used for clinicalpurposes.THIS TEST WAS PERFORMED AT:[employer]/[id number] [place] [address]DGDVTGWMAGGIE SOLIS MD,PHD Blood Venous blood specimen / Unknown 09/07/2024 9:26 AM EDT 09/07/2024 10:59 AM EDT Whitney Sotomayor ANP LAB BLOOD ORDERABLES Final Resul t Performing Organization Address [facility] Co de Phone Number [facility] [address] [place] [phone] * Prolactin (09/07/2024 9:26 AM EDT) Prolactin 10.9 ng/mL [facility] Comment:Reference Range Fema les Non- 3.0-30.0 10.0-209.0 Postmenopausal 2.0-20.0THIS TEST WAS PERFORMED AT:[employer] [address] [id number] DOWD MD Blood Venous blood specimen / Unknown 09/07/2024 9:26 AM EDT 09/07/2024 10:59 AM EDT Whitney Sotomayor ANP LAB BLOOD ORDERABLES Final Resul t Performing Organization Address [facility] de Phone Number [facility] [address] [place] [phone] * FSH (09/07/2024 9:26 AM EDT) Follicle Stimulating Hormone 7.8 mIU/mL [facility] Comment:Reference Range Foll icular Phase 2.5-10.2 Mid-cycle Peak 3.1-17.7 Luteal Phase 1.5- 9.1 Postmenopausal 23.0-116.3THIS TEST WAS PERFORMED AT:[facility] [address] [id number] DOWD MD Blood Venous blood specimen / Unknown 09/07/2024 9:26 AM EDT 09/07/2024 10:59 AM EDT Whitney Sotomayor ANP LAB BLOOD ORDERABLES Final Resul t Performing Organization Address [facility] Co de Phone Number [facility] [address] [place] [address] [place] [phone] * Culture, Urine, Routine (09/07/2024 12:00 AM EDT) Urine Urine specimen obtained by clean catch procedure / Unknown 09/07/2024 09/07/2024 Comment:UACC Narrative [facility] - 09/08/2024 8:17 AM EDT Urine Culture No growth. Specimen Source: Urine clean catch Generic External Data Provider LAB MICROBIOLOGY - GENERAL ORDERABLES Final Result Performing Organization Address City/[facility]/ZIP Co de Phone Number [facility] [address] [place] [phone] * Referral to Ophthalmology (08/07/2024) Whitney Sotomayor ANP OUTPATIENT REFERRAL ORDERABLES F inal Result * TSH W/Reflex to FT4 (08/05/2024 11:50 AM EDT) TSH reflex Free T4 1.80 0.32 - 4.0 uIU/mL [facility] Blood Venous blood specimen / Unknown 08/05/2024 11:50 AM EDT 08/05/2024 1:14 PM EDT Whitney Sotomayor ANP LAB BLOOD ORDERABLES Final Resul t Performing Organization Address City/[facility]/ZIP Co de Phone Number [facility] [address] [place] [phone] * (ABNORMAL) Testosterone, Free (Dialysis) And Total, MS (08/05/2024 11:50 AM EDT) Testosterone, Total 76(A) 2 - 45 ng/dL [facility] Comment:For additional infor piyush, please refer [email or web address](This link is being provided for informational/educational purposes only.)This test was developed and its analytical performancecharacteristics have been determined by [employer], [place]. It hasnot been cleared or approved by the U.S. Food and DrugAdministration. This assay has been validated pursuantto the CLIA regulations and is used for clinicalpurposes. Testosterone, Free 7.6(A) 0.1 - 6.4 pg/mL [facility] Comment:This test was develo ped and its analytical performancecharacteristics have been determined by [employer] [place], [place]. It hasnot been cleared or approved by the U.. Food and DrugAdministration. This assay has been validated pursuantto the CLIA regulations and is used for clinicalpurposes.THIS TEST WAS PERFORMED AT:[employer]/[facility] [id number] [place] [address]CPLJQVOMAGGIE SOLIS MD,PHD Blood Venous blood specimen / Unknown 08/05/2024 11:50 AM EDT 08/05/2024 1:14 PM EDT [facility] LAB BLOOD ORDERABLES Final Resul t [facility] [address] [place] [phone] * Hemoglobin A1c (08/05/2024 11:50 AM EDT) Hemoglobin A1c 5.4 <6.0 % [facility] Comment:Hemoglobin A1C Refer ence Range Adults: 4.8 - 6.0 % Non diabetic: < 6.0 % Goal: < 7.0 %Additional Action Suggested: > 8.0 %Note: Hemoglobin A1c results are invalid for patients with abnormal amounts of HbF. Blood transfusions may impact the HbA1c concentration in the patient sample. Estimated Average Glucose 108 mg/dL [facility] Comment:eAG = Estimated ave rage glucose which is %A1C expressed asaverage glucose, using the formula of the C5D-DzpluwgJrdgpkh Glucose study (ADAG), Diabetes Care, Vol.31,#8,2007 Blood Venous blood specimen / Unknown 08/05/2024 11:50 AM EDT 08/05/2024 1:14 PM EDT Whitney Sotomayor [facility] LAB BLOOD ORDERABLES Final Resul t Performing Organization Address [facility] Co de Phone Number [facility] [address] [place] [phone] * Vitamin B12 (08/05/2024 11:50 AM EDT) Pathologist [facility] Vitamin B12 546 200 - 900 pg/mL [facility] Comment:NORMAL 200-900 PG/ML INDETERMINATE 160-199 PG/ML DEFICIENT < 160 PG/ML Blood Venous blood specimen / Unknown 08/05/2024 11:50 AM EDT 08/05/2024 1:14 PM EDT Whitney Sotomayor [facility] LAB BLOOD ORDERABLES Final Resul t Performing Organization Address [facility] de Phone Number [facility] [address] [place] [phone] * (ABNORMAL) Comprehensive Metabolic Panel (08/05/2024 11:50 AM EDT) [facility] Sodium 142 135 - 145 mmol/L [facility] Potassium 4.1 3.3 - 5.1 mmol/L [facility] Chloride 106 96 - 108 mmol/L [facility] Carbon Dioxide 28 22 - 29 mmol/L [facility] Anion Gap 12 12 - 20 [facility] Urea Nitrogen (BUN) 15 9 - 16 mg/dL [facility] Creatinine, Serum 0.63 0.5 - 1.4 mg/dL [facility] Estimated Glomerular Filt Rate >60 [facility] Comment:Chronic Kidney Disea se: Estimated GFR < 60 mL/min/1.35s8Icgcnf Kidney Disease: Estimated GFR < 15 mL/min/1.73m2 Glucose 82 60 - 115 mg/dL [facility] Calcium 9.6 8.4 - 10.2 mg/dL [facility] Bilirubin, Total 0.4 0.0 - 1.0 mg/dL [facility] Aspartate Amino Transferase 72(H) 5 - 31 U/L [facility] Alanine Aminotransferase 112(H) 0 - 31 U/L [facility] Total Protein 7.3 6.5 - 8.0 g/dL [facility] Albumin Level 4.4 3.5 - 5.0 g/dL [facility] Alkaline Phosphatase 143(H) 39 - 117 U/L [facility] Blood Venous blood specimen / Unknown 08/05/2024 11:50 AM EDT 08/05/2024 1:14 PM EDT us Whitney BUSCH LAB BLOOD ORDERABLES Final Resul t [facility] [address] [place] [phone] * (ABNORMAL) Bacterial Vaginosis Panel (07/31/2024 12:07 PM EDT) Only the most recent of2 resultswithin the time period is included. TRICHOMONAS VAGINALIS DETECTION BY PCR NOT DETECTED Not Detect [facility] BACTERIAL VAGINOSIS DETECTION BY PCR NEGATIVE Negative [facility] Comment:The BV organism targ ets [...] DETECTION BY PCR NOT DETECTED Not Detect [facility] Mary glab krusei PCR DETECTED(A) Not Detect [facility] Swab Vaginal structure / Unknown 07/31/2024 12:07 PM EDT 07/31/2024 4:50 PM EDT us Whitney Sotomayor ANP LAB MICROBIOLOGY - GENERAL ORDER ROMULO Final Result [facility] [address] [place] [phone] * Chlamydia/N. Gonorrhoeae RNA, TMA, Urogenitial (07/08/2024 6:59 PM EDT) CT PCR NOT DETECTED Not Detect. [facility] Comment:A not detected test result [...] psychologicalconsequences. NG PCR NOT DETECTED Not Detect. [facility] Comment:A not detected test result [...] PM EDT 07/09/2024 11:25 AM EDT Narrative [facility] - 07/09/2024 1:21 PM EDT Vaginal Nelsy Sun MD LAB MICROBIOLOGY - GENER AL ORDERABLES Final Result [facility] [address] [place], [place] [phone] * POCT Urine (07/08/2024 6:52 PM EDT) Preg Test, Ur Negative Negative, Indeterminate, None Detected, Invalid, Specimen unsatisfactory for evaluation, Weakly Positive QC Media Lot # [id number] Lot# Expiration Date [id number] Urine 07/08/2024 6:52 PM EDT Nelsy Sun [...] AM EDT) Hepatitis A IgM Nonreactive Nonreactive [facility] Comment:IgM antibodies to FLEMING V not detected; does not exclude earlyacute or recovered HAV infection. ~Hepatitis B Surface Antibody REACTIVE Nonreactive [facility] Comment:REACTIVE: > 11.99 mI U/mL Hepatitis B Core Antibody Nonreactive Nonreactive [facility] Hepatitis C Antibody Nonreactive Nonreactive [facility] Comment:Antibodies to HCV no t detected; does not exclude early acuteHCV infection. Hepatitis B Surface Ag Negative Negative [facility] 11/20/2023 8:11 AM EDT 11/20/2023 8:11 AM EDT us Generic External Data Provider LAB BLOOD ORDERAB LES Final Result Performing Organization Address City/[facility]/ZIP Co de Phone Number [facility] [address] [place] [phone] * HIV-1/2 Antigen and Antibodies, Fourth Generation, with Reflexes (07/15/2023 8:29 AM EDT) HIV AB/AG Nonreactive Nonreactive [facility] Comment:HIV-1 p24 Ag and/or HIV-1/HIV-2 Ab not detected.A test result that is nonreactive does not exclude thepossibility of exposure to or infection with HIV-1 and/orHIV-2. Nonreactive results in this assay for individualswith prior exposure to HIV-1 and/or HIV-2 may be due toantigen and antibody levels that are below the limit ofdetection of this assay.The [employer] HIV Ag/Ab Combo assay result andsupplemental assay results should be interpreted inconjunction with the patient's clinical presentation,history and other laboratory results. If the results areinconsistent with clinical evidence, additional testing issuggested to confirm the result. Blood Venous blood specimen / Unknown 07/15/2023 8:29 AM EDT 07/15/2023 11:20 AM EDT us Lynda Garibay MD LAB BLOOD ORDERAB LES Final Result Performing Organization Address City/[facility]/ZIP Co de Phone Number [facility] [address] [place] [phone] * Lipid Panel, Standard (07/15/2023 8:29 AM EDT) Triglycerides 68 <150 mg/dL [facility] Comment:Desirable Triglyceri de: less than 150 mg/dLBorderline High Triglyceride 150-199 mg/dLHigh Triglyceride: 200-499 mg/dLVery High Triglyceride: greater than or equal to 5OO mg/dL Cholesterol 170 <200 mg/dL [facility] Comment:Desirable Cholestero l: less than 200 mg/dLBorderline High Cholesterol: 200-239 mg/dLHigh Cholesterol: greater than 239 mg/dL LDL Cholesterol Calculated 98 <100 mg/dL [facility] Comment:Desirable LDL: less than 100 mg/dLNear Optimal/Above Optimal LDL: 110- 129 mg/dLBorderline High LDL: 130-159 mg/dLHigh LDL: 160-189 mg/dLVery High LDL: greater than or equal to 190 mg/dL HDL Cholesterol 59 >40 mg/dL [facility] Comment:Desirable HDL: great er than 40 mg/dL Note: This HDL assay may give artificially low results in patients with liver disease. Blood Venous blood specimen / Unknown 07/15/2023 8:29 AM EDT 07/15/2023 11:20 AM EDT Lynda Garibay MD LAB BLOOD ORDERAB LES Final Result Performing Organization Address City/State/[facility] Co de Phone Number [facility] [address] [place], [place] [phone] * HPV mRNA E6/E7 w/Reflex to HPV Genotypes 16, 18/45 (04/13/2022) 04/13/2022 Historical Chilo ZARAGOZA LAB CYTOLOGY ORDERABLES F inal Result * Pap Smear (04/13/2022) Pap Negative for intraephithelial lesion or malignancy Negative for intraephithelial lesion or malignancy, Other Historical Provider HEALTH MAINTENANCE Edited Result - Final from Last 3 Months or Most Recently Relevant to Health Maintenance Insurance [facility] Care Teams Locker Room Attendant Relationship Specialty Start Date End Date Whitney Sotomayor ANP [address] [place] [address] PCP - General Family Medicine 10/31/20 Genoveva Chamorro MD [address] [place] [address] Dr [address] Floor [place], [place] Gastroenterology 02/19/24
--- OUTSIDE RECORDS SUMMARY | 2024-09-23 13:16 | XMS_ITS | Data Portability ---
Author Organization [facility], [address] Address [address] [place] [address] Assessment No assessment recorded. Plan of Treatment Reminders Order Date Submit Date Provider Last Modified By Organization Details Last Modified Time Details Appointments None recorded. Lab rapid flu (A+B) 2021 [email or web address] [facility], [address] [place] [address], [phone], 12:35:37 rapid strep group A, throat 2021 [email or web address] [facility], [address] [place] [address], [phone], 12:35:37 Referral None recorded. Procedures None recorded. Surgeries None recorded. Imaging None recorded. Medication Orders cetirizine 10 mg tablet 2021 [facility] [id number] [place], [address], 12:35:46 Lidocaine Viscous 2 % mucosal solution 2021 Not available 13:24:25 Patient TargetsNo targets recorded. Patient Instructions Encounter Date Encounter Id Patient Instructions Last Modified By Organization Details Last Modified Time 02/17/2022 [id number] laryngitis: care instructions [email or web address] Not available 02/17/2022 12:35:37 You have been diagnosed with an Upper Respiratory Infection. Rapid Strep and Flu test were negative. It is important to drink plenty of fluids and rest while you are ill. Hot Tea with Honey is good to help with a sore throat. Some OTC medications that are helpful with your current symptoms would include. 1. Tylenol 2. Saline Nasal [place] Try an avoid other people and wash [...] 4. Shortness of Breath or Chest Pain. Not available 02/17/2022 12:28:31 Reason for Referral None Reported. Results Created Date Observation Date Name Description Value Unit Range Abnormal Flag Note LastModifiedBy Organization Detail LastModifiedTime 02/18/20 22 02/17/2022 rapid strep group A, throa t Unknown Analyte negati ve Not Available [email or web address], [address], 02/17/2022 12:21:20 02/18/20 22 02/17/2022 rapid strep group A, throa t Unknown Analyte Normal = Negati ve Not Available [address] [place] [address], [phone], 02/17/2022 12:21:20 02/18/20 22 02/17/2022 rapid flu (A+B) Unknown Analyte negati ve Not Available [address] [place] [address], [phone], 02/17/2022 11:48:36 02/18/20 22 02/17/2022 rapid flu (A+B) Unknown Analyte negati ve Not Available [address] [place], [place] [address] [place], [address], 02/17/2022 11:48:36 02/18/2002/17/2022 rapid flu (A+B) Unknown Analyte Normal = Negati ve Not Available [address] [place], [address], 02/17/2022 11:48:36 Result Notes None recorded. Problems No Known Problems Medical Equipment None Reported. Allergies Allergen ID Allergen Name Allergen Category Reaction Reaction Severity Criticality Documentation Date Start Date Code Code System Note Provider Name and Address Organization Details Recorded Time 59661 Substance with sulfonami de structure and antibacte rial mechanism of action (substanc e) medicatio n eye swelling mild low 02/17/2022 78376 8003 SNOMED [facility] [...] in Arterial blood by Pulse oximetry Systolic And Diastolic Provider Name and Address Organization Details Last Updated DateTime 2 154.94 cm 25.5 kg/m2 41625.9 7 g 98 [degF] 18 /min 74 /min 100 % 100 % 128/86 mm[Hg] TAWANNA HOYT PA - [facility] 11:48:28 Social History Question Answer Notes LastModified by Organizat ion Details LastModified Time Tobacco Smoking Status Never Smoker TAWANNA hernandez [place] - [facility] 02/17/2022 11:47:12 What Is Your Water Source? City Information not available 02/17/2022 What Is Your Heat Source? Gas Information not available 02/17/2022 Have You Had Direct Contact, Or Contact During Intimacy, With Monkeypox Rash, Scabs, Or Body Fluids From A Person With Monkeypox? No Information not available 02/17/2022 Have You Recently Traveled Abroad? No Information not available 02/17/2022 Sex: Unknown Functional Status Question Answer Note LastModified by Organizat ion Details LastModified Time Do you use any illicit or recreational drugs? No Information not available 02/17/2022 Do you or have you ever used any other forms of tobacco or nicotine? No Information not available 02/17/2022 What is your level of alcohol consumption? Occasional Information not available 02/17/2022 Mental Status None recorded. Family History Relationship [...] SNOMED-CT Code Diagnosis ICD10 Code Diagnosis Note [id number] [address] [place] [address] 09/14/2020 10:07:16 09/14/2020 10:54:35 [id number] [facility] [address] [address] [place] [address] 02/17/2022 09:46:25 02/17/2022 12:36:27 Acute pharyngitis 700545834 J02.9 Upper resp iratory infection 05548689 J06.9 Health Concerns Section Related Observation LastModified by Organization Detai ls LastModified Time None Recorded Concern Status LastModified by Organization Details LastModified Time None Recorded Advance Directives Directive None Recorded Payers Insurance Date Sequence Insurance Name Policy Number Policy Cabrera Covered Member ID Cabrera Member ID Guarantor Name 02/17/2022 1 [place]: [facility] Farhan Chase [id number] Farhan Chase Notes Date Note Type Note [...] Pharmacy. [facility] [address] [place], [address], [place] - [facility] 02/17/2022 12:39:05 OBGyn Episode No OBEpisode recorded.
[2024-09-23 13:54] VITALS: BP 113/73; PULSE 96; RESP 16; TEMP 36.8; O2SAT 97
== END 2024-09-23 13:54 | disposition home or self-care (01) ==
PROVIDERS: Physician Assistant Medical; Emergency Provider Emergency Medicine
DX: K29.70 Gastritis, unspecified, without bleeding (principal); R11.2 Nausea with vomiting, unspecified; R19.7 Diarrhea, unspecified
CPT/HCPCS: 36415; 80053; 85025; 99283

== ENCOUNTER 2024-10-08 08:14 | Outpatient (RCR) | payer MEDICAID, SELFPAY ==
--- NOTE | 2024-08-14 12:50 | MHC.OT.EP ---
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 She reports the pain started originally in her R elbow and then improved. She now reports the pain has become localized in her L elbow, making it difficult to lift, hold, carry, and clean. Pt presents today w/ full ROM of her L elbow but has pain w/ palpation of her lateral epicondyle, a positive cozens test , and weakness in her L UE, pt would benefit from skilled OT Therapy to address these deficits and RPLOF Frequency and Duration: The patient will be seen 2XS A WEEK FOR 4 WEEKS Short Term Goals: SEE BELOW Penitentiary Goals: Pt will be complaint w/ her HEP Pt will be compliant w/ jt. protection techniques Pt will report 2/10 pain w/ activity Pt will have 35 lbs of pain free hand agent ticketing gate Treatment Plan: Therapeutic Exercise Therapeutic Activity Home Exercise Program Splinting Neuro Re-ed Patient Education Desensitization/Sensory Re-ed Edema Control ADL Training Ultrasound Iontophoresis Paraffin Fluidotherapy MHP Cold Packs Joint Mobilization Soft Tissue Mobilization Kinesiotaping Electronically Signed By: PAOLO ANDERSON OTR/ L Please Sign and return to therapist. Thank you once again for your referral.
--- NOTE | 2024-10-08 14:12 | MHC.OT.DC ---
[address] [phone] F: [phone] Occupational Therapy Discharge Note Patient Name: Farhan Reina Provider: Whitney Sotomayor Diagnosis: L elbow pain Date of Surgery: Date of Evaluation: 08/13/24 Date of Discharge: Treatments to Date: 11 Cancellations to Date: No Shows to Date: Discharge Status: Improved Function Independent with HEP Discharge Summary: Pt tolerated therapy well today; she needs to modify behaviors in order to rest her UE Electronically Signed By: Altagracia Cast OTR/L Reviewed/agree with student documentation: Therapist: Please Sign and return to therapist, thank you for your referral.
== END 2024-10-08 14:13 | disposition home or self-care (01) ==
LOC: HO.OT 08:14
PROVIDERS: PCP Nurse Practitioner Primary Care; Visit Provider Nurse Practitioner Primary Care
DX: M25.522 Pain in left elbow (principal)
CPT/HCPCS: 97035; 97110; 97140; 97165; 97535

== ENCOUNTER 2024-11-05 09:54 | Outpatient (REF) | payer MEDICAID, SELFPAY ==
--- NOTE | ~2024-11-05 | US_ITS ---
EXAMINATION: US ABDOMEN LIMITED WITH LIVER ELASTOGRAPHY HISTORY: K75.81 - Nonalcoholic steatohepatitis (WILD) TECHNIQUE: Real-time grayscale ultrasound imaging of the right upper quadrant was performed and images were reviewed. COMPARISON: Comparison is made with the prior examination dated 01/22/2023. FINDINGS: Liver: The right lobe of the liver measures 14.1 cm in size. The left lobe of the liver measures 7.6 cm in size. The liver demonstrates normal homogeneous echotexture. There are scattered calcifications. No focal mass or intrahepatic biliary ductal dilatation is identified. There is normal hepatopedal flow in the portal vein. Ultrasound elastography of the liver was performed with 10 separate measurements of the liver parenchyma with the patient in the supine position. Measurements were obtained approximately 2 cm below Kishor's capsule and perpendicular to the capsule. The median shear wave velocity is 1.07 m/s (previously 1.75 m/s). The interquartile range/median (IQR/median) is 0.15. Gallbladder and biliary tree: The gallbladder is unremarkable, without evidence of calculi, wall thickening, or pericholecystic fluid. There is no sonographic Jefferson sign. The common bile duct is normal in caliber measuring 2 mm. Right Kidney: The right kidney measures 10.2 cm in length. The right kidney is unremarkable, without evidence of masses, hydronephrosis, or calculi. Pancreas: The pancreatic head, neck, and body are unremarkable. The pancreatic tail is obscured by bowel gas. Abdominal aorta and inferior vena cava: The visualized portions of the abdominal aorta and inferior vena cava are normal in caliber. There is no free fluid in the right upper quadrant. US/US abdomen albrecht w elastography IMPRESSION: Unremarkable right upper quadrant ultrasound. The median shear wave velocity in the liver is 1.07 m/s, corresponding to a median liver stiffness of 3.4 kPa. The IQR/median value is 0.15. This is indicative of a quality data set. Findings are indicative of a normal elastography value with a low likelihood of severe fibrosis or cirrhosis. REFERENCE: Society of Radiologists in Ultrasound Liver Stiffness Thresholds (2020): LIVER STIFFNESS THRESHOLDS: *Shear wave velocity less than 1.3 m/s (Liver Stiffness equal or less than 5 kPa): High probability of being normal. *Shear wave velocity less than 1.7 m/s (Liver Stiffness less than 9 kPa): In the absence of other known clinical signs, rules out compensated advanced chronic liver disease. *Shear wave velocity between 1.7-2.1 m/s (Liver Stiffness 9-13 kPa): Suggestive of compensated advanced chronic liver disease but need further test for confirmation. *Shear wave velocity between 2.1-2.4 m/s (Liver Stiffness 13-17 kPa): Rules in compensated advanced chronic liver disease. *Shear wave velocity greater than 2.4 m/s (Liver Stiffness over 17 kPa): Suggestive of clinically significant portal hypertension. QUALITY OF DATA SET: *IQR/Median value equal or less than 0.30 implies a quality data set. *IQR/Median value over 0.30 implies a poor quality data set. SIGNIFICANT CHANGE FROM PRIOR EXAM: Significant change if liver stiffness measurement is 10% or greater from prior exam. OTHER CONSIDERATIONS: The stage of liver fibrosis may be overestimated in the setting of acute hepatitis, liver inflammation, elevated liver function tests, hepatic vascular congestion, obstructive cholestasis, non-fasting state, and infiltrative diseases such as amyloidosis and lymphoma. In some patients with NAFLD, the liver stiffness thresholds for compensated advanced chronic liver disease may be lower. In causes other than viral hepatitis and NAFLD, liver stiffness thresholds are not well established. Electronically signed by: Vimal Villegas MD 11/05/2024 10:27 AM EDT
--- OUTSIDE RECORDS SUMMARY | 2024-11-05 11:00 | XMS_ITS | Encounter Summary ---
Author Organization [employer] Address [address] [facility] [address] [place] [address] Care Team Providers Care Cushion Cover Inspector Name Role Phone Oliver Ar BUSCH Primary Care Provider [phone] Genoveva Chamorro MD Unavailable [phone] Encounter Details Date Type Department Care Team (Late st Contact Info) Description 11/05/2024 Orders Only [facility] External Provider, [facility] Social History Tobacco Use Types Packs/Day Years [...] Care Team (Late st Contact Info) Description 12/09/2024 4:00 PM EDT Telemedicine [facility] [address] [place], [place] [phone] Ar Oliver ANP [address] [place], [place] [phone] documented as of this encounter Procedures Procedure Name Priority Date/Time Associated Diagnosis Comments US ABDOMEN MCADAMS W ELASTOGRAPHY Routine 11/05/2024 10:05 AM EDT documented in this encounter Results * US ABDOMEN MCADAMS W ELASTOGRAPHY (11/05/2024 10:05 AM EDT) Anatomical Region Laterality Modality Abdomen Ultrasound 11/05/2024 10:0 5 AM EDT Narrative 11/05/2024 10:30 AM EDT [address] [address] Ultrasound Report Signed Patient: Farhan Felton MR#: [id number] : 1990 Acct:[id number] Age/Sex: 34 / F ADM Date: 11/05/24 Loc: HO. Attending Dr: Genoveva Chamorro MD Ordering Physician: Genoveva Chamorro MD Date of Service: 11/05/24 Procedure(s): US abdomen mcadams w elastography Accession Number(s): [id number] cc: Genoveva Chamorro MD; AR OLIVER NP EXAMINATION: US ABDOMEN LIMITED WITH LIVER ELASTOGRAPHY HISTORY: K75.81 - Nonalcoholic steatohepatitis (WILD) TECHNIQUE: Real-time grayscale ultrasound imaging of the right upper quadrant was performed and images were reviewed. COMPARISON: Comparison is made with the prior examination dated 01/22/2023. FINDINGS: Liver: The right lobe of the liver measures 14.1 cm in size. The left lobe of the liver measures 7.6 cm in size. The liver demonstrates normal homogeneous echotexture. There are scattered calcifications. No focal mass or intrahepatic biliary ductal dilatation is identified. There is normal hepatopedal flow in the portal vein. Ultrasound elastography of the liver was performed with 10 separate measurements of the liver parenchyma with the patient in the supine position. Measurements were obtained approximately 2 cm below Kishor's capsule and perpendicular to the capsule. The median shear wave velocity is 1.07 m/s (previously 1.75 m/s). The interquartile range/median (IQR/median) is 0.15. Gallbladder and biliary tree: The gallbladder is unremarkable, without evidence of calculi, wall thickening, or pericholecystic fluid. There is no sonographic Jefferson sign. The common bile duct is normal in caliber measuring 2 mm. Right Kidney: The right kidney measures 10.2 cm in length. The right kidney is unremarkable, without evidence of masses, hydronephrosis, or calculi. Pancreas: The pancreatic head, neck, and body are unremarkable. The pancreatic tail is obscured by bowel gas. Abdominal aorta and inferior vena cava: The visualized portions of the abdominal aorta and inferior vena cava are normal in caliber. There is no free fluid in the right upper quadrant. US/US abdomen mcadams w elastography IMPRESSION: Unremarkable right upper quadrant ultrasound. The median shear wave velocity in the liver is 1.07 m/s, corresponding to a median liver stiffness of 3.4 kPa. The IQR/median value is 0.15. This is indicative of a quality data set. Findings are indicative of a normal elastography value with a low likelihood of severe fibrosis or cirrhosis. REFERENCE: Society of Radiologists in Ultrasound Liver Stiffness Thresholds (2020): LIVER STIFFNESS THRESHOLDS: *Shear wave velocity less than 1.3 m/s (Liver Stiffness equal or less than 5 kPa): High probability of being normal. *Shear wave velocity less than 1.7 m/s (Liver Stiffness less than 9 kPa): In the absence of other known clinical signs, rules out compensated advanced chronic liver disease. *Shear wave velocity between 1.7-2.1 m/s (Liver Stiffness 9-13 kPa): Suggestive of compensated advanced chronic liver disease but need further test for confirmation. *Shear wave velocity between 2.1-2.4 m/s (Liver Stiffness 13-17 kPa): Rules in compensated advanced chronic liver disease. *Shear wave velocity greater than 2.4 m/s (Liver Stiffness over 17 kPa): Suggestive of clinically significant portal hypertension. QUALITY OF DATA SET: *IQR/Median value equal or less than 0.30 implies a quality data set. *IQR/Median value over 0.30 implies a poor quality data set. SIGNIFICANT CHANGE FROM PRIOR EXAM: Significant change if liver stiffness measurement is 10% or greater from prior exam. OTHER CONSIDERATIONS: The stage of liver fibrosis may be overestimated in the setting of acute hepatitis, liver inflammation, elevated liver function tests, hepatic vascular congestion, obstructive cholestasis, non-fasting state, and infiltrative diseases such as amyloidosis and lymphoma. In some patients with NAFLD, the liver stiffness thresholds for compensated advanced chronic liver disease may be lower. In causes other than viral hepatitis and NAFLD, liver stiffness thresholds are not well established. Electronically signed by: Vimal Villegas MD 11/05/2024 10:27 AM EDT Dictated By: Vimal Villegas MD Signed By: <Electronically signed by Vimal Villegas MD in [place]> 11/05/24 1027 DD/ 1005 TD/TT: 11/05/24 1016 Accident Investigator: Procedure Note Donotuseinterpreter, Image - 11/05/[address] [address] Ultrasound Report Signed Patient: Farhan Felton#: [id number] : 1990Acct:[id number] Age/Sex: 34 / FADM Date: 11/05/24 Loc: HO.US Attending Dr: Genoveva Chamorro MD Ordering Physician: Genoveva Chamorro MD Date of Service: 11/05/24 Procedure(s): US abdomen mcadams w elastography Accession Number(s): [id number] cc: Genoveva Chamorro MD; AR OLIVER NP EXAMINATION: US ABDOMEN LIMITED WITH LIVER ELASTOGRAPHY HISTORY: K75.81 - Nonalcoholic steatohepatitis (WILD) TECHNIQUE: Real-time grayscale ultrasound imaging of the right upper quadrant was performed and images were reviewed. COMPARISON: Comparison is made with the prior examination dated 01/22/2023. FINDINGS: Liver: The right lobe of the liver measures 14.1 cm in size. The left lobe of the liver measures 7.6 cm in size. The liver demonstrates normal homogeneous echotexture. There are scattered calcifications. No focal mass or intrahepatic biliary ductal dilatation is identified. There is normal hepatopedal flow in the portal vein. Ultrasound elastography of the liver was performed with 10 separate measurements of the liver parenchyma with the patient in the supine position. Measurements were obtained approximately 2 cm below Kishor's capsule and perpendicular to the capsule. The median shear wave velocity is 1.07 m/s (previously 1.75 m/s). The interquartile range/median (IQR/median) is 0.15. Gallbladder and biliary tree: The gallbladder is unremarkable, without evidence of calculi, wall thickening, or pericholecystic fluid. There is no sonographic Jefferson sign. The common bile duct is normal in caliber measuring 2 mm. Right Kidney: The right kidney measures 10.2 cm in length. The right kidney is unremarkable, without evidence of masses, hydronephrosis, or calculi. Pancreas: The pancreatic head, neck, and body are unremarkable. The pancreatic tail is obscured by bowel gas. Abdominal aorta and inferior vena cava: The visualized portions of the abdominal aorta and inferior vena cava are normal in caliber. There is no free fluid in the right upper quadrant. US/US abdomen mcadams w elastography IMPRESSION: Unremarkable right upper quadrant ultrasound. The median shear wave velocity in the liver is 1.07 m/s, corresponding to a median liver stiffness of 3.4 kPa. The IQR/median value is 0.15. This is indicative of a quality data set. Findings are indicative of a normal elastography value with a low likelihood of severe fibrosis or cirrhosis. REFERENCE: Society of Radiologists in Ultrasound Liver Stiffness Thresholds (2020): LIVER STIFFNESS THRESHOLDS: *Shear wave velocity less than 1.3 m/s (Liver Stiffness equal or less than 5 kPa): High probability of being normal. *Shear wave velocity less than 1.7 m/s (Liver Stiffness less than 9 kPa): In the absence of other known clinical signs, rules out compensated advanced chronic liver disease. *Shear wave velocity between 1.7-2.1 m/s (Liver Stiffness 9-13 kPa): Suggestive of compensated advanced chronic liver disease but need further test for confirmation. *Shear wave velocity between 2.1-2.4 m/s (Liver Stiffness 13-17 kPa): Rules in compensated advanced chronic liver disease. *Shear wave velocity greater than 2.4 m/s (Liver Stiffness over 17 kPa): Suggestive of clinically significant portal hypertension. QUALITY OF DATA SET: *IQR/Median value equal or less than 0.30 implies a quality data set. *IQR/Median value over 0.30 implies a poor quality data set. SIGNIFICANT CHANGE FROM PRIOR EXAM: Significant change if liver stiffness measurement is 10% or greater from prior exam. OTHER CONSIDERATIONS: The stage of liver fibrosis may be overestimated in the setting of acute hepatitis, liver inflammation, elevated liver function tests, hepatic vascular congestion, obstructive cholestasis, non-fasting state, and infiltrative diseases such as amyloidosis and lymphoma. In some patients with NAFLD, the liver stiffness thresholds for compensated advanced chronic liver disease may be lower. In causes other than viral hepatitis and NAFLD, liver stiffness thresholds are not well established. Electronically signed by: Vimal Villegas MD 11/05/2024 10:27 AM EDT Dictated By: Vimal Villegas MD Signed By: <Electronically signed by Vimal Villegas MD in [place]> 11/05/24 1027 DD/ 1005 TD/TT: 11/05/24 1016 Accident Investigator: us [facility] External Provider IMG US PROCEDURES Final Result documented in this encounter Visit Diagnoses Not on filedocumented in this encounter Additional Health Concerns Assessment Noted Time PHQ-9 Depression Total Score: 9 07/16/19 24 1:46 PM EDT documented as of this encounter Care Teams Cushion Cover Inspector Relationship Specialty Start Date End Date Ar Oliver ANP [address] [place] [address] PCP - General Family Medicine 10/31/20 Genoveva Chamorro MD [address] [place] [address] Dr [address] Floor [place] [address] Gastroenterology 02/19/24 documented as of this encounter
--- OUTSIDE RECORDS SUMMARY | 2024-11-05 11:00 | XMS_ITS | Encounter Summary ---
Author Organization [facility] Address [address] [place] [address] [address] [place] [address] Care Team Providers Care Electronic Prepress Operator Name Role Phone Whitney Sotomayor Primary Care Provider [phone] Genoveva Chamorro MD Unavailable [phone] Encounter Details Date Type Department Care Team (Late st Contact Info) Description 11/30/2022 Orders Only [address] [address] ProviderCarlos MD Social History Tobacco Use Types [...] Info) Description 12/09/2024 4:00 PM EDT Telemedicine [address] [phone] Whitney Sotomayor ANP [address] [place] [phone] documented as of this encounter Procedures Procedure [...] documented as of this encounter Care Teams Electronic Prepress Operator Relationship Specialty Start Date End Date Whitney Sotomayor ANP [address] [place] [address] PCP - General Family Medicine 10/31/20 eGnoveva Chamorro MD [address] [place] [address] Dr [address] [place] [address] Gastroenterology 02/19/24 documented as of this encounter
--- OUTSIDE RECORDS SUMMARY | 2024-11-05 11:00 | XMS_ITS | Clinical Summary ---
Author Organization [employer] Address [address] [place] [address] [address] [place] [address] Care Team Providers Care Gyroscope Technician Name Role Phone Светлана Ar BUSCH Primary Care Provider [phone] Genoveva Chamorro MD Unavailable [phone] Allergies Active Allergy Reactions Criticality Noted [...] 24 hrs 30 tablet 07/15/19 24 Active acetaminophen (Tylenol) 500 MG tabletIndicati ons:Influenza B Take 2 tablets (1,000 mg) by mouth every 6 (six) hours if needed for moderate pain or fever for up to 25 doses. 50 tablet 04/01/19 25 Active albuterol 108 (90 Base) MCG/ACT inhaler Inhale 2 puffs every 4 (four) hours if needed for wheezing or shortness of breath. 18 g 3 01/22/ 026 Active fluticasone (Flonase) 50 MCG/ACT nasal sprayIndicatio ns:Nasal congestion Use 1-2 sprays as needed per nostril. Shake gently. Before first use, prime pump. After use, clean tip and replace cap. 16 g 05/06/19 25 Active cetirizine (ZyrTEC) 10 MG tabletIndicati ons:Nasal congestion 1 tablet as needed for allergies/soo al congestion 90 tablet 05/06/19 25 Active fluocinolone (Gonvick-Smoothe /FS Body) 0.01 % external oilIndications :Seborrheic dermatitis Apply to scalp at bedtime, wear shower cap, wash out in AM. Use 2-3 times per week. 118 mL 1 08/01/19 25 Active sertraline (Zoloft) 25 MG tabletIndicati ons:Severe episode of recurrent major depressive disorder, without psychotic features (CMS/HCC) Take 1 tablet (25 mg) by mouth Once per day. 30 tablet 1 10/28/19 25 Active ibuprofen 400 MG tabletIndicati ons:Left elbow pain Take 1 tablet (400 mg) by mouth every 6 (six) hours if needed for moderate pain. Take with food 60 tablet 1 10/28/19 25 Active ibuprofen 400 MG tablet Take 1 tablet (400 mg) by mouth every 6 (six) hours if needed for moderate pain or fever for up to 30 doses. 30 tablet 04/01/19 25 025 Discontinued(Re order (will not trigger notification to Pharmacy)) sertraline (Zoloft) 50 MG tabletIndicati ons:Depression , unspecified depression type Take 1 tablet daily at bedtime 30 tablet 08/01/19 25 025 Discontinued(Si de effects) fluconazole (Diflucan) 150 MG tabletIndicati ons:Vaginal yeast infection Take 1 tab by mouth once. Repeat after 72 hours if symptoms persist. 2 tablet 08/06/19 25 025 Discontinued(Th erapy completed) Active Problems Patient Care Coordination No te [...] , Patient to reach out to [facility] team as needed, Comply with medication , [...] Health Integration Plan Internal Follow up with [facility] Patient Self Plan Patient to utilize skills provided in intervention , [facility], and Patient to [...] 07/07 -pap smear: unsure-pt will check w SNIPPER at upcoming apt 06/2023 -vaccine COVID 19 [...] Encounters Date Type Department Care Team Description 11/05/2024 Orders Only [facility] External Provider, [facility] 10/27/2024 11:00 AM EDT Office Visit [facility] [address] [place] [address] Ar Oliver ANP Severe episode of recurrent major depressive disorder, without psychotic features (CMS/HCC) (Primary Dx); Left elbow pain 10/26/2024 Travel 09/23/2024 Orders Only GENERIC EXTERNAL DATA DEPARTMENT Provider, Generic External Data 09/07/2024 Orders Only GENERIC EXTERNAL DATA DEPARTMENT Provider, Generic External Data 08/05/2024 Results Follow-Up [facility] [address] [place] [address] Ar Oliver ANP Bacterial Vaginosis Panel, Hemoglobin A1c, TSH W/Reflex to FT4, Additional followed-up results: 6 from Last 3 Months Immunizations Immunization Administration [...] Sign Reading Time Taken Comments Blood Pressure 110/70 10/27/2024 11:05 AM EDT Pulse 60 10/27/2024 11:05 AM EDT Temperature 36.4 C (97.6 F) 10/27/2024 11:05 AM EDT Respiratory Rate 16 10/27/2024 11:0 5 AM EDT Oxygen Saturation 99% 07/08/2024 5:54 PM EDT Inhaled Oxygen Concentration - - Weight 65.2 kg (143 lb 12.8 oz) 025 11:05 AM EDT Height 154.9 cm (5' 1 ) 10/27/2024 11:0 5 AM EDT Body Mass Index 27.17 10/27/2024 11:05 AM EDT Plan of Treatment Upcoming Encounters Date Type Department Care Team (Late st Contact Info) Description 12/09/2024 4:00 PM EDT Telemedicine [facility] [address] [place], [place] [phone] Ar Oliver, ANP [address] [place], [place] [phone] Health Maintenance Due Date Last Done Comments Family Planning (PISQ) 2004 HPV Vaccines (1 - 3-dose series) 2004 Influenza Vaccine (#1) 2024 01/20/2021 Depression Monitoring 01/31/2025 07/31/2024 , 07/16/2023 COVID-19 Vaccine (3 - 2023-2 5 season) 2025 07/22/2020, 07/01/2020 Postponed from 11/10/2023 (Patient Refused) Alcohol/Substance Use Screening 07/31/2025 07/31/2024 SDOH Screening 07/31/2025 07/31/2024 Disability Screening 10/26/2025 10/26/2024 Tobacco Screening 10/27/2025 10/27/2024 Cervical Cancer Screening 04/13/2027 HPV/Cotest 04/13/2027 04/13/2022, [...] W ELASTOGRAPHY Routine 11/05/2024 10:05 AM EDT CBC WITH AUTO DIFFERENTIAL Routine 09/23/2024 5:11 [...] Routine 08/05/2024 11:50 AM EDT Yeast infection HEPATITIS PANEL, GENERAL Routine 11/20/2023 8:11 AM EDT HIV 1/2 ANTIGEN/ANTIBODY, FOURTH GENERATION W/RFL Routine 07/15/2023 8:29 AM EDT Annual physical exam LIPID PANEL, STANDARD Routine 07/15/2023 8:29 AM EDT Annual physical exam HPV MRNA E6/E7 REFLEX TO HPV 16, 18/45 Routine 04/13/2022 HM PAP/HPV Routine 04/13/2022 from Last 3 Months or Most Recently Relevant to Health Maintenance Results * US ABDOMEN MCADAMS W ELASTOGRAPHY (11/05/2024 10:05 AM EDT) Anatomical Region Laterality Modality Abdomen Ultrasound 11/05/2024 10:0 5 AM EDT Narrative 11/05/2024 10:30 AM EDT [address] [address] Ultrasound Report Signed Patient: Farhan eFlton MR#: [id number] : 1990 Acct:[id number] Age/Sex: 34 / F ADM Date: 11/05/24 Loc: HO.US Attending Dr: Genoveva Chamorro MD Ordering Physician: Genoveva Chamorro MD Date of Service: 11/05/24 Procedure(s): US abdomen mcadams w elastography Accession Number(s): [id number] cc: Genoveva Chamorro MD; AR OLIVER NP [...] 11/05/24 1027 DD/ 1005 TD/TT: 11/05/24 1016 [employer]: Procedure Note Donotuseinterpreter, Image - 11/05/[address] [address] Ultrasound Report Signed Patient: Arik Felton#: [id number] : 1990Acct:[id number] Age/Sex: 34 / FADM Date: 11/05/24 Loc: HO.US Attending Dr: Genoveva Chamorro MD Ordering Physician: Genoveva Chamorro MD Date of Service: 11/05/24 Procedure(s): US abdomen mcadams w elastography Accession Number(s): [id number] cc: Genoveva Chamorro MD; AR OLIVER NP [...] 11/05/24 1027 DD/ 1005 TD/TT: 11/05/24 1016 [employer]: us [facility] External Provider IMG US PROCEDURES Final Result * (ABNORMAL) CBC auto differential (09/23/2024 5:11 AM EDT) Only the most recent of2 resultswithin the time period is included. White Blood Count 12.7(H) 4.8 - 10.8 X10*3/uL [facility] Red Blood Count 4.62 4.20 - 5.50 X10*6/uL [facility] Hemoglobin 13.2 12.0 - 16.0 g/dl [facility] Hematocrit 39.2 37.0 - 47.0 % [facility] Mean Corpuscular Volume 84.8 80.0 - 98.0 fL [facility] Mean Corpuscular Hemoglobin 28.6 27.0 - 33.0 pg [facility] Mean Corpuscular HGB Conc 33.7 31.0 - 35.0 g/dl [facility] Red Cell Distribution Width 14.0 11.0 - 16.0 % [facility] Platelet Count 176 160 - 400 X10*3/uL [facility] Mean Platelet Volume 12.4(H) 9.4 - 12.3 fL [facility] Neutrophils Percent Auto 82.4(H) 45 - 73 % [facility] Imm Gran Pct Auto 0.5(H) 0.0 - 0.4 % [facility] Lymphocytes Percent Auto 12.2(L) 20 - 40 % [facility] Monocytes Percent Auto 4.3 2 - 11 % [facility] Eosinophils Percent Auto 0.3 0 - 4 % [facility] Basophils Percent Auto 0.3 0 - 2 % [facility] NRBC Pct Auto 0.0 0.0 - 0.2 /100WBC [facility] Neutrophils Absolute Auto 10.4(H) 2.0 - 8.3 x10*3/uL [facility] Imm Gran Abs Auto 0.06(H) 0.00 - 0.03 X10*3/uL [facility] Lymphocytes Absolute Auto 1.6 1.2 - 4.9 X10*3/uL [facility] Monocytes Absolute Auto 0.5 0.1 - 1.2 X10*3/uL [facility] Eosinophils Absolute Auto 0.0 0.0 - 0.4 X10*3/uL [facility] Basophils Absolute Auto 0.0 0.0 - 0.2 X10*3/uL [facility] NRBC Abs Auto 0.000 0.0 - 0.012 X10*3/uL [facility] 09/23/2024 5:11 AM EDT 09/23/2024 5:14 AM EDT Generic External Data Provider LAB BLOOD ORDERAB LES Final Result Performing Organization Address [facility]/ZIP Co de Phone Number [facility] [address] [place] [phone] * (ABNORMAL) Urinalysis, Complete, with Reflex to Culture (09/07/2024 9:26 AM EDT) Color Urine Yellow [facility] Appearance Urine Clear [facility] PH 5.5 5.0 - 9.0 [facility] Glucose Urine UA Negative Negative mg/dL [facility] Urine Blood Negative Negative [facility] Specific [place] - Urine 1.015 1.005 - 1.025 [facility] Urine Protein Negative Neg-Trace mg/dL [facility] Urine Ketones Negative Negative mg/dL [facility] Nitrite Urine Negative Negative [facility] Leukocyte Esterase Urine Moderate (2+)(A) Negative [facility] RBC Urine 0-2 0 - 2 /HPF [facility] Urine WBC 6-10 0 - 5 /HPF [facility] Urine Squamous Epithelial Cell 6-10 0 - 2 /HPF [facility] Urine Bacteria 1+ None Seen [facility] Hyaline Casts, Urine 0-2 0 - 2 /LPF [facility] 09/07/2024 9:26 AM EDT 09/07/2024 11:09 AM EDT Narrative [facility] - 09/07/2024 11:24 AM EDT Urine, Clean Catch us Generic External Data Provider LAB URINE ORDERAB LES Final Result Performing Organization Address [facility]/ZIP Co de Phone Number [facility] [address] [place] [phone] * 17-Hydroxyprogesterone (09/07/2024 9:26 AM EDT) 17-OHProgesterone 86 see note ng/dL [facility] Comment: Unable to flag abnormal [...] Endocrinol Metab. 1991;73:674-686; J Clin Endocrinol Metab. 1989;69;0114-4099; J Clin Endocrinol Metab. 1994;78:226-270. Pediatr Res 1988;23:525-529. MedLinePlus (accessed 08/24/13).This test was developed and its analytical performancecharacteristics have been determined by [employer] [place], [place]. It hasnot been cleared or approved by the U.S. Food and DrugAdministration. This assay has been validated pursuantto the CLIA regulations and is used for clinicalpurposes.THIS TEST WAS PERFORMED AT:[employer]/[facility] [place] [address]MTCTPFQMAGGIE SOLIS MD,PHD Blood Venous blood specimen / Unknown 09/07/2024 9:26 AM EDT 09/07/2024 10:59 AM EDT us [facility] LAB BLOOD ORDERABLES Final Resul t [facility] [address] [place] [phone] * Prolactin (09/07/2024 9:26 AM EDT) Prolactin 10.9 ng/mL [facility] Comment:Reference Range Fema les Non- 3.0-30.0 10.0-209.0 Postmenopausal 2.0-20.0THIS TEST WAS PERFORMED AT:[employer] [place] [phone] DOWD MD Blood Venous blood specimen / Unknown 09/07/2024 9:26 AM EDT 09/07/2024 10:59 AM EDT Ar Oliver [facility] LAB BLOOD ORDERABLES Final Resul t Performing Organization Address [facility] Co de Phone Number [facility] [address] [place] [phone] * FSH (09/07/2024 9:26 AM EDT) Follicle Stimulating Hormone 7.8 mIU/mL [facility] Comment:Reference Range Foll icular Phase 2.5-10.2 Mid-cycle Peak 3.1-17.7 Luteal Phase 1.5- 9.1 Postmenopausal 23.0-116.3THIS TEST WAS PERFORMED AT:[employer] [address] [address]JFLYODAVID DOWD MD Blood Venous blood specimen / Unknown 09/07/2024 9:26 AM EDT 09/07/2024 10:59 AM EDT Ar BUSCH LAB BLOOD ORDERABLES Final Resul t Performing Organization Address [facility] Co de Phone Number [facility] [address] [place] [phone] * Culture, Urine, Routine (09/07/2024 12:00 AM EDT) Urine Urine specimen obtained by clean catch procedure / Unknown 09/07/2024 09/07/2024 Comment:UACC Narrative [facility] - 09/08/2024 8:17 AM EDT Urine Culture No growth. Specimen Source: Urine clean catch Generic External Data Provider LAB MICROBIOLOGY - GENERAL ORDERABLES Final Result Performing Organization Address [facility] Co de Phone Number [facility] [address] [place] [phone] * Referral to Ophthalmology (08/07/2024) us Ar Oliver ANP OUTPATIENT REFERRAL ORDERABLES F inal Result * TSH W/Reflex to FT4 (08/05/2024 11:50 AM EDT) TSH reflex Free T4 1.80 0.32 - 4.0 uIU/mL [facility] Blood Venous blood specimen / Unknown 08/05/2024 11:50 AM EDT 08/05/2024 1:14 PM EDT us Ar Oliver [facility] LAB BLOOD ORDERABLES Final Resul t Performing Organization Address [facility] de Phone Number [facility] [address] [place] [phone] * (ABNORMAL) Testosterone, Free (Dialysis) And Total, MS (08/05/2024 11:50 AM EDT) Testosterone, Total 76(A) 2 - 45 ng/dL [facility] Comment:For additional infor piyush, please refer [email or web address].CaratLane/faq/[email or web address](This link is being provided for informational/educational purposes only.)This test was developed and its analytical performancecharacteristics have been determined by [employer] [place], [place]. It hasnot been cleared or approved by the U.S. Food and DrugAdministration. This assay has been validated pursuantto the CLIA regulations and is used for clinicalpurposes. Testosterone, Free 7.6(A) 0.1 - 6.4 pg/mL [facility] Comment:This test was develo ped and its analytical performancecharacteristics have been determined by [employer] [place], [place]. It hasnot been cleared or approved by the U.S. Food and DrugAdministration. This assay has been validated pursuantto the CLIA regulations and is used for clinicalpurposes.THIS TEST WAS PERFORMED AT:[employer]/[facility]FNABWLKD[address] [place] [address]QALODJLMAGGIE SOLIS MD,PHD Blood Venous blood specimen / Unknown 08/05/2024 11:50 AM EDT 08/05/2024 1:14 PM EDT Ar Oliver ANP LAB BLOOD ORDERABLES Final Resul t Performing Organization Address [facility] Co de Phone Number [facility] [address] [place] [phone] * Hemoglobin A1c (08/05/2024 11:50 AM EDT) Hemoglobin A1c 5.4 <6.0 % [facility] Comment:Hemoglobin A1C Refer ence Range Adults: 4.8 - 6.0 % Non diabetic: < 6.0 % Goal: < 7.0 %Additional Action Suggested: > 8.0 %Note: Hemoglobin A1c results are invalid for patients with abnormal amounts of HbF. Blood transfusions may impact the HbA1c concentration in the patient sample. Estimated Average Glucose 108 mg/dL [facility] Comment:eAG = Estimated ave rage glucose which is %A1C expressed asaverage glucose, using the formula of the M7N-StgxowaOyuxfgk Glucose study (ADAG), Diabetes Care, Vol.31,#8,2007 Blood Venous blood specimen / Unknown 08/05/2024 11:50 AM EDT 08/05/2024 1:14 PM EDT Ar Oliver ANP LAB BLOOD ORDERABLES Final Resul t Performing Organization Address [facility] Co de Phone Number [facility] [address] [place] [phone] * Vitamin B12 (08/05/2024 11:50 AM EDT) Vitamin B12 546 200 - 900 pg/mL [facility] Comment:NORMAL 200-900 PG/ML INDETERMINATE 160-199 PG/ML DEFICIENT < 160 PG/ML Blood Venous blood specimen / Unknown 08/05/2024 11:50 AM EDT 08/05/2024 1:14 PM EDT us Ar Oliver [facility] LAB BLOOD ORDERABLES Final Resul t [facility] [address] [place] [phone] * (ABNORMAL) Comprehensive Metabolic Panel (08/05/2024 11:50 AM EDT) Sodium 142 135 - 145 mmol/L [facility] Potassium 4.1 3.3 - 5.1 mmol/L [facility] Chloride 106 96 - 108 mmol/L [facility] Carbon Dioxide 28 22 - 29 mmol/L [facility] Anion Gap 12 12 - 20 [facility] Urea Nitrogen (BUN) 15 9 - 16 mg/dL [facility] Creatinine, Serum 0.63 0.5 - 1.4 mg/dL [facility] Estimated Glomerular Filt Rate >60 [facility] Comment:Chronic Kidney Disea se: Estimated GFR < 60 mL/min/1.03e8Nwntjd Kidney Disease: Estimated GFR < 15 mL/min/1.73m2 Glucose 82 60 - 115 mg/dL [facility] Calcium 9.6 8.4 - 10.2 mg/dL [facility] Bilirubin, Total 0.4 0.0 - 1.0 mg/dL [facility] Aspartate Amino Transferase 72(H) 5 - 31 U/L [facility] Alanine Aminotransferase 112(H) 0 - 31 U/L [facility] Total Protein 7.3 6.5 - 8.0 g/dL [facility] Albumin Level 4.4 3.5 - 5.0 g/dL [facility] Alkaline Phosphatase 143(H) 39 - 117 U/L [facility] Blood Venous blood specimen / Unknown 08/05/2024 11:50 AM EDT 08/05/2024 1:14 PM EDT Ar [facility] LAB BLOOD ORDERABLES Final Resul t [facility] [address] [place] [phone] * Hepatitis Panel, General (11/20/2023 8:11 AM EDT) Hepatitis A IgM Nonreactive Nonreactive [facility] Comment:IgM antibodies to FLEMING V not detected; does not exclude earlyacute or recovered HAV infection. ~Hepatitis B Surface Antibody REACTIVE Nonreactive [facility] Comment:REACTIVE: > 11.99 mI U/mL Hepatitis B Core Antibody Nonreactive Nonreactive [facility] Hepatitis C Antibody Nonreactive Nonreactive [facility] Comment:Antibodies to HCV no t detected; does not exclude early acuteHCV infection. Hepatitis B Surface Ag Negative Negative [facility] 11/20/2023 8:11 AM EDT 11/20/2023 8:11 AM EDT [facility] External Data Provider LAB BLOOD ORDERAB LES Final Result Performing Organization Address City/[facility]/ZIP Co de Phone Number [facility] [address] [place] [phone] * HIV-1/2 Antigen and Antibodies, Fourth Generation, with Reflexes (07/15/2023 8:29 AM EDT) HIV AB/AG Nonreactive Nonreactive [facility] Comment:HIV-1 p24 Ag and/or HIV-1/HIV-2 Ab not detected.A test result that is nonreactive does not exclude thepossibility of exposure to or infection with HIV-1 and/orHIV-2. Nonreactive results in this assay for individualswith prior exposure to HIV-1 and/or HIV-2 may be due toantigen and antibody levels that are below the limit ofdetection of this assay.[employer] HIV Ag/Ab Combo assay result andsupplemental assay results should be interpreted inconjunction with the patient's clinical presentation,history and other laboratory results. If the results areinconsistent with clinical evidence, additional testing issuggested to confirm the result. Blood Venous blood specimen / Unknown 07/15/2023 8:29 AM EDT 07/15/2023 11:20 AM EDT us Lynda Garibay MD LAB BLOOD ORDERAB LES Final Result Performing Organization Address [facility] Co de Phone Number [facility] [address] [place] [phone] * Lipid Panel, Standard (07/15/2023 8:29 AM EDT) Triglycerides 68 <150 mg/dL [facility] Comment:Desirable Triglyceri de: less than 150 mg/dLBorderline High Triglyceride 150-199 mg/dLHigh Triglyceride: 200-499 mg/dLVery High Triglyceride: greater than or equal to 5OO mg/dL Cholesterol 170 <200 mg/dL [facility] Comment:Desirable Cholestero l: less than 200 mg/dLBorderline High Cholesterol: 200-239 mg/dLHigh Cholesterol: greater than 239 mg/dL LDL Cholesterol Calculated 98 <100 mg/dL [facility] Comment:Desirable LDL: less than 100 mg/dLNear Optimal/Above Optimal LDL: 110- 129 mg/dLBorderline High LDL: 130-159 mg/dLHigh LDL: 160-189 mg/dLVery High LDL: greater than or equal to 190 mg/dL HDL Cholesterol 59 >40 mg/dL [facility] Comment:Desirable HDL: great er than 40 mg/dL Note: This HDL assay may give artificially low results in patients with liver disease. Blood Venous blood specimen / Unknown 07/15/2023 8:29 AM EDT 07/15/2023 11:20 AM EDT us Lynda Garibay MD LAB BLOOD ORDERAB LES Final Result Performing Organization Address [facility]/ZIP Co de Phone Number [facility] [address] [place] [phone] * HPV mRNA E6/E7 w/Reflex to HPV Genotypes 16, 18/45 (04/13/2022) 04/13/2022 Historical Provider LAB CYTOLOGY ORDERABLES F inal Result * Hm Pap Smear (04/13/2022) Pap Negative for intraephithelial lesion or malignancy Negative for intraephithelial lesion or malignancy, Other Historical Provider HEALTH MAINTENANCE Edited Result - Final from Last 3 Months or Most Recently Relevant to Health Maintenance Insurance * Guarantor: Farhan Felton Account Type Relation to Patient Date of Phone Billing Address Personal/Family Self [address] Care Teams Gyroscope Technician Relationship Specialty Start Date End Date Ar Oliver ANP [address] [place] [phone] PCP - General Family Medicine 10/31/20 Genoveva Chamorro MD [address] [place] [address] [address] [place] [address] Gastroenterology 02/19/24
== END 2024-11-05 09:55 | disposition home or self-care (01) ==
LOC: HO.US 09:54
PROVIDERS: PCP Nurse Practitioner Primary Care; Visit Provider Internal Medicine Gastroenterology
DX: K75.81 Nonalcoholic steatohepatitis (NASH) (principal); K74.60 Unspecified cirrhosis of liver
CPT/HCPCS: 76705; 76981

== ENCOUNTER → 2024-11-05 09:55 | Outpatient (BNV) | payer MEDICAID, SELFPAY | PROVIDERS: PCP Nurse Practitioner Primary Care; Visit Provider Radiology Diagnostic Radiology | DX: K75.81 Nonalcoholic steatohepatitis (NASH) (principal) | CPT/HCPCS: 76705 ==

== ENCOUNTER 2024-12-10 08:51 | Outpatient (REF) | payer MEDICAID, SELFPAY ==
--- OUTSIDE RECORDS SUMMARY | 2024-12-09 16:00 | XMS_ITS | Encounter Summary ---
Author Organization [employer] Address [address] [facility] [address]t [place] [address] Care Team Providers Care Supervisor Receiving And Processing Name Role Phone Whitney Sotomayor Primary Care Provider [phone] Genoveva Chamorro MD Unavailable [phone] Encounter Details Date Type Department Care Team (Late st Contact Info) Description 12/09/2024 4:00 PM EDT Telemedicine [facility] MEDICINE [address] [place] [address] Whitney Sotomayor ANP [address] [place] [address] Severe episode of recurrent major depressive disorder, without psychotic features (CMS/HCC) (HCC) (Primary Dx) Social History Tobacco Use Types Packs/Day Years [...] as of this encounter Progress Notes * NARAYAN Heath - 12/09/2024 4:00 PM EDT Subjective Patient ID: Farhan Reina is a 34 y.o. female who presents for depression. HPI PMH preeclampsia, MASH, gastritis, depression She has not been taking sertraline consistently, forgets. She would like to try taking the lower dose at bedtime to see if this helps with remembering. Did have trouble sleeping after taking sertraline in past at night but this was much higher dose. Depression is stable. Needs TB test for work. Previously ordered. Never smoker. Review of Systems Constitutional: Negative for chills and fever. HENT: Negative for sore throat. Respiratory: Negative for cough and shortness of breath. Cardiovascular: Negative for chest pain. Gastrointestinal: Negative for constipation and diarrhea. Endocrine: Negative for polydipsia, polyphagia and polyuria. Genitourinary: Negative for dysuria. Psychiatric/Behavioral: Positive for dysphoric mood. The patient is nervous/anxious. Objective Physical Exam Neurological: Comments: Speech clear Psychiatric: Behavior: Behavior normal. Exam limited by telehealth format. Pt speaking clearly in complete sentences. Assessment/Plan Diagnoses and all orders for this visit: Severe episode of recurrent major depressive disorder, without psychotic features (CMS/HCC) (HCC) Stable, would still like to try sertraline more consistently. Will switch to at bedtime dosing and let me know if symptoms not improved or if it interferes w/ sleep. documented in this encounter Plan of Treatment Not on file documented as of this encounter Visit Diagnoses Diagnosis Severe episode of recurrent major depressive disorder, without psychotic features (CMS/HCC) (HCC)- Primary documented in this encounter Additional Health Concerns Assessment Noted Time PHQ-9 Depression Total Score: 9 07/16/19 24 1:46 PM EDT documented as of this encounter Care Teams Supervisor Receiving And Processing Relationship Specialty Start Date End Date Whitney Sotomayor ANP [address] [place] [address] PCP - General Family Medicine 10/31/20 Genoveva Chamorro MD [address] [place] [address] 3rd [place] [address] Gastroenterology 02/19/24 documented as of this encounter
--- OUTSIDE RECORDS SUMMARY | 2024-12-10 09:25 | XMS_ITS | Encounter Summary ---
Author Organization [facility] [facility] Address [address] [place] [address] 7t [place] [address] Care Team Providers Care Sales Representative [employer]arel Name Role Phone Whitney Sotomayor Primary Care Provider [phone] Genoveva Chamorro MD Unavailable [phone] Encounter Details Date Type Department Care Team (Late st Contact Info) Description 11/30/2022 Orders Only [facility] MEDICINE [address] [place] [address] Provider, Historical, Social History Tobacco Use Types [...] documented as of this encounter Care Teams Sales Representative [employer] Relationship Specialty Start Date End Date Whitney Sotomayor ANP [address] [place] [address] [place] [address] PCP - General Family Medicine 10/31/20 Genoveva Chamorro MD [address] [place] [address] 3rd [place] [address] Gastroenterology 02/19/24 documented as of this encounter
--- OUTSIDE RECORDS SUMMARY | 2024-12-10 09:25 | XMS_ITS | Encounter Summary ---
Author Organization [employer] Address [address] [facility] 7t [place] [address] Care Team Providers Care Supervisor Sign Shop Name Role Phone Whitney Sotomayor Primary Care Provider [phone] Genoveva Chamorro MD Unavailable [phone] Reason for Visit * Reason Onset Date Comments Televisit 12/09/2024 Encounter Details Date Type Department Care Team ([facility] st Contact Info) Description 12/09/2024 Telephone [facility] MEDICINE [address] [place] [address] Whitney Sotomayor ANP [address] [place] [address] Televisit Social History Tobacco Use Types Packs/Day Years [...] encounter Miscellaneous Notes * Telephone Encounter - Amanda You - 12/09/2024 3:25 PM EDT Called Patient to check in for televisit with PCP, no answer. Left vm advised to call back. documented in this encounter Plan of Treatment Not on file documented as of this encounter Visit Diagnoses Not on filedocumented in this encounter Additional Health Concerns Assessment Noted Time PHQ-9 Depression Total Score: 9 07/16/19 24 1:46 PM EDT documented as of this encounter Care Teams Supervisor Sign Shop Relationship Specialty Start Date End Date Whitney Sotomayor ANP [address] [place] [address] PCP - General Family Medicine 10/31/20 Genoveva Chamorro MD [address] [place] [address] Dr 3rd [place] [address] Gastroenterology 02/19/24 documented as of this encounter
--- OUTSIDE RECORDS SUMMARY | 2024-12-10 09:25 | XMS_ITS | Encounter Summary ---
Author Organization [employer] Address [address] [facility] 7 [place] [address] Care Team Providers Care Nursing Informatics Specialist Name Role Phone Whitney Sotomayor Primary Care Provider Genoveva Chamorro MD Unavailable [phone] Reason for Visit * Reason Onset Date Comments chart prep 12/07/2024 Encounter Details Date Type Department Care Team ([facility] st Contact Info) Description 12/07/2024 Telephone [facility] MEDICINE [address] [place] [address] Whitney Sotomayor ANP [address] [place] [address] chart prep Social History Tobacco Use Types [...] encounter Miscellaneous Notes * Telephone Encounter - Hank Chen [place] - 12/07/2024 10:07 AM EDT Chart Prep Labs: done Images: done Referrals: not applicable Vaccines due: Covid, Flu, and HPV Screenings: not applicable Overdue care gaps: Not applicable documented in this encounter Plan of Treatment Not on file documented as of this encounter Visit Diagnoses Not on filedocumented in this encounter Additional Health Concerns Assessment Noted Time PHQ-9 Depression Total Score: 9 07/16/19 24 1:46 PM EDT documented as of this encounter Care Teams Nursing Informatics Specialist Relationship Specialty Start Date End Date Whitney Sotomayor ANP [address] [place] [address] [place] [address] PCP - General Family Medicine 10/31/20 Genoveva Chamorro MD [address] [place] [address] Dr 3rd Floor [place] [address] Gastroenterology 02/19/24 documented as of this encounter
--- OUTSIDE RECORDS SUMMARY | 2024-12-10 09:25 | XMS_ITS | Clinical Summary ---
Author Organization [employer] Address [address] [place] [address] 7t [place] [address] Care Team Providers Care Shop Steward Name Role Phone Светлана Ar BUSCH Primary Care Provider [phone] Genoveva Chamorro MD Unavailable [phone] Allergies Active Allergy Reactions Criticality Noted [...] MG tablet Take by mouth. Activ e Spacer/Aero-Hol ding Chambers (OptiChamber Leora) misc 1 each every 4 (four) hours if needed (asthma). 1 each 4 Active cyclobenzaprine (Flexeril) 5 MG tabletIndicatio ns:Pain in joint of left shoulder Take 1 tab as needed up to 3 times in 24 hrs 30 tablet 4 Active acetaminophen (Tylenol) 500 MG tabletIndicatio ns:Influenza B Take 2 tablets (1,000 mg) by mouth every 6 (six) hours if needed for moderate pain or fever for up to 25 doses. 50 tablet 5 Active albuterol 108 (90 Base) MCG/ACT inhaler Inhale 2 puffs every 4 (four) hours if needed for wheezing or shortness of breath. 18 g 3 5 04/01/19 Active fluticasone (Flonase) 50 MCG/ACT nasal sprayIndication s:Nasal congestion Use 1-2 sprays as needed per nostril. Shake gently. Before first use, prime pump. After use, clean tip and replace cap. 16 g 5 Active cetirizine (ZyrTEC) 10 MG tabletIndicatio ns:Nasal congestion 1 tablet as needed for allergies/nasal congestion 90 tablet 5 Active fluocinolone ([place]-Smoothe/ FS Body) 0.01 % external oilIndications: Seborrheic dermatitis Apply to scalp at bedtime, wear shower cap, wash out in AM. Use 2-3 times per week. 118 mL 1 5 Active sertraline (Zoloft) 25 MG tabletIndicatio ns:Severe episode of recurrent major depressive disorder, without psychotic features (CMS/HCC) (HCC) Take 1 tablet (25 mg) by mouth Once per day. 30 tablet 1 5 Active ibuprofen 400 MG tabletIndicatio ns:Left elbow pain Take 1 tablet (400 mg) by mouth every 6 (six) hours if needed for moderate pain. Take with food 60 tablet 1 5 Active Active Problems Patient Care Coordination [...] [facility], Comply with medication [...] Health Integration Plan Internal Follow up with [facility] Patient Self Plan Patient to utilize skills provided in intervention , Patient to reach out to [facility] team as needed, and Patient to reach [...] 07/07 -pap smear: unsure-pt will check w SUPPLY COORDINATOR at upcoming apt 06/2023 -vaccine COVID 19 [...] Encounters Date Type Department Care Team Description 12/09/2024 4:00 PM EDT Telemedicine [address] [address] Ar Oliver ANP Severe episode of recurrent major depressive disorder, without psychotic features (CMS/HCC) (HCC) (Primary Dx) 12/09/2024 Telephone [facility] MEDICINE [address] [place] [address] Ar Oliver ANP Televisit 12/07/[address] [address] Ar Oliver ANP chart prep 12/02/2024 Travel 11/27/[address] [address] Ar Oliver ANP Lab Orders 11/05/2024 Orders Only [facility] External Provider, [facility] 10/27/2024 11:00 AM EDT Office Visit [address] [address] Ar Oliver ANP Severe episode of recurrent [...] 10/27/2024 11:05 AM EDT Plan of Treatment Health Maintenance Due Date Last Done Comments Family Planning (PISQ) 2004 HPV Vaccines (1 - 3-dose series) 2004 COVID-19 Vaccine (3 - 2024-2 6 season) 2024 07/22/2020, 07/01/2020 Influenza Vaccine (#1) 2024 01/20/2021 Depression Monitoring 01/31/2025 07/31/2024 , 07/16/2023 Alcohol/Substance Use Screening 07/31/2025 07/31/2024 SDOH Screening 07/31/2025 07/31/2024 Disability Screening 10/26/2025 10/26/2024 Tobacco Screening 12/09/2025 12/09/2024 Cervical Cancer Screening 04/13/2027 HPV/Cotest 04/13/2027 04/13/2022, [...] 49) Years Aged Out No longer eligible based on [...] AUTO DIFFERENTIAL Routine 09/23/2024 5:11 AM EDT HEPATITIS PANEL, GENERAL Routine 11/20/2023 8:11 [...] AM EDT Narrative 11/05/2024 10:30 AM EDT [place] [address] Ultrasound Report Signed Patient: Farhan Felton MR#: [id number] : 1990 Acct:[id number] Age/Sex: 34 / F ADM Date: 11/05/24 Loc: HO.US Attending Dr: Genoveva Chamorro MD Ordering Physician: Genoveva Chamorro MD Date of Service: 11/05/24 Procedure(s): US abdomen mcadams w elastography Accession Number(s): [id number] cc: Genoveva Chamorro MD; AR OLIVER NP [...] 11/05/24 1027 DD/ 1005 TD/TT: 11/05/24 1016 Delivery Technician: Procedure Note Donotuseinterpreter, Image - 11/05/[address] [address] Ultrasound Report Signed Patient: Farhan FeltonMR#: [id number] : 1990Acct:[id number] Age/Sex: 34 / FADM Date: 11/05/24 Loc: HO.US Attending Dr: Genoveva Chamorro MD Ordering Physician: Genoveva Chamorro MD Date of Service: 11/05/24 Procedure(s): US abdomen mcadams w elastography Accession Number(s): [id number] cc: Genoveva Chamorro MD; AR OLIVER NP [...] 11/05/24 1027 DD/ 1005 TD/TT: 11/05/24 1016 Delivery Technician: us [facility] External Provider IMG US PROCEDURES Final Result * (ABNORMAL) CBC auto differential (09/23/2024 5:11 AM EDT) White Blood Count 12.7(H) 4.8 - 10.8 X10*3/uL [facility] Red Blood Count 4.62 4.20 - 5.50 X10*6/uL [facility] Hemoglobin 13.2 12.0 - 16.0 g/dl [facility] Hematocrit 39.2 37.0 - 47.0 % [facility] Mean Corpuscular Volume 84.8 80.0 - 98.0 fL [facility] Mean Corpuscular Hemoglobin 28.6 27.0 - 33.0 pg [facility] Mean Corpuscular HGB Conc 33.7 31.0 - 35.0 g/dl [facility] Red Cell Distribution Width 14.0 11.0 - 16.0 % [facility] Platelet Count 176 160 - 400 X10*3/uL [facility] Mean Platelet Volume 12.4(H) 9.4 - 12.3 fL [facility] Neutrophils Percent Auto 82.4(H) 45 - 73 % [facility] Imm Gran Pct Auto 0.5(H) 0.0 - 0.4 % [facility] Lymphocytes Percent Auto 12.2(L) 20 - 40 % [facility] Monocytes Percent Auto 4.3 2 - 11 % [facility] Eosinophils Percent Auto 0.3 0 - 4 % [facility] Basophils Percent Auto 0.3 0 - 2 % [facility] NRBC Pct Auto 0.0 0.0 - 0.2 /100WBC [facility] Neutrophils Absolute Auto 10.4(H) 2.0 - 8.3 x10*3/uL [facility] Imm Gran Abs Auto 0.06(H) 0.00 - 0.03 X10*3/uL [facility] Lymphocytes Absolute Auto 1.6 1.2 - 4.9 X10*3/uL [facility] Monocytes Absolute Auto 0.5 0.1 - 1.2 X10*3/uL [facility] Eosinophils Absolute Auto 0.0 0.0 - 0.4 X10*3/uL [facility] Basophils Absolute Auto 0.0 0.0 - 0.2 X10*3/uL [facility] NRBC Abs Auto 0.000 0.0 - 0.012 X10*3/uL [facility] 09/23/2024 5:11 AM EDT 09/23/2024 5:14 AM EDT us Generic External Data Provider LAB BLOOD ORDERAB LES Final Result Performing Organization Address [facility] [address]/ZIP Co de Phone Number [facility] [address] [place] [address] [phone] * Hepatitis Panel, General (11/20/2023 8:11 AM EDT) Hepatitis A IgM Nonreactive Nonreactive [facility] Comment:IgM antibodies to FLEMING V not detected; does not exclude earlyacute or recovered HAV infection. ~Hepatitis B Surface Antibody REACTIVE Nonreactive [facility] Comment:REACTIVE: > 11.99 mI U/mL Hepatitis B Core Antibody Nonreactive Nonreactive [facility] Hepatitis C Antibody Nonreactive Nonreactive [facility] Comment:Antibodies to HCV no t detected; does not exclude early acuteHCV infection. Hepatitis B Surface Ag Negative Negative [facility] 11/20/2023 8:11 AM EDT 11/20/2023 8:11 AM EDT Generic External Data Provider LAB BLOOD ORDERAB LES Final Result Performing Organization Address City/[facility] [address]/ZIP Co de Phone Number [facility] [address] [place] [phone] * HIV-1/2 Antigen and Antibodies, Fourth Generation, with Reflexes (07/15/2023 8:29 AM EDT) HIV AB/AG Nonreactive Nonreactive [facility] Comment:HIV-1 p24 Ag and/or HIV-1/HIV-2 Ab not detected.A test result that is nonreactive does not exclude thepossibility of exposure to or infection with HIV-1 and/orHIV-2. Nonreactive results in this assay for individualswith prior exposure to HIV-1 and/or HIV-2 may be due toantigen and antibody levels that are below the limit ofdetection of this assay.The [employer] HIV Ag/Ab Combo assay result andsupplemental assay results should be interpreted inconjunction with the patient's clinical presentation,history and other laboratory results. If the results areinconsistent with clinical evidence, additional testing issuggested to confirm the result. Blood Venous blood specimen / Unknown 07/15/2023 8:29 AM EDT 07/15/2023 11:20 AM EDT us Lynda Garibay MD LAB BLOOD ORDERAB LES Final Result Performing Organization Address [facility] [address]/ZIP Co de Phone Number [facility] [address] [place] [phone] * Lipid Panel, Standard (07/15/2023 8:29 AM EDT) Triglycerides 68 <150 mg/dL [facility] Comment:Desirable Triglyceri de: less than 150 mg/dLBorderline High Triglyceride 150-199 mg/dLHigh Triglyceride: 200-499 mg/dLVery High Triglyceride: greater than or equal to 5OO mg/dL Cholesterol 170 <200 mg/dL [facility] Comment:Desirable Cholestero l: less than 200 mg/dLBorderline High Cholesterol: 200-239 mg/dLHigh Cholesterol: greater than 239 mg/dL LDL Cholesterol Calculated 98 <100 mg/dL [facility] Comment:Desirable LDL: less than 100 mg/dLNear Optimal/Above Optimal LDL: 110- 129 mg/dLBorderline High LDL: 130-159 mg/dLHigh LDL: 160-189 mg/dLVery High LDL: greater than or equal to 190 mg/dL HDL Cholesterol 59 >40 mg/dL [facility] Comment:Desirable HDL: great er than 40 mg/dL Note: This HDL assay may give artificially low results in patients with liver disease. Blood Venous blood specimen / Unknown 07/15/2023 8:29 AM EDT 07/15/2023 11:20 AM EDT us Lynda Garibay MD LAB BLOOD ORDERAB LES Final Result Performing Organization Address [facility] [address]/ZIP Co de Phone Number [facility] [address] [place] [phone] * HPV mRNA E6/E7 w/Reflex to HPV Genotypes 16, 18/45 (04/13/2022) 04/13/2022 Historical Provider LAB CYTOLOGY ORDERABLES F inal Result * Hm Pap Smear (04/13/2022) Pap Negative for intraephithelial lesion or malignancy Negative for intraephithelial lesion or malignancy, Other Historical Provider HEALTH MAINTENANCE Edited Result - Final from Last 3 Months or Most Recently Relevant to Health Maintenance Insurance Care Teams Shop Steward Relationship Specialty Start Date End Date Ar Oliver ANP [address] [place] [address] PCP - General Family Medicine 10/31/20 Genoveva Chamorro MD [address] [place] [address] Dr 3rd Floor [place] [address] Gastroenterology 02/19/24
[2024-12-12 20:23] LABS: TS Negative Control Passed; TS Panel A 0; TS Panel B 0; TS Positive Control Passed; TSpotTB Negative (Negative)
== END 2024-12-10 08:52 | disposition home or self-care (01) ==
LOC: HO.HHCL 08:51
PROVIDERS: PCP Nurse Practitioner Primary Care; Referring Provider Nurse Practitioner Primary Care; Visit Provider Internal Medicine Gastroenterology
DX: Z11.1 Encounter for screening for respiratory tuberculosis (principal)
CPT/HCPCS: 36415; 86481

== ENCOUNTER 2024-12-18 10:45 | Outpatient (AMB) | payer MEDICAID, SELFPAY ==
--- NOTE | 2024-12-18 10:49 | A.OFFVIS_ITS ---
Vital Signs 12/18/24 10:59 Height 5 ft 1 in Weight 149 lb BMI 28.2 Intake Visit Reasons: New prob- Left Elbow Pain Intake Note: Farhan is a 34 year old right hand dominant female who presents today as an established patient, new problem visit to evaluate left elbow pain. She was previously seen in 2021 for her right elbow and was given an counter force brace. Today patient reports her left elbow discomfort has been present for more than 8 months. No injury, however she mentions that she often bumps both of her elbows. Her symptoms are similar to her right elbow pain. Her pain starts at her CMC, travels up to her elbow and at times to her shoulder. Complaints of numbness and tingling as well as weakness in her arm. Her discomfort is making it difficult to use her arm for [employer]OD[employer] and at work. She attended therapy which had helped. Allergies Sulfa (Sulfonamide Antibiotics) (SULFA (SULFONAMIDE ANTIBIOTICS)) Allergy (Mild, Verified 12/18/24 10:59) EYE SWELLING latex Allergy (Verified 12/18/24 10:59) Rash Medication List - Last Reconciled 12/18/24 by Bob Gabriel PA-C alum-mag hydroxide-simeth 200-200-20 mg/5 mL (Maalox Advanced) 5 mL PO 5XD PRN famotidine 40 mg PO BID ibuprofen 600 mg PO Q6H PRN sertraline 50 mg PO BEDTIME vitamin E (dl, acetate) 180 mg PO BID HPI HPI New prob- Left Elbow Pain: Details: 34 yo female presents to the office to office today for left elbow pain x8 months. No injury that she can recall. She states the pain comes and goes and is worse with lifting or carrying. She does experience numbness in the arm which radiates into the entire hand . She states she has done occupational therapy on the left but would like to continue. She also takes ibuprofen as needed however she does have gastritis so she tries to limit the use. No other treatment to date. PENDING SALE TO [facility] Medical History Chronic abdominal pain Surgical History History of esophagogastroduodenoscopy (EGD) Family History Father Diabetes HTN (hypertension) Heart problem Mother Cancer Diabetes HTN (hypertension) Maternal Grandmother Cancer Social History Household Members: Spouse and Children Are you a primary resident caregiver to a significant other at home: No Do you presently have visiting nurse or other home services: No Alcohol intake: current Alcohol intake frequency: holidays/special occasions only Patient Tobacco Use Status: Never used Tobacco Current occupational status: employed 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 No erythema or swelling. ROM full without pain. Tenderness over the lateral epicondyle and pain with resisted wrist extension. NVI. Assessment & Plan Assessment & Plan (1) Left lateral epicondylitis: Code(s): M77.12 - Lateral epicondylitis, left elbow Category: Medical Plan: We discussed options today which includes occupational therapy and anti- inflammatory use. I did put in an order for occupational therapy and she will call to make an appointment. I sent her a prescription for Celebrex as this is easier on the stomach to take twice a day for 2 weeks for inflammation. She was also fit for a counter force brace. I also ordered an EMG/nerve conduction study to further assess her numbness and tingling. Once the study is complete I will contact her to discuss the next step. Patient is content in all questions were answered. Orders: Orders NE nerve conduction velocity Today R20.0 - Anesthesia of skin, R20.2 - Paresthesia of skin OT Evaluation and Treatment Today M77.12 - Lateral epicondylitis, left elbow NE electromyogram (EMG) Today R20.0 - Anesthesia of skin, R20.2 - Paresthesia of skin Medications: New celecoxib (Celebrex) 200 mg PO BID 60 caps 3RF 30 days Coding Level of Care Code Est Pt Level 3 (43413) Complex EM visit Add On G2211 Diagnoses Left lateral epicondylitis M77.12
[2024-12-18 10:59] VITALS: BMI 28.2
== END 2024-12-18 12:08 | disposition home or self-care (01) ==
LOC: HO.HOS 10:45
PROVIDERS: PCP Nurse Practitioner Primary Care; Visit Provider Physician Assistant
DX: M77.12 Lateral epicondylitis, left elbow (principal)
CPT/HCPCS: 99213

== ENCOUNTER → 2024-12-18 10:45 | Outpatient (BNVA) | payer MEDICAID, SELFPAY | PROVIDERS: PCP Nurse Practitioner Primary Care; Visit Provider Physician Assistant | DX: M25.522 Pain in left elbow (principal); M77.12 Lateral epicondylitis, left elbow; R20.0 Anesthesia of skin; R20.2 Paresthesia of skin | CPT/HCPCS: 99212 ==

== ENCOUNTER 2024-12-29 04:38 | Emergency (ER) | payer MEDICAID, SELFPAY ==
[2024-12-29 04:39] VITALS: BP 126/87; PULSE 88; RESP 16; TEMP 36.4; O2SAT 99; BMI 25.5
[2024-12-29 04:55] LABS: Hematocrit 41.5 % (37.0-47.0); Hemoglobin 13.7 g/dl (12.0-16.0); Imm Gran Abs Auto 0.10 X10*3/uL (0.00-0.03); Imm Gran Pct Auto 0.7 % (0.0-0.4); Lymphocytes Absolute Auto 2.2 X10*3/uL (1.2-4.9); MANUAL DIFF FLAG NO; Mean Corpuscular HGB Conc 33.0 g/dl (31.0-35.0); Mean Corpuscular Hemoglobin 28.0 pg (27.0-33.0); Mean Corpuscular Volume 84.7 fL (80.0-98.0); NRBC Abs Auto 0.000 X10*3/uL (0.0-0.012); NRBC Pct Auto 0.0 /100WBC (0.0-0.2); Platelet Count 215 X10*3/uL (160-400); Red Blood Count 4.90 X10*6/uL (4.20-5.50); White Blood Count 15.0 X10*3/uL (4.8-10.8)
[2024-12-29] MEDS: Lactated Ringers 1,000 ML 999 ML IV (05:10)
[2024-12-29 05:15] LABS: IDNOW Serial# 152EDE1D; Influenza B2 Negative (Negative)
[2024-12-29 05:16] LABS: COVID-19 Test Negative (Negative); IDNOW Serial# 16C4AD1C
[2024-12-29 05:17] LABS: Alanine Aminotransferase 92 U/L (0-31); Albumin Level 4.2 g/dL (3.5-5.0); Alkaline Phosphatase 153 U/L (39-117); Anion Gap 13 (12-20); Aspartate Amino Transferase 61 U/L (5-31); Blood Urea Nitrogen 12 mg/dL (9-16); Calcium 9.0 mg/dL (8.4-10.2); Carbon Dioxide 18 mmol/L (22-29); Chloride 112 mmol/L (96-108); Creatinine Clr Calc Pharmacy 99.8; Estimated Glomerular Filt Rate > 60; Lipase 44 U/L (8-78); Magnesium 1.9 mg/dL (1.6-2.6); Potassium 3.8 mmol/L (3.3-5.1); Sodium 139 mmol/L (135-145); Total Protein 7.0 g/dL (6.5-8.0)
--- OUTSIDE RECORDS SUMMARY | 2024-12-29 05:30 | XMS_ITS | Data Portability ---
Author Organization [facility], [address] Address [address] [place] [address] Assessment No assessment recorded. Plan of Treatment Reminders Order Date Submit Date Provider Last Modified By Organization Details Last Modified Time Details Appointments None recorded. Lab rapid flu (A+B) 2021 [email or web address] _[facility], [address] [place] [address], [phone], 12:35:37 rapid strep group A, throat 2021 [email or web address] _[facility], [address] [place] [address], [phone], 12:35:37 Referral None recorded. Procedures None recorded. Surgeries None recorded. Imaging None recorded. Medication Orders cetirizine 10 mg tablet 2021 [id number] [place], [address], 12:35:46 Lidocaine Viscous 2 % mucosal solution 2021 [email or web address] Not available 13:24:25 Patient TargetsNo targets recorded. Patient Instructions Encounter Date Encounter Id Patient Instructions Last Modified By Organization Details Last Modified Time 02/17/2022 [id number] laryngitis: care instructions [email or web address] Not available 02/17/2022 12:35:37 You have been diagnosed with an Upper Respiratory Infection. Rapid Strep and Flu test were negative. It is important to drink plenty of fluids and rest while you are ill. Hot Tea with Honey is good to help with a sore throat. Some OTC medications that are helpful with your current symptoms would include. 1. Tylenol 2. Saline Nasal Flushing Try an avoid other people and wash [...] 4. Shortness of Breath or Chest Pain. [email or web address] Not available 02/17/2022 12:28:31 Reason for Referral None Reported. Results Created Date Observation Date Name Description Value Unit Range Abnormal Flag Note LastModifiedBy Organization Detail LastModifiedTime 02/18/20 22 02/17/2022 rapid strep group A, throa t Unknown Analyte negati ve Not Available [email or web address], [phone], 02/17/2022 12:21:20 02/18/20 22 02/17/2022 rapid strep group A, throa t Unknown Analyte Normal = Negati ve Not Available [address] [place] [address], [phone], 02/17/2022 12:21:20 02/18/20 22 02/17/2022 rapid flu (A+B) Unknown Analyte negati ve Not Available [address] [place] [address], [phone], 02/17/2022 11:48:36 02/18/20 22 02/17/2022 rapid flu (A+B) Unknown Analyte negati ve Not Available [address] [place], [place] [address] [place], [address], 02/17/2022 11:48:36 02/18/2002/17/2022 rapid flu (A+B) Unknown Analyte Normal = Negati ve Not Available [address] [place], [address], 02/17/2022 11:48:36 Result Notes None recorded. Problems No Known Problems Medical Equipment None Reported. Allergies Allergen ID Allergen Name Allergen Category Reaction Reaction Severity Criticality Documentation Date Start Date Code Code System Note Provider Name and Address Organization Details Recorded Time 93697 Substance with sulfonami de structure and antibacte rial mechanism of action (substanc e) medicatio n eye swelling mild low 02/17/2022 41057 8003 SNOMED TAWANNA hernandez [facility] - [facility] [...] Updated DateTime 2 154.94 cm 25.5 kg/m2 97870.9 7 g 98 [degF] 18 /min 74 [...] Diagnosis SNOMED-CT Code Diagnosis ICD10 Code Diagnosis IMO Codes Diagnosis Note [id number] [address] [place] [address] 09/14/2020 10:07:16 09/14/2020 10:54:35 [id number] [facility] [address] [facility] [facility] [address] [place] [address] 02/17/2022 09:46:25 02/17/2022 12:36:27 Acute pharyngitis 014334824 J02.9 Upper resp iratory infection 93561087 J06.9 Health Concerns Section Related Observation LastModified by Organization Detai ls LastModified Time None Recorded Concern Status LastModified by Organization Details LastModified Time None Recorded Advance Directives Directive None Recorded Payers Insurance Date Sequence Insurance Name Policy Number Policy Cabrera Covered Member ID Cabrera Member ID Guarantor Name 02/17/2022 1 [place] [facility] Farhan Chase [id number] Farhan Chase Notes Date Note Type Note Provider Name and Address Organization Details Recorded Time 02/17/2022 text/html Sore throatRepor leonora by PatientSore ThroatFor associated symptoms, patient reportssore throat,hoarseness,nasa l congestion, andcoughing. For context, patient reportssick contact. For source of patient information, patient reportsinformation obtained from patientandpatient arrived at urgent care ambulatory. For location, patient reportsthroat. For severity, patient reportsmild. For quality, patient reportshurts to swallow. For onset/timing, patient reports2 days.Sudden onset loss of voice. Lots of mucous draining into her throat. hurts to breath even. Mild cough. No fever. Ears are feeling clogged. 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 TREVON CARR [address] [place], [address], [place] - [facility] 02/17/2022 12:39:05 OBGyn Episode No OBEpisode recorded.
--- OUTSIDE RECORDS SUMMARY | 2024-12-29 05:30 | XMS_ITS | Encounter Summary ---
Author Organization [employer] [facility] Address [address] [place] [address] [address] [place] [address] Care Team Providers Care Paint Department Supervisor Name Role Phone Светлана Whitney BUSCH Primary Care Provider [phone] Genoveva Chamorro MD Unavailable [phone] Encounter Details Date Type Department Care Team (Late st Contact Info) Description 11/30/2022 Orders Only [facility] [address] [place] [address] [phone] Carlos Woo MD Social History Tobacco Use Types Packs/Day [...] Care Team (Late st Contact Info) Description 02/01/2025 1:15 PM EST Office Visit [facility] [address] [place] [address] [phone] Ginny Bustos MD [address] [place] [address] [phone] 02/10/2025 4:00 PM EST Telemedicine [facility] [address] [facility] [place] [address] Whitney Sotomayor ANP [address] [place] [address] documented as of this encounter Procedures Procedure [...] documented as of this encounter Care Teams Paint Department Supervisor Relationship Specialty Start Date End Date Whitney Sotomayor ANP [address] [place] [address] PCP - General Family Medicine 10/31/20 Genoveva Chamorro MD [address] [place] [address] Dr [address] [place] [address] Gastroenterology 02/19/24 documented as of this encounter
--- OUTSIDE RECORDS SUMMARY | 2024-12-29 05:30 | XMS_ITS | Encounter Summary ---
Author Organization [facility] Address [address] [facility] [address] [place] [address] Care Team Providers Care Senior Product Consultant Name Role Phone Светлана Whitney BUSCH Primary Care Provider [phone] Genoveva Chamorro MD Unavailable [phone] Encounter Details Date Type Department Care Team (Late st Contact Info) Description 12/29/2024 Orders Only GENERIC EXTERNAL DATA DEPARTMENT Provider, [...] t he electric, gas, oil or water [employer] threatened to shut off services in your [...] Description 02/01/2025 1:15 PM EST Office Visit [facility] [address] [place] [address] Ginny Bustos MD [address] [place], [place] [phone] 02/10/2025 4:00 PM EST Telemedicine [facility] [address] [place] [address] [phone] Whitney Sotomayor ANP [address] [place], [place] [phone] documented as of this encounter Procedures Procedure Name Priority Date/Time Associated Diagnosis Comments INFLUENZA A B2 ID NOW (TORRES) Routine 12/29/2024 4:50 AM EDT CBC WITH AUTO DIFFERENTIAL Routine 12/29/2024 4:50 AM EDT COVID-19 ID NOW (TORRES) Routine 12/29/2024 4:49 AM EDT documented in this encounter Results * Influenza A B2 ID NOW (Torres) (12/29/2024 4:50 AM EDT) IDNOW SERIAL# [id number] [facility] Influenza A Negative Negative [facility] Influenza B2 Negative Negative [facility] Influenza A B2 Note See Note [facility] Comment:The Torres ID NOW In fluenza A B2 test is used for thequalitative detection of influenza A and B from patientswith signs and symptoms of respiratory infection.Negative results do not preclude influenza virus infectionand should not be used as the sole basis for diagnosis,treatment or other patient management decisions.There is a risk of false negative results due to thepresence of variants in the viral targets of the assay, lowlevels of virus in the specimen and co- infection withRespiratory Syncytial Virus. 12/29/2024 4:50 AM EDT 12/29/2024 4:54 AM EDT us Generic External Data Provider LAB MICROBIOLOGY - GENERAL ORDERABLES Final Result [facility] [address] [place] [address] [phone] * (ABNORMAL) CBC auto differential (12/29/2024 4:50 AM EDT) White Blood Count 15.0(H) 4.8 - 10.8 X10*3/uL [facility] Red Blood Count 4.90 4.20 - 5.50 X10*6/uL [facility] Hemoglobin 13.7 12.0 - 16.0 g/dl [facility] Hematocrit 41.5 37.0 - 47.0 % [facility] Mean Corpuscular Volume 84.7 80.0 - 98.0 fL [facility] Mean Corpuscular Hemoglobin 28.0 27.0 - 33.0 pg [facility] Mean Corpuscular HGB Conc 33.0 31.0 - 35.0 g/dl [facility] Red Cell Distribution Width 13.8 11.0 - 16.0 % [facility] Platelet Count 215 160 - 400 X10*3/uL [facility] Mean Platelet Volume 12.3 9.4 - 12.3 fL [facility] Neutrophils Percent Auto 78.9(H) 45 - 73 % [facility] Imm Gran Pct Auto 0.7(H) 0.0 - 0.4 % [facility] Lymphocytes Percent Auto 14.7(L) 20 - 40 % [facility] Monocytes Percent Auto 5.0 2 - 11 % [facility] Eosinophils Percent Auto 0.3 0 - 4 % [facility] Basophils Percent Auto 0.4 0 - 2 % [facility] NRBC Pct Auto 0.0 0.0 - 0.2 /100WBC [facility] Neutrophils Absolute Auto 11.8(H) 2.0 - 8.3 x10*3/uL [facility] Imm Gran Abs Auto 0.10(H) 0.00 - 0.03 X10*3/uL [facility] Lymphocytes Absolute Auto 2.2 1.2 - 4.9 X10*3/uL [facility] Monocytes Absolute Auto 0.8 0.1 - 1.2 X10*3/uL [facility] Eosinophils Absolute Auto 0.0 0.0 - 0.4 X10*3/uL [facility] Basophils Absolute Auto 0.1 0.0 - 0.2 X10*3/uL [facility] NRBC Abs Auto 0.000 0.0 - 0.012 X10*3/uL [facility] 12/29/2024 4:50 AM EDT 12/29/2024 4:53 AM EDT us Generic External Data Provider LAB BLOOD ORDERAB LES Final Result [facility] [address] [place] [phone] * COVID-19 ID NOW (TORRES) (12/29/2024 4:49 AM EDT) IDNOW SERIAL# [id number] [facility] COVID-19 TEST Negative Negative [facility] COVID-19 NOTE See Note [facility] Comment: Results are for the identification of SARS-CoV2 RNA. TheSARS-CoV2 RNA is generally detectable in respiratory samplesduring the acute phase of infection. Positive results areindicative of the presence of SARS-CoV-2 RNA; clinicalcorrelation with patient history and other diagnosticinformation is necessary to determine patient infectionstatus. Positive results do not rule out bacterial infectionor co- infection with other viruses.Testing facilities within the [place] and [facility] are required to report all positive results tothe appropriate public health authorities.Negative results should be treated as presumptive and, ifinconsistent with clinical signs and symptoms or necessaryfor patient management, should be tested with differentauthorized or cleared molecular tests. Negative results donot preclude SARS-CoV2 RNA infection and should not be usedas the sole basis for patient management decisions. Negativeresults should be considered in the context of a patient'srecent exposures, history and the presence of clinical signsand symptoms consistent with COVID-19.This test has been authorized by the FDA under an EmergencyUse Authorization (EUA) for use by authorized laboratories.Testing performed on the [employer] ID NOW utilizing NAAT. 12/29/2024 4:49 AM EDT 12/29/2024 4:54 AM EDT us Generic External Data Provider LAB MOLECULAR BILL GNOSTICS ORDERABLES Final Result [facility] [address] [place] [phone] documented in this encounter Visit Diagnoses Not on filedocumented in this encounter Additional Health Concerns Assessment Noted Time PHQ-9 Depression Total Score: 9 07/16/19 24 1:46 PM EDT documented as of this encounter Care Teams Senior Product Consultant Relationship Specialty Start Date End Date Whitney Sotomayor ANP [address] [place] [phone] PCP - General Family Medicine 10/31/20 Genoveva Chamorro MD [address] [place] [address] Dr [address] [place] [address] Gastroenterology 02/19/24 documented as of this encounter
--- OUTSIDE RECORDS SUMMARY | 2024-12-29 05:30 | XMS_ITS | Clinical Summary ---
Author Organization [employer] Address [address] [place] [address] [address] [place] [address] Care Team Providers Care Insole Taper Name Role Phone Светлана Ar BUSCH Primary Care Provider Genoveva Chamorro MD Unavailable [phone] Allergies Active Allergy Reactions Criticality Noted [...] allergies/nasal congestion 90 tablet 5 Active fluocinolone (Peggs-Smoothe/ FS Body) 0.01 % external oilIndications: Seborrheic [...] intervention , Patient to reach out to [facility] team as needed, Comply with medication , [...] Health Integration Plan Internal Follow up with [facility] Patient Self Plan Patient to utilize skills provided in intervention , Patient to reach out to [facility] team as needed, and Patient to [...] 07/07 -pap smear: unsure-pt will check w DIALYSIS PATIENT CARE TECHNICIAN at upcoming apt 06/2023 -vaccine COVID 19 [...] Encounters Date Type Department Care Team Description 12/29/2024 Orders Only GENERIC EXTERNAL DATA DEPARTMENT Provider, Generic External Data 12/09/2024 4:00 PM EDT Telemedicine [address] [address] Ar Oliver ANP Severe episode of recurrent major depressive disorder, without psychotic features (CMS/HCC) (HCC) (Primary Dx) 12/09/[address] [address] Ar Oliver ANP Televisit 12/07/[address] [address] Ar Oliver ANP chart prep 12/02/2024 Travel 11/27/[address] [address] Ar Oliver ANP Lab Orders 11/05/2024 Orders Only [facility] External Provider, [facility] 10/27/2024 11:00 AM EDT Office Visit [address] [address] Ar Oliver ANP Severe episode of recurrent major depressive disorder, without psychotic features (CMS/HCC) (Primary Dx); Left elbow pain 10/26/2024 Travel from Last 3 Months Immunizations Immunization [...] Description 02/01/2025 1:15 PM EST Office Visit [facility] [address] [place] [address] [phone] Ginny Bustos MD [address] [place], [place] [phone] 02/10/2025 4:00 PM EST Telemedicine [facility] [address] [place], [place] [phone] Ar Oliver ANP [address] [place], [place] [phone] Health Maintenance Due Date Last Done Comments Family Planning (PISQ) 2004 HPV Vaccines (1 - 3-dose series) 2004 COVID-19 Vaccine ( - 2024-2 6 season) 2024 07/22/2020, 07/01/2020 [...] Diagnosis Comments CBC WITH AUTO DIFFERENTIAL Routine 12/29/2024 4:50 AM EDT INFLUENZA A B2 ID NOW ([employer]) Routine 12/29/2024 4:50 AM EDT COVID-19 ID NOW ([facility]) Routine 12/29/2024 4:49 AM EDT T-SPOT(R).TB Routine 12/10/2024 9:22 AM EDT Screening for tuberculosis US ABDOMEN MCADAMS W ELASTOGRAPHY Routine 11/05/2024 10:05 AM EDT HEPATITIS PANEL, GENERAL Routine 11/20/2023 8:11 AM EDT HIV 1/2 ANTIGEN/ANTIBODY, FOURTH GENERATION W/RFL Routine 07/15/2023 8:29 AM EDT Annual physical exam LIPID PANEL, STANDARD Routine 07/15/2023 8:29 AM EDT Annual physical exam HPV MRNA E6/E7 REFLEX TO HPV 16, 18/45 Routine 04/13/2022 HM PAP/HPV Routine 04/13/2022 from Last 3 Months or Most Recently Relevant to Health Maintenance Results * Influenza A B2 ID NOW ([facility]) (12/29/2024 4:50 AM EDT) IDNOW SERIAL# [id number] [facility] Influenza A Negative Negative [facility] Influenza B2 Negative Negative [facility] Influenza A B2 Note See Note [facility] Comment:The Torres ID NOW In [...] LAB MICROBIOLOGY - GENERAL ORDERABLES Final Result [facility] [address] [place] [phone] * (ABNORMAL) CBC auto differential (12/29/2024 4:50 AM EDT) Pathologist [facility] White Blood Count 15.0(H) 4.8 - 10.8 X10*3/uL [facility] Red Blood Count 4.90 4.20 - 5.50 X10*6/uL [facility] Hemoglobin 13.7 12.0 - 16.0 g/dl [facility] Hematocrit 41.5 37.0 - 47.0 % [facility] Mean Corpuscular Volume 84.7 80.0 - 98.0 fL [facility] Mean Corpuscular Hemoglobin 28.0 27.0 - 33.0 pg [facility] Mean Corpuscular HGB Conc 33.0 31.0 - 35.0 g/dl [facility] Red Cell Distribution Width 13.8 11.0 - 16.0 % [facility] Platelet Count 215 160 - 400 X10*3/uL [facility] Mean Platelet Volume 12.3 9.4 - 12.3 fL [facility] Neutrophils Percent Auto 78.9(H) 45 - 73 % [facility] Imm Gran Pct Auto 0.7(H) 0.0 - 0.4 % [facility] Lymphocytes Percent Auto 14.7(L) 20 - 40 % [facility] Monocytes Percent Auto 5.0 2 - 11 % [facility] Eosinophils Percent Auto 0.3 0 - 4 % [facility] Basophils Percent Auto 0.4 0 - 2 % [facility] NRBC Pct Auto 0.0 0.0 - 0.2 /100WBC [facility] Neutrophils Absolute Auto 11.8(H) 2.0 - 8.3 x10*3/uL [facility] Imm Gran Abs Auto 0.10(H) 0.00 - 0.03 X10*3/uL [facility] Lymphocytes Absolute Auto 2.2 1.2 - 4.9 X10*3/uL [facility] Monocytes Absolute Auto 0.8 0.1 - 1.2 X10*3/uL [facility] Eosinophils Absolute Auto 0.0 0.0 - 0.4 X10*3/uL [facility] Basophils Absolute Auto 0.1 0.0 - 0.2 X10*3/uL [facility] NRBC Abs Auto 0.000 0.0 - 0.012 X10*3/uL [facility] 12/29/2024 4:50 AM EDT 12/29/2024 4:53 AM EDT us Generic External Data Provider LAB BLOOD ORDERAB LES Final Result [facility] [address] [place] [phone] * COVID-19 ID NOW ([facility]) (12/29/2024 4:49 AM EDT) Pathologist [facility] IDNOW SERIAL# [id number] [facility] COVID-19 TEST Negative Negative [facility] COVID-19 NOTE See Note [facility] Comment: Results are for the identification of SARS-CoV2 RNA. TheSARS-CoV2 RNA is generally detectable in respiratory samplesduring the acute phase of infection. Positive results areindicative of the presence of SARS-CoV-2 RNA; clinicalcorrelation with patient history and other diagnosticinformation is necessary to determine patient infectionstatus. Positive results do not rule out bacterial infectionor co- infection with other viruses.Testing facilities within the [facility] and [facility] are required to report all positive results [...] use by authorized laboratories.Testing performed on the [employer] NOW utilizing NAAT. 12/29/2024 4:49 AM EDT 12/29/2024 4:54 AM EDT us Generic External Data Provider LAB MOLECULAR BILL GNOSTICS ORDERABLES Final Result [facility] [address] [place] [phone] * T-SPOT??.TB (12/10/2024 9:22 AM EDT) Pathologist [facility] T Spot TB Negative Negative [facility] Comment:A negative test resu lt does not exclude the possibilityof exposure to or infection with Mycobacteriumtuberculosis (M. tuberculosis). Patients with recentexposure to TB infected individuals exhibiting anegative T-SPOT.TB result should be considered forretesting within 6 weeks or if other relevant clinicalsymptoms indicate. Results from T-SPOT.TB testing mustbe used in conjunction with each individual'sepidemiological history, current medical status,and results of other diagnostic evaluations.The T-SPOT.TB test is qualitative and results arereported as positive, borderline, or negative, giventhat the test controls perform as expected. In linewith the Centers for Disease Control and Prevention's2010 recommendation to report quantitative measurementsalongside the qualitative result, the laboratoryprovides spot counts for informational purposes only.The T-SPOT.TB test should not be interpreted as aquantitative test. TS PANEL A 0 [facility] TS PANEL B 0 [facility] Negative Control Passed [facility] Positive Control Passed [facility] Comment:For additional infor matkatia, please refer tohttp://education.ArtSetters/faq/SRU004(This link is being provided for informational/educational purposes only.)THIS TEST WAS PERFORMED AT:[employer] [id number] [place] [phone] SOLIS MD,PHD 12/10/2024 9:22 AM EDT 12/10/2024 11:40 AM EDT us [facility] LAB BLOOD ORDERABLES Final Resul t [facility] [address] [place] [phone] * US ABDOMEN MCADAMS W ELASTOGRAPHY (11/05/2024 10:05 AM EDT) Anatomical Region Laterality Modality Abdomen Ultrasound 11/05/2024 10:0 5 AM EDT Narrative 11/05/2024 10:30 AM EDT [address] [address] Ultrasound Report Signed Patient: Farhan Felton MR#: [id number] : 1990 Acct:[id number] Age/Sex: 34 / F ADM Date: 11/05/24 Loc: HO.US Attending Dr: Genoveva Chamorro MD Ordering Physician: Genoveva Chamorro MD Date of Service: 11/05/24 Procedure(s): US abdomen mcadams w elastography Accession Number(s): [id number] cc: Genoveva Chamorro MD; AR OLIVER NP [...] 11/05/24 1027 DD/ 1005 TD/TT: 11/05/24 1016 Networking Technology Instructor: Procedure Note Donotuseinterpreter, Image - 11/05/[address] [address] Ultrasound Report Signed Patient: Farhan Felton#: [id number] : 1990Acct:[id number] Age/Sex: 34 / FADM Date: 11/05/24 Loc: HO.US Attending Dr: Genoveva Chamorro MD Ordering Physician: Genoveva Chamorro MD Date of Service: 11/05/24 Procedure(s): US abdomen mcadams w elastography Accession Number(s): [id number] cc: Genoveva Chamorro MD; AR OLIVER NP [...] Vimal Villegas MD 11/05/2024 10:27 AM EDT RP Dictated By: Vimal Villegas MD Signed By: <Electronically signed by Vimal Villegas MD in OV> 11/05/24 1027 DD/ 1005 TD/TT: 11/05/24 1016 Networking Technology Instructor: us [facility] External Provider IMG US PROCEDURES Final Result * Hepatitis Panel, General (11/20/2023 8:11 AM EDT) Hepatitis A IgM Nonreactive Nonreactive [facility] Comment:IgM antibodies to FLEMING V not detected; does not exclude earlyacute or recovered HAV infection. ~Hepatitis B Surface Antibody REACTIVE Nonreactive [facility] Comment:REACTIVE: > 11.99 mI U/mL Hepatitis B Core Antibody Nonreactive Nonreactive [facility] Hepatitis C Antibody Nonreactive Nonreactive [facility] Comment:Antibodies to HCV no t detected; does not exclude early acuteHCV infection. Hepatitis B Surface Ag Negative Negative [facility] 11/20/2023 8:11 AM EDT 11/20/2023 8:11 AM EDT us Generic External Data Provider LAB BLOOD ORDERAB LES Final Result [facility] [address] [place] [phone] * HIV-1/2 Antigen and Antibodies, Fourth Generation, with Reflexes (07/15/2023 8:29 AM EDT) HIV AB/AG Nonreactive Nonreactive [facility] Comment:HIV-1 p24 Ag and/or HIV-1/HIV-2 Ab not detected.A test result that is nonreactive does not exclude thepossibility of exposure to or infection with HIV-1 and/orHIV-2. Nonreactive results in this assay for individualswith prior exposure to HIV-1 and/or HIV-2 may be due toantigen and antibody levels that are below the limit ofdetection of this assay.The [employer]ana[employer]pert HIV Ag/Ab Combo assay result andsupplemental assay results should be interpreted inconjunction with the patient's clinical presentation,history and other laboratory results. If the results areinconsistent with clinical evidence, additional testing issuggested to confirm the result. Blood Venous blood specimen / Unknown 07/15/2023 8:29 AM EDT 07/15/2023 11:20 AM EDT us Lynda Garibay MD LAB BLOOD ORDERAB LES Final Result Performing Organization Address City/[facility]/ZIP Co de Phone Number [facility] [address], [place] [phone] * Lipid Panel, Standard (07/15/2023 8:29 AM EDT) Triglycerides 68 <150 mg/dL [facility] Comment:Desirable Triglyceri de: less than 150 mg/dLBorderline High Triglyceride 150-199 mg/dLHigh Triglyceride: 200-499 mg/dLVery High Triglyceride: greater than or equal to 5OO mg/dL Cholesterol 170 <200 mg/dL [facility] Comment:Desirable Cholestero l: less than 200 mg/dLBorderline High Cholesterol: 200-239 mg/dLHigh Cholesterol: greater than 239 mg/dL LDL Cholesterol Calculated 98 <100 mg/dL [facility] Comment:Desirable LDL: less than 100 mg/dLNear Optimal/Above Optimal LDL: 110- 129 mg/dLBorderline High LDL: 130-159 mg/dLHigh LDL: 160-189 mg/dLVery High LDL: greater than or equal to 190 mg/dL HDL Cholesterol 59 >40 mg/dL [facility] Comment:Desirable HDL: great er than 40 mg/dL Note: This HDL assay may give artificially low results in patients with liver disease. Blood Venous blood specimen / Unknown 07/15/2023 8:29 AM EDT 07/15/2023 11:20 AM EDT us Lynda Garibay MD LAB BLOOD ORDERAB LES Final Result [facility] [address], [place] [phone] * HPV mRNA E6/E7 w/Reflex to HPV Genotypes 16, 18/45 (04/13/2022) 04/13/2022 Historical Provider LAB CYTOLOGY ORDERABLES F inal Result * Hm Pap Smear (04/13/2022) Pap Negative for intraephithelial lesion or malignancy Negative for intraephithelial lesion or malignancy, Other us Historical Provider HEALTH MAINTENANCE Edited Result - Final from Last 3 Months or Most Recently Relevant to Health Maintenance Insurance [employer] Care Teams Insole Taper Relationship Specialty Start Date End Date Ar Oliver ANP [address] [place] [address] PCP - General Family Medicine 10/31/20 Genoveva Chamorro MD [address] [place] [address] Dr [address] [place], [place] Gastroenterology 02/19/24
[2024-12-29] MEDS: diazePAM 10 MG/2 ML CARTRIDGE 2.5 MG IVPUSH (05:48)
--- NOTE | 2024-12-29 06:26 | ED.ABDPAIN ---
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 Zelda Diaz HPI narrative: 34-year-old female with a history of gastritis presenting with a epigastric abdominal pain, nausea and vomiting ongoing for the last 2 hours or so. States she woke from sleep with the pain in her epigastrium and it radiates to her back. Has vomited multiple times but no longer has anything in her stomach to vomit. Denies associated fever. No reported diarrhea. She states that she ?had some plan teens before bed which she thinks caused her to vomit?. No known sick contacts. Denies urinary complaints, vaginal bleeding or discharge. FDLMP was November 27. Related Data Home Medications ?Medication ?Instructions ?Recorded ?Confirmed ibuprofen 600 mg tablet 600 mg PO Q6H PRN pain 05/19/24 12/18/24 sertraline 50 mg tablet 50 mg PO BEDTIME 12/18/24 12/18/24 Previous Rx's ?Medication ?Instructions ?Recorded vitamin E (dl, acetate) 180 mg 180 mg PO BID #60 caps 09/07/24 (400 unit) capsule aluminum-mag hydroxide-simethicone 5 ml PO 5XD PRN dyspepsia #3,000 mL 09/23/24 200 mg-200 mg-20 mg/5 mL oral susp (Maalox Advanced) famotidine 40 mg tablet 40 mg PO BID #60 tabs 10/28/24 celecoxib 200 mg capsule (Celebrex) 200 mg PO BID 30 days #60 caps 12/18/24 doxylamine 10 mg-pyridoxine (vit 1 tab PO BID vomiting #30 tabs 12/29/24 B6) 10 mg tablet,delayed release (Diclegis) Allergies Allergy/AdvReac Type Severity Reaction Status Date / Time Sulfa (Sulfonamide Allergy Mild EYE Verified 12/29/24 04:42 Antibiotics) (SULFA SWELLING (SULFONAMIDE ANTIBIOTICS)) latex Allergy Rash Verified 12/29/24 04:42 Review of Systems Review of Systems as per HPI, full review of systems performed and negative but for the above mentioned pertinent positives and negatives. [facility] Past Medical History Medical History Chronic abdominal pain Surgical History History of esophagogastroduodenoscopy (EGD) Family History Family History Father Diabetes HTN (hypertension) Heart problem Mother Cancer Diabetes HTN (hypertension) Maternal Grandmother Cancer Social History Social History Household Members: Spouse and Children Are you a primary medicare specialist to a significant other at home: No Do you presently have visiting nurse or other home services: No Alcohol intake: current Alcohol intake frequency: holidays/special occasions only Patient Tobacco Use Status: Never used Tobacco Smoked in Last 30 Days: No Use of substances other than those prescribed or required for medical reasons: No Advance Directives: No Advance Directives Information Provided: Yes Do you have a plan to hurt others: No Plan Current occupational status: employed 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 SKIN: Normal skin color for ethnicity, warm, dry, no rashes noted. HEENT:? Normocephalic, atraumatic, no stridor, dry mucous membranes, dentition intact, EOMI. NECK: Soft, supple, full ROM, midline structures nontender, no step-offs, no deformities, no lymphadenopathy. CHEST: Heart regular rhythm, no murmurs, symmetric chest rise and fall. PULMONARY: Clear to auscultation bilaterally, diminished at the bases, no labored breathing, no wheezes/rhales/rhonchi. ABDOMINAL: Soft, nondistended, nontender, positive bowel sounds in all quadrants. : Deferred. MUSCULOSKELETAL: Normal tone, full range of motion, no deformities, no peripheral edema. NEURO: Alert and oriented x3, CN II through XII intact, equal strength and sensation bilateral upper and lower extremities, no focal neurologic deficits.? PSYCHIATRIC: Flat affect, fluid speech, good eye contact and appropriate demeanor. Vital Signs: Vital Signs - 24 hr 12/29/24 04:39 12/29/24 07:29 Temperature 97.5 F 97.5 F Pulse Rate 88 116 H Respiratory Rate 16 18 Blood Pressure 126/87 107/44 L Pulse Oximetry 99 97 Oxygen Delivery Method Room Air Room Air BMI result Body Mass Index 25.5 Medical Decision Making Medical Decision Making [facility] Narrative: Patient presents today with a chief complaint of vomiting. Differential diagnosis includes surgical emergency such as obstruction or enteritis, as well as hyperglycemia, acidosis, food or drug ingestion, pancreatitis, CVA, allergic reaction such as anaphylaxis, cannabis hyperemesis syndrome or cyclic vomiting syndrome, among many others. Patient is not showing signs of acute dehydration or hemodynamic instability. They are having associated epigastric abdominal pain. Broad-based work-up was initiated based on above history and physical exam. Leukocytosis likely secondary to vomiting and . She has no fever and no other outward signs of infection. Liver enzymes elevated at baseline. Likely secondary to fatty liver disease. Patient was given Haldol and Benadryl upon arrival to emergency department due to excessive retching and severe epigastric abdominal pain. She had an FDLMP in the middle of November. Unfortunately, her test came back positive today just barely positive at 48 and she is likely not even to the point where she has missed a period yet. Patient reports this is a desired and she did not know she was . We had an extensive discussion about what medications are safe in . I encouraged her to use Tylenol for abdominal pain at the lowest dose to improve her symptoms. She also takes famotidine which is safe in . We discussed importance of follow up with an OBGYN to confirm location within the next several weeks. She understands that she is just barely and has had a history of 2nd trimester miscarriage. She is discharged, cautiously optimistic in stable condition. Differential Diagnosis Differential Diagnoses: The differential diagnosis associated with the presentation includes Admission/Observation Consideration of admission/observation: Escalation of care including admission/observation considered Lab Data [facility] Lab Attestation statement: I reviewed the patient's lab results. 12/29/24 04:50 12/29/24 04:50 Labs: Lab Results 12/29/24 12/29/24 12/29/24 Range/Units 04:49 04:50 07:00 WBC 15.0 H (4.8-10.8) X10*3/uL RBC 4.90 (4.20-5.50) X10*6/uL Hgb 13.7 (12.0-16.0) g/dl Hct 41.5 (37.0-47.0) % MCV 84.7 (80.0-98.0) fL MCH 28.0 (27.0-33.0) pg MCHC 33.0 (31.0-35.0) g/dl RDW 13.8 (11.0-16.0) % Plt Count 215 (160-400) X10*3/uL MPV 12.3 (9.4-12.3) fL Immature Gran % (Auto) 0.7 H (0.0-0.4) % Neut % (Auto) 78.9 H (45-73) % Lymph % (Auto) 14.7 L (20-40) % [place] % (Auto) 5.0 (2-11) % Eos % (Auto) 0.3 (0-4) % Baso % (Auto) 0.4 (0-2) % Lymph # (Auto) 2.2 (1.2-4.9) X10*3/uL [place] # (Auto) 0.8 (0.1-1.2) X10*3/uL Eos # (Auto) 0.0 (0.0-0.4) X10*3/uL Baso # (Auto) 0.1 (0.0-0.2) X10*3/uL Abs Immat Gran (auto) 0.10 H (0.00-0.03) X10*3/uL Absolute Neuts (auto) 11.8 H (2.0-8.3) x10*3/uL Absolute Nucleated RBC 0.000 (0.0-0.012) X10*3/uL Nucleated RBC % (auto) 0.0 (0.0-0.2) /100WBC Sodium 139 (135-145) mmol/L Potassium 3.8 (3.3-5.1) mmol/L Chloride 112 H (96-108) mmol/L Carbon Dioxide 18 L (22-29) mmol/L Anion Gap 13 (12-20) BUN 12 (9-16) mg/dL Creatinine 0.66 (0.5-1.4) mg/dL Estim Creat Clear Calc 99.8 Estimated GFR > 60 Random Glucose 174 H (60-115) mg/dL Calcium 9.0 (8.4-10.2) mg/dL Magnesium 1.9 (1.6-2.6) mg/dL Total Bilirubin 0.2 (0.0-1.0) mg/dL AST 61 H (5-31) U/L ALT 92 H (0-31) U/L Alkaline Phosphatase 153 H (39-117) U/L Total Protein 7.0 (6.5-8.0) g/dL Albumin 4.2 (3.5-5.0) g/dL Lipase 44 (8-78) U/L Beta HCG, Quant 48 mIU/mL Urine Color Yellow Urine Appearance Clear Urine pH 7.0 (5.0-9.0) Ur Specific Coin 1.025 (1.005-1.025) Urine Protein Negative (Neg-Trace) mg/dL Urine Glucose (UA) Negative (Negative) mg/dL Urine Ketones Trace (Negative) mg/dL Urine Blood Negative (Negative) Urine Nitrite Negative (Negative) Ur Leukocyte Esterase Trace H (Negative) Urine RBC 0-2 (0-2) /HPF Urine WBC 0-5 (0-5) /HPF Ur Squamous Epith Cells 0-2 (0-2) /HPF Urine Bacteria None Seen (None Seen) Hyaline Casts 0-2 (0-2) /LPF COVID-19 ([facility]) Negative (Negative) COVID-19 Clin Com See Note Influenza Type A (JOE) Negative (Negative) Influenza Type B (JOE) Negative (Negative) Influenza A & B Note See Note External Record Review External record reviewed: Inpatient record Prescription Management I considered prescription management with: Pain Medication and Other (Antiemetics) Chronic Conditions Patient?s care impacted by: Other (Gastritis, chronic abdominal pain) Medications Administered Discontinued Medications Generic Name Dose Route Start Last Admin Trade Name Freq PRN Reason Stop Dose Admin Diazepam 2.5 mg 12/29/24 05:35 12/29/24 05:48 Diazepam 10 Mg/2 Ml Cartridge IVPUSH 12/29/24 05:36 2.5 mg STAT STA Administration Diphenhydramine HCl 25 mg 12/29/24 04:57 12/29/24 05:10 Diphenhydramine Hcl 50 Mg/Ml Vial IVPUSH 12/29/24 04:58 25 mg ONCE ONE Administration Famotidine 20 mg 12/29/24 05:35 12/29/24 05:48 Famotidine/Pf 20 Mg/2 Ml Vial IVPUSH 12/29/24 05:36 20 mg ONCE ONE Administration Haloperidol Lactate 5 mg 12/29/24 04:57 12/29/24 05:10 Haloperidol Lactate 5 Mg/Ml Vial IVPUSH 12/29/24 04:58 5 mg STAT STA Administration Lactated Ringer's 1,000 mls @ 999 mls/hr 12/29/24 04:57 12/29/24 06:50 Lr IV 12/29/24 05:57 Infused .Q1H1M ONE Infusion Discharge Plan Discharge Clinical Impression: Positive blood test, Abdominal pain, acute, epigastric, Nausea & vomiting Patient Disposition: Home, Self-Care Instructions: Hyperemesis Gravidarum (ED) Additional Instructions: Start taking vitamins. You may use the medication likely just which is to medicines combined (vitamin B12 and Unisom) for nausea and vomiting. Follow up with the OBGYN as soon as possible. You may continue taking ranitidine for stomach pain. Return to the emergency department with any new or worsening symptoms including: Worsening abdominal pain especially if it is in your lower abdomen, fevers greater than 100?, difficulty urinating or blood with urination, vaginal bleeding or discharge, any new symptom that concerns you. Call 911 with any medical emergency. Prescriptions: New doxylamine-pyridoxine (vit B6) [Diclegis] 10-10 mg tablet,delayed release (DR/EC) 1 tab PO BID Qty: 30 0RF No Action famotidine 40 mg tablet 40 mg PO BID Qty: 60 2RF ibuprofen 600 mg tablet 600 mg PO Q6H PRN (Reason: pain) alum-mag hydroxide-simeth [Maalox Advanced] 200-200-20 mg/5 mL suspension 5 ml PO 5XD PRN (Reason: dyspepsia) Qty: 3000 0RF Rx Instructions: administer between meals and at bedtime vitamin E (dl, acetate) 180 mg (400 unit) capsule 180 mg PO BID Qty: 60 5RF sertraline 50 mg tablet 50 mg PO BEDTIME celecoxib [Celebrex] 200 mg capsule 200 mg PO BID 30 Days Qty: 60 3RF Print Language: Maori
[2024-12-29 07:16] LABS: Appearance Urine Clear; Glucose Urine UA Negative (Negative); PH 7.0 (5.0-9.0); Specific Gravity - Urine 1.025 (1.005-1.025); UMIC TRIGGER UACC YES
[2024-12-29 07:29] VITALS: BP 136/80; PULSE 69; RESP 18; TEMP 36.5; O2SAT 97
--- NOTE | 2024-12-29 08:07 | PC.NURSE ---
Pt c/o epigastric pain and upper back pain. requested pain medication. no active vomiting at this time.
[2024-12-29 09:16] VITALS: BP 136/80; PULSE 69; RESP 18; TEMP 36.5; O2SAT 97
== END 2024-12-29 09:17 | disposition home or self-care (01) ==
PROVIDERS: Emergency Provider Emergency Medicine; PCP Nurse Practitioner Primary Care
DX: O21.9 Vomiting of pregnancy, unspecified (principal); Z3A.00 Weeks of gestation of pregnancy not specified; R10.13 Epigastric pain; Z03.818 Encounter for observation for suspected exposure to other biological agents ruled out
CPT/HCPCS: 80053; 81001; 83690; 83735; 84702; 85025; 87502; 87635; 96361; 96374; 96375; 99284; 99285; J0131; J1200; J1308; J1630; J3360; J7120

== ENCOUNTER 2025-01-01 09:32 | Outpatient (REF) | payer MEDICAID, SELFPAY ==
--- OUTSIDE RECORDS SUMMARY | 2025-01-01 10:00 | XMS_ITS | Encounter Summary ---
Author Organization [employer] Address [address] [facility] [address] [place] [address] Care Team Providers Care Machine Bookkeeper Name Role Phone Whitney Sotomayor Primary Care Provider [phone] Genoveva Chamorro MD Unavailable [phone] Reason for Visit * Reason Comments Possible Encounter Details Date Type Department Care Team ([facility] st Contact Info) Description 01/01/2025 10:00 AM EDT Office Visit [facility] [place] [address] [place] [address] Early stage of (Primary Dx); Dietary counseling; Exercise counseling; Overweight Social History Tobacco Use Types Packs/Day Years [...] Sign Reading Time Taken Comments Blood Pressure 123/80 01/01/2025 9:50 AM EDT Pulse 80 01/01/2025 9:50 AM EDT Temperature 36.3 C (97.4 F) 01/01/2025 9:50 AM EDT Respiratory Rate 16 01/01/2025 9:50 AM EDT Oxygen Saturation 96% 01/01/2025 9:50 AM EDT Inhaled Oxygen Concentration - - Weight 63.4 kg (139 lb 12.8 oz) 01/01/2025 9:50 AM EDT Height 154.9 cm (5' 1 ) 01/01/2025 9:50 AM EDT Body Mass Index 26.41 01/01/2025 9:50 AM EDT documented in this encounter Plan of Treatment Upcoming Encounters Date Type Department Care Team (Late st Contact Info) Description 02/01/2025 1:15 PM EST Office Visit [facility] [address] [place] [phone] Ginny Bustos MD [address] [place] [phone] 02/10/2025 4:00 PM EST Telemedicine [facility] [address] [place] [phone] Whitney Sotomayor ANP [address] [place] [address] documented as of this encounter Procedures Procedure Name Priority Date/Time Associated Diagnosis Comments POCT , URINE Routine 01/01/2025 10:03 AM EDT Early stage of documented in this encounter Results * (ABNORMAL) POCT , urine manually resulted (01/01/2025 10:03 AM EDT) Preg Test, Ur Positive( A) Negative, Indeterminate, None Detected, Invalid, Specimen unsatisfactory for evaluation, Weakly Positive, 2+ Urine 01/01/2025 10:0 3 AM EDT Jo Ann Delong MD POINT OF CARE TEST ENTER/EDIT ORDERABLES Final Result documented in this encounter Visit Diagnoses Diagnosis Early stage of - Primary state, incidental Dietary counseling Dietary surveillance and counseling Exercise counseling Overweight documented in this encounter Additional Health Concerns Assessment Noted Time PHQ-9 Depression Total Score: 9 07/16/19 24 1:46 PM EDT documented as of this encounter Care Teams Machine Bookkeeper Relationship Specialty Start Date End Date Whitney Sotomayor ANP [address] [place] [address] PCP - General Family Medicine 10/31/20 Genoveva Chamorro MD [address] [place] [address] Dr [address] [place] [address] Gastroenterology 02/19/24 documented as of this encounter
--- OUTSIDE RECORDS SUMMARY | 2025-01-01 10:31 | XMS_ITS | Encounter Summary ---
Author Organization [employer] Address [address] [facility] [address] [place] [address] Care Team Providers Care Cocoa Press Operator Name Role Phone Светлана Whitney BUSCH Primary Care Provider [phone] Genoveva Chamorro MD Unavailable [phone] Encounter Details Date Type Department Care [...] t he electric, gas, oil or water Identiv threatened to shut off services in your [...] Description 02/01/2025 1:15 PM EST Office Visit [address] [phone] Ginny Bustos MD [address] [place], [place] [phone] 02/10/2025 4:00 PM EST Telemedicine [facility] [address] [place] [address] [phone] Whitney Sotomayor ANP [address] [place], [place] [phone] documented as of this encounter Procedures Procedure Name Priority Date/Time Associated Diagnosis Comments URINALYSIS, COMPLETE, WITH REFLEX TO CULTURE Routine 12/29/2024 7:00 AM EDT INFLUENZA A B2 ID NOW (TORRES) Routine 12/29/2024 4:50 AM EDT CBC WITH AUTO DIFFERENTIAL Routine 12/29/2024 4:50 AM EDT COVID-19 ID NOW (TORRES) Routine 12/29/2024 4:49 AM EDT documented in this encounter Results * (ABNORMAL) Urinalysis, Complete, with Reflex to Culture (12/29/2024 7:00 AM EDT) [facility] Urine Yellow [facility] Appearance Urine Clear [facility] PH 7.0 5.0 - 9.0 [facility] Glucose Urine UA Negative Negative mg/dL [facility] Urine Blood Negative Negative [facility] Specific [place] - Urine 1.025 1.005 - 1.025 [facility] Urine Protein Negative Neg-Trace mg/dL [facility] Urine Ketones Trace Negative mg/dL [facility] Nitrite Urine Negative Negative [facility] Leukocyte Esterase Urine Trace(A) Negative [facility] RBC Urine 0-2 0 - 2 /HPF [facility] Urine WBC 0-5 0 - 5 /HPF [facility] Urine Squamous Epithelial Cell 0-2 0 - 2 /HPF [facility] Urine Bacteria None Seen None Seen [facility] Hyaline Casts, Urine 0-2 0 - 2 /LPF [facility] 12/29/2024 7:00 AM EDT 12/29/2024 7:13 AM EDT Narrative [facility] - 12/29/2024 7:23 AM EDT [id number], Clean Catch us Generic External Data Provider LAB URINE ORDERAB LES Final Result [facility] [address] [place] [phone] * Influenza A B2 ID NOW (Torres) (12/29/2024 4:50 AM EDT) IDNOW SERIAL# [id number] [facility] Influenza A Negative Negative [facility] Influenza B2 Negative Negative [facility] Influenza A B2 Note See Note [facility] Comment:The Torres ID NOW [...] LAB MICROBIOLOGY - GENERAL ORDERABLES Final Result [facility] [address] [place] [address] [phone] * (ABNORMAL) CBC auto differential (12/29/2024 4:50 AM EDT) White Blood Count 15.0(H) 4.8 - 10.8 X10*3/uL [facility] Red Blood Count 4.90 4.20 - 5.50 X10*6/uL [facility] Hemoglobin 13.7 12.0 - 16.0 g/dl [facility] Hematocrit 41.5 37.0 - 47.0 % [facility] Mean Corpuscular Volume 84.7 80.0 - 98.0 fL [facility] Mean Corpuscular Hemoglobin 28.0 27.0 - 33.0 pg [facility] Mean Corpuscular HGB Conc 33.0 31.0 - 35.0 g/dl [facility] Red Cell Distribution Width 13.8 11.0 - 16.0 % [facility] Platelet Count 215 160 - 400 X10*3/uL [facility] Mean Platelet Volume 12.3 9.4 - 12.3 fL [facility] Neutrophils Percent Auto 78.9(H) 45 - 73 % [facility] Imm Gran Pct Auto 0.7(H) 0.0 - 0.4 % [facility] Lymphocytes Percent Auto 14.7(L) 20 - 40 % [facility] Monocytes Percent Auto 5.0 2 - 11 % [facility] Eosinophils Percent Auto 0.3 0 - 4 % [facility] Basophils Percent Auto 0.4 0 - 2 % [facility] NRBC Pct Auto 0.0 0.0 - 0.2 /100WBC [facility] Neutrophils Absolute Auto 11.8(H) 2.0 - 8.3 x10*3/uL [facility] Imm Gran Abs Auto 0.10(H) 0.00 - 0.03 X10*3/uL [facility] Lymphocytes Absolute Auto 2.2 1.2 - 4.9 X10*3/uL [facility] Monocytes Absolute Auto 0.8 0.1 - 1.2 X10*3/uL [facility] Eosinophils Absolute Auto 0.0 0.0 - 0.4 X10*3/uL [facility] Basophils Absolute Auto 0.1 0.0 - 0.2 X10*3/uL [facility] NRBC Abs Auto 0.000 0.0 - 0.012 X10*3/uL [facility] 12/29/2024 4:50 AM EDT 12/29/2024 4:53 AM EDT us Generic External Data Provider LAB BLOOD ORDERAB LES Final Result [facility] [address] [place] [phone] * COVID-19 ID NOW (TORRES) (12/29/2024 4:49 AM EDT) IDNOW SERIAL# [id number] [facility] COVID-19 TEST Negative Negative [facility] COVID-19 NOTE See Note [facility] Comment: Results are for the identification of SARS-CoV2 RNA. TheSARS-CoV2 RNA is generally detectable in respiratory samplesduring the acute phase of infection. Positive results areindicative of the presence of SARS-CoV-2 RNA; clinicalcorrelation with patient history and other diagnosticinformation is necessary to determine patient infectionstatus. Positive results do not rule out bacterial infectionor co- infection with other viruses.Testing facilities within the [place] and itsterritories are required to report all positive results [...] use by authorized laboratories.Testing performed on the [employer] NOW utilizing NAAT. 12/29/2024 4:49 AM EDT 12/29/2024 4:54 AM EDT us Generic External Data Provider LAB MOLECULAR BILL GNOSTICS ORDERABLES Final Result [facility] [address] [place] [address] [phone] documented in this encounter Visit Diagnoses Not on filedocumented in this encounter Additional Health Concerns Assessment Noted Time PHQ-9 Depression Total Score: 9 07/16/19 24 1:46 PM EDT documented as of this encounter Care Teams Cocoa Press Operator Relationship Specialty Start Date End Date Whitney Sotomayor ANP [address] [place] [phone] PCP - General Family Medicine 10/31/20 Genoveva Chamorro MD [address] [place] [address] Dr [address] [place] [address] Gastroenterology 02/19/24 documented as of this encounter
--- OUTSIDE RECORDS SUMMARY | 2025-01-01 10:31 | XMS_ITS | Clinical Summary ---
Author Organization [employer] Address [address] [place] [address] 7t [place] [address] Care Team Providers Care Packaging Coordinator Name Role Phone Светлана Ar BUSCH Primary Care Provider [phone] Genoveva Chamorro MD Unavailable [phone] Allergies Active Allergy Reactions Criticality Noted Date Comments Latex 11/16/2022 Sulfa Antibiotics High 02/27/2019 Eye burning/swelling Other reaction(s): Burning Eyes, Eyes Swell swellling of the eyes Medications * This document contains information received from the source organization and may not represent a complete record from that organization. famotidine (Pepcid) 40 MG tablet Take by mouth. Active Spacer/Aero-Ho lding Chambers (OptiChamber Leora) misc 1 each every 4 (four) hours if needed (asthma). 1 each 06/12/19 24 Active acetaminophen (Tylenol) 500 MG tabletIndicati [...] congestion 90 tablet 05/06/19 25 Active fluocinolone ([place]-Smoothe /FS Body) 0.01 % external oilIndications :Seborrheic dermatitis Apply to scalp at bedtime, wear shower cap, wash out in AM. Use 2-3 times per week. 118 mL 1 08/01/19 25 Active FT Sleep Aid, Doxylamine, 25 MG tablet TAKE 1 TABLET BY MOUTH TWICE DAILY NEEDED FOR NAUSEA AND VOMITING. MAY CAUSE DROWSINESS 12/30/19 25 Active pyridoxine (Vitamin B-6) 25 MG tablet Take 1 tablet (25 mg) by mouth 2 times daily. 90 tablet 01/02/20 25 Active ketoconazole (NIZOral) 2 % shampoo 05/18/19 025 Discontinued( erapy completed) cyclobenzaprin e (Flexeril) 5 MG tabletIndicati ons:Pain in joint of left shoulder Take 1 tab as needed up to 3 times in 24 hrs 30 tablet 07/15/19 025 Discontinued( erapy completed) sertraline (Zoloft) 25 MG tabletIndicati ons:Severe episode of recurrent major depressive disorder, without psychotic features (CMS/HCC) (HCC) Take 1 tablet (25 mg) by mouth Once per day. 30 tablet 1 10/28/19 025 Discontinued( erapy completed) ibuprofen 400 MG tabletIndicati ons:Left elbow pain Take 1 tablet (400 mg) by mouth every 6 (six) hours if needed for moderate pain. Take with food 60 tablet 1 10/28/19 025 Discontinued( erapy completed) celecoxib (CeleBREX) 200 MG capsule Take 1 capsule by mouth 2 times daily. 12/19/19 025 Discontinued( erapy completed) Antacid Regular Strength 200-200-20 MG/5ML oral suspension GIVE 10 ML BY MOUTH FIVE TIMES DAILY BETWEEN MEALS AND AT BEDTIME 09/24/19 025 Discontinued( erapy completed) dicyclomine (Bentyl) 20 MG tablet TAKE 1 TABLET BY MOUTH THREE TIMES DAILY NEEDED FOR ABDOMINAL DISCOMFORT 05/19/19 025 Discontinued(Th erapy completed) pyridoxine (Vitamin B-6) 25 MG tablet TAKE 1/2 TABLET BY MOUTH TWICE DAILY NEEDED FOR NAUSEA AND VOMITING 12/30/19 025 Discontinued(Re order (will not trigger notification to Pharmacy)) Active Problems Patient Care Coordination No te Formatting of this note migh t be different from the original. C3/CM Darcy Johnston RN Problem Noted Date Diagnosed Date Abnormal CT scan 01/01/2025 Abnormal MRI of abdomen 01/01/2025 Abnormal ultrasound 01/01/2025 Acute gastroenteritis 01/01/2025 Calculus of kidney 01/01/2025 Carpal tunnel syndrome 01/01/2025 Chronic abdominal pain 01/01/2025 Constipation 01/01/2025 Overview (01/01/2025): Pt reports manages constipation with colace rx. Dysuria 01/01/2025 Early stage of 01/01/2025 Overview (01/01/2025): lmp 01/17/22 growth restriction antepartum 01/01/2025 History of cholestasis during 01/02/20 25 History of gastrointestinal disease 01/01/2025 Overview (01/01/2025): Pt reports she was on Zofran Pump throughout all her in [place]. History of urinary tract infection 01/01/2025 History of varicella 01/01/2025 IUD check up 01/01/2025 Lateral epicondylitis, right elbow 01/01/2025 Patellofemoral arthralgia of both knees 01/02/20 25 Recurrent UTI (urinary tract infection) 01/02/20 25 Suspected anomaly, antepartum 01/01/2025 Varicose veins of both lower extremities MDD (major depressive disorder) 07/31/2024 Assessment & [...] to reach out to [facility] team as needed, Comply with medication , [...] Health Integration Plan Internal Follow up with [facility] Patient Self Plan Patient to utilize skills provided in intervention , Patient to reach out to [facility] team as needed, and Patient to reach [...] 07/07 -pap smear: unsure-pt will check w PHOTONICS ENGINEER at upcoming apt 06/2023 -vaccine COVID 19 [...] Encounters Date Type Department Care Team Description 01/01/2025 10:00 AM EDT Office Visit [facility] [address] [address] Early stage of (Primary Dx); Dietary counseling; Exercise counseling; Overweight 01/01/2025 Travel 12/29/2024 Results Follow-Up [address] [address] Ar Oliver ANP T-SPOT .TB 12/29/2024 Orders Only GENERIC EXTERNAL DATA DEPARTMENT Provider, [facility] External Data 12/09/2024 4:00 PM EDT Telemedicine [address] [address] Ar Oliver ANP Severe episode of recurrent major depressive disorder, without psychotic features (CMS/HCC) (HCC) (Primary Dx) 12/09/[address] [address] Ar Oliver ANP Televisit 12/07/[address] [address] Ar Oliver ANP chart prep 12/02/2024 Travel 11/27/[address] [address] Ar Oliver ANP Lab Orders 11/05/2024 Orders Only [facility] External Provider, [facility] 10/27/2024 11:00 AM EDT Office Visit [address] [place] [address] Ar Oliver ANP Severe episode of recurrent [...] Mass Index 26.41 01/01/2025 9:50 AM EDT Plan of Treatment Upcoming Encounters Date Type Department Care Team (Late st Contact Info) Description 02/01/2025 1:15 PM EST Office Visit [facility] [address] [place] [address] Ginny Bustos MD [address] [place] [address] 02/10/2025 4:00 PM EST Telemedicine [address] [address] Ar Oliver ANP [address] [place] [address] Health Maintenance Due Date Last Done Comments Family Planning (PISQ) 2004 HPV Vaccines (1 - 3-dose series) 2004 COVID-19 Vaccine (2024-2 6 season) 2024 07/22/2020, 07/01/2020 Influenza Vaccine (#1) 2024 01/20/2021 Depression Monitoring 01/31/2025 07/31/2024 , 07/16/2023 Alcohol/Substance Use Screening 07/31/2025 07/31/2024 SDOH Screening 07/31/2025 07/31/2024 Disability Screening 10/26/2025 10/26/2024 Tobacco Screening 01/01/2026 01/01/2025 Cervical Cancer Screening 04/13/2027 HPV/Cotest 04/13/2027 04/13/2022, 07/05/2020, 07/05/2020 Pap Smear 04/13/2027 04/13/2022, 07/05/2020 DTaP/Tdap/Td Vaccines (2 - T d or [...] 01/01/2025 10:03 AM EDT Early stage of URINALYSIS, COMPLETE, WITH REFLEX TO CULTURE Routine 12/29/2024 7:00 AM EDT CBC WITH AUTO DIFFERENTIAL Routine 12/29/2024 4:50 AM EDT INFLUENZA A B2 ID NOW (TORRES) Routine 12/29/2024 4:50 AM EDT COVID-19 ID NOW (Carmole[employer],) Routine 12/29/2024 4:49 AM EDT T-SPOT(R).TB Routine [...] Relevant to Health Maintenance Results * (ABNORMAL) POCT , urine manually resulted (01/01/2025 10:03 AM EDT) Preg Test, Ur Positive( A) Negative, Indeterminate, None Detected, Invalid, Specimen unsatisfactory for evaluation, Weakly Positive, 2+ Urine 01/01/2025 10:0 3 AM EDT Jo Ann Delong MD POINT OF CARE TEST ENTER/EDIT ORDERABLES Final Result * (ABNORMAL) Urinalysis, Complete, with Reflex to Culture (12/29/2024 7:00 AM EDT) Color Urine Yellow [facility] Appearance Urine Clear [facility] PH 7.0 5.0 - 9.0 [facility] Glucose Urine UA Negative Negative mg/dL [facility] Urine Blood Negative Negative [facility] Specific [place] - Urine 1.025 1.005 - 1.025 [facility] Urine Protein Negative Neg-Trace mg/dL [facility] Urine Ketones Trace Negative mg/dL [facility] Nitrite Urine Negative Negative [facility] Leukocyte Esterase Urine Trace(A) Negative [facility] RBC Urine 0-2 0 - 2 /HPF [facility] Urine WBC 0-5 0 - 5 /HPF [facility] Urine Squamous Epithelial Cell 0-2 0 - 2 /HPF [facility] Urine Bacteria None Seen None Seen [facility] Hyaline Casts, Urine 0-2 0 - 2 /LPF [facility] 12/29/2024 7:00 AM EDT 12/29/2024 7:13 AM EDT Narrative [facility] - 12/29/2024 7:23 AM EDT [id number], Clean Catch us Generic External Data Provider LAB URINE ORDERAB LES Final Result [facility] [address] [place] [address] [phone] * Influenza A B2 ID NOW ([employer]) (12/29/2024 4:50 AM EDT) IDNOW SERIAL# [id number] [facility] Influenza A Negative Negative [facility] [...] ORDERABLES Final Result [facility] [address] [place] [address] [phone] * (ABNORMAL) CBC auto differential (12/29/2024 [...] Final Result [facility] [address] [place] [address] [phone] * COVID-19 ID NOW ([employer],) (12/29/2024 4:49 AM EDT) IDNOW SERIAL# [id number] [facility] COVID-19 TEST Negative Negative [facility] COVID-19 NOTE See Note [facility] Comment: Results are for the identification of SARS-CoV2 RNA. TheSARS-CoV2 RNA is generally detectable in respiratory samplesduring the acute phase of infection. Positive results areindicative of the presence of SARS-CoV-2 RNA; clinicalcorrelation with patient history and other diagnosticinformation is necessary to determine patient infectionstatus. Positive results do not rule out bacterial infectionor co- infection with other viruses.Testing facilities within the [facility] and itsterritories are required to report all [...] use by authorized laboratories.Testing performed on the [employer] NOW utilizing NAAT. 12/29/2024 4:49 AM EDT 12/29/2024 4:54 AM EDT us Generic External Data Provider LAB MOLECULAR BILL GNOSTICS ORDERABLES Final Result [facility] [address] [place] [address] [phone] * T-SPOT??.TB (12/10/2024 9:22 AM EDT) [facility] T Spot TB Negative Negative [facility] Negative Control Passed [facility] Positive Control Passed [facility] Comment:For additional infor piyush, please refer tohttp://education.Entasso/faq/GRU831(This link is being provided for informational/educational purposes only.)THIS TEST WAS PERFORMED AT:[id number] [place] [address]IRKVYKZMAGGIE SOLIS MD,PHD 12/10/2024 9:22 AM EDT 12/10/2024 11:40 AM EDT us Ar Oliver ANP LAB BLOOD ORDERABLES Final Resul t [facility] [address] [place] [phone] [phone] * US ABDOMEN MCADAMS W ELASTOGRAPHY (11/05/2024 10:05 AM EDT) Anatomical Region Laterality Modality Abdomen Ultrasound 11/05/2024 10:0 5 AM EDT Narrative 11/05/2024 10:30 AM EDT [address] [address] Ultrasound Report Signed Patient: Farhan Felton MR#: [id number] : 1990 Acct:[id number] Age/Sex: 34 / F ADM Date: 11/05/24 Loc: HO.US Attending Dr: Genoveva Chamorro MD Ordering Physician: Genoveva Chamorro MD Date of Service: 11/05/24 Procedure(s): US abdomen mcadams w elastography Accession Number(s): [id number] cc: Genoveva Chamorro MD; AR OLIVER NP [...] 11/05/24 1027 DD/ 1005 TD/TT: 11/05/24 1016 Dental Appliance Repairer: Procedure Note Donotuseinterpreter, Image - 11/05/2024 [place] [address] Ultrasound Report Signed Patient: Farhan Felton#: [id number] : 1990Acct:[id number] Age/Sex: 34 / FADM Date: 11/05/24 Loc: HO. Attending Dr: Genoveva Chamorro MD Ordering Physician: Genoveva Chamorro MD Date of Service: 11/05/24 Procedure(s): US abdomen mcadams w elastography Accession Number(s): [id number] cc: Genoveva Chamorro MD; AR OLIVER NP [...] of Radiologists in Ultrasound Liver Stiffness Thresholds (2019): LIVER STIFFNESS THRESHOLDS: *Shear wave velocity less [...] 11/05/24 1027 DD/ 1005 TD/TT: 11/05/24 1016 Dental Appliance Repairer: [facility] External Provider IMG US PROCEDURES Final [...] Final Result [facility] [address] [place] [address] [phone] * HIV-1/2 Antigen and Antibodies, Fourth [...] below the limit ofdetection of this assay.The [employer] HIV Ag/Ab Combo assay result andsupplemental assay results should be interpreted inconjunction with the patient's clinical presentation,history and other laboratory results. If the results areinconsistent with clinical evidence, additional testing issuggested to confirm the result. Blood Venous blood specimen / Unknown 07/15/2023 8:29 AM EDT 07/15/2023 11:20 AM EDT Lynda Garibay MD LAB BLOOD ORDERAB LES Final Result [facility] [address] [place] [phone] * HPV mRNA E6/E7 w/Reflex to HPV Genotypes 16, 18/45 (04/13/2022) 04/13/2022 Historical Chilo ZARAGOZA LAB CYTOLOGY ORDERABLES F inal Result * Hm Pap Smear (04/13/2022) Pap Negative for intraephithelial lesion or malignancy Negative for intraephithelial lesion or malignancy, Other Historical Provider HEALTH MAINTENANCE Edited Result - Final from Last 3 Months or Most Recently Relevant to Health Maintenance Insurance [facility] C3 Care Teams Packaging Coordinator Relationship Specialty Start Date End Date Ar Oliver ANP [address] [place] [address] PCP - General Family Medicine 10/31/20 Genoveva Chamorro MD [address] [place] [address] Dr [address]rd Floor [place], [place] Gastroenterology 02/19/24
--- OUTSIDE RECORDS SUMMARY | 2025-01-01 10:32 | XMS_ITS | Data Portability ---
Author Organization [facility], [address] Address [address] [place] [address] Assessment No assessment recorded. Plan of Treatment Reminders Order Date Submit Date Provider Last Modified By Organization Details Last Modified Time Details Appointments None recorded. Lab rapid flu (A+B) 2021 _[facility], [address] [place] [address], [phone], 12:35:37 rapid strep group A, throat 2021 [email or web address] _[facility], [address] [place] [address], [phone], 12:35:37 Referral None recorded. Procedures None recorded. Surgeries None recorded. Imaging None recorded. Medication Orders cetirizine 10 mg tablet 2021 [facility] [place], [address], 12:35:46 Lidocaine Viscous 2 % mucosal solution 2021 [email or web address] Not available 13:24:25 Patient TargetsNo targets recorded. Patient Instructions Encounter Date Encounter Id Patient Instructions Last Modified By Organization Details Last Modified Time 02/17/2022 [id number] laryngitis: care instructions [email or web address] Not available 02/17/2022 12:35:37 You have been diagnosed with an Upper Respiratory Infection. Rapid Strep and Flu test were negative. It is important to drink plenty of fluids and rest while you are ill. Hot Tea with Honey is good to help with a sore throat. Some OTC medications that are helpful with your current symptoms would include. 1. Tylenol 2. Saline Nasal [place] Try an avoid other people and wash [...] 4. Shortness of Breath or Chest Pain. [email or web address] Not available 02/17/2022 12:28:31 Reason for Referral None Reported. Results Created Date Observation Date Name Description Value Unit Range Abnormal Flag Note LastModifiedBy Organization Detail LastModifiedTime 02/18/20 22 02/17/2022 rapid strep group A, throa t Unknown Analyte negati ve Not Available [email or web address], [address], 02/17/2022 12:21:20 02/18/20 22 02/17/2022 rapid strep group A, throa t Unknown Analyte Normal = Negati ve Not Available [address] [place] [address], [address], 02/17/2022 12:21:20 02/18/20 22 02/17/2022 rapid flu (A+B) Unknown Analyte negati ve Not Available [address] [place] [address], [address], 02/17/2022 11:48:36 02/18/20 22 02/17/2022 rapid flu (A+B) Unknown Analyte negati ve Not Available [address] [place], [place] [address] [place], [address], 02/17/2022 11:48:36 02/18/2002/17/2022 rapid flu (A+B) Unknown Analyte Normal = Negati ve Not Available [address] [place], [address], 02/17/2022 11:48:36 Result Notes None recorded. Problems No Known Problems Medical Equipment None Reported. Allergies Allergen ID Allergen Name Allergen Category Reaction Reaction Severity Criticality Documentation Date Start Date Code Code System Note Provider Name and Address Organization Details Recorded Time 19901 Substance with sulfonami de structure and antibacte rial mechanism of action (substanc e) medicatio n eye swelling mild low 02/17/2022 87153 8003 SNOMED TAWANNA hernandez [facility] - [facility] [...] Updated DateTime 2 154.94 cm 25.5 kg/m2 73736.9 7 g 98 [degF] 18 /min 74 [...] ICD10 Code Diagnosis IMO Codes Diagnosis Note [id number] [address] [place] [address] 09/14/2020 10:07:16 09/14/2020 10:54:35 [id number] [facility] [address] [facility] [address] [place] [address] 02/17/2022 09:46:25 02/17/2022 12:36:27 Acute pharyngitis 312068398 J02.9 Upper resp iratory infection 20910654 J06.9 Health Concerns Section Related Observation LastModified by Organization Detai ls LastModified Time None Recorded Concern Status LastModified by Organization Details LastModified Time None Recorded Advance Directives Directive None Recorded Payers Insurance Date Sequence Insurance Name Policy Number Policy Cabrera Covered Member ID Cabrera Member ID Guarantor Name 02/17/2022 1 [place] [facility] Farhan Chase [id number] Farhan Chase Notes Date Note Type Note [...] Pharmacy. [facility]RE[facility] CARR [address] [place], [address], [place] - [facility] 02/17/2022 12:39:05 OBGyn Episode No OBEpisode recorded.
--- OUTSIDE RECORDS SUMMARY | 2025-01-01 10:32 | XMS_ITS | Encounter Summary ---
Author Organization [employer] Address [address] [place] [address] Care Team Providers Care Metal Weather Stripper Name Role Phone Whitney Sotomayor Primary Care Provider [phone] Genoveva Chamorro MD Unavailable [phone] Encounter Details Date Type Department Care Team ([facility] st Contact Info) Description 12/29/2024 Results Follow-Up [facility] [address] [place] [address] Whitney Sotomayor ANP [address] [place] [address] T-SPOT .TB Social History Tobacco Use Types Packs/Day Years [...] Description 02/01/2025 1:15 PM EST Office Visit [address] [address] Ginny Bustos MD [address] [place] [address] 02/10/2025 4:00 PM EST Telemedicine [address] [address] Whitney Sotomayor ANP [address] [place] [address] documented as of this encounter Visit Diagnoses Not on filedocumented in this encounter Additional Health Concerns Assessment Noted Time PHQ-9 Depression Total Score: 9 07/16/19 24 1:46 PM EDT documented as of this encounter Care Teams Metal Weather Stripper Relationship Specialty Start Date End Date Whitney Sotomayor ANP [address] [place] [address] PCP - General Family Medicine 10/31/20 Genoveva Chamorro MD [address] [place] [address] Dr [address] [place] [address] Gastroenterology 02/19/24 documented as of this encounter
--- OUTSIDE RECORDS SUMMARY | 2025-01-01 10:32 | XMS_ITS | Encounter Summary ---
Author Organization [employer] [facility] Address [address] [place] [address] 7 [place] [address] Care Team Providers Care Programming Development Project Manager Name Role Phone Светлана Whitney BUSCH Primary Care Provider [phone] Genoveva Chamorro MD Unavailable [phone] Encounter Details Date Type Department Care Team (Late st Contact Info) Description 11/30/2022 Orders Only [facility] [address] [place] [address] [phone] Carlos Woo MD Social History Tobacco Use [...] Description 02/01/2025 1:15 PM EST Office Visit [facility] [address] [place] [address] [phone] Ginny Bustos MD [address] [place] [phone] 02/10/2025 4:00 PM EST Telemedicine [facility] [address] [facility] [place] [address] Whitney Sotomayor ANP [address] [place] [address] documented as of this encounter Procedures Procedure [...] documented as of this encounter Care Teams Programming Development Project Manager Relationship Specialty Start Date End Date Whitney Sotomayor ANP [address] [place] [address] PCP - General Family Medicine 10/31/20 Genoveva Chamorro MD [address] [place] [address] Dr [address] [place] [address] Gastroenterology 02/19/24 documented as of this encounter
--- OUTSIDE RECORDS SUMMARY | 2025-01-01 10:32 | XMS_ITS | Encounter Summary ---
Author Organization [employer] Address [address] [facility] [address]t [place] [address] Care Team Providers Care Strapper And Buffer Name Role Phone Светлана Whitney BUSCH Primary Care Provider [phone] Genoveva Chamorro MD Unavailable [phone] Encounter Details Date Type Department Care Team (Latest Contact Info) Description 01/01/2025 Travel Social History Tobacco Use Types Packs/Day [...] your housing situation today? I have chao gilda 07/31/[address] you li [...] t he electric, gas, oil or water [employer] threatened to shut off services in your [...] Office Visit [facility] [address] [place] [address] Ginny Bustos MD [address] [place] [address] 02/10/2025 4:00 PM EST Telemedicine [address] [address] Whitney Sotomayor ANP [address] [place] [address] documented as of this encounter Visit Diagnoses Not on filedocumented in this encounter Additional Health Concerns Assessment Noted Time PHQ-9 Depression Total Score: 9 07/16/19 24 1:46 PM EDT documented as of this encounter Care Teams Strapper And Buffer Relationship Specialty Start Date End Date Whitney Sotomayor ANP [address] [place] [address] PCP - General Family Medicine 10/31/20 Genoveva Chamorro MD [address] [place] [address] Dr [address] [place] [address] Gastroenterology 02/19/24 documented as of this encounter
[2025-01-01 11:26] LABS: MANUAL DIFF FLAG NO
[2025-01-01 11:40] LABS: Hematocrit 41.2 % (37.0-47.0); Hemoglobin 13.4 g/dl (12.0-16.0); Imm Gran Abs Auto 0.05 X10*3/uL (0.00-0.03); Imm Gran Pct Auto 0.4 % (0.0-0.4); Lymphocytes Absolute Auto 1.5 X10*3/uL (1.2-4.9); Mean Corpuscular HGB Conc 32.5 g/dl (31.0-35.0); Mean Corpuscular Hemoglobin 27.5 pg (27.0-33.0); Mean Corpuscular Volume 84.4 fL (80.0-98.0); NRBC Abs Auto 0.000 X10*3/uL (0.0-0.012); NRBC Pct Auto 0.0 /100WBC (0.0-0.2); Platelet Count 208 X10*3/uL (160-400); Red Blood Count 4.88 X10*6/uL (4.20-5.50); White Blood Count 11.3 X10*3/uL (4.8-10.8)
[2025-01-01 12:14] LABS: Alanine Aminotransferase 166 U/L (0-31); Albumin Level 4.1 g/dL (3.5-5.0); Alkaline Phosphatase 143 U/L (39-117); Anion Gap 10 (12-20); Aspartate Amino Transferase 74 U/L (5-31); Blood Urea Nitrogen 11 mg/dL (9-16); Calcium 8.8 mg/dL (8.4-10.2); Carbon Dioxide 24 mmol/L (22-29); Chloride 111 mmol/L (96-108); Estimated Glomerular Filt Rate > 60; Potassium 3.6 mmol/L (3.3-5.1); Sodium 141 mmol/L (135-145); Total Protein 6.8 g/dL (6.5-8.0)
[2025-01-06 21:24] LABS: Transglutaminase Ab IgG <1.0 U/mL
[2025-01-08 20:48] LABS: FIB-ALT 129 U/L (6-29); FIB-Alpha-2-Macroglobulin 223 mg/dL (106-279); FIB-Apolipoprotein A1 154 mg/dL (101-198); FIB-GGT 309 U/L (3-50); FIB-Haptoglobin 257 mg/dL (43-212); FIB-Total Bilirubin 0.7 mg/dL (0.2-1.2); Liver Fibrosis Score 0.28; Liver Fibrosis Stage F1; Nec Inflam Act Grade A3; Nec Inflam Act Score 0.66
== END 2025-01-01 09:33 | disposition home or self-care (01) ==
LOC: HO.HHCL 09:32
PROVIDERS: PCP Nurse Practitioner Primary Care; Visit Provider Internal Medicine Gastroenterology
DX: K75.81 Nonalcoholic steatohepatitis (NASH) (principal); G89.29 Other chronic pain; R10.33 Periumbilical pain; R79.89 Other specified abnormal findings of blood chemistry
CPT/HCPCS: 36415; 80053; 81596; 85025; 86364

== ENCOUNTER 2025-02-03 07:44 | Outpatient (RCR) | payer MEDICAID, SELFPAY ==
--- NOTE | 2024-12-30 08:59 | MHC.OT.EP ---
[facility] Office [address] [phone] F: [phone] F: [phone] Occupational Therapy Plan of Care Patient Name: Farhan Reina Date of Evaluation: 12/30/24 Diagnosis: Left Lateral Epicondylitis Pain Location: 3/10 resting pain left lateral elbow 8/10 pain w/ use and force radiates down forearm and up into shoulder Pain Score: 8 Pain Scale Used: Numeric (0 - 10) Aggravating Factors: Lifting, gripping, forceful use Alleviating Factors: Not taking pain meds (recently ) Has CFB (lost one from before), does not like current one (feels too scratchy) Assessment: 34 yo female with history of right lateral epicondylitis in 2021 (completed course of OT w/ good results) and left lateral epicondylitis in September 2024 (also seen in OT w/ good results). She now returns w/ reoccurrence of pain in left lateral elbow. She reports she has had decreased carry over with home program and still difficulty w/ work task and home tasks, specifically forceful and repetitive use of arm as well as sleeping. Final Block Press Operator strength is good (60lb B/L'ly) and sensation WNL w/ [employer] (2.83), but pain increased w/ extended reconsignment clerk. We will continue brief course of OT to review and reinstate home program as well and activity modification and joint protection education. We will encourage CFB wear and fabricate nighttime wrist orthosis to impve sleep positioning and elbow/wrist strain. Frequency and Duration: The patient will be seen 1x/wk for 4 weeks Short Term Goals: Ind w/ heat/cold modalities for comfrot Ind w/ nighttime orthosis trial Ind w/ HEP Detention Goals: Good follow through w/ joint protection and activity modification Ind w/ progression of strengthening Treatment Plan: Therapeutic Exercise Therapeutic Activity Home Exercise Program Splinting Patient Education ADL Training MHP Cold Packs Soft Tissue Mobilization Kinesiotaping Custom nighttime orthosis Electronically Signed By: Robyn Andrade OTR/L CHT Please Sign and return to therapist. Thank you once again for your referral.
--- NOTE | 2025-02-03 08:31 | MHC.OT.DC ---
[facility] Office [address] [phone] F: [phone] F: [phone] Occupational Therapy Discharge Note Patient Name: Farhan Reina Provider: Bob Gabriel PA-C Diagnosis: Left Lateral Epicondylitis Date of Evaluation: 12/30/24 Date of Discharge: 02/03/25 Treatments to Date: 5 Discharge Status: Achieved Goals Improved Function Independent with HEP Discharge Summary: Farhan was referred to OT w/ left lateral epicondylitis. She has completed course of therapy in September of this year for same diagnosis and did well, but returned to persistent left elbow pain. We have completed second course of therapy with concentration on body mechanics, joint protection, home exercises and self management of symptoms. She is currently low pain overall has good participation in daily activities. We have fabricated nighttime wrist orthosis which she has not yet tried, but I anticipate she will do well if continues to follow home program. No further outpatient services needed at this time. Electronically Signed By: MILENA Hawkins/Lui CHT Please Sign and return to therapist, thank you for your referral.
== END 2025-02-03 08:31 | disposition home or self-care (01) ==
LOC: HO.OT 07:44
PROVIDERS: PCP Nurse Practitioner Primary Care; Visit Provider Physician Assistant
DX: M77.12 Lateral epicondylitis, left elbow (principal)
CPT/HCPCS: 29125; 97110; 97140; 97165; 97760